=== PATIENT | female | born 1950 | race Caucasian/White ===

== ENCOUNTER → 2017-10-05 | Outpatient (CLI) | payer MEDICARE, OTHER, SELFPAY | PROVIDERS: Visit Provider Nurse Practitioner Family | DX: N39.0 Urinary tract infection, site not specified (principal) | CPT/HCPCS: 87086; 87088; 87186 ==

== ENCOUNTER → 2017-11-29 10:07 | Outpatient (CLI) | payer MEDICARE, OTHER, SELFPAY ==
[2017-11-29 10:13] LABS: Adenovirus F 40/41, stool Not Detected (NotDetected); Astrovirus Not Detected (NotDetected); Campylobacter Not Detected (NotDetected); Clostridium Difficile A/B, PCR Not Detected (NotDetected); Cryptosporidium Not Detected (NotDetected); Cyclospora Cayetanesis Not Detected (NotDetected); Entamoeba histolytica Not Detected (NotDetected); Enteroaggregative E coli Not Detected (NotDetected); Enteropathogenic E coli Not Detected (NotDetected); Enterotoxigenic E coli Not Detected (NotDetected); Giardia lamblia Not Detected (NotDetected); Norovirus Not Detected (NotDetected); Plesimonas Shigalloides, PCR Not Detected (NotDetected); Rotavirus A Not Detected (NotDetected); Salmonella, PCR Not Detected (NotDetected); Sapovirus Not Detected (NotDetected); Shiga-like toxin E coli Not Detected (NotDetected); Shigella Enterovasive E coli Not Detected (NotDetected); Vibrio Cholerae Not Detected (NotDetected); Vibrio, PCR Not Detected (NotDetected); Yersinia Entercolitica, PCR Not Detected (NotDetected)
== END ==
PROVIDERS: PCP Nurse Practitioner Family; Visit Provider Nurse Practitioner Family
DX: R10.9 Unspecified abdominal pain (principal)
CPT/HCPCS: 87507

== ENCOUNTER → 2018-02-22 11:02 | Outpatient (CLI) | payer MEDICARE, OTHER, SELFPAY ==
--- NOTE | 2018-02-22 11:18 | XR_ITS ---
EXAM: XR lumbar spine 2-3V HISTORY: Low back pain ITS.REASON: DISC DISPLACEMENT ORDERING PHYSICIAN: Peri Valentin PATIENT AGE: 67 years FINDINGS: Mild endplate osteophytes are present in the lower thoracic spine and in the lumbar spine. Mild degenerative disc disease is present from L3 to S1. There is 3 mm anterolisthesis of L3. Facet hypertrophic changes are present at L5-S1. There is a sclerotic focus in the right aspect of the sacrum superiorly at 11 mm and may be due to a bone island. Small rounded opacities are present in the upper abdomen anteriorly and may be due to overlying medication/pills. IMPRESSION: Mild lumbar spondylosis with small osteophytes and degenerative disc disease and facet arthritic change as described above
== END ==
PROVIDERS: PCP Nurse Practitioner Family; Visit Provider Nurse Practitioner Family
DX: M51.26 Other intervertebral disc displacement, lumbar region (principal); M51.27 Other intervertebral disc displacement, lumbosacral region
CPT/HCPCS: 72100

== ENCOUNTER → 2019-01-10 13:45 | Outpatient (CLI) | payer MEDICARE, OTHER, SELFPAY ==
--- NOTE | 2019-01-10 13:49 | US_ITS ---
US transvaginal HISTORY: Pelvic pain ITS.REASON: LOW ABD PAIN ORDERING PHYSICIAN: Peri Valentin PATIENT AGE: 68 years Comparison: None FINDINGS: The uterus is anteverted and measures 3.5 x 2 x 2.7 cm with a combined endometrial thickness of 2 mm. The left ovary measures 1.3 x 1 cm and has an unremarkable appearance. The right ovary was not able to be visualized due to overlying bowel. No free fluid evident. IMPRESSION: Nonvisualization of the right ovary otherwise negative pelvic ultrasound
== END ==
PROVIDERS: PCP Nurse Practitioner Family; Visit Provider Nurse Practitioner Family
DX: R10.30 Lower abdominal pain, unspecified (principal)
CPT/HCPCS: 76830

== ENCOUNTER → 2019-03-12 15:11 | Outpatient (CLI) | payer MEDICARE, OTHER, SELFPAY | PROVIDERS: Visit Provider Emergency Medicine Emergency Medical Services | DX: R07.9 Chest pain, unspecified (principal) | CPT/HCPCS: 71046; 80048; 84484; 85025; 87205; 93005 ==

== ENCOUNTER 2020-06-01 15:01 | Emergency (ER) | payer MEDICARE, OTHER, SELFPAY ==
[2020-06-01 15:21] VITALS: BP 186/92; PULSE 86; RESP 14; TEMP 36.9; O2SAT 97; BMI 26.1
--- NOTE | 2020-06-01 15:40 | HMH.EDUTC ---
[facility] [place] Disposition Clinical Impression: Sinusitis Qualifiers: Sinusitis location: unspecified location Chronicity: unspecified Qualified Code(s): J32.9 - Chronic sinusitis, unspecified Disposition: Home, Self-Care Condition on Discharge: Good Instructions: Sinusitis, Sinus Headache, DI for Sinusitis, Amoxicillin and Clavulanic Acid Additional Instructions: *Monitor Temp, Over the counter Motrin or Tylenol as directed/as needed Tylenol every 4 hours and Motrin every 6 hours (as long as your family doctor has told you that you can take it) for fever or pain. and straight to ER if unable to lower temp less than 101.0 after medication given *Warm salt water gargles may help to soothe the throat *Throat Lozenges *Warm fluids like tea with honey may help to soothe the throat *Sleep elevated *Humidifier/Vaporizer *Flonase 2 sprays in each nostril daily but be aware that it may take 2-3 days before you notice improvement Take antibiotics as prescribed Follow up with Family doctor if no improvement or any worsening of symptoms Follow up IMMEDIATELY for new or worsening symptoms or no Noticeable improvement over the next 48-72 hours. 911 for difficulty breathing or swallowing Prescriptions: Amoxicillin/Potassium Clav [Augmentin 875-125 Tablet] 1 tab PO Q12H 10 Days #20 tab Transmission Status: Received by [facility] Fluticasone Propionate [Flonase 50mcg nasal spray 16gm] 1 - 2 spr NS DAILY #1 bottle Transmission Status: Received by [facility] Referrals: Bronson Rizo MD [Primary Care Provider] - As needed Time of Disposition: 15:55 Medical Decision Making - Mandeep Inquiry Pt receiving controlled substance: No Mandeep was queried for this patient: No Vital Signs: 06/01/20 15:21 Temperature 98.5 F Temperature Source Oral Pulse Rate [Right Brachial] 86 Respiratory Rate 14 Blood Pressure [Right Arm] 186/92 H Blood Pressure Mean [Right Arm] 123 Blood Pressure Source [Right Arm] Automatic Cuff Blood Pressure Position [Right Arm] Sitting 02 Sat by Pulse Oximetry 97 Oxygen Delivery Method Room Air [facility] [place] HPI - General Stated complaint: Congestion, stuffy nose Time Seen by Provider: 06/01/20 15:40 Mode of Arrival: Ambulatory Source of Information: Patient Limitations: No Limitations Description of Symptoms (Recalled from Triage Doc. by RN): PATIENT C/O SINUS PROBLEMS AND STATES HER EARS FEEL FULL HEENT Symptoms (Recalled from RN notes): Yes Resp Symptoms (Recalled from RN notes): No Skin Symptoms (Recalled from RN notes): No MS Symptoms (Recalled from RN notes): No Functional Status (Recalled from RN notes): WNL - History of Present Illness Provider Complaint: Patient states that she thinks she may have a sinus infection, State that for last 3 weeks she has been having sinus pain and pressure States that she got a steriod shot about 3 weeks ago and it helped a little but now it is worse States that she is having sinus pressure and drainage along with irritation in her throat States that she feels like it is draining in her throat and causing her throat to hurt States that also she feels like her ears are full - Related Data Home Medications Medication Instructions Recorded Confirmed Levothyroxine Sodium [Synthroid 100 mcg PO DAILY 01/20/19 06/01/20 100mcg (0.1mg) tablet] Metformin HCl [Fortamet] 1,000 mg PO BID 01/20/19 06/01/20 Pravastatin Sodium [Pravachol 40mg 40 mg PO DAILY 01/20/19 06/01/20 Tablet] lisinopriL [Prinivil 5mg Tablet] 5 mg PO DAILY 01/20/19 06/01/20 raNITIdine HCl [Zantac 150mg] 150 mg PO DAILY 01/20/19 06/01/20 Previous Rx's Medication Instructions Recorded Amoxicillin/Potassium Clav 1 tab PO Q12H 10 Days #20 tab 06/01/20 [Augmentin 875-125 Tablet] Fluticasone Propionate [Flonase 1 - 2 spr NS DAILY #1 bottle 06/01/20 50mcg nasal spray 16gm] Allergies Allergy/AdvReac Type Severity Reaction Status Date / Time codeine Allergy Unknown Verified 0
[2020-06-01 15:59] VITALS: BP 186/92; PULSE 86; RESP 14; TEMP 36.9; O2SAT 97
== END 2020-06-01 16:06 | disposition home or self-care (01) ==
PROVIDERS: Emergency Provider Nurse Practitioner; PCP Internal Medicine Adolescent Medicine
DX: J01.90 Acute sinusitis, unspecified (principal); E11.9 Type 2 diabetes mellitus without complications; I10 Essential (primary) hypertension; E78.5 Hyperlipidemia, unspecified; Z79.899 Other long term (current) drug therapy; Z88.2 Allergy status to sulfonamides; Z88.5 Allergy status to narcotic agent
CPT/HCPCS: 99201

== ENCOUNTER → 2020-07-09 09:42 | Outpatient (CLI) | payer MEDICARE, OTHER, SELFPAY ==
--- NOTE | 2020-07-09 09:50 | CA_ITS ---
APPROVED REPORT EXAM: Comprehensive 2D, Doppler, and color-flow Echocardiogram Meter Maintenance Person: Tisha Kuo, RT(R) Ht: 5 ft 8 in Wt: 175lbs BSA: 1.93 BP: 186/93 mmHg Indications: murmur, HTN, hyperlipidemia, possible bicuspid AV on echo 2009, dizziness 2D Dimensions LVOT 1.95 cm (M/F) 1.5-2.5 M-Mode Dimensions RVDd 2.84 cm (0.9-2.6) LVDd 5.38 cm (3.5-5.7) LVDs 3.87 cm (3.5-5.7) IVSd 1.18 cm (0.6-1.1) PWd 1.10 cm (0.6-1.1) EF (Teich) 53.80% FS 28.10% EDV (Teich) 140.10 mL ESV (Teich) 64.70 mL LV Diastology E/A Ratio 0.65 Mitral Valve MV A Velocity 83.00 (40-130 cm/s) Left Ventricle Left atrium is mildly enlarged, left ventricle is normal size, mild concentric left ventricular hypertrophy, visually estimated ejection fraction 55% with no regional wall motion abnormality, grade 1 diastolic dysfunction seen without tissue Doppler evidence of raise left atrial pressure. Right Ventricle Right atrium and right ventricle are normal size and contractility. Aortic Valve Aortic valve is minimally thickened and fibrosed, aortic valve is trileaflet, there is no aortic stenosis or aortic insufficiency. Mitral Valve Mitral valve is grossly normal, there is mild mitral regurgitation. Tricuspid Valve Tricuspid valve grossly normal, there is mild tricuspid regurgitation, tricuspid regurgitation jet velocity is inadequate for calculation of the right ventricular systolic pressure. Pulmonic Valve Pulmonic valve is poorly visualized. Great Vessels Aortic root is normal size. Pericardium No significant pericardial effusion noted. Conclusion 1. Mildly enlarged left atrium, normal left ventricular size, mild concentric left ventricular hypertrophy, visually estimated ejection fraction 55% with no regional wall motion abnormality, grade 1 diastolic dysfunction seen without tissue Doppler evidence of raise left atrial pressure. 2. Thickened and calcified aortic valve without aortic stenosis or aortic insufficiency, aortic valve is trileaflet. 3. Mild mitral and tricuspid regurgitation. 4. No significant pericardial effusion noted. Electronically signed by : Duane Tijerina, 07/09/2020 13:57:03
--- NOTE | 2020-07-09 09:51 | CA_ITS ---
APPROVED REPORT Music Composition Teacher: ELI Laterality: Bilateral Risk Factors Hypertension: Hyperlipidemia Doppler Spectral Velocity Analysis ECA (R) 102.10/17.30 cm/s ECA (L) 125.20/21.20 cm/s dICA (R) 92.50/30.80 cm/s dICA (L) 113.70/33.70 cm/s Vinay (R) 96.30/31.80 cm/s Vinay (L) 101.00/32.90 cm/s pICA (R) 99.20/31.80 cm/s pICA (L) 83.80/26.20 cm/s dCCA (R) 70.00/18.60 cm/s dCCA (L) 71.90/23.80 cm/s pCCA (R) 90.50/19.90 cm/s pCCA (L) 80.30/19.30 cm/s Vert (R) 41.10/12.20 cm/s Vert (L) 61.60/22.20 cm/s ICA/CCA 1.42 ICA/CCA 1.58 Findings Duplex evaluation demonstrates stenosis of the right proximal internal carotid artery in the range of 20-49% with PSV <140 cm/sec, EDV <100 cm/sec, and IC/CC Ratio <4.0. Duplex evaluation demonstrates stenosis of the left proximal internal carotid artery in the range of 20-49% with PSV <140 cm/sec, EDV <100 cm/sec, and IC/CC Ratio <4.0. Conclusion Duplex evaluation demonstrates stenosis of the right proximal internal carotid artery in the range of 20-49% with PSV <140 cm/sec, EDV <100 cm/sec, and IC/CC Ratio <4.0. Duplex evaluation demonstrates stenosis of the left proximal internal carotid artery in the range of 20-49% with PSV <140 cm/sec, EDV <100 cm/sec, and IC/CC Ratio <4.0. Electronically signed by : Ramon Angel MD 07/09/2020 17:34:54
== END ==
PROVIDERS: PCP Internal Medicine Adolescent Medicine; Visit Provider Nurse Practitioner Family
DX: R42 Dizziness and giddiness (principal); R07.89 Other chest pain
CPT/HCPCS: 93225; 93226; 93306; 93880

== ENCOUNTER → 2021-03-15 09:06 | Outpatient (CLI) | payer MEDICARE, OTHER, SELFPAY ==
[2021-03-15 14:32] LABS: Basophils % 0.5 % (0.1-2.0); Eosinophils # 0.3 K/mm3 (0.0-0.4); Eosinophils % 3.3 % (0.1-12.0); Hematocrit 37.7 % (37.0-47.0); Hemoglobin 12.4 g/dL (12.2-16.2); Lymphocytes # 2.4 K/mm3 (0.7-4.5); Lymphocytes % 27.5 % (10-50); Mean Corpuscular HGB Conc 32.8 g/dL (31.8-35.4); Mean Corpuscular Hemoglobin 31.3 pg (27.0-31.2); Mean Corpuscular Volume 95.4 fl (81-99); Mean Platelet Volume 9.4 fl (7.4-10.4); Monocytes # 0.5 K/mm3 (0.1-1.0); Monocytes % 5.5 % (1.7-9.3); Neutrophils # 5.4 K/mm3 (1.8-7.8); Neutrophils % 63.2 % (37.0-80.0); Platelet Count 271 K/mm3 (142-424); Red Blood Count 3.96 M/mm3 (4.20-5.40); Red Cell Distribution Width 13.9 % (11.5-17.5); White Blood Count 8.6 K/mm3 (4.8-10.8)
[2021-03-15 14:50] LABS: Alanine Aminotransferase 13 U/L (12-78); Albumin Level 4.1 g/dl (3.5-5.0); Albumin/Globulin Ratio 1.5 (1.1-1.8); Alkaline Phosphatase 76 U/L (38-126); Anion Gap 11.1 mEq/L (5-15); Aspartate Amino Transferase 20 U/L (14-36); Bilirubin,Total 0.5 mg/dl (0.2-1.3); Blood Urea Nitrogen 29 mg/dl (7-17); Calcium 9.3 mg/dl (8.4-10.2); Carbon Dioxide 26 mmol/L (22.0-30.0); Chloride 107 mmol/L (98-107); Cholesterol 166 mg/dl (140-200); Estimated Glomerular Filt Rate 55 ml/min (>60); GFR (African American) 67 ML/MIN (>60); Globulin 2.7 g/dL (1.3-3.2); Glucose 184 mg/dl (74-100); HDL Cholesterol 33 mg/dl (40-60); Potassium 5.1 mmoL/L (3.5-5.1); Sodium 139 mmol/L (136-145); Total Protein,Serum 6.8 g/dl (6.3-8.2); Triglycerides 187 mg/dl (30-150); VLDL Cholesterol 37 mg/dL (0-40)
[2021-03-15 15:02] LABS: Direct LDL Cholesterol 88.44 mg/dL (100-129)
[2021-03-15 15:21] LABS: Thyroid Stimulating Hormone 0.94 uIU/mL (0.465-4.68)
[2021-03-15 16:35] LABS: Hemoglobin A1C 8.1 % (4.0-6.0)
[2021-03-15 16:36] LABS: Vitamin B12 246 pg/mL (239-931)
== END ==
PROVIDERS: Visit Provider Nurse Practitioner Family
DX: E03.9 Hypothyroidism, unspecified (principal); I10 Essential (primary) hypertension; E53.8 Deficiency of other specified B group vitamins; E11.69 Type 2 diabetes mellitus with other specified complication; Z79.84 Long term (current) use of oral hypoglycemic drugs
CPT/HCPCS: 36415; 80053; 80061; 82607; 83036; 84443; 85025

== ENCOUNTER → 2021-04-20 16:58 | Outpatient (CLI) | payer MEDICARE, OTHER, SELFPAY | PROVIDERS: Visit Provider Nurse Practitioner Family | DX: R30.0 Dysuria (principal) | CPT/HCPCS: 87086; 87088; 87186 ==

== ENCOUNTER 2021-06-07 13:46 | Emergency (ER) | payer MEDICARE, OTHER, SELFPAY ==
--- NOTE | 2021-06-07 15:31 | XR_ITS ---
PROCEDURE: XR KNEE RT 3V CLINICAL INDICATION: fall, knee pain COMPARISON: No exams were available for comparison FINDINGS: No fracture or dislocation. No lytic or blastic change. There is normal mineralization. There are minimal osteoarthritic changes involving all 3 compartments. Other findings:None. IMPRESSION: No acute findings. Dictated by: Ramon Angel MD 06/07/2021 16:22 Ramon Angel MD in [place] 06/07/2021 16:22
--- NOTE | 2021-06-07 15:31 | XR_ITS ---
PROCEDURE: XR HIP RT 2-3V W/PELVIS CLINICAL INDICATION: fall, hip pain COMPARISON: No exams were available for comparison FINDINGS: No fracture or dislocation is evident. No significant degenerative change. No lytic or blastic change. Unremarkable soft tissues. IMPRESSION: No acute findings. Dictated by: Ramon Angel MD 06/07/2021 16:23 Ramon Angel MD in [place] 06/07/2021 16:23
--- NOTE | 2021-06-07 15:31 | XR_ITS ---
PROCEDURE: XR HAND RT MIN 3V CLINICAL INDICATION: fall, hand pain COMPARISON: No exams were available for comparison FINDINGS: There is an oblique fracture involving the base of the proximal phalanx of the 2nd finger. This extends into the articular surface. There is 2 mm ulnar displacement of the distal fracture fragment. The joint spaces are well-preserved. No significant degenerative/arthritic changes. No erosive changes evident. Other findings:None. IMPRESSION: Minimally displaced fracture involves the proximal aspect the proximal phalanx of the 2nd digit with intra-articular involvement Dictated by: Ramon Angel MD 06/07/2021 16:20 Ramon Angel MD in [place] 06/07/2021 16:20
--- NOTE | 2021-06-07 15:31 | XR_ITS ---
PROCEDURE: XR WRIST RT MIN 3V CLINICAL INDICATION: fall, wrist pain COMPARISON: No exams were available for comparison FINDINGS: No fracture or dislocation. No lytic or blastic change. There is normal mineralization. The joint spaces are well-preserved. No significant degenerative/arthritic changes. No erosive changes evident. Other findings:None. IMPRESSION: No acute findings. Dictated by: Ramon Angel MD 06/07/2021 16:21 Ramon Angel MD in [place] 06/07/2021 16:21
[2021-06-07 15:34] VITALS: BP 214/91; PULSE 64; RESP 14; TEMP 36.7; O2SAT 97; BMI 25.8
--- NOTE | 2021-06-07 15:34 | HMH.EDUTC ---
[facility] [place] Clinical Impression: Superficial abrasion Right hand fracture Qualifiers: Encounter type: initial encounter Fracture type: closed Qualified Code(s): S62.91XA - Unspecified fracture of right wrist and hand, initial encounter for closed fracture Fall Qualifiers: Encounter type: initial encounter Qualified Code(s): W19.XXXA - Unspecified fall, initial encounter Contusion of right knee Qualifiers: Encounter type: initial encounter Qualified Code(s): S80.01XA - Contusion of right knee, initial encounter Contusion of right hip Qualifiers: Encounter type: initial encounter Qualified Code(s): S70.01XA - Contusion of right hip, initial encounter Disposition: Home, Self-Care Condition on Discharge: Good Instructions: DI for Contusion, DI for Abrasion, Hand Fracture Additional Instructions: Rest the extremity, apply ice for 15 minutes as tolerated three or four times per day, Elevate the extremity as tolerated while you are resting. Take ibuprofen for pain. I sent in a prescription to your pharmacy. Follow up with Dr. Archuleta (orthopedics). I called him and put in a referral but you need to call his office and schedule an appointment. Please call in the morning to get an appointment when they can see you next. Follow up with your regular doctor. GO TO THE ER FOR ANY WORSENING SYMPTOMS Her blood pressure was rechecked by me before discharge and it was 168/88. She is to follow up with her primary care doctor for further evaluation of this. Prescriptions: Ibuprofen [Ibuprofen 600mg Tablet] 600 mg PO Q6HP PRN #30 tab PRN Reason: Mild Pain Transmission Status: Received by [facility] Mupirocin [Bactroban 2% Ointment 22gm tube] 1 applicatio TP TID 7 Days #1 tube Transmission Status: Received by [facility] Referrals: Shayy Hagan APRN [Primary Care Provider] - Bob Archuleta MD [Staff Physician] - Forms: Work/School Release Time of Disposition: 17:22 Medical Decision Making - Medical Records Medical records reviewed: No: I reviewed the patient's medical records. - Mandeep Inquiry Pt receiving controlled substance: No Vital Signs: 06/07/21 15:34 06/07/21 17:24 Temperature 98.1 F 98.5 F Temperature Source Oral Pulse Rate 73 Pulse Rate [Left] 64 Respiratory Rate 14 18 Blood Pressure 207/92 H Blood Pressure [Right Arm] 214/91 H Blood Pressure Mean [Right Arm] 132 02 Sat by Pulse Oximetry 97 - Radiology Data #1 Image(s): Hand Image Reviewed: Yes I reviewed the patient's radiology image, Yes I have reviewed radiologist's interpretation Preliminary Findings: Abnormal PROCEDURE: XR HAND RT MIN 3V CLINICAL INDICATION: fall, hand pain COMPARISON: No exams were available for comparison FINDINGS: There is an oblique fracture involving the base of the proximal phalanx of the 2nd finger. This extends into the articular surface. There is 2 mm ulnar displacement of the distal fracture fragment. The joint spaces are well-preserved. No significant degenerative/arthritic changes. No erosive changes evident. Other findings:None. IMPRESSION: Minimally displaced fracture involves the proximal aspect the proximal phalanx of the 2nd digit with intra-articular involvement Dictated by: Ramon Angel MD 06/07/2021 16:20 Ramon Angel MD in [place] 06/07/2021 16:20 [facility] [place] - General Stated complaint: ao fall 06/06 rt hand injury Time Seen by Provider: 06/07/21 15:34 - History of Present Illness Provider Complaint: She states that she fell yesterday and came down on her right side. She denies hitting her head or any neck pain. She is having right hand and wrist pain, right hip pain, and right knee pain. She has an abrasion on her right knee. She is a diabetic. - Related Data Home Medications Medication Instructions Recorded Confirmed Levothyroxine Sodium [Synthroid 100 mcg PO DAILY 01/20/19 06/01/20 100mcg (0.1mg) tablet]
[2021-06-07 17:24] VITALS: BP 207/92; PULSE 73; RESP 18; TEMP 36.9
== END 2021-06-07 17:34 | disposition home or self-care (01) ==
PROVIDERS: Emergency Provider Nurse Practitioner Family; PCP Nurse Practitioner Family
DX: S62.610A Displaced fracture of proximal phalanx of right index finger, initial encounter for closed fracture (principal); W01.0XXA Fall on same level from slipping, tripping and stumbling without subsequent striking against object, initial encounter; S80.01XA Contusion of right knee, initial encounter; S70.01XA Contusion of right hip, initial encounter; Y92.480 Sidewalk as the place of occurrence of the external cause; E11.9 Type 2 diabetes mellitus without complications; E78.5 Hyperlipidemia, unspecified; I10 Essential (primary) hypertension; Z79.899 Other long term (current) drug therapy
CPT/HCPCS: 29125; G0463; 73110; 73130; 73502; 73562; 99203

== ENCOUNTER → 2021-06-21 10:11 | Outpatient (CLI) | payer MEDICARE, OTHER, SELFPAY ==
--- NOTE | 2021-06-21 10:18 | XR_ITS ---
PROCEDURE: XR HAND RT MIN 3V CLINICAL INDICATION: RIGHT 2ND mc FX COMPARISON: CR XR HAND RT MIN 3V from 06/07/2021 FINDINGS: Oblique fracture is present at the base and ulnar aspect of the proximal phalanx of the 2nd digit. The medial fracture fragment is displaced slightly medially by 2 mm. The fracture does extend into the articular surface at the metacarpophalangeal joint. IMPRESSION: No change minimally displaced fracture at the proximal aspect of the proximal phalanx of the 2nd finger Dictated by: Ramon Angel MD 06/21/2021 11:44 Ramon Angel MD in [place] 06/21/2021 11:44
== END ==
PROVIDERS: PCP Nurse Practitioner Family; Visit Provider Orthopaedic Surgery
DX: S62.619A Displaced fracture of proximal phalanx of unspecified finger, initial encounter for closed fracture (principal)
CPT/HCPCS: 73130

== ENCOUNTER → 2021-07-12 10:09 | Outpatient (CLI) | payer MEDICARE, OTHER, SELFPAY ==
--- NOTE | 2021-07-12 10:16 | XR_ITS ---
PROCEDURE: XR HAND RT MIN 3V CLINICAL INDICATION: RT 2nd digit fx, out of splint COMPARISON: CR XR HAND RT MIN 3V from 06/07/2021 CR XR HAND RT MIN 3V from 06/21/2021 FINDINGS: Comminuted fracture the proximal aspect of the proximal 2nd phalanx once again noted. The fracture extends into the articular surface with minimal ulnar displacement of the medial fracture fragment by approximately 2 mm. There may be some minimal callus formation medially. IMPRESSION: Overall no change in the minimally displaced intra-articular fracture of the proximal 2nd phalanx with some suspected minimal callus formation forming medially. Dictated by: Ramon Angel MD 07/12/2021 11:50 Ramon Angel MD in [place] 07/12/2021 11:50
== END ==
PROVIDERS: PCP Nurse Practitioner Family; Visit Provider Orthopaedic Surgery
DX: S62.610A Displaced fracture of proximal phalanx of right index finger, initial encounter for closed fracture (principal)
CPT/HCPCS: 73130

== ENCOUNTER → 2021-07-15 11:21 | Outpatient (CLI) | payer MEDICARE, OTHER, SELFPAY ==
[2021-07-15 13:28] LABS: Basophils # 0.1 K/mm3 (0-0.2); Basophils % 0.9 % (0.1-2.0); Eosinophils # 0.3 K/mm3 (0.0-0.4); Eosinophils % 3.3 % (0.1-12.0); Hematocrit 41.6 % (37.0-47.0); Lymphocytes # 2.1 K/mm3 (0.7-4.5); Mean Corpuscular HGB Conc 31.3 g/dL (31.8-35.4); Mean Corpuscular Hemoglobin 31.9 pg (27.0-31.2); Mean Corpuscular Volume 101.8 fl (81-99); Mean Platelet Volume 9.7 fl (7.4-10.4); Monocytes # 0.4 K/mm3 (0.1-1.0); Monocytes % 5.3 % (1.7-9.3); Neutrophils # 4.6 K/mm3 (1.8-7.8); Neutrophils % 62.5 % (37.0-80.0); Platelet Count 301 K/mm3 (142-424); Red Blood Count 4.08 M/mm3 (4.20-5.40); Red Cell Distribution Width 13.7 % (11.5-17.5); White Blood Count 7.4 K/mm3 (4.8-10.8)
[2021-07-15 14:17] LABS: Alanine Aminotransferase 13 U/L (12-78); Albumin/Globulin Ratio 1.3 (1.1-1.8); Alkaline Phosphatase 71 U/L (38-126); Aspartate Amino Transferase 21 U/L (14-36); Bilirubin,Total 0.5 mg/dl (0.2-1.3); Blood Urea Nitrogen 29 mg/dl (7-17); Calcium 9.3 mg/dl (8.4-10.2); Carbon Dioxide 26 mmol/L (22.0-30.0); Chloride 105 mmol/L (98-107); Estimated Glomerular Filt Rate 83 ml/min (>60); GFR (African American) 100 ML/MIN (>60); Glucose 306 mg/dl (74-100); Phosphorous 3.4 mg/dl (2.5-4.5); Sodium 140 mmol/L (136-145)
[2021-07-15 14:19] LABS: Hemoglobin A1C 8.6 % (4.0-6.0)
[2021-07-15 14:33] LABS: 25-OH Vitamin D, Total 30.5 ng/mL (30-100)
[2021-07-15 14:35] LABS: Magnesium 0.9 mg/dl (1.6-2.3)
[2021-07-15 14:46] LABS: Thyroid Stimulating Hormone 1.06 uIU/mL (0.465-4.68)
[2021-07-15 15:04] LABS: Vitamin B12 492 pg/mL (239-931)
== END ==
PROVIDERS: Visit Provider Nurse Practitioner Family
DX: R00.2 Palpitations (principal); E03.9 Hypothyroidism, unspecified; E11.69 Type 2 diabetes mellitus with other specified complication; R53.83 Other fatigue; Z79.84 Long term (current) use of oral hypoglycemic drugs
CPT/HCPCS: 36415; 80053; 82306; 82607; 83036; 83735; 84100; 84443; 85025

== ENCOUNTER → 2021-07-22 18:12 | Outpatient (CLI) | payer MEDICARE, OTHER, SELFPAY ==
[2021-07-22 19:17] LABS: Blood Urea Nitrogen 23 mg/dl (7-17); Calcium 9.5 mg/dl (8.4-10.2); Carbon Dioxide 30 mmol/L (22.0-30.0); Chloride 104 mmol/L (98-107); Estimated Glomerular Filt Rate 71 ml/min (>60); GFR (African American) 86 ML/MIN (>60); Glucose 182 mg/dl (74-100); Magnesium 1.1 mg/dl (1.6-2.3); Sodium 139 mmol/L (136-145)
== END ==
PROVIDERS: Visit Provider Nurse Practitioner Family
DX: E83.42 Hypomagnesemia (principal)
CPT/HCPCS: 80048; 83735

== ENCOUNTER 2021-08-02 10:00 | Outpatient (RCR) | payer MEDICARE, OTHER, SELFPAY ==
--- NOTE | 2021-07-05 11:18 | HMH.OTOPEV ---
OT Inpatient Evaluation Rehab OT Outpatient Eval Start: 07/05/21 10:57 Freq: Status: Active Protocol: Document 07/05/21 10:57 MONSTER (Rec: 07/05/21 11:18 MONSTER [id number]) Electronically Signed By Gissel Nick OT 07/05/21 10:57 Outpatient Therapy Subjective History Subjective History 71 year old female referred to skilled OP OT services for displaced fracture at the proximal aspect of the proximal phalanx of the 2nd finger of the right hand. Patient injured right hand after fall in the streets in [place] on 06/06/2021 when attempting to complete errands for work. 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 1+ pitty edema noted to the R UE hand index digit. Chief Complaint Pain,Decreased Production Maintenance Mechanic Strength Symptom Type Ache,Dull Symptoms Relieved By Rest/Positioning,Ice Symptoms Aggravated By Physical Activity Prior Functional Limitations None Current Functional Limitations Reaching,Lifting Symptom Description Constant and Continuous Level of pain today (0-10) 2 Pain scale - at its best (0-10) 2 Pain scale - at its worst (0-10) 3 Wrist/Hand Eval Wrist Range of Motion Right Wrist Extension Active Range of Motion ( 60 degrees) Wrist Flexion Active Range of Motion ( 80 degrees) Wrist Radial Deviation Active Range of 20 Motion (degrees) Wrist Ulnar Deviation Active Range of 30 Motion (degrees) Forearm Supination Active Range of 90 Motion (degrees) Forearm Pronation Active Range of Motion 90 (degrees) Finger Range of Motion Right Index Finger Finger Metacarpophalangeal Flexion 70 Active Range of Motion (degrees) Finger Proximal Interphalangeal Flexion 90 Active Range (degrees) Finger Distal Interphalangeal Flexion 60 Active Range of Motion (degrees) Production Maintenance Mechanic/Pinch Strength Right Production Maintenance Mechanic Strength Measurement (lbs) 20 Left Production Maintenance Mechanic Strength Measurement (lbs) 60 OT Outpatient Assessment Impairments Problems/Impairments Impaired Range of Motion, Impaired Strength,Subjective C /O Pain Prognosis Rehab Potential Good Clinical Impression Consistent with Diagnosis Yes Short Term Goals Number of Weeks 2 Increase Range of Motion
== END 2021-08-16 09:35 | disposition home or self-care (01) ==
LOC: OT 10:00
PROVIDERS: PCP Nurse Practitioner Family; Visit Provider Orthopaedic Surgery
DX: S62.610A Displaced fracture of proximal phalanx of right index finger, initial encounter for closed fracture (principal); W19.XXXA Unspecified fall, initial encounter
CPT/HCPCS: 97014; 97018; 97035; 97110; 97140; 97165; 97530; G0283

== ENCOUNTER → 2021-08-05 17:47 | Outpatient (CLI) | payer MEDICARE, OTHER, SELFPAY ==
[2021-08-05 18:43] LABS: Chloride 103 mmol/L (98-107); Sodium 138 mmol/L (136-145)
[2021-08-05 18:44] LABS: Potassium 5.6 mmoL/L (3.5-5.1)
[2021-08-05 18:47] LABS: Anion Gap 13.6 mEq/L (5-15); Blood Urea Nitrogen 25 mg/dl (7-17); Calcium 9.5 mg/dl (8.4-10.2); Carbon Dioxide 27 mmol/L (22.0-30.0); Estimated Glomerular Filt Rate 71 ml/min (>60); GFR (African American) 86 ML/MIN (>60); Glucose 302 mg/dl (74-100); Magnesium 1.1 mg/dl (1.6-2.3)
== END ==
PROVIDERS: Visit Provider Nurse Practitioner Family
DX: E83.42 Hypomagnesemia (principal)
CPT/HCPCS: 80048; 83735

== ENCOUNTER → 2021-08-12 11:39 | Outpatient (CLI) | payer MEDICARE, OTHER, SELFPAY ==
[2021-08-12 12:38] LABS: Chloride 101 mmol/L (98-107); Potassium 5.4 mmoL/L (3.5-5.1); Sodium 139 mmol/L (136-145)
[2021-08-12 12:41] LABS: Anion Gap 14.4 mEq/L (5-15); Blood Urea Nitrogen 25 mg/dl (7-17); Calcium 9.6 mg/dl (8.4-10.2); Carbon Dioxide 29 mmol/L (22.0-30.0); Estimated Glomerular Filt Rate 83 ml/min (>60); GFR (African American) 100 ML/MIN (>60); Glucose 237 mg/dl (74-100)
== END ==
PROVIDERS: Visit Provider Internal Medicine Adolescent Medicine
DX: E87.5 Hyperkalemia (principal)
CPT/HCPCS: 36415; 80048

== ENCOUNTER → 2021-08-26 18:28 | Outpatient (CLI) | payer MEDICARE, OTHER, SELFPAY ==
[2021-08-26 20:07] LABS: Blood Urea Nitrogen 22 mg/dl (7-17); Calcium 9.2 mg/dl (8.4-10.2); Carbon Dioxide 29 mmol/L (22.0-30.0); Chloride 106 mmol/L (98-107); Estimated Glomerular Filt Rate 83 ml/min (>60); GFR (African American) 100 ML/MIN (>60); Glucose 183 mg/dl (74-100); Magnesium 1.3 mg/dl (1.6-2.3); Sodium 140 mmol/L (136-145)
== END ==
PROVIDERS: Visit Provider Nurse Practitioner Family
DX: I10 Essential (primary) hypertension (principal); E83.42 Hypomagnesemia
CPT/HCPCS: 80048; 83735

== ENCOUNTER → 2021-09-30 09:39 | Outpatient (CLI) | payer MEDICARE, OTHER, SELFPAY ==
[2021-09-30 15:27] LABS: Anion Gap 12.1 mEq/L (5-15); Blood Urea Nitrogen 29 mg/dl (7-17); Carbon Dioxide 30 mmol/L (22.0-30.0); Chloride 100 mmol/L (98-107); Estimated Glomerular Filt Rate 62 ml/min (>60); GFR (African American) 75 ML/MIN (>60); Glucose 217 mg/dl (74-100); Magnesium 1.3 mg/dl (1.6-2.3); Potassium 5.1 mmoL/L (3.5-5.1); Sodium 137 mmol/L (136-145)
== END ==
PROVIDERS: Visit Provider Nurse Practitioner Family
DX: E83.42 Hypomagnesemia (principal)
CPT/HCPCS: 36415; 80048; 83735

== ENCOUNTER 2021-12-09 10:39 | Outpatient (CLI) | payer MEDICARE, SELFPAY ==
[2021-12-09 11:30] VITALS: BMI 26.9
[2021-12-09 11:38] LABS: Microscopic, Urine URINE MICROSCOPIC (MICROSCOPIC)
[2021-12-09 11:40] LABS: Appearance,Urine CLEAR (Clear); Bilirubin,Urine Negative (Negative); Blood, Urine Negative (Negative); Color,Urine YELLOW (Yellow); Glucose,Urine (UA) TRACE (Negative); Ketones,Urine Negative (Negative); Leukocyte Esterase,Urine Negative (Negative); Nitrate,Urine Negative (Negative); Protein,Urine Negative (Negative); Specific Gravity, Urine 1.025 (1.005-1.030); Urobilinogen,Urine 0.2 EU/dl (0.2)
[2021-12-09 11:52] LABS: Squamous Epithelial Cell,Urine Occasional #/hpf (0-5)
== END 2021-12-09 11:35 | disposition home or self-care (01) ==
LOC: INF 10:41
PROVIDERS: PCP Nurse Practitioner Family; Visit Provider Nurse Practitioner Family
DX: R33.9 Retention of urine, unspecified (principal)
CPT/HCPCS: 81001; 87086; G0463

== ENCOUNTER → 2022-04-19 17:56 | Outpatient (CLI) | payer MEDICARE, SELFPAY ==
[2022-04-19 18:29] LABS: Basophils # 0.1 K/mm3 (0-0.2); Basophils % 0.6 % (0.1-2.0); Eosinophils # 0.4 K/mm3 (0.0-0.4); Eosinophils % 3.8 % (0.1-12.0); Hematocrit 37.7 % (37.0-47.0); Hemoglobin 12.6 g/dL (12.2-16.2); Lymphocytes # 3.4 K/mm3 (0.7-4.5); Lymphocytes % 35.3 % (10-50); Mean Corpuscular HGB Conc 33.5 g/dL (31.8-35.4); Mean Corpuscular Volume 92.7 fl (81-99); Mean Platelet Volume 8.2 fl (7.4-10.4); Monocytes # 0.6 K/mm3 (0.1-1.0); Monocytes % 6.1 % (1.7-9.3); Neutrophils # 5.2 K/mm3 (1.8-7.8); Neutrophils % 54.1 % (37.0-80.0); Platelet Count 258 K/mm3 (142-424); Red Blood Count 4.06 M/mm3 (4.20-5.40); Red Cell Distribution Width 13.5 % (11.5-17.5); White Blood Count 9.7 K/mm3 (4.8-10.8)
[2022-04-19 18:30] LABS: Alanine Aminotransferase 16 U/L (12-78); Albumin Level 4.3 g/dl (3.5-5.0); Albumin/Globulin Ratio 1.5 (1.1-1.8); Alkaline Phosphatase 77 U/L (38-126); Anion Gap 14.9 mEq/L (5-15); Aspartate Amino Transferase 24 U/L (14-36); Blood Urea Nitrogen 42 mg/dl (7-17); Calcium 9.9 mg/dl (8.4-10.2); Carbon Dioxide 25 mmol/L (22.0-30.0); Chloride 108 mmol/L (98-107); Estimated Glomerular Filt Rate 34 ml/min (>60); GFR (African American) 41 ML/MIN (>60); Globulin 2.8 g/dL (1.3-3.2); Glucose 111 mg/dl (74-100); Potassium 4.9 mmoL/L (3.5-5.1); Sodium 143 mmol/L (136-145); Total Protein,Serum 7.1 g/dl (6.3-8.2)
[2022-04-19 18:38] LABS: Bilirubin,Total < 0.1 mg/dl (0.2-1.3)
[2022-04-19 18:46] LABS: Troponin I < 0.01 ng/ml (0.00-0.034)
[2022-04-19 19:01] LABS: Thyroid Stimulating Hormone 0.47 uIU/mL (0.465-4.68)
[2022-04-19 19:37] LABS: Hemoglobin A1C 7.6 % (4.0-6.0)
== END ==
LOC: LAB 17:58 → LAB.DROPOF 04-26 03:20
PROVIDERS: PCP Family Medicine; Visit Provider Family Medicine
DX: I10 Essential (primary) hypertension (principal); E11.9 Type 2 diabetes mellitus without complications; R55 Syncope and collapse; R53.83 Other fatigue; Z79.84 Long term (current) use of oral hypoglycemic drugs
CPT/HCPCS: 80053; 83036; 84443; 84484; 85025

== ENCOUNTER → 2022-04-20 08:34 | Outpatient (CLI) | payer MEDICARE, SELFPAY | PROVIDERS: PCP Family Medicine; Visit Provider Family Medicine | DX: I10 Essential (primary) hypertension (principal) ==

== ENCOUNTER → 2022-06-09 13:08 | Outpatient (POV) | payer MEDICARE, SELFPAY | PROVIDERS: Visit Provider Internal Medicine Nephrology | DX: Z00.00 Encounter for general adult medical examination without abnormal findings (principal) ==

== ENCOUNTER → 2022-08-03 08:35 | Outpatient (CLI) | payer MEDICARE, SELFPAY ==
--- NOTE | 2022-08-03 08:51 | CA_ITS ---
FINAL REPORT TECHNIQUE: Grayscale, color Doppler and duplex Doppler ultrasound of the kidneys, aorta and renal arteries was performed. Multiple velocities were measured. CLINICAL HISTORY: HTN,ELEVATED KIDNEY FUNCTION LABSM DM FINDINGS: Aorta velocity: 93.5 cm/sec Right kidney: 11.1 cm. No evidence of hydronephrosis or mass. Right intrarenal RI: 0.72 Right renal artery velocity: 250 cm/sec. Right RAR (Renal artery-Aortic Ratio): 2.7 Left Kidney: 10.4 cm. No evidence of hydronephrosis or mass. Left intrarenal RI: 0.73 Left renal artery velocity: 168 cm/sec. Left RAR (Renal Artery-Aortic Ratio): 1.8 IMPRESSION: No evidence of significant left renal artery stenosis. Less than 60% right renal artery stenosis. Could be further evaluated with CTA or catheter angiogram. Reviewed, Interpreted and Dictated by Shahab Greer III, MD Transcribed by Ely Monteiro Authenticated and [facility]
[2022-08-03 09:41] LABS: Microscopic, Urine URINE MICROSCOPIC (MICROSCOPIC)
--- NOTE | 2022-08-03 09:58 | US_ITS ---
FINAL REPORT TECHNIQUE: Ultrasound images of the kidneys were obtained. CLINICAL HISTORY: HTN FINDINGS: US RETROPERITONEAL The right kidney measures 10.4 cm in length. It is normal in echogenicity. There is no hydronephrosis. The left kidney measures 9.7 cm in length. It is normal in echogenicity. There is no hydronephrosis. The spleen is unremarkable. IMPRESSION: Unremarkable exam. Reviewed, Interpreted and Dictated by Shahab Greer III, MD Transcribed by Ely Monteiro Authenticated and [facility]
[2022-08-03 10:05] LABS: Hematocrit 41.9 % (37.0-47.0); Hemoglobin 13.2 g/dL (12.2-16.2); Mean Corpuscular HGB Conc 31.5 g/dL (31.8-35.4); Mean Corpuscular Hemoglobin 30.8 pg (27.0-31.2); Mean Corpuscular Volume 97.7 fl (81-99); Platelet Count 299 K/mm3 (142-424); Red Blood Count 4.29 M/mm3 (4.20-5.40); White Blood Count 7.5 K/mm3 (4.8-10.8)
[2022-08-03 10:28] LABS: Appearance,Urine CLEAR (Clear); Bilirubin,Urine Negative (Negative); Blood, Urine Negative (Negative); Color,Urine YELLOW (Yellow); Glucose,Urine (UA) 3+ (Negative); Ketones,Urine Negative (Negative); Leukocyte Esterase,Urine Negative (Negative); Nitrate,Urine Negative (Negative); Protein,Urine Negative (Negative); Specific Gravity, Urine 1.025 (1.005-1.030); Urobilinogen,Urine 0.2 EU/dl (0.2)
[2022-08-03 10:44] LABS: Chloride 101 mmol/L (98-107); Potassium 4.7 mmoL/L (3.5-5.1); Sodium 142 mmol/L (136-145)
[2022-08-03 10:58] LABS: Intact Parathyroid Hormone 37.1 pg/mL (7.5-53.5)
[2022-08-03 11:00] LABS: Bacteria,Urine Trace /lpf; Squamous Epithelial Cell,Urine Occasional #/hpf (0-5); WBC,Urine Occasional #/hpf (0-3)
[2022-08-03 11:16] LABS: Thyroid Stimulating Hormone 0.51 uIU/mL (0.465-4.68)
[2022-08-03 11:19] LABS: Creatinine,Urine Random 70 mg/dL (Not Estab.)
[2022-08-03 11:21] LABS: 25-OH Vitamin D, Total 19.9 ng/mL (30-100)
[2022-08-03 13:49] LABS: Hemoglobin A1C 8.4 % (4.0-6.0)
[2022-08-03 15:59] LABS: Alanine Aminotransferase 16 U/L (12-78); Albumin Level 4.3 g/dl (3.5-5.0); Albumin/Globulin Ratio 1.5 (1.1-1.8); Alkaline Phosphatase 113 U/L (38-126); Anion Gap 16.7 mEq/L (5-15); Aspartate Amino Transferase 20 U/L (14-36); Bilirubin,Total 0.2 mg/dl (0.2-1.3); Blood Urea Nitrogen 31 mg/dl (7-17); Calcium 9.9 mg/dl (8.4-10.2); Carbon Dioxide 29 mmol/L (22.0-30.0); Estimated Glomerular Filt Rate 62 ml/min (>60); GFR (African American) 75 ML/MIN (>60); Globulin 2.9 g/dL (1.3-3.2); Glucose 259 mg/dl (74-100); Total Protein,Serum 7.2 g/dl (6.3-8.2)
[2022-08-03 16:44] LABS: Uric Acid 4.3 mg/dl (2.5-6.2)
== END ==
PROVIDERS: PCP Family Medicine; Visit Provider Internal Medicine Nephrology
DX: E11.9 Type 2 diabetes mellitus without complications (principal); I10 Essential (primary) hypertension; N18.30 Chronic kidney disease, stage 3 unspecified; E78.5 Hyperlipidemia, unspecified; I48.91 Unspecified atrial fibrillation; E55.9 Vitamin D deficiency, unspecified
CPT/HCPCS: 36415; 76770; 80053; 81001; 82306; 82570; 83036; 83970; 84155; 84443; 84550; 85014; 85018; 85048; 85049; 93976

== ENCOUNTER → 2022-08-11 15:36 | Outpatient (POV) | payer MEDICARE, SELFPAY | PROVIDERS: Visit Provider Internal Medicine Nephrology | DX: Z00.00 Encounter for general adult medical examination without abnormal findings (principal) ==

== ENCOUNTER → 2022-12-20 18:52 | Outpatient (CLI) | payer MEDICARE, SELFPAY ==
[2022-12-20 17:09] LABS: Basophils # 0.1 K/mm3 (0-0.2); Basophils % 0.8 % (0.1-2.0); Eosinophils # 0.4 K/mm3 (0.0-0.4); Eosinophils % 3.9 % (0.1-12.0); Hematocrit 40.5 % (37.0-47.0); Hemoglobin 13.1 g/dL (12.2-16.2); Lymphocytes # 2.2 K/mm3 (0.7-4.5); Lymphocytes % 23.7 % (10-50); Mean Corpuscular HGB Conc 32.4 g/dL (31.8-35.4); Mean Corpuscular Hemoglobin 30.3 pg (27.0-31.2); Mean Corpuscular Volume 93.4 fl (81-99); Mean Platelet Volume 9.3 fl (7.4-10.4); Monocytes # 0.5 K/mm3 (0.1-1.0); Monocytes % 5.5 % (1.7-9.3); Neutrophils # 6.1 K/mm3 (1.8-7.8); Neutrophils % 66.1 % (37.0-80.0); Platelet Count 303 K/mm3 (142-424); Red Blood Count 4.34 M/mm3 (4.20-5.40); Red Cell Distribution Width 13.4 % (11.5-17.5); White Blood Count 9.2 K/mm3 (4.8-10.8)
[2022-12-20 17:37] LABS: Alanine Aminotransferase 16 U/L (12-78); Albumin Level 4.2 g/dl (3.5-5.0); Albumin/Globulin Ratio 1.4 (1.1-1.8); Alkaline Phosphatase 113 U/L (38-126); Aspartate Amino Transferase 25 U/L (14-36); Bilirubin,Total 0.6 mg/dl (0.2-1.3); Blood Urea Nitrogen 32 mg/dl (7-17); Calcium 9.1 mg/dl (8.4-10.2); Carbon Dioxide 29 mmol/L (22.0-30.0); Chloride 105 mmol/L (98-107); Chol/HDL Ratio 4.9 (1-3.5); Cholesterol 143 mg/dl (140-200); Estimated Glomerular Filt Rate 55 ml/min (>60); GFR (African American) 66 ML/MIN (>60); Glucose 154 mg/dl (74-100); HDL Cholesterol 29 mg/dl (40-60); Sodium 140 mmol/L (136-145); Total Protein,Serum 7.2 g/dl (6.3-8.2); Triglycerides 128 mg/dl (30-150); VLDL Cholesterol 26 mg/dL (0-40)
[2022-12-20 17:38] LABS: Anion Gap 10.5 mEq/L (5-15); Potassium 4.5 mmoL/L (3.5-5.1)
[2022-12-20 17:51] LABS: Direct LDL Cholesterol 76.71 mg/dL (100-129)
[2022-12-20 17:52] LABS: Hemoglobin A1C 8.5 % (4.0-6.0)
[2022-12-20 17:56] LABS: 25-OH Vitamin D, Total 31.4 ng/mL (30-100)
[2022-12-20 18:09] LABS: Thyroid Stimulating Hormone 0.83 uIU/mL (0.465-4.68)
[2022-12-20 18:59] LABS: Microalbumin/Creatinine Ratio 23.1
[2022-12-20 19:10] LABS: Creatinine,Urine Random 177 mg/dL (Not Estab.)
== END ==
PROVIDERS: PCP Family Medicine; Visit Provider Family Medicine
DX: R30.0 Dysuria (principal); I10 Essential (primary) hypertension; R53.83 Other fatigue; Z79.84 Long term (current) use of oral hypoglycemic drugs; Z00.00 Encounter for general adult medical examination without abnormal findings; E11.9 Type 2 diabetes mellitus without complications; E55.9 Vitamin D deficiency, unspecified
CPT/HCPCS: 36415; 80053; 80061; 82043; 82306; 82570; 83036; 83735; 84443; 85025; 87086; 87088; 87186

== ENCOUNTER 2023-02-23 16:01 | Emergency (ER) | payer MEDICARE, SELFPAY ==
[2023-02-23 16:20] VITALS: BP 182/67; PULSE 64; RESP 22; TEMP 36.8; O2SAT 98; BMI 27.4
[2023-02-23 16:32] LABS: Apearance,Urine Cloudy (Clear); Bilirubin,Urine Negative (Negative); Blood, Urine Negative (Negative); Color,Urine Dark Yellow (Yellow); Glucose,Urine (UA) Negative (Negative); Ketones,Urine Negative (Negative); PH,Urine 5.5 (5.0-8.5); Protein,Urine Negative (Negative); UTC Leukocyte Esterase,Urine 1+ (Negative); UTC Nitrate,Urine Positive (Negative); Urobilinogen,Urine 0.2 EU/dl (0.2)
[2023-02-23 16:35] VITALS: BP 182/67; PULSE 64; RESP 22; TEMP 36.8; O2SAT 98
--- NOTE | 2023-02-23 16:36 | EXP.UTC ---
Discharge Plan Disposition Patient Disposition: Home, Self-Care Condition: Good Prescriptions Prescriptions: New nitrofurantoin monohyd/m-cryst [Macrobid] 100 mg Capsule 100 mg PO BID Qty: 10 0RF Rx Instructions: must administer with a meal/food phenazopyridine [Pyridium] 200 mg tablet 200 mg PO Q8H 2 Days Qty: 6 0RF No Action aspirin [Adult Aspirin Regimen] 81 mg tablet,delayed release (DR/EC) 81 mg PO DAILY pravastatin 80 mg tablet 80 mg PO DAILY (DME) lancets [Accu-Chek Softclix Lancets] Misc See Rx Instructions .ROUTE .MEDSUPPLY Qty: 100 Rx Instructions: As directed (DME) blood-glucose meter [Accu-Chek Guide Me Glucose Mtr] Misc See Rx Instructions .ROUTE .MEDSUPPLY Qty: 1 Rx Instructions: As directed ergocalciferol (vitamin D2) 1,250 mcg (50,000 unit) capsule 50,000 unit PO QMONTH (DME) Accu-Chek Guide test strips Strip See Rx Instructions .Route Qty: 100 2RF Rx Instructions: Pt is to check BS BID prn carvedilol 6.25 mg tablet 6.25 mg PO BID glipizide 5 mg tablet 5 mg PO BID Tradjenta 5 mg tablet See Rx Instructions .ROUTE .COMPLEX Rx Instructions: TAKE 1 TABLET BY MOUTH ONCE DAILY FOR DIABETES Referrals Follow up/Referrals: John Rodrigues MD [Primary Care Provider] - See instructions Activity Restrictions/Add. Instructions Additional Instructions/Restrictions: Drink plenty of fluids. Take tylenol or ibuprofen for pain or fever. Take the medications as directed. Follow up with your regular doctor. GO TO THE ER FOR ANY WORSENING SYMPTOMS The pyridium will make your urine turn orange, this is an expected side effect. It will stain your clothes if it comes into contact with them. We will culture the urine. That will tell what bacteria is causing your infection and which antibiotics will treat it best. Sometimes the first antibiotic we prescribe turns out to not work against different bacteria. So, make sure you follow up within 3 days if you are not getting better. Clinical Impressions Clinical Impression: UTI (urinary tract infection) Instructions Patient Instructions: Urinary Tract Infection, Urine Culture, DI for Urinary Tract Infection (UTI), Phenazopyridine Discharge ED Provider: [facility] [place] HPI General Stated complaint: Possible UTI Mode of Arrival: Ambulatory Source of Information: Patient Limitations: No Limitations Time Seen by Provider: 02/23/23 16:29 Description of Symptoms (Recalled from Triage Doc. by RN): PATIENT C/O LOWER BACK PAIN, PELVIC PAIN, AND BURNING WITH URINATION X 2-3 DAYS HEENT Symptoms (Recalled from RN notes): No Resp Symptoms (Recalled from RN notes): No Skin Symptoms (Recalled from RN notes): No MS Symptoms (Recalled from RN notes): No Functional Status (Recalled from RN notes): WNL History of Present Illness Provider Complaint: She states that for the past 2 days she has had low back pain, burning with urination, and urinary frequency. Related Data Home Medications Medication Instructions Recorded Confirmed aspirin 81 mg tablet,delayed 81 mg PO DAILY . 04/19/22 02/23/23 release (Adult Aspirin Regimen) blood-glucose meter (Accu-Chek #1 ea 04/19/22 01/31/23 Guide Me Glucose Meter) lancets (Accu-Chek Softclix #100 ea 04/19/22 01/31/23 Lancets) pravastatin 80 mg tablet 80 mg PO DAILY Cholesterol 04/19/22 02/23/23 ergocalciferol (vitamin D2) 1,250 50,000 unit PO QMONTH Supplement 08/24/22 02/23/23 mcg (50,000 unit) capsule carvedilol 6.25 mg tablet 6.25 mg PO BID Hypertension 02/23/23 02/23/23 glipizide 5 mg tablet 5 mg PO BID Diabetes 02/23/23 02/23/23 linagliptin 5 mg tablet (Tradjenta) See Rx Instructions .Route 02/23/23 02/23/23 .COMPLEX . Previous Rx's Medication Instructions Recorded blood sugar diagnostic (Accu-Chek #100 ea 07/31/22 Guide test strips) nitrofurantoin 100 mg PO BID #10 caps 02/23/23
== END 2023-02-23 16:45 | disposition home or self-care (01) ==
PROVIDERS: Emergency Provider Nurse Practitioner Family; PCP Family Medicine
DX: N39.0 Urinary tract infection, site not specified (principal); M54.59 Other low back pain; E11.9 Type 2 diabetes mellitus without complications; K21.9 Gastro-esophageal reflux disease without esophagitis; I10 Essential (primary) hypertension; E03.9 Hypothyroidism, unspecified; Z79.84 Long term (current) use of oral hypoglycemic drugs
CPT/HCPCS: 81003; 87086; 87186; 99212; 99214; G0463

== ENCOUNTER → 2023-02-28 10:56 | Outpatient (CLI) | payer MEDICARE, SELFPAY ==
[2023-02-28 12:55] LABS: 25-OH Vitamin D, Total 27.1 ng/mL (30-100)
[2023-02-28 22:00] LABS: Creatinine,Urine Random 217 mg/dL (Not Estab.)
[2023-03-02 12:44] LABS: Total Protein,Urine Random < 5.0 mg/dL (0.0-12.0)
== END ==
PROVIDERS: PCP Family Medicine; Visit Provider Internal Medicine Nephrology
DX: N18.30 Chronic kidney disease, stage 3 unspecified (principal); E03.9 Hypothyroidism, unspecified; I10 Essential (primary) hypertension; I48.91 Unspecified atrial fibrillation; E78.5 Hyperlipidemia, unspecified; E11.9 Type 2 diabetes mellitus without complications; Z79.84 Long term (current) use of oral hypoglycemic drugs
CPT/HCPCS: 82043; 82306; 82570; 83970; 84155

== ENCOUNTER → 2023-03-05 11:15 | Outpatient (CLI) | payer MEDICARE, SELFPAY ==
[2023-03-05 12:06] LABS: Alanine Aminotransferase 20 U/L (12-78); Albumin/Globulin Ratio 1.4 (1.1-1.8); Alkaline Phosphatase 100 U/L (38-126); Aspartate Amino Transferase 26 U/L (14-36); Bilirubin,Total 0.3 mg/dl (0.2-1.3); Blood Urea Nitrogen 30 mg/dl (7-17); Calcium 9.1 mg/dl (8.4-10.2); Carbon Dioxide 28 mmol/L (22.0-30.0); Chloride 105 mmol/L (98-107); Estimated Glomerular Filt Rate 55 ml/min (>60); GFR (African American) 66 ML/MIN (>60); Globulin 2.8 g/dL (1.3-3.2); Glucose 229 mg/dl (74-100); Sodium 142 mmol/L (136-145); Total Protein,Serum 6.8 g/dl (6.3-8.2)
== END ==
PROVIDERS: PCP Family Medicine; Visit Provider Internal Medicine Nephrology
DX: I10 Essential (primary) hypertension (principal); E03.9 Hypothyroidism, unspecified; E87.5 Hyperkalemia; I48.91 Unspecified atrial fibrillation; N18.30 Chronic kidney disease, stage 3 unspecified; E11.9 Type 2 diabetes mellitus without complications; Z79.84 Long term (current) use of oral hypoglycemic drugs
CPT/HCPCS: 36415; 80053

== ENCOUNTER → 2023-03-26 23:56 | Outpatient (CLI) | payer MEDICARE, SELFPAY | PROVIDERS: PCP Family Medicine; Visit Provider Family Medicine | DX: M54.50 Low back pain, unspecified (principal); R10.32 Left lower quadrant pain; B96.1 Klebsiella pneumoniae [K. pneumoniae] as the cause of diseases classified elsewhere | CPT/HCPCS: 87086; 87186 ==

== ENCOUNTER → 2023-05-01 11:00 | Outpatient (CLI) | payer MEDICARE, SELFPAY ==
[2023-05-01 16:46] LABS: Basophils # 0.1 K/mm3 (0-0.2); Basophils % 0.7 % (0.1-2.0); Eosinophils # 0.3 K/mm3 (0.0-0.4); Eosinophils % 3.6 % (0.1-12.0); Hematocrit 41.2 % (37.0-47.0); Lymphocytes # 2.5 K/mm3 (0.7-4.5); Mean Corpuscular HGB Conc 31.4 g/dL (31.8-35.4); Mean Corpuscular Hemoglobin 29.7 pg (27.0-31.2); Mean Corpuscular Volume 94.6 fl (81-99); Monocytes # 0.5 K/mm3 (0.1-1.0); Monocytes % 5.7 % (1.7-9.3); Neutrophils # 5.3 K/mm3 (1.8-7.8); Platelet Count 233 K/mm3 (142-424); Red Blood Count 4.36 M/mm3 (4.20-5.40); Red Cell Distribution Width 13.5 % (11.5-17.5); White Blood Count 8.7 K/mm3 (4.8-10.8)
[2023-05-01 16:50] LABS: Alanine Aminotransferase 17 U/L (12-78); Albumin Level 4.7 g/dl (3.5-5.0); Albumin/Globulin Ratio 1.4 (1.1-1.8); Alkaline Phosphatase 109 U/L (38-126); Anion Gap 12.2 mEq/L (5-15); Aspartate Amino Transferase 25 U/L (14-36); Bilirubin,Total 0.4 mg/dl (0.2-1.3); Blood Urea Nitrogen 30 mg/dl (7-17); Calcium 10.2 mg/dl (8.4-10.2); Carbon Dioxide 31 mmol/L (22.0-30.0); Chloride 103 mmol/L (98-107); Estimated Glomerular Filt Rate 62 ml/min (>60); GFR (African American) 74 ML/MIN (>60); Globulin 3.4 g/dL (1.3-3.2); Glucose 186 mg/dl (74-100); Potassium 5.2 mmoL/L (3.5-5.1); Sodium 141 mmol/L (136-145); Total Protein,Serum 8.1 g/dl (6.3-8.2)
[2023-05-01 17:13] LABS: Hemoglobin A1C 8.6 % (4.0-6.0)
[2023-05-01 17:22] LABS: Thyroid Stimulating Hormone 0.28 uIU/mL (0.465-4.68)
[2023-05-01 20:14] LABS: Microalbumin/Creatinine Ratio 57.3
[2023-05-01 20:15] LABS: Creatinine,Urine Random 69 mg/dL (Not Estab.)
== END ==
PROVIDERS: PCP Family Medicine; Visit Provider Family Medicine
DX: E11.9 Type 2 diabetes mellitus without complications; I10 Essential (primary) hypertension; E03.9 Hypothyroidism, unspecified; Z79.84 Long term (current) use of oral hypoglycemic drugs
CPT/HCPCS: 80053; 82043; 82570; 83036; 84443; 85025

== ENCOUNTER → 2023-06-22 23:57 | Outpatient (CLI) | payer MEDICARE, SELFPAY | PROVIDERS: PCP Nurse Practitioner Family; Visit Provider Nurse Practitioner Family | DX: R30.0 Dysuria (principal); B96.29 Other Escherichia coli [E. coli] as the cause of diseases classified elsewhere | CPT/HCPCS: 87086; 87088; 87186 ==

== ENCOUNTER 2023-12-03 15:49 | Outpatient (CLI) | payer MEDICARE, SELFPAY ==
[2023-12-03 15:56] LABS: Microscopic, Urine URINE MICROSCOPIC (MICROSCOPIC)
[2023-12-03 16:31] LABS: Hematocrit 39.9 % (37.0-47.0); Hemoglobin 13.4 g/dL (12.2-16.2); Mean Corpuscular HGB Conc 33.7 g/dL (31.8-35.4); Mean Corpuscular Hemoglobin 31.6 pg (27.0-31.2); Mean Corpuscular Volume 93.8 fl (81-99); Platelet Count 199 K/mm3 (142-424); Red Blood Count 4.26 M/mm3 (4.20-5.40); Red Cell Distribution Width 13.4 % (11.5-17.5); White Blood Count 9.4 K/mm3 (4.8-10.8)
[2023-12-03 16:50] LABS: Appearance,Urine CLEAR (Clear); Bilirubin,Urine Negative (Negative); Blood, Urine Negative (Negative); Color,Urine YELLOW (Yellow); Glucose,Urine (UA) 3+ (Negative); Ketones,Urine Negative (Negative); Leukocyte Esterase,Urine Negative (Negative); Nitrate,Urine Negative (Negative); Protein,Urine Negative (Negative); Specific Gravity, Urine 1.025 (1.005-1.030); Urobilinogen,Urine 0.2 EU/dl (0.2)
[2023-12-03 16:54] LABS: Alanine Aminotransferase 17 U/L (12-78); Albumin Level 4.2 g/dl (3.5-5.0); Albumin/Globulin Ratio 1.4 (1.1-1.8); Alkaline Phosphatase 77 U/L (38-126); Anion Gap 10.4 mEq/L (5-15); Aspartate Amino Transferase 21 U/L (14-36); Bilirubin,Total 0.4 mg/dl (0.2-1.3); Blood Urea Nitrogen 29 mg/dl (7-17); Calcium 10.2 mg/dl (8.4-10.2); Carbon Dioxide 33 mmol/L (22.0-30.0); Chloride 104 mmol/L (98-107); Estimated Glomerular Filt Rate 55 ml/min (>60); GFR (African American) 66 ML/MIN (>60); Globulin 2.9 g/dL (1.3-3.2); Glucose 209 mg/dl (74-100); Potassium 4.4 mmoL/L (3.5-5.1); Sodium 143 mmol/L (136-145); Total Protein,Serum 7.1 g/dl (6.3-8.2)
[2023-12-03 17:05] LABS: Intact Parathyroid Hormone 45.3 pg/mL (7.5-53.5)
[2023-12-03 17:09] LABS: 25-OH Vitamin D, Total 85.9 ng/mL (30-100)
[2023-12-03 17:42] LABS: Creatinine,Urine Random 127 mg/dL (Not Estab.)
[2023-12-03 18:22] LABS: Hemoglobin A1C 8.8 % (4.0-6.0)
== END 2023-12-03 23:59 ==
LOC: LAB 15:50
PROVIDERS: PCP Family Medicine; Visit Provider Internal Medicine Nephrology
DX: I10 Essential (primary) hypertension (principal); E11.9 Type 2 diabetes mellitus without complications; E03.8 Other specified hypothyroidism; I48.91 Unspecified atrial fibrillation; E87.5 Hyperkalemia; N18.30 Chronic kidney disease, stage 3 unspecified; Z79.84 Long term (current) use of oral hypoglycemic drugs; Z79.899 Other long term (current) drug therapy
CPT/HCPCS: 36415; 80053; 81001; 82306; 82570; 83036; 83970; 84155; 84550; 85014; 85018; 85048; 85049

== ENCOUNTER 2024-01-02 16:42 | Outpatient (CLI) | payer MEDICARE, SELFPAY | END 2024-01-02 23:59 | LOC: LAB.DROPOF 16:43 | PROVIDERS: PCP Family Medicine; Visit Provider Family Medicine | DX: R30.0 Dysuria (principal); B96.29 Other Escherichia coli [E. coli] as the cause of diseases classified elsewhere; B95.2 Enterococcus as the cause of diseases classified elsewhere | CPT/HCPCS: 87086 ==

== ENCOUNTER 2024-02-25 10:06 | Outpatient (CLI) | payer MEDICARE, SELFPAY | END 2024-02-25 23:59 | disposition home or self-care (01) | LOC: LAB.DROPOF 02-26 10:07 | PROVIDERS: PCP Family Medicine; Visit Provider Family Medicine | DX: R30.0 Dysuria (principal); B96.29 Other Escherichia coli [E. coli] as the cause of diseases classified elsewhere; B96.89 Other specified bacterial agents as the cause of diseases classified elsewhere | CPT/HCPCS: 87077; 87086; 87088 ==

== ENCOUNTER 2024-03-11 14:51 | Emergency (ER) | payer MEDICARE, SELFPAY ==
[2024-03-11 15:30] VITALS: BP 143/75; PULSE 54; RESP 18; TEMP 37.1; O2SAT 97; BMI 24.3
--- NOTE | 2024-03-11 15:43 | EXP.UTC ---
Discharge Plan Disposition Patient Disposition: Home, Self-Care Condition: Good Prescriptions Prescriptions: No Action aspirin [Adult Aspirin Regimen] 81 mg tablet,delayed release (DR/EC) 81 mg PO DAILY (DME) lancets [Accu-Chek Softclix Lancets] [facility] [place] See Rx Instructions .ROUTE .MEDSUPPLY Qty: 100 Rx Instructions: As directed (DME) blood-glucose meter [Accu-Chek Guide Me Glucose Mtr] [facility] [place] See Rx Instructions .ROUTE .MEDSUPPLY Qty: 1 Rx Instructions: As directed omeprazole magnesium [Prilosec OTC] 20 mg tablet,delayed release (DR/EC) 20 mg PO BID Qty: 60 2RF oxybutynin chloride 5 mg tablet extended release 24hr 5 mg PO DAILY Qty: 90 2RF pravastatin 80 mg tablet 80 mg PO DAILY Qty: 90 3RF nitrofurantoin monohyd/m-cryst [Macrobid] 100 mg capsule 100 mg PO Q12H Qty: 20 0RF Rx Instructions: must administer with a meal/food (DME) Accu-Chek Guide test strips Strip See Rx Instructions .ROUTE .COMPLEX Qty: 100 5RF Dose Instruction: USE 1 STRIP TO CHECK GLUCOSE TWICE DAILY NEEDED FOR DIABETES Rx Instructions: USE 1 STRIP TO CHECK GLUCOSE TWICE DAILY NEEDED FOR DIABETES cholecalciferol (vitamin D3) 1,250 mcg (50,000 unit) capsule 50,000 unit PO WEEKLY Qty: 20 2RF Patient Comments: TAKE 1 CAPSULE BY MOUTH ONCE A WEEK levothyroxine 100 mcg tablet 100 mcg PO .6 days a week 90 Days Qty: 90 0RF glipizide 10 mg tablet extended release 24hr See Rx Instructions .ROUTE .COMPLEX Qty: 180 0RF Dose Instruction: Take 1 tablet by mouth twice daily Rx Instructions: Take 1 tablet by mouth twice daily carvedilol 6.25 mg tablet See Rx Instructions .ROUTE .COMPLEX Qty: 180 0RF Dose Instruction: Take 1 tablet by mouth twice daily Rx Instructions: Take 1 tablet by mouth twice daily Referrals Follow up/Referrals: John Rodrigues MD [Primary Care Provider] - See instructions Activity Restrictions/Add. Instructions Additional Instructions/Restrictions: Drink plenty of fluids. Take tylenol for pain or fever. Take the medications as directed. Follow up with your regular doctor, please call them in the morning to get a follow up appointment there withing the next 48 hours. GO TO THE ER FOR ANY WORSENING SYMPTOMS Clinical Impressions Clinical Impression: Fatigue, Weakness Instructions Patient Instructions: DI for Fatigue, DI for Muscle Weakness Discharge ED Provider: Bronson Rose [facility] [place] HPI General Stated complaint: light headed, weakness Time Seen by Provider: 03/11/24 15:43 History of Present Illness Provider Complaint: She states that for the past 3 weeks she has had felt weak, fatigued, and light headed at times. She denies any chest pain and shortness of breath. Related Data Home Medications Medication Instructions Recorded Confirmed aspirin 81 mg tablet,delayed 81 mg PO DAILY . 04/19/22 02/25/24 release (Adult Aspirin Regimen) blood-glucose meter (Accu-Chek #1 ea 04/19/22 02/25/24 Guide Me Glucose Meter) lancets (Accu-Chek Softclix #100 ea 04/19/22 02/25/24 Lancets) Previous Rx's Medication Instructions Recorded omeprazole magnesium 20 mg 20 mg PO BID #60 tabs 03/26/23 tablet,delayed release (Prilosec OTC) blood sugar diagnostic (Accu-Chek #100 ea 04/30/23 Guide test strips) pravastatin 80 mg tablet 80 mg PO DAILY Cholesterol #90 tabs 05/22/23 oxybutynin chloride 5 mg 5 mg PO DAILY #90 tabs 06/22/23 tablet,extended release 24 hr cholecalciferol (vitamin D3) 1,250 50,000 unit PO WEEKLY #20 caps 09/03/23 mcg (50,000 unit) capsule levothyroxine 100 mcg tablet 100 mcg PO .6 days a week 12/07/23 hypothyroid 90 days #90 tabs nitrofurantoin 100 mg PO Q12H #20 caps 02/25/24 monohydrate/macrocrystals 100 mg capsule (Macrobid) carvedilol 6.25 mg tablet See Rx Instructions .Route 03/03/24 .COMPLEX #180 tabs glipizide 10 mg tablet, extended See Rx Instructions .Route 03/03/24 release 24 hr .COMPLEX #180 tabs Allergies Allergy/AdvReac Type Severity Reaction Status Date / Time codeine Allergy Unknown Vomiting Verified 03/11/24 16:00 guaifenesin Allergy Unknown Hives Verified 03/11/24 16:00 Sulfa (Sulfonamide Allergy Unknown Hives Verified 03/11/24 16:00 Antibiotics) Tetracyclines Allergy Verified 03/11/24 16:00 PFSH [facility] Disclaimer: The information contained in this section may have been updated after the patient was seen, as this information can be updated by other users. Medical History Fatty tumor Cystitis Shoulder pain Incurvated nail Renal failure Diabetes type 2, controlled Urine incontinence GERD (gastroesophageal reflux disease) Hypothyroid Hypertension Atrial fibrillation Contusion of right hip Superficial abrasion Contusion of right knee Fall Sinusitis URI (upper respiratory infection) Atypical chest pain Diverticulitis Surgical History History of dental surgery Breast mass, right H/O tubal ligation History of cholecystectomy H/O sinus surgery Family History Grandmother Cancer Grandfather Cancer Brother Cancer Social History Smoking Status: Never smoker alcohol intake: never substance use type: denies use current occupational status: retired Travel in the last 8 weeks: None household members: family housing: house caffeine: Yes ROS Obtained: Yes All systems reviewed & no additional complaints except as documented Constitutional Constitutional: Denies chills, Denies fever(s) and Denies headache(s) Eyes Eyes: Denies eye discharge ENT Ears, Nose, Mouth, and Throat: Denies dizziness, Denies otalgia, Denies headache(s) and Denies sore throat Cardiovascular Cardiovascular: Denies chest pain Respiratory Respiratory: Denies shortness of breath, Denies chest congestion, Denies cough, Denies stridor and Denies wheezing Gastrointestinal Gastrointestingal: Denies abdominal pain, cramping, diarrhea, nausea or vomiting Musculoskeletal Musculoskeletal: Reports system reviewed and no additional complaints, except as documented, Denies abnormal gait and Denies arthralgias Integumentary/Breasts Skin/Breast: Denies rash Neurologic Neurologic: Denies abnormal gait, Denies dizziness, Denies headache(s), Denies memory loss and Denies paresthesias Allergic/Immunologic Allergic/Immunologic: Denies wheezing Physical Exam General General appearance: alert and in no apparent distress Head Head exam: atraumatic, normocephalic and normal inspection Eye Eye exam: Present normal appearance, PERRL and EOMI ENT ENT exam: Present normal exam, normal oropharynx, mucous membranes moist, TM's normal bilaterally and normal external ear exam Neck Neck exam: Present normal inspection, full ROM and trachea midline; Absent meningismus or lymphadenopathy Chest Chest inspection: Present normal inspection and symmetric chest wall rise; Absent tenderness Respiratory Respiratory exam: Present normal lung sounds bilaterally; Absent respiratory distress Cardiovascular Cardiovascular exam: Present regular rate and normal rhythm; Absent JVD Abdominal Exam Abdominal exam: Present soft and normal bowel sounds; Absent distention, tenderness or guarding Extremities Exam Extremities exam: Present normal inspection, full ROM and normal capillary refill; Absent calf tenderness Back Exam Back exam: Present normal inspection; Absent tenderness Neurological Exam Neurological exam: Present alert and oriented X3 Psychiatric Psychiatric exam: Present normal affect and normal mood Skin Skin exam: Present warm, dry, intact and normal color Lymphatic Lymphatic Findings: no adenopathy Medical Decision Making Medical Records Medical records reviewed: No I reviewed the patient's medical records. Mandeep Inquiry Pt receiving controlled substance: No Lab Data Lab results reviewed: Yes I reviewed the patient's lab results. 03/11/24 16:50 03/11/24 16:50
--- NOTE | 2024-03-11 16:08 | XR_ITS ---
FINAL REPORT TECHNIQUE: Chest PA & Lateral CLINICAL HISTORY: Acute cough, fatigue. COMPARISON: None. FINDINGS: 2 views of the chest were performed. The heart size is normal. The mediastinum is within normal limits. There is mild scar or atelectasis in the left lung base. There are no pleural effusions. There is no pneumothorax. The bony thorax appears intact. IMPRESSION: Mild scar or atelectasis in the left lung base. Reviewed, Interpreted and Dictated by Delmar Pedraza MD Transcribed by Afua Sanchez PA-C Authenticated and . [facility]
--- NOTE | 2024-03-11 16:52 | ECG_ITS ---
APPROVED REPORT Exam: Resting ECG HR:49 bpm ECG Measurements Heart Rate 49 AXES DE 120 P -71 QRSd 96 QRS -41 QT 436 T 79 QTc 405 Conclusion Junctional bradycardia Left axis deviation Electronically signed by : TERRI GOLDMAN, 03/11/2024 20:44:25
--- NOTE | 2024-03-11 16:52 | PC.NURSE ---
Sent blood to lab at 16:52
[2024-03-11 17:16] LABS: Basophils # 0.1 K/mm3 (0-0.2); Basophils % 1.3 % (0.1-2.0); Eosinophils # 0.4 K/mm3 (0.0-0.4); Eosinophils % 4.3 % (0.1-12.0); Hematocrit 43.1 % (37.0-47.0); Lymphocytes # 3.2 K/mm3 (0.7-4.5); Lymphocytes % 38.2 % (10-50); Mean Corpuscular HGB Conc 32.5 g/dL (31.8-35.4); Mean Corpuscular Hemoglobin 31.5 pg (27.0-31.2); Mean Corpuscular Volume 97.1 fl (81-99); Mean Platelet Volume 8.5 fl (7.4-10.4); Monocytes # 0.5 K/mm3 (0.1-1.0); Monocytes % 5.5 % (1.7-9.3); Neutrophils # 4.2 K/mm3 (1.8-7.8); Neutrophils % 50.7 % (37.0-80.0); Platelet Count 238 K/mm3 (142-424); Red Blood Count 4.44 M/mm3 (4.20-5.40); Red Cell Distribution Width 13.7 % (11.5-17.5); White Blood Count 8.2 K/mm3 (4.8-10.8)
[2024-03-11 17:22] LABS: Apearance,Urine Clear (Clear); Bilirubin,Urine Negative (Negative); Blood, Urine Negative (Negative); Color,Urine Yellow (Yellow); Glucose,Urine (UA) Negative (Negative); Ketones,Urine Negative (Negative); PH,Urine 5.5 (5.0-8.5); Protein,Urine Negative (Negative); Specific Gravity, Urine 1.015 (1.005-1.030); UTC Leukocyte Esterase,Urine Negative (Negative); UTC Nitrate,Urine Negative (Negative); Urobilinogen,Urine 0.2 EU/dl (0.2)
[2024-03-11 17:27] LABS: Chloride 105 mmol/L (98-107); Potassium 4.9 mmoL/L (3.5-5.1); Sodium 142 mmol/L (136-145)
[2024-03-11 17:30] LABS: Anion Gap 11.9 mEq/L (5-15); Blood Urea Nitrogen 25 mg/dl (7-17); Calcium 10.6 mg/dl (8.4-10.2); Carbon Dioxide 30 mmol/L (22.0-30.0); Creatinine Clearance Estimated 58 mL/min (50-200); Estimated Glomerular Filt Rate 55 ml/min (>60); GFR (African American) 66 ML/MIN (>60); Glucose 134 mg/dl (74-100)
[2024-03-11 17:42] VITALS: BP 143/75; PULSE 54; RESP 18; TEMP 37.1; O2SAT 97
== END 2024-03-11 17:42 | disposition home or self-care (01) ==
PROVIDERS: Emergency Provider Nurse Practitioner Family; PCP Family Medicine
DX: R00.1 Bradycardia, unspecified (principal); R42 Dizziness and giddiness; R53.83 Other fatigue; R53.1 Weakness; E11.9 Type 2 diabetes mellitus without complications; K21.9 Gastro-esophageal reflux disease without esophagitis; E03.9 Hypothyroidism, unspecified; I10 Essential (primary) hypertension; Z79.84 Long term (current) use of oral hypoglycemic drugs
CPT/HCPCS: 71046; 80048; 81003; 85025; 93005; 99212; 99214; G0463

== ENCOUNTER 2024-05-27 10:45 | Outpatient (CLI) | payer MEDICARE, SELFPAY ==
[2024-05-27 16:18] LABS: Basophils # 0.1 K/mm3 (0-0.2); Eosinophils # 0.3 K/mm3 (0.0-0.4); Eosinophils % 3.7 % (0.1-12.0); Hematocrit 41.2 % (37.0-47.0); Lymphocytes # 2.8 K/mm3 (0.7-4.5); Lymphocytes % 32.5 % (10-50); Mean Corpuscular HGB Conc 31.6 g/dL (31.8-35.4); Mean Corpuscular Hemoglobin 30.9 pg (27.0-31.2); Mean Corpuscular Volume 97.7 fl (81-99); Mean Platelet Volume 10.1 fl (7.4-10.4); Monocytes # 0.6 K/mm3 (0.1-1.0); Monocytes % 6.9 % (1.7-9.3); Neutrophils # 4.8 K/mm3 (1.8-7.8); Neutrophils % 55.9 % (37.0-80.0); Platelet Count 230 K/mm3 (142-424); Red Blood Count 4.22 M/mm3 (4.20-5.40); Red Cell Distribution Width 13.6 % (11.5-17.5); White Blood Count 8.6 K/mm3 (4.8-10.8)
[2024-05-27 16:32] LABS: Creatinine,Urine Random 53 mg/dL (Not Estab.)
[2024-05-27 16:33] LABS: Microalbumin/Creatinine Ratio 57.1
[2024-05-27 16:35] LABS: Hemoglobin A1C 10.1 % (4.0-6.0)
[2024-05-27 16:43] LABS: Alanine Aminotransferase 15 U/L (12-78); Albumin Level 4.1 g/dl (3.5-5.0); Albumin/Globulin Ratio 1.2 (1.1-1.8); Alkaline Phosphatase 80 U/L (38-126); Anion Gap 12.8 mEq/L (5-15); Aspartate Amino Transferase 28 U/L (14-36); Bilirubin,Total 0.6 mg/dl (0.2-1.3); Blood Urea Nitrogen 29 mg/dl (7-17); Calcium 9.6 mg/dl (8.4-10.2); Carbon Dioxide 27 mmol/L (22.0-30.0); Chloride 106 mmol/L (98-107); Chol/HDL Ratio 4.3 (1-3.5); Cholesterol 164 mg/dl (140-200); Estimated Glomerular Filt Rate 54 ml/min (>60); GFR (African American) 66 ML/MIN (>60); Globulin 3.3 g/dL (1.3-3.2); Glucose 160 mg/dl (74-100); HDL Cholesterol 38 mg/dl (40-60); Magnesium 1.6 mg/dl (1.6-2.3); Potassium 5.8 mmoL/L (3.5-5.1); Sodium 140 mmol/L (136-145); Total Protein,Serum 7.4 g/dl (6.3-8.2); Triglycerides 146 mg/dl (30-150); VLDL Cholesterol 29 mg/dL (0-40)
[2024-05-27 16:54] LABS: Direct LDL Cholesterol 79.96 mg/dL (100-129)
[2024-05-27 16:59] LABS: 25-OH Vitamin D, Total 45.5 ng/mL (30-100)
== END 2024-05-27 23:59 | disposition home or self-care (01) ==
LOC: LAB.DROPOF 05-28 12:24
PROVIDERS: PCP Family Medicine; Visit Provider Family Medicine
DX: I10 Essential (primary) hypertension (principal); E55.9 Vitamin D deficiency, unspecified; E11.9 Type 2 diabetes mellitus without complications; E03.9 Hypothyroidism, unspecified; Z79.84 Long term (current) use of oral hypoglycemic drugs
CPT/HCPCS: 80050; 80053; 80061; 82043; 82306; 82570; 83036; 83735; 84443; 85025

== ENCOUNTER 2024-06-06 15:09 | Emergency (ER) | payer MEDICARE, SELFPAY ==
--- NOTE | 2024-06-06 16:24 | EXP.UTC ---
Discharge Plan Disposition Patient Disposition: Home, Self-Care Condition: Good Prescriptions Prescriptions: New acyclovir 800 mg tablet 800 mg PO Q8H 7 Days Qty: 21 0RF prednisone 10 mg tablet 10 mg PO DIRECTED 9 Days Qty: 21 0RF Rx Instructions: Take 4 tablets daily for 3 days, then take 2 tablets daily for 3 days, then take 1 tablet daily for 3 days, then stop. No Action aspirin [Adult Aspirin Regimen] 81 mg tablet,delayed release (DR/EC) 81 mg PO DAILY (DME) lancets [Accu-Chek Softclix Lancets] Misc See Rx Instructions .ROUTE .MEDSUPPLY Qty: 100 Rx Instructions: As directed (DME) blood-glucose meter [Accu-Chek Guide Me Glucose Mtr] Misc See Rx Instructions .ROUTE .MEDSUPPLY Qty: 1 Rx Instructions: As directed omeprazole magnesium [Prilosec OTC] 20 mg tablet,delayed release (DR/EC) 20 mg PO BID Qty: 60 2RF oxybutynin chloride 5 mg tablet extended release 24hr 5 mg PO DAILY Qty: 90 2RF cephalexin 500 mg capsule 500 mg PO BID 10 Days Qty: 20 0RF pravastatin 80 mg tablet 80 mg PO DAILY Qty: 90 3RF trazodone 150 mg tablet 50 - 150 mg PO HS Qty: 30 1RF cholecalciferol (vitamin D3) 1,250 mcg (50,000 unit) capsule 50,000 unit PO WEEKLY Qty: 20 2RF Patient Comments: TAKE 1 CAPSULE BY MOUTH ONCE A WEEK levothyroxine 100 mcg tablet 100 mcg PO .6 days a week 90 Days Qty: 90 0RF (DME) Accu-Chek Guide test strips Strip See Rx Instructions .ROUTE .COMPLEX Qty: 100 5RF Dose Instruction: USE 1 STRIP TO CHECK GLUCOSE TWICE DAILY NEEDED FOR DIABETES Rx Instructions: USE 1 STRIP TO CHECK GLUCOSE TWICE DAILY NEEDED FOR DIABETES pioglitazone 15 mg tablet 15 mg PO DAILY Qty: 30 2RF pseudoephedrine HCl 120 mg tablet extended release 120 mg PO Q12H Qty: 20 1RF carvedilol 6.25 mg tablet See Rx Instructions .ROUTE .COMPLEX Qty: 180 0RF Dose Instruction: Take 1 tablet by mouth twice daily Rx Instructions: Take 1 tablet by mouth twice daily glipizide 10 mg tablet extended release 24hr See Rx Instructions .ROUTE .COMPLEX Qty: 180 0RF Dose Instruction: Take 1 tablet by mouth twice daily Rx Instructions: Take 1 tablet by mouth twice daily Referrals Follow up/Referrals: John Rodrigues MD [Primary Care Provider] - See instructions Activity Restrictions/Add. Instructions Additional Instructions/Restrictions: Drink plenty of fluids. Take tylenol or for pain or fever. Take the medications as directed. Continue the antibiotics that you are already on. Follow up with your regular doctor. GO TO THE ER FOR ANY WORSENING SYMPTOMS Clinical Impressions Clinical Impression: Shingles Instructions Patient Instructions: Shingles, DI for Shingles, Prednisone, Acyclovir Print Language Print Language: Kyrgyz Discharge ED Provider: Bronson Rose [facility] General Stated complaint: pain over R eye possible shingles Time Seen by Provider: 06/06/24 16:24 History of Present Illness Provider Complaint: She states that for the past 2 days she has had a painful rash on her right forehead. She denies any eye pain or irritation. Related Data Home Medications ?Medication ?Instructions ?Recorded ?Confirmed aspirin 81 mg tablet,delayed 81 mg PO DAILY . 04/19/22 06/02/24 release (Adult Aspirin Regimen) blood-glucose meter (Accu-Chek #1 ea 04/19/22 06/02/24 Guide Wi Glucose Meter) lancets (Accu-Chek Softclix #100 ea 04/19/22 06/02/24 Lancets) Previous Rx's ?Medication ?Instructions ?Recorded omeprazole magnesium 20 mg 20 mg PO BID #60 tabs 03/26/23 tablet,delayed release (Prilosec OTC) pravastatin 80 mg tablet 80 mg PO DAILY Cholesterol #90 tabs 05/22/23 oxybutynin chloride 5 mg 5 mg PO DAILY #90 tabs 06/22/23 tablet,extended release 24 hr cholecalciferol (vitamin D3) 1,250 50,000 unit PO WEEKLY #20 caps 09/03/23 mcg (50,000 unit) caps
[2024-06-06 16:48] VITALS: BP 152/65; PULSE 66; RESP 16; TEMP 37.3; O2SAT 97; BMI 25.0
[2024-06-06 17:00] VITALS: BP 152/65; PULSE 66; RESP 20; TEMP 37.3; O2SAT 97
== END 2024-06-06 17:01 | disposition home or self-care (01) ==
PROVIDERS: Emergency Provider Nurse Practitioner Family; PCP Family Medicine
DX: B02.9 Zoster without complications (principal)
CPT/HCPCS: 96374; 99212; 99214; G0463; J1100

== ENCOUNTER 2024-08-29 10:54 | Outpatient (CLI) | payer MEDICARE, SELFPAY | END 2024-08-29 23:59 | disposition home or self-care (01) | LOC: LAB.DROPOF 09-01 10:28 | PROVIDERS: PCP Family Medicine; Visit Provider Family Medicine | DX: N39.0 Urinary tract infection, site not specified (principal) | CPT/HCPCS: 87086; 87088; 87186 ==

== ENCOUNTER 2024-11-21 15:31 | Outpatient (CLI) | payer MEDICARE, SELFPAY ==
--- NOTE | 2024-11-21 15:36 | XR_ITS ---
FINAL REPORT CLINICAL HISTORY: fell on knee FINDINGS: There is no acute fracture or dislocation. There are moderate degenerative changes, greatest in the medial compartment. 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 There is a moderate joint effusion. IMPRESSION: Moderate changes without acute fracture. Moderate joint effusion. Given the history of trauma, MRI follow-up may be considered. Reviewed, Interpreted and Dictated by Donis Munson MD Transcribed by Lisa Alcocer Authenticated and [facility]
== END 2024-11-21 23:59 | disposition home or self-care (01) ==
LOC: RAD 15:32
PROVIDERS: PCP Family Medicine; Visit Provider Family Medicine
DX: M25.562 Pain in left knee (principal)
CPT/HCPCS: 73562

== ENCOUNTER 2024-12-04 08:45 | Outpatient (CLI) | payer MEDICARE, SELFPAY | END 2024-12-04 23:59 | disposition home or self-care (01) | LOC: LAB.DROPOF 12-05 10:53 | PROVIDERS: PCP Family Medicine; Visit Provider Family Medicine | DX: N39.0 Urinary tract infection, site not specified (principal); B96.1 Klebsiella pneumoniae [K. pneumoniae] as the cause of diseases classified elsewhere | CPT/HCPCS: 87086; 87088; 87186 ==

== ENCOUNTER 2024-12-16 14:49 | Outpatient (CLI) | payer MEDICARE, SELFPAY | END 2024-12-16 23:59 | disposition home or self-care (01) | LOC: RT 14:51 | PROVIDERS: PCP Family Medicine; Visit Provider Physician Assistant | DX: I48.0 Paroxysmal atrial fibrillation (principal); R00.2 Palpitations | CPT/HCPCS: 93225; 93227 ==

== ENCOUNTER 2024-12-18 15:10 | Outpatient (CLI) | payer MEDICARE, SELFPAY | END 2024-12-18 23:59 | disposition home or self-care (01) | LOC: RT 15:11 | PROVIDERS: PCP Family Medicine; Visit Provider Physician Assistant | DX: I48.0 Paroxysmal atrial fibrillation (principal); R07.89 Other chest pain; R40.0 Somnolence; G47.33 Obstructive sleep apnea (adult) (pediatric); R53.83 Other fatigue | CPT/HCPCS: 93270 ==

== ENCOUNTER 2025-01-07 07:23 | Outpatient (CLI) | payer MEDICARE, SELFPAY ==
--- NOTE | 2025-01-07 | CA_ITS ---
APPROVED REPORT Exam: Pharmacologic Technologist: Domenica Mario Ht: 5 ft 8 in Wt: 175 lbs BSA: 1.93 m2 Stress Test Details Test: Lexiscan HR Resting HR: 51 bpm Max Heart Rate (APMHR): 147.716449 bpm Max HR Achieved: 76 bpm Target HR (85% APMHR): 124.088390 bpm % of APMHR: 51.70 Recovery HR: 61 bpm BP Resting BP: 179.0/74.0 mmHg Max BP: 186.0/74.0 mmHg Recovery BP: 170.0/71.0 mmHg ECG Resting ECG: Sinus bradycardia Stress ECG Conclusion Symptoms: none Arrhythmias/Ectopy: none ST-T Changes: < 1.[address] segment changes Conclusion: Non-diagnostic Lexiscan stress test. Electronically signed by : Devika Reynoso MD 01/08/2025 12:06:40
--- NOTE | 2025-01-07 07:28 | NM_ITS ---
APPROVED REPORT Exam: Nuclear Stress Test Indication: htn, diabetes, hyperlipidemia, sob, a-fib Patient Location: Outpatient Stress Tech: Domenica Mario [place] Tech:Norma Alberto RACIELChely RT (R)(N)(M) Ht: 5 ft 8 in Wt: 170 lbs Bra Size: 36b HR: 51 bpm BP: 179/74 mmHg BSA: 1.91 m2 TID: 1.13 BMI: 25.8 History: htn, diabetes, hyperlipidemia, sob, a-fib Procedure: Patient received 0.4 mg of intravenous Lexiscan, resting heart rate 51 bpm, resting blood pressure 179/74 mmHg, with Lexiscan maximum heart rate achieved was 75 bpm which is % of the maximum predicted heart rate and blood pressure was 155/75 mmHg. With Lexiscan, patient denied any complaint of chest pain. Cardiac Stress and Resting SPECT Images: Cardiac Stress and Resting SPECT images were obtained using technetium 99m Myoview 31.2 mCi stress and 10.58 mCi at rest. Resting and stress imaging in supine positions demonstrate no evidence of fixed or reversible perfusion defects. Gated imaging demonstrates normal global LV systolic function. LVEF is calculated at 52%. Conclusion: No evidence of fixed or reversible perfusion defects. Gated imaging demonstrates normal global LV systolic function. LVEF is calculated at 52%. Electronically signed by : Devika Reynoso MD 01/08/2025 12:22:00
[2025-01-07] MEDS: SODIUM CHLORIDE 0.9% 10ML SYR (RAD ONLY) 10 ML IV ×2 (07:45→09:30)
--- NOTE | 2025-01-07 08:31 | CA_ITS ---
APPROVED REPORT EXAM: Comprehensive 2D, Doppler, and color-flow Echocardiogram Horse Stud Worker: Katia Garcia RVT Ht: 5 ft 8 in Wt: 175lbs BSA: 1.93 BP: 116/52 mmHg Indications: A-FIB,FATIGUE,SOA,ISABELA 2D Dimensions Left Atrium 4.84 cm F: 2.7 - 3.8 LA Volume 52.40 mL RVID Base (AP4) 2.73 cm (M/F) 2.5-4.1 LA Volume Index 27.15 mL/m2 (M/F) 16-34 LVOT 2.12 cm (M/F) 1.5-2.5 EF AP4 50.30 % GL Strain -13.0 % M-Mode Dimensions RVDd 3.39 cm (0.9-2.6) LVDd 5.98 cm (3.5-5.7) Ao Diam 2.91 cm (2.0-3.7) LVDs 2.99 cm (3.5-5.7) IVSd 1.07 cm (0.6-1.1) PWd 0.85 cm (0.6-1.1) EF (Teich) 80.60% FS 50.00% EDV (Teich) 178.60 mL TAPSE 2.21 (<1.7) ESV (Teich) 34.70 mL LV Diastology E Decel Time 225 (160-240 msec) E/A Ratio 0.9 MED E' 3.9 (>= 7 cm/sec) E'/MED E' Ratio 17.49 (<= 14) LAT E' 4.3 (>= 10 cm/sec) E/LAT E' Ratio 15.86 (<= 14) Aortic Valve LVOT Max 118.0 (70-110 cm/s) FATOUMATA Index 1.81 cm2/m2 LVOT VTI 29.78 cm AoV Peak Jean. 127.0 (50-130 cm/s) AO Peak GR. 6.50 mmHg AO Mean GR. 3.30 (<5 mmHg) AO VTI 30.1 (18-25 cm) FATOUMATA (VTI) 3.49 (2.5-4.5 cm2) Mitral Valve MV E Max Jean. 68.0 (40-130 cm/s) MV A Velocity 79.0 (40-130 cm/s) E/A Ratio 0.86 MV Decel. Time 225 (160-240 ms) Tricuspid Valve TR P. Velocity 244.00 cm/s RAP Estimate 10.00 mmHg RVSP 33.80 mmHg Left Ventricle The left ventricle is normal size. The left ventricular systolic function is low normal. There is increased overall thickness. There is normal LV segmental wall motion. The left ventricular diastolic function is normal. LVEF is 50%. Right Ventricle Right ventricle is mildly dilated. The right ventricular systolic function is normal. Atria Left atrium is mildly dilated. Right atrium is mildly dilated. There is no Doppler evidence of interatrial shunt. Aortic Valve The aortic valve is mildly thickened. Trace aortic regurgitation. There is no aortic valvular stenosis. Mitral Valve The mitral valve is normal in structure. Trace mitral regurgitation. No evidence of mitral valve stenosis. Tricuspid Valve Tricuspid valve is grossly normal in structure and function. Mild tricuspid regurgitation. RVSP is 20-25 mmHg. Pulmonic Valve The pulmonary valve is normal in structure. Trace pulmonic regurgitation. Great Vessels The aortic root is normal in size. IVC is normal in size and collapses >50% with inspiration. Pericardium There is no pericardial effusion. Other Information Study Quality: Fair Conclusion Low-normal LV systolic function (LVEF 50%). Mild RV dilation with normal RV function. Biatrial dilation. Mild TR. Electronically signed by : Devika Reynoso MD 01/13/2025 14:38:37
[2025-01-07] MEDS: REGADENOSON 0.4MG/5ML SYRINGE 0.4 MG IV (09:30)
[2025-01-07] MEDS: ISOTOPE MYOVIEW (PER STUDY) 1 DOSE IV (10:05)
== END 2025-01-07 23:59 | disposition home or self-care (01) ==
LOC: RAD 07:24
PROVIDERS: PCP Family Medicine; Visit Provider Physician Assistant
DX: R06.09 Other forms of dyspnea (principal); R40.0 Somnolence; G47.33 Obstructive sleep apnea (adult) (pediatric); R53.83 Other fatigue; R07.89 Other chest pain; I48.0 Paroxysmal atrial fibrillation
CPT/HCPCS: 78452; 93017; 93018; 93306; A9502; J2785

== ENCOUNTER 2025-01-12 16:45 | Outpatient (CLI) | payer MEDICARE, SELFPAY ==
[2025-01-12 18:11] LABS: Creatinine,Urine Random 43 mg/dL (Not Estab.)
== END 2025-01-12 23:59 | disposition home or self-care (01) ==
LOC: LAB 16:46
PROVIDERS: PCP Family Medicine; Visit Provider Family Medicine
DX: E11.8 Type 2 diabetes mellitus with unspecified complications (principal); N39.41 Urge incontinence
CPT/HCPCS: 82043; 82570; 87086; 87088; 87186

== ENCOUNTER 2025-04-06 10:37 | Outpatient (CLI) | payer MEDICARE, SELFPAY ==
--- OUTSIDE RECORDS SUMMARY | 2025-01-17 17:30 | XMS_ITS ---
Author Organization [facility] D [facility] Address [address] [facility] [address] [facility] [address] [place] [address] Care Team Providers Care Sampler Pickup Name Role Phone Srini Cooley Primary Care Provider Srini Cooley Unavailable Unavailable Migration, Provider Unavailable Unavailable Allergies Allergen (clinical drug ingredient) Drug/Non Drug Allergy documented on EMR Reaction Allergy Type Onset Date Status SULFA (uncoded) Unknown Allergy Acti ve codeine Codeine Unknown Drug Allergy Active tetracycline Tetracycline Unknown Drug Allergy A ctive REASON FOR VISIT [facility] To [facility] Conversion Encounter Medications Medication SIG (Take, Route, [...] review and pick correct strength-formulati on from [facility] options. If intended option is not shown, [...] review and pick correct strength-formulati on from [employer] options. If intended option is not shown, discontinue and re-order from Quick Search* 03/07/2013 Active Encounters Encounter Location Date Provider Diagnosis [facility] PED HOW[facility] [address] [place], [place] [address] 01/17/2025 Provider Migration Diverticulitis K57.92 Assessments Encounter [...] 90 Progress Notes * NIKHILJohanna NDOB:1950 ([age] yo F)Acc No.[id number]:01/17/2025 Patient: Johanna GLASGOW Provider: Jesse Whitman :1950 A ge:74 Y S ex:Female Date:01/17/2025 Address:[address] [place] [address], [facility] [id number] Pcp:Srini Cooley Subjective: * Chief Complaints: * [facility] . [facility] * Medical History: * Medications: T aking Magnesium Oxide 400 MG Tablet 1 tab(s) orally three times a day , Taking TrueTrack Test DIRECTED TEST BID , Notes to Pharmacist: *Please review and pick correct strength-formulation from [facility] options. If intended option is [...] Electronic signature of Vanessa arellano Migration on 04/08/2025 at 10:59 AM EDT Sign off status: Pending * Provider: Jesse gaxiola Migration Date: 0 01/17/2025 Generated for Hua gomez/Magdi/Nelidaitting on: 0 04/08/2025 10:59 AM EDT
[2025-04-06 16:57] LABS: Human Rhinovirus Not Detected (NotDetected); Influenza A, PCR Not Detected (NotDetected); Influenza B, PCR Not Detected (NotDetected); Respiratory Syncytial Virus Not Detected (NotDetected)
[2025-04-07 18:40] LABS: Coronavirus 19, PCR Detected (NotDetected)
--- OUTSIDE RECORDS SUMMARY | 2025-04-08 10:59 | XMS_ITS | Encounter Summary ---
Author Organization [employer] [facility] Address [address] [place] [address] Care Team Providers Care Licensed Surveyor Name Role Phone Unavailable Primary Care Provider Unavailabl e Encounter Details Date Type Department Care Team (Late st Contact Info) Description 06/28/2023 Outside Orders [facility] Central Scheduling [address] [place] [address] John Rodrigues MD [address] [facility] [address] [place] [address] Visit for screening mammogram (Primary Dx) Social History Tobacco Use Types Packs/Day Years Used Date Smoking Tobacco: Never Assessed Comments Unknown Sex and Gender Information Value Date Recorded Sex Assigned at Female 2022 12:55 PM CDT Legal Sex Female 12:55 PM CDT Gender Identity Female 2022 12:55 PM CDT Sexual Orientation Not on file documented as of this encounter Plan of Treatment Upcoming Encounters Date Type Department Care Team (Latest Contact Info) Description 05/19/2025 7:30 AM EDT Hospital Encounter [facility] Surgery Department [address] [place] [address] Rosa M Rangel MD [address] [facility] [address] [place] [address] 05/19/2025 7:30 AM EDT - 05/19/2025 11:24 AM EDT Surgery [facility] Surgery Department [address] [place] [address] Rosa M Rangel MD [address] [facility] [address] [place] [address] LAPAROSCOPY WITH ROBOTIC ASSISTNAE SUPRACERVICAL HYSTERECTOMY, SACRCOLPOPEXY, PARA VAGINAL DEFECT REPAIR 10/05/2025 11:00 AM EST Appointment [facility] Breast Imaging [address] [facility] [address] [place] [address] John Rodrigues MD [address] [place], [place] [address] Scheduled Procedures Name Priority Associated Diagnoses Date/Ti me ROBOTIC LAPAROSCOPY,SUPRACERVICAL HYSTERECTOMY Cystocele, lateral Uterovaginal prolapse, incomplete Urge incontinence Hypermobility of urethra 05/19/2025 7:30 AM EDT ROBOTIC LAPAROSCOPY,SACROCOLPOPEXY Cystocele, lateral Uterovaginal prolapse, incomplete Urge incontinence Hypermobility of urethra 05/19/2025 7:30 AM EDT documented as of this encounter Visit Diagnoses Diagnosis Visit for screening mammogram- Primary Cystocele, lateral Uterovaginal prolapse, incomplete Urge incontinence Hypermobility of urethra documented in this encounter
--- OUTSIDE RECORDS SUMMARY | 2025-04-08 10:59 | XMS_ITS | Encounter Summary ---
Author Organization [facility] [facility] Address [address] [place] [address] Care Team Providers Care Circus Roustabout Name Role Phone Unavailable Primary Care Provider Unavailabl e Encounter Details Date Type Department Care Team (Late st Contact Info) Description 03/02/2023 Outside Orders [facility] Central Scheduling [address] [place] [address] Prabhakar Van MD [address] [facility] [address] [place], [place] [id number] Essential hypertension (Primary Dx) Social History Tobacco Use Types [...] Description 05/19/2025 7:30 AM EDT Hospital Encounter [facility] Surgery Department [address] [place] [address] Rosa M Rangel MD [address] [facility] [address] [place] [address] 05/19/2025 7:30 AM EDT - 05/19/2025 11:24 AM EDT Surgery [facility] Surgery Department [address] [place] [address] Rosa M Rangel MD [address] [facility] [address] [place] [address] LAPAROSCOPY WITH ROBOTIC ASSISTNAE SUPRACERVICAL HYSTERECTOMY, SACRCOLPOPEXY, PARA VAGINAL DEFECT REPAIR 10/05/2025 11:00 AM EST Appointment [facility] Breast Imaging [address] [facility] [address] [place] [address] John Rodriuges MD [address] [place] [address] Scheduled Procedures Name Priority Associated Diagnoses Date/Ti me ROBOTIC LAPAROSCOPY,SUPRACERVICAL HYSTERECTOMY Cystocele, lateral Uterovaginal prolapse, incomplete Urge incontinence Hypermobility of urethra 05/19/2025 7:30 AM EDT ROBOTIC LAPAROSCOPY,SACROCOLPOPEXY Cystocele, lateral Uterovaginal prolapse, incomplete Urge incontinence Hypermobility of urethra 05/19/2025 7:30 AM EDT documented as of this encounter Visit Diagnoses Diagnosis Essential hypertension- Primary Unspecified essential hypertension Cystocele, lateral Uterovaginal prolapse, incomplete Urge incontinence Hypermobility of urethra documented in this encounter
--- OUTSIDE RECORDS SUMMARY | 2025-04-08 10:59 | XMS_ITS | Clinical Summary ---
Author Organization [employer] Address [address] [place] [address] Care Team Providers Care Motor And Generator Brush Cutter Name Role Phone Unavailable Primary Care Provider Unavailabl e Social History Tobacco Use Types Packs/Day Years Used Date Smoking Tobacco: Never Assessed Interpersonal Safety Answer Date Record ed Family or friends hurt you Not on file 01/30 Family or friends insult you Not on file Family or friends threaten you Not on file 0 01/31/2024 Family or friends scream or curse at you Not on file 01/31/2024 Food Insecurity Answer Date Recorded Food run out past 12 months Not on file 01/13 Food did not last past 12 months Not on file 01/31/2024 Employment Answer Date Recorded Help finding and keeping a job Not on file 0 01/31/2024 Family and Community Support Answer Hernán e Recorded Help with Day to Day Activities Not on file 01/31/2024 Feeling Lonely or Isolated Not on file 01/30 Educational Attainment Answer Date Lizandro rded Speak language other than Nauruan at home Not on file 01/31/2024 Want help with school or training Not on file 01/31/2024 Depression Answer Date Recorded PHQ-2 Risk Not on file 01/31/2024 Disabilities Answer Date Recorded Difficulty concentrating Not on file 024 Difficulty doing errands alone Not on file 0 01/31/2024 Substance Use Answer Date Recorded Used prescription meds for non-medical reasons N ot on file 01/31/2024 Used illegal drugs past 12 months Not on file 01/31/2024 Comments Unknown Sex and Gender Information Value Date Recorded Sex Assigned at Female 2022 12:55 PM CDT Legal Sex Female 12:55 PM CDT Gender Identity Female 2022 12:55 PM CDT Sexual Orientation Not on file Plan of Treatment Upcoming Encounters Date Type Department Care Team (Latest Contact Info) Description 05/19/2025 7:30 AM EDT Hospital Encounter [facility] Surgery Department [address] [place] [address] Rosa M Rangel MD [address] [facility] [address] [place], [place] [id number] 05/19/2025 7:30 AM EDT - 05/19/2025 11:24 AM EDT Surgery [facility] Surgery Department [address] [place] [address] Rosa M Rangel MD [address] [facility] [address] [place], [place] [id number] LAPAROSCOPY WITH ROBOTIC ASSISTNAE SUPRACERVICAL HYSTERECTOMY, SACRCOLPOPEXY, PARA VAGINAL DEFECT REPAIR 10/05/2025 11:00 AM EST Appointment [facility] Breast Imaging [address] [place] [address] [address] [place] [address] John Rodrigues MD [address] [place], [place] [id number] Scheduled Procedures Name Priority Associated Diagnoses Date/Ti me ROBOTIC LAPAROSCOPY,SUPRACERVICAL HYSTERECTOMY Cystocele, lateral Uterovaginal prolapse, incomplete Urge incontinence Hypermobility of urethra 05/19/2025 7:30 AM EDT ROBOTIC LAPAROSCOPY,SACROCOLPOPEXY Cystocele, lateral Uterovaginal prolapse, incomplete Urge incontinence Hypermobility of urethra 05/19/2025 7:30 AM EDT Health Maintenance Due Date Last Done Comments CT Colonography 1950 Colonoscopy 1950 Colorectal Cancer Screening 1950 DXA SCAN 1950 FOBT/FIT 1951 Fit-DNA (Cologuard) 1950 Sigmoidoscopy 1950 Depression Screening (12+) 1963 Tobacco Cessation Counseling and Screening (12+) 1963 Hepatitis C Screening 1969 DTAP/TDAP/TD VACCINES (1 - Tdap) 1970 Shingles Vaccine (Zoster) (1 of 2) 2001 Pneumococcal 50+ years (2 of 2 - PPSV23) 05/21/2018 05/21/2017 COVID-19 VACCINE (3 - 2023-2 5 season) 2024 02/03/2021, 01/06/2021 Falls Risk Screening 10/15/2024 Medicare Initial AWV G0438 10/16/2024 Influenza Vaccine (Season Ended) 2025 08/05/2021, 07/02/2020, 08/12/2019 Respiratory Syncytial Virus (RSV) Adult or (1 - 1-dose 75+ series) 2026 Breast Cancer Screening 09/29/2026 09/29/20 24, 05/09/2022, 05/03/2021, Additional history exists Procedures Procedure Name Priority Date/Time Associated Diagnosis Comments MM DIGITAL MAMMO SCREEN WITH RAMONA BILATERAL Routine 09/29/2024 12:03 PM EST Visit for screening mammogram from Last 3 Months or Most Recently Relevant to Health Maintenance Results * MM digital mammo screen with ramona bilateral (09/29/2024 12:03 PM EST) Anatomical Region Laterality Modality Breast Bilateral Mammography 10/01/2024 6:25 PM EST Impressions 10/01/2024 6:26 PM EST No mammographic evidence of malignancy. BI-RADS CATEGORY: 2 , BENIGN FINDING(S). RECOMMENDED FOLLOW-UP: Routine annual screening mammography. A letter including results and recommendations was sent to the patient. Density notification was provided as well. Patient information entered into a reminder system with a target due date for the next mammogram. At our facility, a [place]ong[place] marker is positioned over a visible skin lesion and a linear marker is used to indicate a scar. A triangular marker is placed on a self reported palpable finding. Mammography does not detect approximately 10-15% of breast cancers. An annual clinical breast exam by the patient's breast care physician and regular monthly self breast exams by the patient are integral parts of breast cancer screening. A normal mammogram does not completely exclude the presence of breast cancer, especially if there is an abnormal finding on physical exam. When clinically indicated, a biopsy should not be deferred because of a normal mammogram report. : 1950 Images reviewed, interpreted, and dictated by Trisha Peng MD Narrative 10/01/2024 6:26 PM EST BILATERAL SCREENING DIGITAL MAMMOGRAPHY CLINICAL INDICATION: Routine screening TECHNIQUE: Bilateral CC and MLO views were obtained with 2-D and 3D digital acquisitions. The study was read with the assistance of CAD. COMPARISON: Previous studies back to September 02, 2019. FINDINGS: No suspicious mass, calcifications or architectural distortion is seen. There are scattered areas of fibroglandular density bilaterally. No change identified. us John Rodrigues MD IMG MAMMOGRAPHY ORDERABLES Final Result from Last 3 Months or Most Recently Relevant to Health Maintenance Insurance [facility] [employer] HMO MAP HUMANA MEDICARE HMO
--- OUTSIDE RECORDS SUMMARY | 2025-04-08 10:59 | XMS_ITS | Encounter Summary ---
Author Organization [employer] Address [address] [place] [address] Care Team Providers Care Software Systems Architect Name Role Phone Unavailable Primary Care Provider Unavailabl e Encounter Details Date Type Department Care Team (Late st Contact Info) Description 08/21/2022 Outside Orders [facility] Central Scheduling [address] [place] [address] Prabhakar Van MD [address] [facility] [address] [place] [address] Social History Tobacco Use Types Packs/Day Years [...] Description 05/19/2025 7:30 AM EDT Hospital Encounter [facility] Surgery Department [address] [place] [address] Rosa M Rangel MD [address] [facility] [address] [place] [address] 05/19/2025 7:30 AM EDT - 05/19/2025 11:24 AM EDT Surgery [facility] Surgery Department [address] [place] [address] Rosa M Rangel MD [address] [facility] [address] [place] [address] LAPAROSCOPY WITH ROBOTIC ASSISTNAE SUPRACERVICAL HYSTERECTOMY, SACRCOLPOPEXY, PARA VAGINAL DEFECT REPAIR 10/05/2025 11:00 AM EST Appointment [facility] Breast Imaging [address] [facility] [address] [place] [address] John Rodrigues MD [address] [place] [address] Scheduled Procedures Name Priority Associated Diagnoses Date/Ti me ROBOTIC LAPAROSCOPY,SUPRACERVICAL HYSTERECTOMY Cystocele, lateral Uterovaginal prolapse, incomplete Urge incontinence Hypermobility of urethra 05/19/2025 7:30 AM EDT ROBOTIC LAPAROSCOPY,SACROCOLPOPEXY Cystocele, lateral Uterovaginal prolapse, incomplete Urge incontinence Hypermobility of urethra 05/19/2025 7:30 AM EDT documented as of this encounter Visit Diagnoses Not on filedocumented in this encounter
--- OUTSIDE RECORDS SUMMARY | 2025-04-08 11:00 | XMS_ITS | Referral Summary ---
Author Organization [employer] Address [address] [place] [address] Care Team Providers Care Story Reader Name Role Phone Unavailable Primary Care Provider [...] Date Lizandro rded Speak language other than Nicaraguan at home Not on file 01/31/2024 Want [...] Description 05/19/2025 7:30 AM EDT Hospital Encounter [facility] Surgery Department [address] [place] [address] Rosa M Rangel MD [address] [facility] [address] [place] [address] 05/19/2025 7:30 AM EDT - 05/19/2025 11:24 AM EDT Surgery [facility] Surgery Department [address] [place] [address] Rosa M Rangel MD [address] [facility] [address] [place], [place] [id number] LAPAROSCOPY WITH ROBOTIC ASSISTNAE SUPRACERVICAL HYSTERECTOMY, SACRCOLPOPEXY, PARA VAGINAL DEFECT REPAIR 10/05/2025 11:00 AM EST Appointment [facility] Breast Imaging [address] [place] [address] [address] [place] [address] John Rodrigues MD [address] [place], [place] [id number] Scheduled Procedures Name Priority Associated Diagnoses Date/Ti me ROBOTIC LAPAROSCOPY,SUPRACERVICAL HYSTERECTOMY Cystocele, lateral Uterovaginal prolapse, incomplete Urge incontinence Hypermobility of urethra 05/19/2025 7:30 AM EDT ROBOTIC LAPAROSCOPY,SACROCOLPOPEXY Cystocele, lateral Uterovaginal prolapse, incomplete Urge incontinence Hypermobility of urethra 05/19/2025 7:30 AM EDT Procedures Procedure Name Priority Date/Time Associated Diagnosis [...] the next mammogram. At our facility, a mcgrath marker is positioned over a visible skin [...] of fibroglandular density bilaterally. No change identified. John Rodrigues MD IM MAMMOGRAPHY ORDERABLES Final Result from Last 3 Months or Most Recently Relevant to Health Maintenance Insurance [facility] [employer] MAP HUMANA MEDICARE HMO
--- OUTSIDE RECORDS SUMMARY | 2025-04-08 11:00 | XMS_ITS | Encounter Summary ---
Author Organization [employer] Address [address] [place] [address] Care Team Providers Care Database Management Specialist Name Role Phone Unavailable Primary Care Provider Unavailabl e Reason for Referral * Mammography (Routine) - Authorized Specialty Diagnoses / Procedures Referred By Contac t Referred To Contact Diagnoses Visit for screening mammogram Procedures MM digital mammo screen with shakir bilateral John Rodrigues MD [address] [address] [address] [place] [address] Phone: tel: fax: Referral ID Status Reason Start Date Expiration Date V isits Requested Visits Authorized [id number] Authorized 10/05/2025 10/05/2026 1 1 Encounter Details Date Type Department Care Team (Late st Contact Info) Description 09/29/[address] [facility] Central Scheduling [address] [place] [address] John Rodrigues MD [address] [facility] [address] [place] [address] Visit for screening mammogram (Primary Dx) Social [...] Date Lizandro rded Speak language other than Algerian at home Not on file 01/31/2024 Want [...] Description 05/19/2025 7:30 AM EDT Hospital Encounter [facility] Surgery Department [address] [place] [address] Rosa M Rangel MD [address] [facility] [address] [place] [address] 05/19/2025 7:30 AM EDT - 05/19/2025 11:24 AM EDT Surgery [facility] Surgery Department [address] [place] [address] Rosa M Rangel MD [address] [facility] [address] [place] [address] LAPAROSCOPY WITH ROBOTIC ASSISTNAE SUPRACERVICAL HYSTERECTOMY, SACRCOLPOPEXY, PARA VAGINAL DEFECT REPAIR 10/05/2025 11:[address] [facility] Breast Imaging [address] [facility] [address] [place] [address] John Rodrigues MD [address] [place] [address] Scheduled Orders Name Type Priority Associated Diagnoses Orde r Schedule MM digital mammo screen with shakir bilateral Imaging Routine Visit for screening mammogram Expected: 10/05/2025, Expires: 03/30/2026 Scheduled Procedures Name Priority Associated Diagnoses Date/Ti mo ROBOTIC LAPAROSCOPY,SUPRACERVICAL HYSTERECTOMY Cystocele, lateral Uterovaginal prolapse, [...]
--- OUTSIDE RECORDS SUMMARY | 2025-04-08 11:00 | XMS_ITS | Encounter Summary ---
Author Organization [employer] Address [address] [place] [address] Care Team Providers Care Disc Sander Name Role Phone Unavailable Primary Care Provider Unavailabl e Reason for Referral * Mammography (Routine) - Closed Specialty Diagnoses / Procedures Referred By Contac t Referred To Contact Diagnoses Visit for screening mammogram Procedures MM digital mammo screen with shakir bilateral John Rodrigues MD [address] [facility] [address] [place] [address] Phone: tel: fax: Referral ID Status Reason Start Date Expiration Date Visits Re quested Visits Authorized [id number] Closed 06/30/2024 06/30/2025 1 1 Encounter Details Date Type Department Care Team (Late st Contact Info) Description 06/30/2024 Outside Orders [facility] Central Scheduling [address] [place] [address] John Rodrigues MD [address] [facility] [address] [place] [address] Visit for screening mammogram (Primary Dx) Social [...] Date Lizandro rded Speak language other than Czech at home Not on file 01/31/2024 Want [...] Description 05/19/2025 7:30 AM EDT Hospital Encounter [facility] Surgery Department [address] [place] [address] Rosa M Rangel MD [address] [facility] [address] [place] [address] 05/19/2025 7:30 AM EDT - 05/19/2025 11:24 AM EDT Surgery [facility] Surgery Department [address] [place] [address] Rosa M Rangel MD [address] [facility] [address] [place] [address] LAPAROSCOPY WITH ROBOTIC ASSISTNAE SUPRACERVICAL HYSTERECTOMY, SACRCOLPOPEXY, PARA VAGINAL DEFECT REPAIR 10/05/2025 11:00 AM EST Appointment [facility] Breast Imaging [address] [facility] [address] [place] [address] John Rodrigues MD [address] [place] [address] Scheduled Procedures Name Priority Associated Diagnoses Date/Ti vt ROBOTIC LAPAROSCOPY,SUPRACERVICAL HYSTERECTOMY Cystocele, lateral Uterovaginal prolapse, incomplete Urge incontinence Hypermobility of urethra 05/19/2025 7:30 AM EDT ROBOTIC LAPAROSCOPY,SACROCOLPOPEXY Cystocele, lateral Uterovaginal prolapse, incomplete Urge incontinence Hypermobility of urethra 05/19/2025 7:30 AM EDT documented as of this encounter Results * MM digital mammo screen with shakir bilateral (09/29/2024 12:03 PM EST) Anatomical Region [...] the next mammogram. At our facility, a levelock marker is positioned over a visible skin [...] Rodrigues MD IMG MAMMOGRAPHY ORDERABLES Final Result documented in this encounter Visit Diagnoses Diagnosis Visit for screening mammogram- Primary Visit for screening mammogram Cystocele, lateral Uterovaginal prolapse, incomplete Urge incontinence Hypermobility of urethra documented in this encounter
--- OUTSIDE RECORDS SUMMARY | 2025-04-08 11:00 | XMS_ITS | Patient Health Record ---
Author Organization [facility] Address [address] [facility] [address] [facility] [address] [place] [address] Care Team Providers Care Compressor Operator Adjuster Name Role Phone Srini Cooley Primary Care Provider [phone] Srini Cooley Unavailable Unavailable Migration, Provider Unavailable Unavailable Allergies Allergen (clinical drug ingredient) Drug/Non Drug Allergy documented on EMR Reaction Allergy Type Onset Date Status SULFA (uncoded) Unknown Allergy Acti ve codeine Codeine Unknown Drug Allergy Active tetracycline Tetracycline Unknown Drug Allergy A ctive Medications Medication SIG (Take, Route, Frequency, Duration) Notes Start Date End Date Status Ciprofloxacin HCl 500 MG 1 tab(s) orally every 12 hours; Duration: 10 day(s) 09/16/2021 Active Lisinopril 20 MG 1 tab(s) orally twice a day; Duration: 90 days Active TEST STRIPS AND LANCETS NA FOR BID FSBS TESTING NA DX: E11.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; Duration: 30 DAYS *Please review for potential replacement for e-prescription and drug interaction check* 01/30/2020 Active GLUCOMETER NA USE FOR BID FSBS TESTING NA DX: E11.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; Duration: 30 DAYS *Please review for potential replacement for e-prescription and drug interaction check* 01/30/2020 Active Proctosol HC 2.5 % 1 fransisco applied topically 3 times a day; Duration: 14 day(s) 10/20/2021 Active metFORMIN HCl 1000 MG 1 tabs orally 2 times a day; Duration: 90 days Active Coreg 6.25 MG 1 tab(s) orally 2 times a day; Duration: 90 Active Tradjenta 5 MG 1 tab po daily; Duration: 30 days 12/12/2021 Active Meclizine HCl 25 MG 1 tab(s) orally 3 times a day prn vertigo; Duration: 7 day(s) 10/03/2019 Active Magnesium Oxide 400 MG 1 tab(s) orally three times a day Active oxyBUTYnin Chloride ER 5 MG 1 tab(s) orally once a day; Duration: 90 days 12/02/2021 Active TrueTrack Test DIRECTED TEST BID *Please review and pick correct strength-formulati on from [employer] options. If intended option is not shown, discontinue and re-order from Quick Search* 03/07/2013 Active metroNIDAZOLE 500 MG 1 tab(s) orally 3 times a day; Duration: 10 day(s) 09/16/2021 Active Pravastatin Sodium 80 MG 1 tab(s) orally once a day; Duration: 90 days Active Fluticasone Propionate 50 MCG/ACT as directed intranasally once a day; Duration: 30 day(s) 09/22/2019 Active Prevacid 24HR 15 MG 1 cap(s) orally once a day; Duration: 30 day(s) Active Aspirin 81 MG 1 tab(s) orally once a day; Duration: 30 day(s) 07/27/2020 Active Euthyrox 100 MCG (0.1 MG) TAKE 1 TABLET BY MOUTH ONCE DAILY; Duration: 90 *Please review and pick correct strength-formulati on from [employer] options. If intended option is not shown, discontinue and re-order from Quick Search* Active Cetirizine HCl 10 MG 1 tab(s) orally once a day; Duration: 30 day(s) 10/22/2020 Active Immunizations Vaccine Route Administration Date Status Comme nts ZZ Unknown 01/01/2007 Administered Tetanus Toxoid Unknown 10/19/2010 Administered Fluzone High Dose IM Intramuscular 07/02/2020 Administered Fluzone High Dose IM Intramuscular 08/05/2021 Administered Covid Moderna IM Intramuscular 01/06/2021 Administered Covid Moderna IM Intramuscular 02/03/2021 Administered Social History Tobacco Use: Social History Observation Description Date Details (start date - stop date) Former Smoker NA - NA Smoking: Question Answer Notes Are you a: former smoker Section Notes: Lives with spouse. Lives with spouse. Lives with spouse. Lives with spouse. Lives with spouse. Lives with spouse. Lives with spouse. Lives with spouse. Lives with spouse. Lives with spouse. Lives with spouse. Lives with spouse. Lives with spouse. Lives with spouse. Lives with spouse. Lives with spouse. Lives with spouse. Lives with spouse. Lives with spouse. Lives with spouse. Lives with spouse. Lives with spouse. Lives with spouse. Lives with spouse. Lives with spouse. Problems Problem Type SNOMED Code ICD Code Onset Dates Problem Status W/U Status Risk Notes Problem Type 2 diabetes mellitus with other specified complication (E11.69) Active confirmed Problem Hyperlipidemia (00982983) Hyperlipidemia, unspecified (E78.5) Active confirmed Problem Hypomagnesemia (481909195) Hypomagnesemia (E83.42) Active confirmed Problem Chronic pain (95874674) Other chronic pain (G89.29) Active confirmed Problem Essential hypertension (88856405) Essential (primary) hypertension (I10) Active confirmed Problem Paroxysmal atrial fibrillation (460744243) Paroxysmal atrial fibrillation (I48.0) Active confirmed Problem Irritable bowel syndrome with diarrhea (443849454) Irritable bowel syndrome with diarrhea (K58.0) Active confirmed Problem Mixed incontinence (055032443) Mixed incontinence (N39.46) Active confirmed Problem Diabetes mellitus (07124865) Diabetes mellitus (E11.9) Active confirmed Problem Vitamin B12 deficiency (non anemic) (82046808) Vitamin B 12 deficiency (E53.8) Active confirmed Problem Gastroesophageal reflux disease (656908271) GERD without esophagitis (K21.9) Active confirmed Problem Seasonal allergy (086859997) Seasonal allergies (J30.2) Active confirmed Problem Diverticulitis (11147961) Diverticulitis (K57.92) Active confirmed Problem 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, 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) Active confirmed Problem Acquired hypothyroidism (908201142) Acquired hypothyroidism (E03.9) Active confirmed Problem Sacroiliitis (34103152) Sacroiliitis (M46.1) Active confirmed Problem Overactive urinary bladder (disorder) (084987348) OAB (overactive bladder) (N32.81) Active confirmed Problem Chronic maxillary sinusitis (90639640) Chronic sinusitis of both maxillary sinuses (J32.0) Active confirmed Problem Acute depression (326321259) Acute depression (F32.9) Active confirmed Problem History of diverticulitis (651473129634216) History of diverticulitis (Z87.19) Active confirmed Problem Arthritis of both knees (9120403234435450) Arthritis of both knees (M17.0) Active confirmed Encounters Encounter Location Date Provider Diagnosis [facility] HOWIE [address] [place] [address] [facility] [address] [place] [address] 01/17/2025 Provider Migration Diverticulitis K57.92 Assessments Encounter Date Diagnosis (ICD Code) Assessment Notes Treatment Notes Treatment Clinical Notes Section Notes 01/17/2025 Diverticulitis (ICD-10 - K57.92) Plan Of Treatment Pending Test Test Name Order Date N-CBC 07/01/2010 N-Sed Rate 07/01/2010 N-Potassium 06/17/2009 N-Urine Culture and Sensitivity 06/14/20 11 Urinalysis 06/26/2016 Urinalysis 03/20/2016 X ray : Spines, Cervical 11/26/2007 X ray : Elbow, Right 11/26/2007 X ray : Shoulder, Right 11/26/2007 N-Vitamin B 12 level 03/31/2011 N-TSH (Thyroid Stimulating Hormone) 06/15 Microalbumin (In-House) 03/20/2016 Microalbumin (In-House) 06/26/2016 N-CMP 07/01/2010 N-Lipid Panel 07/01/2010 N-HbA1C 12/07/2011 N-stool for giardia, crypto antigens, en teric pathogens 11/18/2009 EKG : In House 11/04/2008 EKG : In House 03/01/2012 Scoliosis Screening 02/11/2008 Echocardiogram 02/21/2012 Physical Therapy 12/21/2010 Cardiolite GXT 04/24/2012 Mammogram : Bilateral 07/02/2020 C-CMP 11/26/2020 C-LIPID PANEL 11/26/2020 C-URIC ACID 05/10/2011 C-TSH 11/26/2020 C-URINE CULTURE 12/15/2014 C-MISC CULTURE 05/10/2011 C-HGBA1C 11/26/2020 Urine Culture, Routine 06/14/2011 spirometry 03/01/2012 spirometry 10/16/2011 VENIPUNCT, ROUTINE* 06/26/2016 M-Complete Blood Count Auto Diff 021 M-Comprehensive Metabolic Panel 03/04/20 21 M-Hemoglobin A1C 03/04/2021 M-Lipid Panel 03/04/2021 M-Thyroid Stimulating Hormone 03/04/2021 M-Diarrhea Panel, PCR 03/12/2020 M-Vitamin B12 03/04/2021 M-Vitamin B12 07/15/2021 M-Vitamin D 25 Hydroxy 07/15/2021 M-C. Diff Toxin Assay 02/17/2022 Future Test Test Name Order Date M-Magnesium 11/03/2021 Insurance Providers Payer Name Payer Address Payer Phone Subscriber Number Group Number Insured Name Patient Relationship to Insured Coverage Start Date Coverage End Date [employer] [address] [address] [place] [address] [phone] [id number] Johanna Spivey Self - patient is the insured [employer] [address] [place] [id number] Johanna Spivey Self - patient is the insured Medications Administered Medication Instructions Date of Administration Dosage Notes Bicillin CR 02/19/2013 Cyanocobalamin/B-12 Pt's Own Medication 02/19/2013 Cyanocobalamin/B-12 Pt's Own Medication 10/12/2014 Cyanocobalamin/B-12 Pt's Own Medication 12/31/2019 1 mL Cyanocobalamin/B-12 Pt's Own Medication 01/07/2020 1 mL Cyanocobalamin/B-12 Pt's Own Medication 01/14/2020 1 mL Cyanocobalamin/B-12 Pt's Own Medication 01/21/2020 1 mL Cyanocobalamin/B-12 Pt's Own Medication 01/30/2020 1 mL Cyanocobalamin/B-12 Pt's Own Medication 02/11/2020 1 mL Cyanocobalamin/B-12 Pt's Own Medication 03/03/2020 1 mL Cyanocobalamin/B-12 Pt's Own Medication 03/12/2020 1 mL Cyanocobalamin/B-12 Pt's Own Medication 03/24/2020 1 mL Cyanocobalamin/B-12 Pt's Own Medication 05/07/2020 1 mL Cyanocobalamin/B-12 Pt's Own Medication 03/22/2021 1 mL Cyanocobalamin/B-12 Pt's Own Medication 04/22/2021 1 mL Cyanocobalamin/B-12 Pt's Own Medication 05/02/2021 1 mL Cyanocobalamin/B-12 Pt's Own Medication 05/16/2021 1 mL Cyanocobalamin/B-12 Pt's Own Medication 05/30/2021 1 mL Cyanocobalamin/B-12 Pt's Own Medication 06/06/2021 1 mL Cyanocobalamin/B-12 Pt's Own Medication 06/13/2021 1 mL Cyanocobalamin/B-12 Pt's Own Medication 06/22/2021 1 mL Dexamethasone 4mg Injection 09/30/2021 4 mg Triamcinolone Acetonide 40mg Injection 10/03/2019 1 mL Triamcinolone Acetonide 40mg Injection 03/12/2020 1 mL Triamcinolone Acetonide 40mg Injection 05/07/2020 1 mL Triamcinolone Acetonide 40mg Injection 06/11/2020 1 mL Triamcinolone Acetonide 40mg Injection 09/24/2020 1 mL Triamcinolone Acetonide 40mg Injection 10/22/2020 1 mL Kenalog 12/21/2014 1 Kenalog 05/08/2016 1 mL Kenalog 06/26/2016 1 mL Medical (General) History Medical History History ICD Code GERD IBS HYPERTENSION DIVERTICULOSIS NIDDM CARDIAC MURMUR HYPOTHYROIDISM HYPERLIPIDEMIA DEPRESSION OSTEOPOROSIS ANXIETY CIPRO, MAKES HER NAUSEATED, CAN TAKE LEV AQUIN VITAMIN B 12 DEFICIENCY Colonoscopy 2018- repeat in 5 years Normal mammogram 04/2021 Surgical History Surgery Date(Month/Year) surgery on sinus cavities 05/21 cholecystectomy fatty tumor removed lumpectomy-left breast tubal ligation NML Colonoscopy with hemorrhoid banding 2014 Hospitalization History Reason Date(Month/Year) dehydration above
--- OUTSIDE RECORDS SUMMARY | 2025-04-08 11:00 | XMS_ITS | Clinical Summary ---
Author Organization Healthcare Address [address] [place] [address] Care Team Providers Care Rn Heart Name Role Phone Shirin Jasso PROFESSOR OF ENVIRONMENTAL ENGINEERING Primary Care Provider [phone] Family History Medical History Relation Name Comments Pancreatic cancer Brother Leukemia Father Leukemia Maternal Grandmother Hypertension Mother Thyroid disease Mother Arthritis Paternal Grandmother Relation Name Status Comments Brother Father Maternal Grandmother Mother Paternal Grandmother Social History Tobacco Use Types Packs/Day Years Used Date Smoking Tobacco: Former Comments:Former light tobacc o smoker Alcohol Use Standard Drinks/Week Comments No 0 (1 standard drink = 0.6 oz pur e alcohol) Comments Unknown Sex and Gender Information Value Date Recorded Sex Assigned at Not on file Legal Sex Female 6:55 PM EDT Gender Identity Not on file Sexual Orientation Not on file Last Filed Vital Signs Vital Sign Reading Time Taken Comments Blood Pressure 185/91 08/12/2019 9:31 AM EDT Pulse 82 08/12/2019 9:31 AM EDT Temperature 36.6 C (97.9 F) 08/12/2019 9:31 AM EDT Respiratory Rate - - Oxygen Saturation - - Inhaled Oxygen Concentration - - Weight 79.8 kg (175 lb 14.8 oz) 08/12/2019 9:31 AM EDT Height 172.7 cm (5' 8 ) 08/12/2019 9:31 AM EDT Body Mass Index 26.75 08/12/2019 9:31 AM EDT Plan of Treatment Not on file Care Teams Rn Heart Relationship Specialty Start Date End Date Shirin Jasso, ERIKA [address] [place], [place] [id number] PCP - General 02/25/21
== END 2025-04-06 23:59 | disposition home or self-care (01) ==
LOC: LAB.DROPOF 04-08 10:38
PROVIDERS: PCP Nurse Practitioner Family; Visit Provider Nurse Practitioner Family
DX: R50.9 Fever, unspecified (principal)
CPT/HCPCS: 87631

== ENCOUNTER 2025-04-21 15:53 | Outpatient (CLI) | payer MEDICARE, SELFPAY ==
--- OUTSIDE RECORDS SUMMARY | 2025-01-17 17:30 | XMS_ITS ---
Author Organization [facility] D [facility] Address [address] [facility] [address] [facility] [address] [place] [address] Care Team Providers Care Machinist Wood Name Role Phone Srini Cooley Primary Care Provider Srini Cooley Unavailable Unavailable Migration, Provider Unavailable Unavailable Allergies Allergen (clinical drug ingredient) Drug/Non Drug Allergy documented on EMR Reaction Allergy Type Onset Date Status SULFA (uncoded) Unknown Allergy Acti ve codeine Codeine Unknown Drug Allergy Active tetracycline Tetracycline Unknown Drug Allergy A ctive REASON FOR VISIT [facility] To [facility] Conversion Encounter Medications Medication SIG (Take, [...] review and pick correct strength-formulati on from [facility] options. If intended option is not [...] review and pick correct strength-formulati on from [employer] options. If intended option is not shown, discontinue and re-order from Quick Search* 03/07/2013 Active Encounters Encounter Location Date Provider Diagnosis [facility] PED HOWIE [address] [place], [place] [address] 01/17/2025 Provider Migration Diverticulitis K57.92 Assessments Encounter [...] * NIKHILJohanna NDOB:1950 ([age] yo F)Acc No.[id number]:01/17/2025 Patient: Johanna GLASGOW Provider: Jesse Whitman :1950 A ge:74 Y S ex:Female Date:01/17/2025 Address:[address] [place] [address], [facility] [id number] Pcp:Srini Cooley Subjective: * Chief Complaints: * [facility] . [facility]. * Medical History: * Medications: T aking Magnesium Oxide 400 MG Tablet 1 tab(s) orally three times a day , Taking TrueTrack Test DIRECTED TEST BID , Notes to Pharmacist: *Please review and pick correct strength-formulation from [facility] options. If intended option is not shown, [...] Electronic signature of Vanessa arellano Migration on 04/22/2025 at 10:01 AM EDT Sign off status: Pending * Provider: Jesse gaxiola Migration Date: 0 01/17/2025 Generated for Hua gomez/Magdi/Nelidaitting on: 04/22/2025 10:01 AM EDT
--- OUTSIDE RECORDS SUMMARY | 2025-04-22 10:02 | XMS_ITS | Encounter Summary ---
Author Organization [employer] ([place], [place], [place], [place]) Address [address] [place] [address] Care Team Providers Care Restaurant General Manager Name Role Phone Unavailable Primary Care Provider Unavailabl e Encounter Details Date Type Department Care Team (Late st Contact Info) Description 06/28/2023 Outside Orders [facility] Central Scheduling [address] [place] [address] John Rodrigues MD [address] [facility] [address] [place] [address] Visit for screening mammogram (Primary Dx) Social History Tobacco Use Types Packs/Day Years Used Date Smoking Tobacco: Never Assessed Food Insecurity Answer Date Recorded Food run [...] Date Lizandro rded Speak language other than Guamanian at home Not on file 01/31/2024 Want help with school or training Not on file 01/31/2024 Substance Use Answer Date Recorded Used [...] AM EDT Hospital Encounter [facility] Surgery Department [address] [place] [phone] Rosa M Rangel MD [address] [facility] [address] [place] [address] 05/19/2025 7:30 AM EDT - 05/19/2025 11:24 AM EDT Surgery [facility] Surgery Department [address] [place] [phone] Rosa M Rangel MD [address] [facility] [address] [place] [address] LAPAROSCOPY WITH ROBOTIC ASSISTNAE SUPRACERVICAL HYSTERECTOMY, SACRCOLPOPEXY, PARA VAGINAL DEFECT REPAIR 10/05/2025 11:00 AM EST Appointment [facility] Breast Imaging [address] [place] [address] [address] [place] [address] John Rodrigues MD [address] [place] [address] Scheduled Procedures Name Priority Associated Diagnoses Date/Ti ok ROBOTIC LAPAROSCOPY,SUPRACERVICAL HYSTERECTOMY Cystocele, lateral Uterovaginal prolapse, [...]
--- OUTSIDE RECORDS SUMMARY | 2025-04-22 10:02 | XMS_ITS ---
Author Organization Unknown Plan of Treatment Description Planned Activity Planned Timing - Telephone encounter - Patient Care team information Name Category Status Period Participants - - Proposed period not known -
--- OUTSIDE RECORDS SUMMARY | 2025-04-22 10:02 | XMS_ITS | Clinical Summary ---
Author Organization Healthcare Address [address] [place] [address] Care Team Providers Care Strategic Analyst Name Role Phone Shirin Jasso VP OF CUSTOMER EXPERIENCE STRATEGY Primary Care Provider [phone] Family History Medical History Relation Name Comments [...] of Treatment Not on file Care Teams Strategic Analyst Relationship Specialty Start Date End Date Shirin Jasso, ERIKA [address] [place], [place] [phone] PCP - General 02/25/21
--- OUTSIDE RECORDS SUMMARY | 2025-04-22 10:02 | XMS_ITS | Referral Summary ---
Author Organization [employer] ([place], [place], [place], [place]) Address [address] [place] [address] Care Team Providers Care Dinkey Operator Slag Name Role Phone Unavailable Primary Care Provider [...] Date Lizandro rded Speak language other than Jordanian at home Not on file 01/31/2024 Want [...] Description 05/19/2025 7:30 AM EDT Hospital Encounter [facility] Surgery Department [address] [place] [address] Rosa M Rangel MD [address] [place] [address] 05/19/2025 7:30 AM EDT - 05/19/2025 11:24 AM EDT Surgery [facility] Surgery Department [address] [place] [phone] Rosa M Rangel MD [address] [facility] [address] [place], [place] [phone] LAPAROSCOPY WITH ROBOTIC ASSISTNAE SUPRACERVICAL HYSTERECTOMY, SACRCOLPOPEXY, PARA VAGINAL DEFECT REPAIR 10/05/2025 11:00 AM EST Appointment [facility] Breast Imaging [address] [place] [address] [address] [place] [address] John Rodrigues MD [address] [place] [address] Scheduled Procedures Name Priority Associated Diagnoses Date/Ti [...] the next mammogram. At our facility, a [place] marker is positioned over a visible skin [...] bilaterally. No change identified. John Rodrigues MD IMG MAMMOGRAPHY ORDERABLES Final Result from Last 3 Months or Most Recently Relevant to Health Maintenance [email or web address] [employer] MEDICARE HMO
--- OUTSIDE RECORDS SUMMARY | 2025-04-22 10:02 | XMS_ITS | Encounter Summary ---
Author Organization [employer] ([place], [place], [place], [place]) Address [address] [place] [address] Care Team Providers Care Manager Of Pharmacy Name Role Phone Unavailable Primary Care Provider Unavailabl e Encounter Details Date Type Department Care Team (Late st Contact Info) Description 08/21/2022 Outside Orders [facility] Central Scheduling [address] [place] [address] Prabhakar Van MD [address] [facility] [address] [place], [place] [id number] Social History Tobacco Use Types Packs/Day Years [...] Description 05/19/2025 7:30 AM EDT Hospital Encounter [facility] Surgery Department [address] [place] [address] Rosa M Rangel MD [address] [facility] [address] [place] [address] 05/19/2025 7:30 AM EDT - 05/19/2025 11:24 AM EDT Surgery [facility] Surgery Department [address] [place] [address] Rosa M Rangel MD [address] [facility] [address] [place] [address] LAPAROSCOPY WITH ROBOTIC ASSISTNAE SUPRACERVICAL HYSTERECTOMY, SACRCOLPOPEXY, PARA VAGINAL DEFECT REPAIR 10/05/2025 11:00 AM EST Appointment [facility] Breast Imaging [address] [facility] [address] [place] [address] John Rodrigues MD [address] [place] [address] Scheduled Procedures Name Priority Associated Diagnoses Date/Ti me ROBOTIC LAPAROSCOPY,SUPRACERVICAL HYSTERECTOMY Cystocele, lateral Uterovaginal prolapse, incomplete Urge incontinence Hypermobility of urethra 05/19/2025 7:30 AM EDT ROBOTIC LAPAROSCOPY,SACROCOLPOPEXY Cystocele, lateral Uterovaginal prolapse, incomplete Urge incontinence Hypermobility of urethra 05/19/2025 7:30 AM EDT documented as of this encounter Visit Diagnoses Not on filedocumented in this encounter
--- OUTSIDE RECORDS SUMMARY | 2025-04-22 10:02 | XMS_ITS | Encounter Summary ---
Author Organization [employer] ([place], [place], [place], [place]) Address [address] [place] [address] Care Team Providers Care Neck Cutter Name Role Phone Unavailable Primary Care Provider Unavailabl e Reason for Referral * Mammography (Routine) - Closed Specialty Diagnoses / Procedures Referred By Contsharlene t Referred To Contact Diagnoses Visit for screening mammogram Procedures MM digital mammo screen with shakir bilateral John Rodrigues MD [address] [facility] [address] [place] [address] Phone: tel: fax: Referral ID Status Reason Start Date Expiration Date Visits Re quested Visits Authorized [id number] Closed 06/30/2024 06/30/2025 1 1 Encounter Details Date Type Department Care Team (Late st Contact Info) Description 06/30/2024 Outside Orders [facility] Central Scheduling [address] [place] [address] John Rodrigues MD [address] [facility] [address] [place] [address] Visit for screening mammogram (Primary Dx) Social [...] Date Lizandro rded Speak language other than Swiss at home Not on file 01/31/2024 Want [...] Description 05/19/2025 7:30 AM EDT Hospital Encounter [facility] Surgery Department [address] [place] [phone] Rosa M Rangel MD [address] [facility] [address] [place] [address] 05/19/2025 7:30 AM EDT - 05/19/2025 11:24 AM EDT Surgery [facility] Surgery Department [address] [place] [phone] Rosa M Rangel MD [address] [facility] [address] [place] [address] LAPAROSCOPY WITH ROBOTIC ASSISTNAE SUPRACERVICAL HYSTERECTOMY, SACRCOLPOPEXY, PARA VAGINAL DEFECT REPAIR 10/05/2025 11:00 AM EST Appointment [facility] Breast Imaging [address] [place] [address] [address] [place] [phone] John Rodrigues MD [address] [place] [address] Scheduled Procedures Name Priority Associated Diagnoses Date/Ti ne ROBOTIC LAPAROSCOPY,SUPRACERVICAL HYSTERECTOMY Cystocele, lateral Uterovaginal prolapse, [...] the next mammogram. At our facility, a [place] marker is positioned over a visible skin [...]
--- OUTSIDE RECORDS SUMMARY | 2025-04-22 10:02 | XMS_ITS | Clinical Summary ---
Author Organization [employer] ([place], [place], [place], [place]) Address [address] [place] [address] Care Team Providers Care Home Health Care Respiratory Therapist Name Role Phone Unavailable Primary Care Provider [...] Date Lizandro rded Speak language other than Nigerian at home Not on file 01/31/2024 Want [...] Description 05/19/2025 7:30 AM EDT Hospital Encounter [facility] Surgery Department [address] [place] [address] Rosa M Rangel MD [address] [place] [address] 05/19/2025 7:30 AM EDT - 05/19/2025 11:24 AM EDT Surgery [facility] Surgery Department [address] [place] [address] Rosa M Rangel MD [address] [facility] [address] [place], [place] [phone] LAPAROSCOPY WITH ROBOTIC ASSISTNAE SUPRACERVICAL HYSTERECTOMY, SACRCOLPOPEXY, PARA VAGINAL DEFECT REPAIR 10/05/2025 11:00 AM EST Appointment [facility] Breast Imaging [address] [place] [address] [address] [place] [address] John Rodrigues MD [address] [place] [facility] [address] [place] [address] Scheduled Procedures Name Priority Associated Diagnoses Date/Ti [...] Medicare Initial AWV [id number] 10/16/2024 Influenza Vaccine (#1) 2025 , 07/02/2020, 08/12/2019 Respiratory Syncytial Virus (RSV) Adult [...] the next mammogram. At our facility, a [place] marker is positioned over a visible skin [...] Most Recently Relevant to Health Maintenance [facility] [employer] MEDICARE HMO
--- OUTSIDE RECORDS SUMMARY | 2025-04-22 10:02 | XMS_ITS | Patient Health Record ---
Author Organization [facility] PE D [facility] Address [address] [facility] [address] [facility] [address] [place] [address] Care Team Providers Care Principal Security Architect Name Role Phone Srini Cooley Primary Care [...] review and pick correct strength-formulati on from [employer] options. If intended option is not shown, [...] review and pick correct strength-formulati on from [employer] options. If intended option is not shown, [...] specified complication (E11.69) Active confirmed Problem Hyperlipidemia (82414019) Hyperlipidemia, unspecified (E78.5) Active confirmed Problem Hypomagnesemia (740367519) Hypomagnesemia (E83.42) Active confirmed Problem Chronic pain (55935879) Other chronic pain (G89.29) Active confirmed Problem Essential hypertension (06412864) Essential (primary) hypertension (I10) Active confirmed Problem Paroxysmal atrial fibrillation (422444223) Paroxysmal atrial fibrillation (I48.0) Active confirmed Problem Irritable bowel syndrome with diarrhea (335779776) Irritable bowel syndrome with diarrhea (K58.0) Active confirmed Problem Mixed incontinence (715770757) Mixed incontinence (N39.46) Active confirmed Problem Diabetes mellitus (98432285) Diabetes mellitus (E11.9) Active confirmed Problem Vitamin B12 deficiency (non anemic) (11055498) Vitamin B 12 deficiency (E53.8) Active confirmed Problem Gastroesophageal reflux disease (105336746) GERD without esophagitis (K21.9) Active confirmed Problem Seasonal allergy (914498011) Seasonal allergies (J30.2) Active confirmed Problem Diverticulitis (25605698) Diverticulitis (K57.92) Active confirmed Problem 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, 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) Active confirmed Problem Acquired hypothyroidism (443154306) Acquired hypothyroidism (E03.9) Active confirmed Problem Sacroiliitis (31399514) Sacroiliitis (M46.1) Active confirmed Problem Overactive urinary bladder (disorder) (192378143) OAB (overactive bladder) (N32.81) Active confirmed Problem Chronic maxillary sinusitis (15371169) Chronic sinusitis of both maxillary sinuses (J32.0) Active confirmed Problem Acute depression (444509175) Acute depression (F32.9) Active confirmed Problem History of diverticulitis (394346321797547) History of diverticulitis (Z87.19) Active confirmed Problem Arthritis of both knees (9243667196307658) Arthritis of both knees (M17.0) Active confirmed Encounters Encounter Location Date Provider Diagnosis [facility] HOWIE [address] [facility] [address] [place] [address] 01/17/2025 Provider Migration Diverticulitis K57.92 Assessments Encounter [...] N-TSH (Thyroid Stimulating Hormone) 06/15 Microalbumin (In-House) 06/26/2016 Microalbumin (In-House) 03/20/2016 N-CMP 07/01/2010 N-Lipid Panel 07/01/2010 N-HbA1C 12/07/2011 [...] C-HGBA1C 11/26/2020 Urine Culture, Routine 06/14/2011 spirometry 10/16/2011 spirometry 03/01/2012 VENIPUNCT, ROUTINE* 06/26/2016 M-Complete Blood Count Auto [...] End Date [employer] [address] [address] [place] [address] [id number] Johanna Spivey Self - patient is the insured [employer] [address] [place] [address] [phone] [id number] Johanna Spivey Self - patient is the [...]
--- OUTSIDE RECORDS SUMMARY | 2025-04-22 10:02 | XMS_ITS | Encounter Summary ---
Author Organization [employer] ([place], [place], [place], [place]) Address [address] [place] [address] Care Team Providers Care Button Grader Name Role Phone Unavailable Primary Care Provider Unavailabl e Encounter Details Date Type Department Care Team (Late st Contact Info) Description 03/02/2023 Outside Orders [facility] Central Scheduling [address] [place] [address] Prabhakar Van MD [address] [facility] [address] [place], [place] [id number] Essential hypertension (Primary Dx) Social History Tobacco [...] Description 05/19/2025 7:30 AM EDT Hospital Encounter [facility] Surgery Department [address] [place] [address] Rosa M Rangel MD [address] [facility] [address] [place] [address] 05/19/2025 7:30 AM EDT - 05/19/2025 11:24 AM EDT Surgery [facility] Surgery Department [address] [place] [address] Rosa M Rangel MD [address] [facility] [address] [place], [place] [address] LAPAROSCOPY WITH ROBOTIC ASSISTNAE SUPRACERVICAL HYSTERECTOMY, SACRCOLPOPEXY, PARA VAGINAL DEFECT REPAIR 10/05/2025 11:00 AM EST Appointment [facility] Breast Imaging [address] [facility] [address] [place] [address] John Rodrigues MD [address] [place], [place] [id number] Scheduled Procedures Name Priority Associated Diagnoses Date/Ti [...]
--- OUTSIDE RECORDS SUMMARY | 2025-04-22 10:02 | XMS_ITS | Encounter Summary ---
Author Organization [employer] ([place], [place], [place], [place]) Address [address] [place] [address] Care Team Providers Care Issuing Operator Name Role Phone Unavailable Primary Care Provider Unavailabl e Reason for Referral * Mammography (Routine) - Authorized Specialty Diagnoses / Procedures Referred By Contac t Referred To Contact Diagnoses Visit for screening mammogram Procedures MM digital mammo screen with shakir bilateral John Rodrigues MD [address] [place] [address] [address] [place] [address] Phone: tel: fax: Referral ID Status Reason Start Date Expiration Date V isits Requested Visits Authorized [id number] Authorized 10/05/2025 10/05/2026 1 1 Encounter Details Date Type Department Care Team (Late st Contact Info) Description 09/29/2024 Outside Orders [facility] Central Scheduling [address] [place] [address] John Rodrigues MD [address] [facility] [address] [place] [address] Visit for screening mammogram (Primary Dx) Social [...] Date Lizandro rded Speak language other than Kittitian at home Not on file 01/31/2024 Want [...] Description 05/19/2025 7:30 AM EDT Hospital Encounter [facility] Surgery Department [address] [place] [phone] Rosa M Rangel MD [address] [facility] [address] [place] [address] 05/19/2025 7:30 AM EDT - 05/19/2025 11:24 AM EDT Surgery [facility] Surgery Department [address] [place] [address] Rosa M Rangel MD [address] [facility] [address] [place] [address] LAPAROSCOPY WITH ROBOTIC ASSISTNAE SUPRACERVICAL HYSTERECTOMY, SACRCOLPOPEXY, PARA VAGINAL DEFECT REPAIR 10/05/2025 11:00 AM EST Appointment [facility] Breast Imaging [address] [facility] [address] [place] [address] John Rodrigues MD [address] [place] [address] Scheduled Orders Name Type Priority Associated Diagnoses Orde r Schedule MM digital mammo screen with shakir bilateral Imaging Routine Visit for screening mammogram Expected: 10/05/2025, Expires: 03/30/2026 Scheduled Procedures Name Priority Associated Diagnoses Date/Ti ms ROBOTIC LAPAROSCOPY,SUPRACERVICAL HYSTERECTOMY Cystocele, lateral Uterovaginal prolapse, [...]
== END 2025-04-21 23:59 | disposition home or self-care (01) ==
LOC: LAB.DROPOF 04-22 09:51
PROVIDERS: PCP Family Medicine; Visit Provider Family Medicine
DX: R39.9 Unspecified symptoms and signs involving the genitourinary system (principal)
CPT/HCPCS: 87086; 87088; 87186

== ENCOUNTER 2025-05-14 11:45 | Outpatient (CLI) | payer MEDICARE, SELFPAY ==
--- OUTSIDE RECORDS SUMMARY | 2025-01-17 17:30 | XMS_ITS ---
Author Organization [facility] D [facility] Address [address] [facility] [address] [facility] [address] [place] [address] Care Team Providers Care Selling Underwriter Name Role Phone Srini Cooley Primary Care Provider [phone] Srini Cooley Unavailable Unavailable Migration, Provider Unavailable Unavailable Allergies Allergen (clinical drug ingredient) Drug/Non Drug Allergy documented on EMR Reaction Allergy Type Onset Date Status SULFA (uncoded) Unknown Allergy Acti ve codeine Codeine Unknown Drug Allergy Active tetracycline Tetracycline Unknown Drug Allergy A ctive REASON FOR VISIT [facility] To [facility] Conversion Encounter Medications Medication SIG [...] review and pick correct strength-formulati on from [facility] options. If intended option is [...] review and pick correct strength-formulati on from [employer] options. If intended option is not shown, discontinue and re-order from Quick Search* 03/07/2013 Active Encounters Encounter Location Date Provider Diagnosis [facility] PED HOWIE [address] [place], [place] [address] 01/17/2025 Provider Migration Diverticulitis K57.92 Assessments Encounter [...] * NIKHILJohanna NDOB:1950 ([age] yo F)Acc No.[id number]:01/17/2025 Patient: Johanna GLASGOW Provider: Jesse Whitman :1950 A ge:74 Y S ex:Female Date:01/17/2025 Address:[address] [place] [address], [facility] [id number] Pcp:Srini Cooley Subjective: * Chief Complaints: * [facility] . [facility]. * Medical History: * Medications: T aking Magnesium Oxide 400 MG Tablet 1 tab(s) orally three times a day , Taking TrueTrack Test DIRECTED TEST BID , Notes to Pharmacist: *Please review and pick correct strength-formulation [facility] options. If intended option is not [...] Electronic signature of Vanessa arellano Migration on 05/15/2025 at 10:32 AM EDT Sign off status: Pending * Provider: Jesse gaxiola Migration Date: 0 01/17/2025 Generated for Hua gomez/Magdi/Nelidaitting on: 05/15/2025 10:32 AM EDT
--- OUTSIDE RECORDS SUMMARY | 2025-05-08 10:37 | XMS_ITS | Encounter Summary ---
Author Organization [employer] ([place], [place], [place], [place]) Address [address] [place] [address] Care Team Providers Care Manager Transfer Name Role Phone Unavailable Primary Care Provider Unavailabl e Encounter Details Date Type Department Care Team (Latest Contact Info) Description 05/08/2025 10:37 AM EDT - 05/08/2025 11:59 PM EDT Hospital Encounter [facility] Preadmission Testing [address] [facility] [address] [place] [address] Preop examination (Primary Dx); PAF (paroxysmal atrial fibrillation) (HCC); ISABELA (obstructive sleep apnea); Pre-op testing Discharge Disposition: Home or Self Care Social History Tobacco Use Types Packs/Day Years Used Date Smoking Tobacco: Former Cigarettes Smokeless Tobacco: Never Tobacco Cessation:Counseling Given: Not Answered Alcohol Use Standard Drinks/Week Comments Never 0 (1 standard drink = 0.6 oz pur e alcohol) Family and Community Support Answer Hernán e Recorded Help with Day to Day Activities Not on file 01/31/2024 Feeling Lonely or Isolated Not on file 01/30 Educational Attainment Answer Date Lizandro rded Speak language other than Lithuanian at home Not on file 01/31/2024 Want [...] on file documented as of this encounter Last Filed Vital Signs Vital Sign Reading Time Taken Comments Blood Pressure 180/80 05/08/2025 12:11 PM EDT Pulse 51 05/08/2025 12:02 PM EDT Temperature 36.7 C (98.1 F) 05/08/2025 12:02 PM EDT Respiratory Rate 18 05/08/2025 12:02 PM EDT Oxygen Saturation 94% 05/08/2025 12:02 PM EDT Inhaled Oxygen Concentration - - Weight 77.1 kg (170 lb) 05/08/2025 12:02 PM EDT Height 172.7 cm (5' 8 ) 05/08/2025 12:02 PM EDT Body Mass Index 25.85 05/08/2025 12:02 PM EDT documented in this encounter Medications at Time of Discharge cholecalciferol (VITAMIN D3) 1,250 mcg (50,000 unit) capsule Take 1 capsule (1,250 mcg total) by mouth once a week. 04/23/2025 glipiZIDE (GLUCOTROL XL) 10 MG 24 hr tablet Take 1 tablet (10 mg total) by mouth 2 (two) times daily. 03/04/2025 aspirin 81 MG EC tablet Take 1 tablet (81 mg total) by mouth daily. Coreg 6.25 mg tablet Take 1 tablet (6.25 mg total) by mouth 2 (two) times daily with breakfast and dinner. levothyroxine (SYNTHROID) 100 MCG tablet Take 1 tablet (100 mcg total) by mouth Daily (0600). magnesium oxide (MAG-OX) 400 mg tablet Take 1 tablet (400 mg total) by mouth daily. pravastatin (PRAVACHOL) 80 MG tablet Take 1 tablet (80 mg total) by mouth daily. documented as of this encounter Progress Notes * Mendy Nicholson, RN - 05/08/2025 11:00 AM EDTSumnati: Nursing note Pt. BP readings elevated during appoint. PA made aware of BP readings. Pt. Stated that she felt fine. Pt. Stated that she has history of elevated BP readings when she goes to a doctors appointment. PA recommended to monitor BP and to go to the emergency room if it becomes worse or she becomes symptomatic. documented in this encounter Procedure Notes * Mendy Nicholson RN - 05/08/2025 11:00 AM EDTSummary: medication instructions Medication List ASK your doctor about these medications aspirin 81 MG EC tablet Medication Adjustments for Surgery: Other (Comment) Notes to patient: Pending holding instructions cholecalciferol 1,250 mcg (50,000 unit) capsule Commonly known as: VITAMIN D3 Medication Adjustments for Surgery: Continue until night before surgery Coreg 6.25 mg tablet Generic drug: carvediloL Medication Adjustments for Surgery: Take morning of surgery with sip of water, no other fluids glipiZIDE 10 MG 24 hr tablet Commonly known as: GLUCOTROL XL Medication Adjustments for Surgery: Continue until night before surgery levothyroxine 100 MCG tablet Commonly known as: SYNTHROID Medication Adjustments for Surgery: Take morning of surgery with sip of water, no other fluids magnesium oxide 400 mg tablet Commonly known as: MAG-OX Medication Adjustments for Surgery: Continue until night before surgery pravastatin 80 MG tablet Commonly known as: PRAVACHOL Medication Adjustments for Surgery: Continue until night before surgery Please stop the following over the counter medication 10 days prior to surgery. Nonsteroidal Anti-Inflammatory Drugs (NSAIDs) Examples: Motrin, Advil, Ibuprofen, Naproxen, Aleve All non-essential vitamins and supplements especially garlic, vitamin E, multivitamin, fish oil If you have questions about specific medication not mentioned please ask or call your surgeon. You may take Tylenol for pain unless allergic or contraindicated by your surgeon. PRE-OPERATIVE BATHING INSTRUCTIONS Put clean sheets on your bed the night before surgery. Wear clean pajamas the night before surgery. Take a shower with plain soap the night before AND morning of surgery. documented in this encounter Plan of Treatment Upcoming Encounters Date Type Department Care Team (Latest Contact Info) Description 05/19/2025 7:30 AM EDT Hospital Encounter [facility] Surgery Department [address] [place] [address] Rosa M Rangel MD [address] [facility] [address] [place] [address] 05/19/2025 7:30 AM EDT - 05/19/2025 11:24 AM EDT Surgery [facility] Surgery Department [address] [place] [phone] Rosa M Rangel MD [address] [facility] [address] [place], [place] [phone] LAPAROSCOPY WITH ROBOTIC ASSISTNAE SUPRACERVICAL HYSTERECTOMY, SACRCOLPOPEXY, PARA VAGINAL DEFECT REPAIR 10/05/2025 11:00 AM EST Appointment [facility] Breast Imaging [address] [facility] [address] [place] [address] John Rodrigues MD [address] [place] [address] [place] [address] Scheduled Procedures Name Priority Associated Diagnoses Date/Ti me ROBOTIC LAPAROSCOPY,SUPRACERVICAL HYSTERECTOMY Cystocele, lateral Uterovaginal prolapse, incomplete Urge incontinence Hypermobility of urethra 05/19/2025 7:30 AM EDT ROBOTIC LAPAROSCOPY,SACROCOLPOPEXY Cystocele, lateral Uterovaginal prolapse, incomplete Urge incontinence Hypermobility of urethra 05/19/2025 7:30 AM EDT documented as of this encounter Procedures Procedure Name Priority Date/Time Associated Diagnosis Comments CBC W/ AUTO DIFF Routine 05/08/2025 2:14 PM EDT Pre-op testing PT/INR, PTT Routine 05/08/2025 2:14 PM EDT Pre-op testing HEMOGLOBIN A1C Routine 05/08/2025 2:14 PM EDT Pre-op testing BASIC METABOLIC PANEL Routine 05/08/2025 2:14 PM EDT Pre-op testing [id number] 12-LEAD Routine 05/08/2025 11:02 AM EDT Pre-op testing documented in this encounter Results * PT/INR, PTT (05/08/2025 2:14 PM EDT) aPTT 23.9 22.0 - 32.0 seconds 05/08/2025 2:34 PM EDT [facility] Protime 10.3 9.0 - 12.0 seconds 05/08/2025 2:34 PM EDT [facility] INR 0.94 0.80 - 1.10 05/08/2025 2:34 PM EDT [facility] Blood Venipuncture / Unknown 05/08/2025 2:14 PM EDT 05/08/2025 2:14 PM EDT Dk Anaya MD LAB BLOOD ORDERABLES Prema l Result Performing Organization Address [facility]/ZIP Co de Phone Number [facility] [address] [phone] * (ABNORMAL) Hemoglobin A1c (05/08/2025 2:14 PM EDT) Hemoglobin A1C 7.0(H) 4.2 - 6.3 % 05/08/2025 2:42 PM EDT [facility] Comment: Hemoglobin A1C levels are related to mean glucose during the preceding 2-3 months. Less than 7% demonstrates glycemic control in diabetic patients. Hemoglobin AlC % Suggested Diagnosis > or = 6.5 Diabetic 5.7 - 6.4 Prediabetic <5.7 Non-diabetic eAVG Glucose 154.2 mg/dL 05/08/2025 2:42 PM EDT [facility] Blood Venipuncture / Unknown 05/08/2025 2:14 PM EDT 05/08/2025 2:14 PM EDT Dk Anaya MD LAB BLOOD ORDERABLES Prema l Result [facility] [address] [phone] * (ABNORMAL) Basic Metabolic Panel (05/08/2025 2:14 PM EDT) Sodium 141 136 - 146 meq/L 05/08/2025 2:34 PM EDT [facility] Potassium 4.6 3.5 - 5.1 meq/L 05/08/2025 2:34 PM EDT [facility] Chloride 106 102 - 112 meq/L 05/08/2025 2:34 PM EDT [facility] CO2 30 21 - 32 meq/L 05/08/2025 2:34 PM EDT [facility] Anion Gap 10 9 - 20 05/08/2025 2:34 PM EDT [facility] BUN 32(H) 7 - 22 mg/dL 05/08/2025 2:34 PM EDT [facility] Creatinine 1.02 0.55 - 1.02 mg/dL 05/08/2025 2:34 PM EDT [facility] BUN/Creatinine 31(H) 8 - 20 05/08/2025 2:34 PM EDT [facility] Glucose 168(H) 74 - 100 mg/dL 05/08/2025 2:34 PM EDT [facility] Calcium 9.5 8.5 - 10.1 mg/dL 05/08/2025 2:34 PM EDT [facility] Osmolality Calc 292.0 mOsm/kg 2:34 PM EDT [facility] eGFR (mL/min/1.73m2) 58(L) >=60 mL/min/1.7 3m2 05/08/2025 2:34 PM EDT [facility] Comment:eGFR of <60 suggests chronic kidney disease if found over a 3 month period of time. eGFR <15 indicates renal failure. Blood Venipuncture / Unknown 05/08/2025 2:14 PM EDT 05/08/2025 2:14 PM EDT us Dk Anaya MD LAB BLOOD ORDERABLES Prema l Result [facility] [address] [employer] [address] [employer] [phone] * (ABNORMAL) CBC with automated diff (05/08/2025 2:14 PM EDT) WBC 8.8 3.9 - 10.0 K/ L 05/08/2025 2:18 PM EDT [facility] RBC 3.98 3.93 - 6.08 M/ L 05/08/2025 2:18 PM EDT [facility] Hemoglobin 12.4 11.2 - 15.7 GM/DL 05/08/2025 2:18 PM EDT [facility] Hematocrit 38.7 34.1 - 44.9 % 05/08/2025 2:18 PM EDT [facility] MCV 97(H) 79 - 95 fL 05/08/2025 2:18 PM EDT [facility] MCH 31.2 25.6 - 32.2 pg 05/08/2025 2:18 PM EDT [facility] MCHC 32.0(L) 32.2 - 36.5 GM/DL 05/08/2025 2:18 PM EDT [facility] RDW 14.4 11.6 - 14.4 % 05/08/2025 2:18 PM EDT [facility] Platelets 195 163 - 369 K/CU MM 05/08/2025 2:18 PM EDT [facility] MPV 10.3 9.4 - 12.4 fL 05/08/2025 2:18 PM EDT [facility] % Neutros 56 34 - 71 % 05/08/2025 2:18 PM EDT [facility] % Lymphs 31 19 - 53 % 05/08/2025 2:18 PM EDT [facility] % Monos 8 4 - 13 % 05/08/2025 2:18 PM EDT [facility] % Eos 4 1 - 7 % 05/08/2025 2:18 PM EDT [facility] % Baso 1 0 - 1 % 05/08/2025 2:18 PM EDT [facility] # Neutros 4.97 1.56 - 6.13 K/ L 05/08/2025 2:18 PM EDT [facility] # Lymphs 2.71 1.18 - 3.74 K/ L 05/08/2025 2:18 PM EDT [facility] # Monos 0.74 0.24 - 0.82 K/ L 05/08/2025 2:18 PM EDT [facility] # Eos 0.32 0.04 - 0.54 K/ L 05/08/2025 2:18 PM EDT [facility] # Baso 0.06 0.01 - 0.08 K/ L 05/08/2025 2:18 PM EDT [facility] Immature Granulocytes-Re lative 0.30 0.00 - 0.60 % 05/08/2025 2:18 PM EDT [facility] # IG 0.03 0.00 - 0.05 K/uL 05/08/2025 2:18 PM EDT [facility] Blood Venipuncture / Unknown 05/08/2025 2:14 PM EDT 05/08/2025 2:14 PM EDT Narrative [facility] - 05/08/2025 2:18 PM EDT When CBC w/ Auto Diff is ordered the lab will add a Manual Differential as a quality check at no additional charge if: Lymphocytes greater than seventy five percent with normal or increased WBC Monocytes greater than Fifteen percent Basophil greater than four percent Bands >10% or several immature myeloids are seen on scan Blast? Flag noted Atypical Lymph flag noted us Dk Anaya MD LAB BLOOD ORDERABLES Prema pham Result [facility] [address] [phone] * ECG 12 lead (05/08/2025 11:02 AM EDT) VENTRICULAR RATE EKG/MIN 51 BPM GE MUSE ATRIAL RATE (MCT) 51 BPM GE MUSE DC Interval 146 ms GE MUSE QRS-INTERVAL (MSEC) 86 ms GE MUSE QT Interval 452 ms GE MUSE QTC Interval 416 ms GE MUSE P [place] 64 degrees GE MUSE R AXIS (MCT) -17 degrees GE MUSE T Wave [place] 100 degrees GE MUSE [place] Diagnosis Sinus bradycardia ST & T wave abnormality, consider lateral ischemia Abnormal ECG Confirmed by Zheng ENRIQUEZ SUZANNE ([id number]) on 05/11/2025 12:29:50 PM GE MUSE 05/08/2025 11:0 2 AM EDT 05/11/2025 12:29 PM EDT Dk Anaya MD ECG ORDERABLES Final Res ult GE MUSE documented in this encounter Visit Diagnoses Diagnosis Preop examination- Primary Unspecified pre-operative examination Preop examination Unspecified pre-operative examination PAF (paroxysmal atrial fibrillation) (HCC) Atrial fibrillation ISABELA (obstructive sleep apnea) Obstructive sleep apnea (adult) (pediatric) Pre-op testing Unspecified pre-operative examination PAF (paroxysmal atrial fibrillation) (HCC) Atrial fibrillation Urinary incontinence Unspecified urinary incontinence DM (diabetes mellitus) ([facility]) Type II or unspecified type diabetes mellitus without mention of complication, not stated as uncontrolled ISABELA (obstructive sleep apnea) Obstructive sleep apnea (adult) (pediatric) Hypothyroid Unspecified hypothyroidism Hyperlipidemia Other and unspecified hyperlipidemia Cystocele, lateral Uterovaginal prolapse, incomplete Urge incontinence Hypermobility of urethra documented in this encounter
[2025-05-14 17:30] LABS: Hematocrit 38.5 % (37.0-47.0); Hemoglobin 12.3 g/dL (12.2-16.2); Immature Granulocytes % 0.4 %; Mean Corpuscular HGB Conc 31.9 g/dL (31.8-35.4); Mean Corpuscular Hemoglobin 31.4 pg (27.0-31.2); Mean Corpuscular Volume 98.2 fl (81-99); Nucleated Red Blood Cells % 0 %; Platelet Count 212 K/mm3 (142-424); Red Blood Count 3.92 M/mm3 (4.20-5.40); Red Cell Distribution Width-SD 52.4 fL; White Blood Count 8.2 K/mm3 (4.8-10.8)
[2025-05-14 19:10] LABS: Alanine Aminotransferase 14 U/L (12-78); Albumin Level 4.5 g/dl (3.5-5.0); Albumin/Globulin Ratio 1.7 (1.1-1.8); Alkaline Phosphatase 95 U/L (38-126); Anion Gap 14.4 mEq/L (5-15); Aspartate Amino Transferase 26 U/L (14-36); Bilirubin,Total 0.6 mg/dl (0.2-1.3); Blood Urea Nitrogen 30 mg/dl (7-17); Calcium 9.9 mg/dl (8.4-10.2); Carbon Dioxide 25 mmol/L (22.0-30.0); Chloride 106 mmol/L (98-107); Cholesterol 164 mg/dl (140-200); Creatinine,Serum 1.20 mg/dl (0.52-1.04); Estimated Glomerular Filt Rate 44 ml/min (>60); GFR (African American) 53 ML/MIN (>60); Globulin 2.6 g/dL (1.3-3.2); Glucose 284 mg/dl (74-100); HDL Cholesterol 38 mg/dl (40-60); Potassium 4.4 mmoL/L (3.5-5.1); Sodium 141 mmol/L (136-145); Total Protein,Serum 7.1 g/dl (6.3-8.2); Triglycerides 157 mg/dl (30-150)
[2025-05-14 19:24] LABS: Hemoglobin A1C 7.2 % (4.0-6.0)
[2025-05-14 19:39] LABS: Thyroid Stimulating Hormone 0.48 uIU/mL (0.465-4.68)
[2025-05-14 20:05] LABS: Hepatitis C Ab Qual. W/ RFX NEGATIVE (Negative)
--- OUTSIDE RECORDS SUMMARY | 2025-05-15 10:32 | XMS_ITS | Encounter Summary ---
Author Organization [employer] ([place], [place], [place], [place]) Address [address] [place] [address] Care Team Providers Care Conductor/Engineer Name Role Phone Unavailable Primary Care Provider Unavailabl e Encounter Details Date Type Department Care Team (Latest Contact Info) Description 05/08/2025 Travel Social History Tobacco Use Types Packs/Day Years Used Date Smoking Tobacco: Former Cigarettes Smokeless Tobacco: Never Alcohol Use Standard Drinks/Week Comments Never 0 (1 standard drink = 0.6 oz pur e alcohol) Family and Community Support Answer Hernán e Recorded Help with Day to Day Activities Not on file 01/31/2024 Feeling Lonely or Isolated Not on file 01/30 Educational Attainment Answer Date Lizandro rded Speak language other than Grenadian at home Not on file 01/31/2024 Want [...] [facility] [address] [place] [address] Rosa M Rangel MD [address] [facility] [address] [place] [address] 05/19/2025 7:30 AM EDT - 05/19/2025 11:24 AM EDT Surgery [facility] [address] [place] [address] Rosa M Rangel MD [address] [facility] [address] [place], [place] [id number] LAPAROSCOPY WITH ROBOTIC ASSISTNAE SUPRACERVICAL HYSTERECTOMY, SACRCOLPOPEXY, PARA VAGINAL DEFECT REPAIR 10/05/2025 11:00 AM EST Appointment [facility] Breast Imaging [address] [facility] [address] [place] [address] John Rodrigues MD [address] [place] [address] [place] [address] Scheduled Procedures Name Priority Associated Diagnoses Date/Ti me ROBOTIC LAPAROSCOPY,SUPRACERVICAL HYSTERECTOMY Cystocele, lateral Uterovaginal prolapse, incomplete Urge incontinence Hypermobility of urethra 05/19/2025 7:30 AM EDT ROBOTIC LAPAROSCOPY,SACROCOLPOPEXY Cystocele, lateral Uterovaginal prolapse, incomplete Urge incontinence Hypermobility of urethra 05/19/2025 7:30 AM EDT documented as of this encounter Visit Diagnoses Not on filedocumented in this encounter
--- OUTSIDE RECORDS SUMMARY | 2025-05-15 10:33 | XMS_ITS | Encounter Summary ---
Author Organization [employer] ([place], [place], [place], [place]) Address [address] [place] [address] Care Team Providers Care Termite Technician Name Role Phone Unavailable Primary Care Provider Unavailabl e Encounter Details Date Type Department Care Team (Late st Contact Info) Description 08/21/2022 Outside Orders [facility] Scheduling [address] [place] [address] Prabhakar Van MD [address] [facility] [address] [place] [address] Social History Tobacco Use Types Packs/Day Years [...] Description 05/19/2025 7:30 AM EDT Hospital Encounter [facility] Surgery Department [address] [place] [address] Rosa M Rangel MD [address] [facility] [address] [place], [place] [id number] 05/19/2025 7:30 AM EDT - 05/19/2025 11:24 AM EDT Surgery [facility] Surgery Department [address] [place] [address] Rosa M Rangel MD [address] [employer] [address] [place] [address] LAPAROSCOPY WITH ROBOTIC ASSISTNAE SUPRACERVICAL HYSTERECTOMY, SACRCOLPOPEXY, PARA VAGINAL DEFECT REPAIR 10/05/2025 11:00 AM EST Appointment [facility] Breast Imaging [address] [facility] [address] [place] [address] John Rodrigues MD [address] [place] [address] Scheduled Procedures Name Priority Associated Diagnoses Date/Ti sc ROBOTIC LAPAROSCOPY,SUPRACERVICAL HYSTERECTOMY Cystocele, lateral Uterovaginal prolapse, incomplete Urge incontinence Hypermobility of urethra 05/19/2025 7:30 AM EDT ROBOTIC LAPAROSCOPY,SACROCOLPOPEXY Cystocele, lateral Uterovaginal prolapse, incomplete Urge incontinence Hypermobility of urethra 05/19/2025 7:30 AM EDT documented as of this encounter Visit Diagnoses Not on filedocumented in this encounter
--- OUTSIDE RECORDS SUMMARY | 2025-05-15 10:33 | XMS_ITS | Referral Summary ---
Author Organization [employer] ([place], [place], [place], [place]) Address [address] [place] [address] Care Team Providers Care Lead Instructor/Flight Attendant Name Role Phone Unavailable Primary Care Provider Unavailabl e Encounters Date Type Department Care Team Description 05/08/2025 Travel 05/08/2025 10:37 AM EDT - 05/08/2025 11:59 PM EDT Hospital Encounter [facility] Preadmission Testing [address] [facility] [address] [place] [address] Preop examination (Primary Dx); PAF (paroxysmal atrial fibrillation) (HCC); ISABELA (obstructive sleep apnea); Pre-op testing Discharge Disposition: Home or Self Care from Last 3 Months Allergies Active Allergy Reactions Criticality Noted Date Comments Sulfa (Sulfonamide Antibiotics) Hives High 12/14 Medications aspirin 81 MG EC tablet Take 1 tablet (81 mg total) by mouth daily. Active glipiZIDE (GLUCOTROL XL) 10 MG 24 hr tablet Take 1 tablet (10 mg total) by mouth 2 (two) times daily. 5 Active Coreg 6.25 mg tablet Take 1 tablet (6.25 mg total) by mouth 2 (two) times daily with breakfast and dinner. Active cholecalciferol (VITAMIN D3) 1,250 mcg (50,000 unit) capsule Take 1 capsule (1,250 mcg total) by mouth once a week. 5 Active pravastatin (PRAVACHOL) 80 MG tablet Take 1 tablet (80 mg total) by mouth daily. Active levothyroxine (SYNTHROID) 100 MCG tablet Take 1 tablet (100 mcg total) by mouth Daily (0600). Active magnesium oxide (MAG-OX) 400 mg tablet Take 1 tablet (400 mg total) by mouth daily. Active Active Problems Problem Noted Date Diagnosed Date Preop examination 05/08/2025 PAF (paroxysmal atrial fibrillation) 05/08/2025 Urinary incontinence 05/08/2025 DM (diabetes mellitus) 05/08/2025 ISABELA (obstructive sleep apnea) 05/08/2025 Hypothyroid 05/08/2025 Hyperlipidemia 05/08/2025 Social History Tobacco Use Types Packs/Day Years [...] Date Lizandro rded Speak language other than Khmer at home Not on file 01/31/2024 Want [...] PM CDT Sexual Orientation Not on file Last Filed [...] Mass Index 25.85 05/08/2025 12:02 PM EDT Plan of Treatment Upcoming Encounters Date Type Department Care Team (Latest Contact Info) Description 05/19/2025 7:30 AM EDT Hospital Encounter [facility] Surgery Department [address] [place] [address] Rosa M Rangel MD [address] [facility] [address] [place] [address] 05/19/2025 7:30 AM EDT - 05/19/2025 11:24 AM EDT Surgery [facility] Surgery Department [address] [place] [address] Rosa M Rangel MD [address] [facility] [address] [place], [place] [id number] LAPAROSCOPY WITH ROBOTIC ASSISTNAE SUPRACERVICAL HYSTERECTOMY, SACRCOLPOPEXY, PARA VAGINAL DEFECT REPAIR 10/05/2025 11:[address] [facility] Breast Imaging [address] [place] [address] [address] [place] [address] John Rodrigues MD [address] [place] [address] Scheduled Procedures Name Priority Associated Diagnoses Date/Ti me ROBOTIC LAPAROSCOPY,SUPRACERVICAL HYSTERECTOMY Cystocele, lateral Uterovaginal prolapse, incomplete Urge incontinence Hypermobility of urethra 05/19/2025 7:30 AM EDT ROBOTIC LAPAROSCOPY,SACROCOLPOPEXY Cystocele, lateral Uterovaginal prolapse, incomplete Urge incontinence Hypermobility of urethra 05/19/2025 7:30 AM EDT Procedures Procedure Name Priority Date/Time Associated Diagnosis Comments PT/INR, PTT Routine 05/08/2025 2:14 PM EDT Pre-op testing HEMOGLOBIN A1C Routine 05/08/2025 2:14 PM EDT Pre-op testing BASIC METABOLIC PANEL Routine 05/08/2025 2:14 PM EDT Pre-op testing CBC W/ AUTO DIFF Routine 05/08/2025 2:14 PM EDT Pre-op testing [id number] 12-LEAD Routine 05/08/2025 11:02 AM EDT Pre-op testing MM DIGITAL MAMMO SCREEN WITH RAMONA BILATERAL Routine 09/29/2024 12:03 PM EST Visit for screening mammogram from Last 3 Months or Most Recently Relevant to Health Maintenance Results * (ABNORMAL) CBC with automated diff (05/08/2025 2:14 PM EDT) WBC 8.8 3.9 - 10.0 K/ L 05/08/2025 2:18 PM EDT [facility] RBC 3.98 3.93 - 6.08 M/ L 05/08/2025 2:18 PM EDT [facility] Hemoglobin 12.4 11.2 - 15.7 GM/DL 05/08/2025 2:18 PM EDT [facility] Hematocrit 38.7 34.1 - 44.9 % 05/08/2025 2:18 PM EDT [facility] MCV 97(H) 79 - 95 fL 05/08/2025 2:18 PM EDT [facility] MCH 31.2 25.6 - 32.2 pg 05/08/2025 2:18 PM EDT [facility] MCHC 32.0(L) 32.2 - 36.5 GM/DL 05/08/2025 2:18 PM EDT [facility] RDW 14.4 11.6 - 14.4 % 05/08/2025 2:18 PM EDT [facility] Platelets 195 163 - 369 K/CU MM 05/08/2025 2:18 PM EDT [facility] MPV 10.3 9.4 - 12.4 fL 05/08/2025 2:18 PM EDT [facility] % Neutros 56 34 - 71 % 05/08/2025 2:18 PM EDT [facility] % Lymphs 31 19 - 53 % 05/08/2025 2:18 PM EDT [facility] % Monos 8 4 - 13 % 05/08/2025 2:18 PM EDT [facility] % Eos 4 1 - 7 % 05/08/2025 2:18 PM EDT [facility] % Baso 1 0 - 1 % 05/08/2025 2:18 PM EDT [facility] # Neutros 4.97 1.56 - 6.13 K/ L 05/08/2025 2:18 PM EDT [facility] # Lymphs 2.71 1.18 - 3.74 K/ L 05/08/2025 2:18 PM EDT [facility] # Monos 0.74 0.24 - 0.82 K/ L 05/08/2025 2:18 PM EDT [facility] # Eos 0.32 0.04 - 0.54 K/ L 05/08/2025 2:18 PM EDT [facility] # Baso 0.06 0.01 - 0.08 K/ L 05/08/2025 2:18 PM EDT [facility] Immature Granulocytes-Re lative 0.30 0.00 - 0.60 % 05/08/2025 2:18 PM EDT [facility] # IG 0.03 0.00 - 0.05 K/uL 05/08/2025 2:18 PM EDT [facility] Blood Venipuncture / Unknown 05/08/2025 2:14 PM EDT 05/08/2025 2:14 PM EDT Narrative [facility] - 05/08/2025 2:18 PM EDT [...] MD LAB BLOOD ORDERABLES Prema pham Result [facility] [address] [employer] [address] [phone] * PT/INR, PTT (05/08/2025 2:14 PM EDT) aPTT 23.9 22.0 - 32.0 seconds 05/08/2025 2:34 PM EDT [facility] Protime 10.3 9.0 - 12.0 seconds 05/08/2025 2:34 PM EDT [facility] INR 0.94 0.80 - 1.10 05/08/2025 2:34 PM EDT [facility] Blood Venipuncture / Unknown 05/08/2025 2:14 PM EDT 05/08/2025 2:14 PM EDT Dk Anaya MD LAB BLOOD ORDERABLES Prema l Result Performing Organization Address [facility]/ZIP Co de Phone Number [facility] [address] [phone] * (ABNORMAL) Hemoglobin A1c (05/08/2025 2:14 PM EDT) Hemoglobin A1C 7.0(H) 4.2 - 6.3 % 05/08/2025 2:42 PM EDT [facility] Comment: Hemoglobin A1C levels are related to mean glucose during the preceding 2-3 months. Less than 7% demonstrates glycemic control in diabetic patients. Hemoglobin AlC % Suggested Diagnosis > or = 6.5 Diabetic 5.7 - 6.4 Prediabetic <5.7 Non-diabetic eAVG Glucose 154.2 mg/dL 05/08/2025 2:42 PM EDT [facility] Blood Venipuncture / Unknown 05/08/2025 2:14 PM EDT 05/08/2025 2:14 PM EDT Dk Anaya MD LAB BLOOD ORDERABLES Prema l Result Performing Organization Address City/[facility]/ZIP Co de Phone Number [facility] [address] [phone] * (ABNORMAL) Basic Metabolic Panel (05/08/2025 2:14 PM EDT) Sodium 141 136 - 146 meq/L 05/08/2025 2:34 PM EDT [facility] Potassium 4.6 3.5 - 5.1 meq/L 05/08/2025 2:34 PM EDT [facility] Chloride 106 102 - 112 meq/L 05/08/2025 2:34 PM EDT [facility] CO2 30 21 - 32 meq/L 05/08/2025 2:34 PM EDT [facility] Anion Gap 10 9 - 20 05/08/2025 2:34 PM EDT [facility] BUN 32(H) 7 - 22 mg/dL 05/08/2025 2:34 PM EDT [facility] Creatinine 1.02 0.55 - 1.02 mg/dL 05/08/2025 2:34 PM EDT [facility] BUN/Creatinine 31(H) 8 - 20 05/08/2025 2:34 PM EDT [facility] Glucose 168(H) 74 - 100 mg/dL 05/08/2025 2:34 PM EDT [facility] Calcium 9.5 8.5 - 10.1 mg/dL 05/08/2025 2:34 PM EDT [facility] Osmolality Calc 292.0 mOsm/kg 2:34 PM EDT [facility] eGFR (mL/min/1.73m2) 58(L) >=60 mL/min/1.7 3m2 05/08/2025 2:34 PM EDT [facility] Comment:eGFR of <60 suggests chronic kidney disease if found over a 3 month period of time. eGFR <15 indicates renal failure. Blood Venipuncture / Unknown 05/08/2025 2:14 PM EDT 05/08/2025 2:14 PM EDT us Dk Anaya MD LAB BLOOD ORDERABLES Pream l Result [facility] [address] [employer] [address] [phone] * ECG 12 lead (05/08/2025 11:02 AM EDT) VENTRICULAR RATE EKG/MIN 51 BPM GE MUSE ATRIAL RATE (MCT) 51 BPM GE MUSE UT Interval 146 ms GE MUSE QRS-INTERVAL (MSEC) 86 ms GE MUSE QT Interval 452 ms GE MUSE QTC Interval 416 ms GE MUSE P [place] 64 degrees GE MUSE R AXIS (MCT) -17 degrees GE MUSE T Wave [place] 100 degrees GE MUSE [place] Diagnosis Sinus bradycardia ST & T wave abnormality, consider lateral ischemia Abnormal ECG Confirmed by Zheng ENRIQUEZ SUZANNE ([id number]) on 05/11/2025 12:29:50 PM GE MUSE 05/08/2025 11:0 2 AM EDT 05/11/2025 12:29 PM EDT us Dk Anaya MD ECG ORDERABLES Final Res ult GE MUSE * MM digital mammo screen with ramona [...] the next mammogram. At our facility, a [place] marker is positioned over a visible skin [...] Most Recently Relevant to Health Maintenance Insurance [employer] MEDICARE PPO
--- OUTSIDE RECORDS SUMMARY | 2025-05-15 10:33 | XMS_ITS | Encounter Summary ---
Author Organization [employer] ([place], [place], [place], [place]) Address [address] [place] [address] Care Team Providers Care Sisal Picker Name Role Phone Unavailable Primary Care Provider Unavailabl e Reason for Referral * Mammography (Routine) - Closed Specialty Diagnoses / Procedures Referred By Casandra t Referred To Contact Diagnoses Visit for screening mammogram Procedures MM digital mammo [place] [address] [place] [address] [address] Phone: tel: fax: Referral ID Status Reason Start Date Expiration Date Visits Re quested Visits Authorized [id number] Closed 06/30/2024 06/30/2025 1 1 Encounter Details Date Type Department Care Team (Late st Contact Info) Description 06/30/2024 Outside Orders [facility] Central Scheduling [address] [place] [address] John Rodrigues MD [facility] [address] [address] Visit for screening mammogram (Primary Dx) Social History Tobacco Use Types Packs/Day Years Used Date Smoking Tobacco: Never Assessed Family and Community Support Answer Hernán e Recorded Help with Day to Day Activities Not on file 01/31/2024 Feeling Lonely or Isolated Not on file 01/30 Educational Attainment Answer Date Lizandro rded Speak language other than [place] at home Not on file 01/31/2024 Want [...] 05/19/2025 7:30 AM EDT Hospital Encounter [facility] Surgery Department [address] [place] [address] Rosa M Rangel MD [address] [facility] [address] [place] [address] 05/19/2025 7:30 AM EDT - 05/19/2025 11:24 AM EDT Surgery [facility] Surgery Department [address] [place] [address] Rosa M Rangel MD [address] [facility] [address] [place] [address] LAPAROSCOPY WITH ROBOTIC ASSISTNAE SUPRACERVICAL HYSTERECTOMY, SACRCOLPOPEXY, PARA VAGINAL DEFECT REPAIR 10/05/2025 11:00 AM EST Appointment [facility] Breast Imaging [address] [facility] [address] [place] [address] John Rodrigues MD [address] [place], [place] [address] Scheduled Procedures Name Priority Associated Diagnoses Date/Ti ky ROBOTIC LAPAROSCOPY,SUPRACERVICAL HYSTERECTOMY Cystocele, lateral Uterovaginal prolapse, [...] the next mammogram. At our facility, a lum[place] marker is positioned over a visible skin [...]
--- OUTSIDE RECORDS SUMMARY | 2025-05-15 10:33 | XMS_ITS | Encounter Summary ---
Author Organization [employer] ([place], [place], [place], [place]) Address [address] [place] [address] Care Team Providers Care Internet Security Specialist Name Role Phone Unavailable Primary Care Provider Unavailabl e Reason for Referral * Mammography (Routine) - Pending Review Specialty Diagnoses / Procedures Referred By Casandra t Referred To Contact Diagnoses Visit for screening mammogram Procedures MM digital mammo screen with shakir bilateral John Rodrigues MD [address] [facility] [address] [place] [address] Phone: tel: fax: Referral ID Status Reason Start Date Expiration Date V isits Requested Visits Authorized [id number] Pending Review 10/05/2025 10/05/2026 1 1 Encounter Details Date Type Department Care Team (Late st Contact Info) Description 09/29/2024 Outside Orders [facility] Central Scheduling [address] [place] [address] John Rodrigues MD [address] [facility] [address] [place] [address] Visit for screening mammogram (Primary Dx) Social History Tobacco Use Types Packs/Day Years Used Date Smoking Tobacco: Never Assessed Family and Community Support Answer Hernán e Recorded Help with Day to Day Activities Not on file 01/31/2024 Feeling Lonely or Isolated Not on file 01/30 Educational Attainment Answer Date Lizandro rded Speak language other than Sudanese at home Not on file 01/31/2024 Want [...] Description 05/19/2025 7:30 AM EDT Hospital Encounter [facility] Surgery Department [address] [place] [address] Rosa M Rangel MD [address] [facility] [address] [place] [address] 05/19/2025 7:30 AM EDT - 05/19/2025 11:24 AM EDT Surgery [facility] Surgery Department [address] [place] [address] Rosa M Rangel MD [address] [facility] [address] [place] [address] LAPAROSCOPY WITH ROBOTIC ASSISTNAE SUPRACERVICAL HYSTERECTOMY, SACRCOLPOPEXY, PARA VAGINAL DEFECT REPAIR 10/05/2025 11:00 AM EST Appointment [facility] Breast Imaging [address] [place] [address] [address] [place] [address] John Rodrigues MD [address] [place], [place] [address] Scheduled Orders Name Type Priority Associated Diagnoses Orde r Schedule MM digital mammo screen with shakir bilateral Imaging Routine Visit for screening mammogram Expected: 10/05/2025, Expires: 03/30/2026 Scheduled Procedures Name Priority Associated Diagnoses Date/Ti ia ROBOTIC LAPAROSCOPY,SUPRACERVICAL HYSTERECTOMY Cystocele, lateral Uterovaginal prolapse, [...]
--- OUTSIDE RECORDS SUMMARY | 2025-05-15 10:33 | XMS_ITS | Patient Health Record ---
Author Organization [facility] Address [address] [facility] [address] [facility] [address] [place] [address] Care Team Providers Care Woods Warden Name Role Phone Srini Cooley Primary Care Provider [phone] Srini Cooley Unavailable Unavailable Migration, Provider Unavailable [...] review and pick correct strength-formulati on from [employer] options. If intended option is not shown, [...] review and pick correct strength-formulati on from [employer] options. If intended option is not shown, [...] specified complication (E11.69) Active confirmed Problem Hyperlipidemia (39551877) Hyperlipidemia, unspecified (E78.5) Active confirmed Problem Hypomagnesemia (653417502) Hypomagnesemia (E83.42) Active confirmed Problem Chronic pain (28309236) Other chronic pain (G89.29) Active confirmed Problem Essential hypertension (69922239) Essential (primary) hypertension (I10) Active confirmed Problem Paroxysmal atrial fibrillation (363265447) Paroxysmal atrial fibrillation (I48.0) Active confirmed Problem Irritable bowel syndrome with diarrhea (494877562) Irritable bowel syndrome with diarrhea (K58.0) Active confirmed Problem Mixed incontinence (145056411) Mixed incontinence (N39.46) Active confirmed Problem Diabetes mellitus (76510857) Diabetes mellitus (E11.9) Active confirmed Problem Vitamin B12 deficiency (non anemic) (89384052) Vitamin B 12 deficiency (E53.8) Active confirmed Problem Gastroesophageal reflux disease (776991048) GERD without esophagitis (K21.9) Active confirmed Problem Seasonal allergy (504937328) Seasonal allergies (J30.2) Active confirmed Problem Diverticulitis (36845300) Diverticulitis (K57.92) Active confirmed Problem 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) Arthritis, 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) Active confirmed Problem Acquired hypothyroidism (337932853) Acquired hypothyroidism (E03.9) Active confirmed Problem Sacroiliitis (04738869) Sacroiliitis (M46.1) Active confirmed Problem Overactive urinary bladder (disorder) (264679928) OAB (overactive bladder) (N32.81) Active confirmed Problem Chronic maxillary sinusitis (67235125) Chronic sinusitis of both maxillary sinuses (J32.0) Active confirmed Problem Acute depression (153684280) Acute depression (F32.9) Active confirmed Problem History of diverticulitis (466167037092568) History of diverticulitis (Z87.19) Active confirmed Problem Arthritis of both knees (3436440055218661) Arthritis of both knees (M17.0) Active confirmed Encounters Encounter Location Date Provider Diagnosis [facility] [place] [address] [facility] [address] [place] [address] 01/17/2025 Provider Migration Diverticulitis K57.92 Assessments Encounter Date Diagnosis (ICD Code) Assessment Notes Treatment Notes Treatment Clinical Notes Section Notes 01/17/2025 Diverticulitis (ICD-10 - K57.92) Plan Of Treatment Pending Test Test Name Order Date N-CBC 07/01/2010 N-Sed Rate 07/01/2010 N-Potassium 06/17/2009 N-Urine Culture and Sensitivity 06/14/20 11 Urinalysis 03/20/2016 Urinalysis 06/26/2016 X ray : Spines, Cervical 11/26/2007 X [...] End Date [employer] [address] [address] [place] [address] [id number] Johanna Spivey Self - patient is the insured [employer] [address] [place] [address] [phone] [id number] Johanna Spivey Self - patient is the [...]
--- OUTSIDE RECORDS SUMMARY | 2025-05-15 10:33 | XMS_ITS | Clinical Summary ---
Author Organization [facility] Address [address] [place] [id number] Care Team Providers Care Carrier Loader Name Role Phone Shayy Hagan APRN Primary Care Provider [phone] Allergies Active Allergy Reactions Criticality Noted Date Comments Codeine Nausea Only 01/03/2017 Sulfa Antibiotics Hives 01/03/2017 Acetaminophen Nausea And Vomiting 04/04/2019 TYLENOL #3 Medications cetirizine (zyrTEC) 10 MG tablet Take 10 mg by mouth Daily. Active metFORMIN (GLUCOPHAGE) 1000 MG tablet Take 1,000 mg by mouth 2 (Two) Times a Day With Meals. Active levothyroxine (SYNTHROID, LEVOTHROID) 100 MCG tablet Take 100 mcg by mouth Daily. Active lisinopril (PRINIVIL,ZESTRI L) 20 MG tablet Take 20 mg by mouth Daily. Active lansoprazole (PREVACID) 15 MG capsule Take 15 mg by mouth Daily As Needed. Active pravastatin (PRAVACHOL) 80 MG tablet Take 80 mg by mouth Daily. Active montelukast (SINGULAIR) 10 MG tablet Take 10 mg by mouth Every Night. Active carvedilol (COREG) 6.25 MG tablet Take 6.25 mg by mouth 2 (Two) Times a Day With Meals. Active aspirin 81 MG EC tablet Take 81 mg by mouth Daily. Active Active Problems Problem Noted Date Diagnosed Date Precordial chest pain 01/03/2017 Dyspnea on exertion 01/03/2017 Essential hypertension 01/03/2017 Family History Medical History Relation Name Comments Cancer Brother 1 Heart attack Father Leukemia Father Relation Name Status Comments Brother 1 Brother 2 Father Mother Alive Social History Tobacco Use Types Packs/Day Years Used Date Smoking Tobacco: Former Comments:Quit 38 years ago Alcohol Use Standard Drinks/Week Comments No 0 (1 standard drink = 0.6 oz pur e alcohol) Abuse Screen Answer Date Recorded Unsafe at Home or Work/School Not on file Feels Threatened by Someone? Not on file 06/2023 Does Anyone Keep You from Co ntacting Others or Doint Things Outside the Home? Not on file 07/23/2023 Physical Sign of Abuse Present Not on file 1 Housing Stability Answer Date Recorded Current Living Arrangements Not on file 06/2023 Potentially Unsafe Housing Conditions Not on tony e 07/23/2023 Family and Community Support Answer Hernán e Recorded Help with Day-to-Day Activities Not on file 07/23/2023 Lonely or Isolated Not on file 07/23/2023 Employment Answer Date Recorded Do you want help finding or keeping work or a collette b? Not on file 07/23/2023 Disabilities Answer Date Recorded Concentrating, Remembering, or Making Decisions Difficulty Not on file 07/23/2023 Doing Errands Independently Difficulty Not on fi le 07/23/2023 Education Answer Date Recorded Help with school or training? Not on file Preferred Language Not on file 07/23/2023 Comments Unknown Sex and Gender Information Value Date Recorded Sex Assigned at Not on file Legal Sex Female 12:02 PM EDT Gender Identity Not on file Sexual Orientation Not on file Last Filed Vital Signs Vital Sign Reading Time Taken Comments Blood Pressure 138/80 01/20/2021 1:10 PM EDT Pulse 71 01/20/2021 1:10 PM EDT Temperature - - Respiratory Rate - - Oxygen Saturation 95% 01/20/2021 1:10 PM EDT Inhaled Oxygen Concentration - - Weight 80.3 kg (177 lb) 01/20/2021 1:10 PM EDT Height 172.7 cm (5' 8 ) 01/20/2021 1:10 PM EDT Body Mass Index 26.91 01/20/2021 1:10 PM EDT Plan of Treatment Health Maintenance Due Date Last Done Comments DXA SCAN 1951 TDAP/TD VACCINES (1 - Tdap) 1970 COLOGUARD 1996 COLON CANCER SCREENING 5 YEA R SIGMOIDOSCOPY [address] COLONOGRAPHY 1996 FIT Testing (1 year) 1996 ZOSTER VACCINE (1 of 2) 2001 ANNUAL PHYSICAL 03/05/2017 HEPATITIS C SCREENING 03/05/2017 Pneumococcal Vaccine 50+ (2 of 2 - PPSV23) 05/21/2018 05/21/2017 FECAL OCCULT BLOOD TEST 04/29/2020 04/29/2019 MAMMOGRAM 05/03/2023 05/03/2021, 08/15, 02/06/2018, Additional history exists COVID-19 Vaccine (2 - 2023-2 5 season) 2024 01/06/2021 INFLUENZA VACCINE 07/15/2025 08/05/2021, , 07/02/2020, Additional history exists COLONOSCOPY 01/24/2029 01/24/2019 COLORECTAL CANCER SCREENING 01/24/2029 HEMOGLOBIN A1C Discontinued 07/15/2021, 06/0 10/2020, 11/29/2020, Additional history exists Insurance [employer] MEDICARE A & B Care Teams Carrier Loader Relationship Specialty Start Date End Date Shayy Hagan APRN [facility] [place] [address] PCP - General Nurse Practitioner 01/20/21
--- OUTSIDE RECORDS SUMMARY | 2025-05-15 10:33 | XMS_ITS | Encounter Summary ---
Author Organization [employer] ([place], [place], [place], [place]) Address [address] [place] [address] Care Team Providers Care Consulting Services Associate Name Role Phone Unavailable Primary Care Provider Unavailabl e Encounter Details Date Type Department Care Team (Late st Contact Info) Description 03/02/[address] [facility] Central Scheduling [address] [place] [address] Prabhakar Van MD [address] [facility] [address] [place] [address] Essential hypertension (Primary Dx) Social History Tobacco [...] [facility] Surgery Department [address] [place] [address] Rosa M Rangel MD [address] [facility] [address] [place] [address] 05/19/2025 7:30 AM EDT - 05/19/2025 11:24 AM EDT Surgery [facility] Surgery Department [address] [place] [address] Rosa M Rangel MD [address] [place], [place] [id number] LAPAROSCOPY WITH ROBOTIC ASSISTNAE SUPRACERVICAL HYSTERECTOMY, SACRCOLPOPEXY, PARA VAGINAL DEFECT REPAIR 10/05/2025 11:[address] [facility] Breast Imaging [address] [facility] [address] [place] [address] John Rodrigues MD [address] [place] [address] Scheduled Procedures Name Priority Associated Diagnoses Date/Ti [...]
--- OUTSIDE RECORDS SUMMARY | 2025-05-15 10:33 | XMS_ITS | Encounter Summary ---
Author Organization [employer] ([place], [place], [place], [place]) Address [address] [place] [address] Care Team Providers Care Virologist Name Role Phone Unavailable Primary Care Provider Unavailabl e Encounter Details Date Type Department Care Team (Late st Contact Info) Description 06/28/2023 Outside Orders [facility] Central Scheduling [address] [place] [address] John Rodrigues MD [address] [facility] [address] [place] [address] Visit for screening mammogram (Primary Dx) Social History Tobacco Use Types Packs/Day Years Used Date Smoking Tobacco: Never Assessed Family and Community Support Answer Hernán e Recorded Help with Day to Day Activities Not on file 01/31/2024 Feeling Lonely or Isolated Not on file 01/30 Educational Attainment Answer Date Lizandro rded Speak language other than Maltese at home Not on file 01/31/2024 Want [...] Description 05/19/2025 7:30 AM EDT Hospital [facility] [address] [place] [id number] Rosa M Rangel MD [address] [facility] [address] [place] [address] 05/19/2025 7:30 AM EDT - 05/19/2025 11:24 AM EDT [facility] Surgery Department [address] [place] [id number] Rosa M Rangel MD [address] [facility] [address] [place] [address] LAPAROSCOPY WITH ROBOTIC ASSISTNAE SUPRACERVICAL HYSTERECTOMY, SACRCOLPOPEXY, PARA VAGINAL DEFECT REPAIR 10/05/2025 11:00 AM EST Appointment [facility] Breast Imaging [address] [place] [address] [address] [place] [address] John Rodrigues MD [address] [facility] [address] [place] [address] Scheduled Procedures Name Priority Associated Diagnoses Date/Ti mt ROBOTIC LAPAROSCOPY,SUPRACERVICAL HYSTERECTOMY Cystocele, lateral Uterovaginal prolapse, [...]
--- OUTSIDE RECORDS SUMMARY | 2025-05-15 10:33 | XMS_ITS | Clinical Summary ---
Author Organization Healthcare Address [address] [place] [address] Care Team Providers Care Senior Structural Engineer Name Role Phone Shirin Jasso APRN Primary Care Provider [phone] Family History Medical History Relation Name Comments [...] of Treatment Not on file Care Teams Senior Structural Engineer Relationship Specialty Start Date End Date Shirin Jasso APRN [address] [place], [place] [id number] PCP - General 02/25/21
--- OUTSIDE RECORDS SUMMARY | 2025-05-15 10:33 | XMS_ITS | Clinical Summary ---
Author Organization [employer] ([place], [place], [place], [place]) Address [address] [place] [address] Care Team Providers Care Pilot Teacher Name Role Phone Unavailable Primary Care Provider Unavailabl e Allergies Active Allergy Reactions Criticality Noted Date Comments Sulfa (Sulfonamide Antibiotics) Hives High 12/14 Medications aspirin 81 MG EC tablet Take 1 tablet (81 mg total) by mouth daily. Active glipiZIDE (GLUCOTROL XL) 10 MG 24 hr tablet Take 1 tablet (10 mg total) by mouth 2 (two) times daily. Active Coreg 6.25 mg tablet Take 1 tablet (6.25 mg total) by mouth 2 (two) times daily with breakfast and dinner. Active cholecalciferol (VITAMIN D3) 1,250 mcg (50,000 unit) capsule Take 1 capsule (1,250 mcg total) by mouth once a week. Active pravastatin (PRAVACHOL) 80 MG tablet Take [...] sleep apnea) 05/08/2025 Hypothyroid 05/08/2025 Hyperlipidemia 05/08/2025 Encounters Date Type Department Care Team Description 05/08/2025 10:37 AM EDT - 05/08/2025 11:59 PM EDT Hospital Encounter [facility] [address] [facility] [address] [place] [phone] Preop examination (Primary Dx); PAF (paroxysmal atrial fibrillation) (HCC); ISABELA (obstructive sleep apnea); Pre-op testing Discharge Disposition: Home or Self Care 05/08/2025 Travel from Last 3 Months Social History Tobacco Use Types Packs/Day Years [...] Date Lizandro rded Speak language other than Serbian at home Not on file 01/31/2024 Want [...] Description 05/19/2025 7:30 AM EDT Hospital Encounter [facility] Surgery Department [address] [place] [address] Rosa M Rangel MD [address] [facility] [address] [place] [address] 05/19/2025 7:30 AM EDT - 05/19/2025 11:24 AM EDT Surgery [facility] Surgery Department [address] [place] [address] Rosa M Rangel MD [address] [facility] [address] [place], [place] [id number] LAPAROSCOPY WITH ROBOTIC ASSISTNAE SUPRACERVICAL HYSTERECTOMY, SACRCOLPOPEXY, PARA VAGINAL DEFECT REPAIR 10/05/2025 11:00 AM EST Appointment [facility] Breast Imaging [address] [place] [address] [address] [place] [address] John Rodrigues MD [address] [place] [address] [place] [address] Scheduled Procedures Name Priority Associated Diagnoses Date/Ti me ROBOTIC LAPAROSCOPY,SUPRACERVICAL HYSTERECTOMY Cystocele, lateral Uterovaginal prolapse, incomplete Urge incontinence Hypermobility of urethra 05/19/2025 7:30 AM EDT ROBOTIC LAPAROSCOPY,SACROCOLPOPEXY Cystocele, lateral Uterovaginal prolapse, incomplete Urge incontinence Hypermobility of urethra 05/19/2025 7:30 AM EDT Health Maintenance Due Date Last Done Comments CT Colonography 1951 Colonoscopy 1951 Colorectal Cancer Screening 1950 DXA SCAN 1951 Diabetic Kidney Health Evalu ation (KED) 1951 FOBT/FIT 1951 Fit-DNA (Cologuard) 1951 Sigmoidoscopy 1951 Diabetic Eye Exam 1961 Depression Screening (12+) 1963 Hepatitis C Screening 1969 DTAP/TDAP/TD VACCINES (1 - Tdap) 1970 Shingles Vaccine (Zoster) (1 of 2) 2001 Respiratory Syncytial Virus (RSV) Adult or (1 - Risk 60-74 years 1-dose series) 2011 Pneumococcal 50+ years (2 of 2 - PPSV23) 07/16/2017 05/21/2017 COVID-19 VACCINE (3 - 2023-2 5 season) 2024 02/03/2021, 01/06/2021 Falls Risk Screening 10/15/2024 Medicare Initial AWV G0438 11/15/2024 Influenza Vaccine (#1) 2025 , 07/02/2020, 08/12/2019 Hemoglobin A1C 11/08/2025 05/08/2025 Tobacco Cessation Counseling and Screening (12+) 05/08/2026 05/08/2025 Breast Cancer Screening 09/29/2026 09/29/20 24, 05/09/2022, [...] 10.0 K/ L 05/08/2025 2:18 PM EDT [facility] RBC 3.98 3.93 - 6.08 M/ L 05/08/2025 2:18 PM EDT [facility] Hemoglobin 12.4 11.2 - 15.7 GM/DL 05/08/2025 2:18 PM EDT [facility] Hematocrit 38.7 34.1 - 44.9 % 05/08/2025 2:18 PM EDT [facility] MCV 97(H) 79 - 95 fL 05/08/2025 2:18 PM EDT [facility] MCH 31.2 25.6 - 32.2 pg 05/08/2025 2:18 PM EDT [facility] MCHC 32.0(L) 32.2 - 36.5 GM/DL 05/08/2025 2:18 PM EDT [facility] RDW 14.4 11.6 - 14.4 % 05/08/2025 2:18 PM EDT [facility] Platelets 195 163 - 369 K/CU MM 05/08/2025 2:18 PM EDT [facility] MPV 10.3 9.4 - 12.4 fL 05/08/2025 2:18 PM EDT [facility] % Neutros 56 34 - 71 % 05/08/2025 2:18 PM EDT [facility] % Lymphs 31 19 - 53 % 05/08/2025 2:18 PM EDT [facility] % Monos 8 4 - 13 % 05/08/2025 2:18 PM EDT [facility] % Eos 4 1 - 7 % 05/08/2025 2:18 PM EDT [facility] % Baso 1 0 - 1 % 05/08/2025 2:18 PM EDT [facility] # Neutros 4.97 1.56 - 6.13 K/ L 05/08/2025 2:18 PM EDT [facility] # Lymphs 2.71 1.18 - 3.74 K/ L 05/08/2025 2:18 PM EDT [facility] # Monos 0.74 0.24 - 0.82 K/ L 05/08/2025 2:18 PM EDT [facility] # Eos 0.32 0.04 - 0.54 K/ L 05/08/2025 2:18 PM EDT [facility] # Baso 0.06 0.01 - 0.08 K/ L 05/08/2025 2:18 PM EDT [facility] Immature Granulocytes-Re lative 0.30 0.00 - 0.60 % 05/08/2025 2:18 PM EDT [facility] # IG 0.03 0.00 - 0.05 K/uL 05/08/2025 2:18 PM EDT [facility] Blood Venipuncture / Unknown 05/08/2025 2:14 PM EDT 05/08/2025 2:14 PM EDT Narrative [facility] - 05/08/2025 2:18 PM EDT [...] MD LAB BLOOD ORDERABLES Prema pham Result [facility] [address] [phone] * PT/INR, PTT (05/08/2025 2:14 PM EDT) aPTT 23.9 22.0 - 32.0 seconds 05/08/2025 2:34 PM EDT [facility] Protime 10.3 9.0 - 12.0 seconds 05/08/2025 2:34 PM EDT [facility] INR 0.94 0.80 - 1.10 05/08/2025 2:34 PM EDT [facility] Blood Venipuncture / Unknown 05/08/2025 2:14 PM EDT 05/08/2025 2:14 PM EDT Dk Anaya MD LAB BLOOD ORDERABLES Prema l Result Performing Organization Address [facility] Co de Phone Number [facility] [address] [phone] * (ABNORMAL) Hemoglobin A1c (05/08/2025 2:14 PM EDT) Hemoglobin A1C 7.0(H) 4.2 - 6.3 % 05/08/2025 2:42 PM EDT [facility] Comment: Hemoglobin A1C levels are related to mean glucose during the preceding 2-3 months. Less than 7% demonstrates glycemic control in diabetic patients. Hemoglobin AlC % Suggested Diagnosis > or = 6.5 Diabetic 5.7 - 6.4 Prediabetic <5.7 Non-diabetic eAVG Glucose 154.2 mg/dL 05/08/2025 2:42 PM EDT [facility] Blood Venipuncture / Unknown 05/08/2025 2:14 PM EDT 05/08/2025 2:14 PM EDT Dk Anaya MD LAB BLOOD ORDERABLES Prema l Result Performing Organization Address [facility] de Phone Number [facility] [address] [phone] * (ABNORMAL) Basic Metabolic Panel (05/08/2025 2:14 PM EDT) Sodium 141 136 - 146 meq/L 05/08/2025 2:34 PM EDT [facility] Potassium 4.6 3.5 - 5.1 meq/L 05/08/2025 2:34 PM EDT [facility] Chloride 106 102 - 112 meq/L 05/08/2025 2:34 PM EDT [facility] CO2 30 21 - 32 meq/L 05/08/2025 2:34 PM EDT [facility] Anion Gap 10 9 - 20 05/08/2025 2:34 PM EDT [facility] BUN 32(H) 7 - 22 mg/dL 05/08/2025 2:34 PM EDT [facility] Creatinine 1.02 0.55 - 1.02 mg/dL 05/08/2025 2:34 PM EDT [facility] BUN/Creatinine 31(H) 8 - 20 05/08/2025 2:34 PM EDT [facility] Glucose 168(H) 74 - 100 mg/dL 05/08/2025 2:34 PM EDT [facility] Calcium 9.5 8.5 - 10.1 mg/dL 05/08/2025 2:34 PM EDT [facility] Osmolality Calc 292.0 mOsm/kg 2:34 PM EDT [facility] eGFR (mL/min/1.73m2) 58(L) >=60 mL/min/1.7 3m2 05/08/2025 2:34 PM EDT [facility] Comment:eGFR of <60 suggests chronic kidney disease if found over a 3 month period of time. eGFR <15 indicates renal failure. Blood Venipuncture / Unknown 05/08/2025 2:14 PM EDT 05/08/2025 2:14 PM EDT Dk Anaya MD LAB BLOOD ORDERABLES Prema l Result Performing Organization Address City/State/[facility] Co de Phone Number [facility] [address] [phone] * ECG 12 lead (05/08/2025 11:02 AM EDT) VENTRICULAR RATE EKG/MIN 51 BPM GE MUSE ATRIAL RATE (MCT) 51 BPM GE MUSE NM Interval 146 ms GE MUSE QRS-INTERVAL (MSEC) 86 ms GE MUSE QT Interval 452 ms GE MUSE QTC Interval 416 ms GE MUSE P Maud 64 degrees GE MUSE R AXIS (MCT) -17 degrees GE MUSE T Wave [place]aud 100 degrees GE MUSE [place] Diagnosis Sinus bradycardia ST & T wave [...] the next mammogram. At our facility, a tanana marker is positioned over a visible skin [...]
[2025-05-16 08:32] LABS: Hepatitis B Surface Antigen Negative (Negative)
== END 2025-05-14 23:59 | disposition home or self-care (01) ==
LOC: LAB.DROPOF 05-15 10:30
PROVIDERS: PCP Family Medicine; Visit Provider Family Medicine
DX: E03.9 Hypothyroidism, unspecified (principal); I10 Essential (primary) hypertension; E11.8 Type 2 diabetes mellitus with unspecified complications; Z11.4 Encounter for screening for human immunodeficiency virus [HIV]; N81.4 Uterovaginal prolapse, unspecified; Z11.59 Encounter for screening for other viral diseases
CPT/HCPCS: 80053; 80061; 83036; 84443; 85025; 86803; 87086; 87088; 87186; 87340; 87389

== ENCOUNTER 2025-06-04 10:26 | Outpatient (CLI) | payer MEDICARE, SELFPAY ==
--- OUTSIDE RECORDS SUMMARY | 2025-01-17 17:30 | XMS_ITS ---
Author Organization [facility] D [facility] Address [address] [facility] [address] [place] [address] Care Team Providers Care Instrument Shop Supervisor Name Role Phone Srini Cooley Primary Care Provider [phone] Srini Cooley Unavailable Unavailable Migration, Provider Unavailable Unavailable Allergies Allergen (clinical drug ingredient) Drug/Non Drug Allergy documented on EMR Reaction Allergy Type Onset Date Status SULFA (uncoded) Unknown Allergy Acti ve codeine Codeine Unknown Drug Allergy Active tetracycline Tetracycline Unknown Drug Allergy A ctive REASON FOR VISIT [facility] To [facility] Conversion Encounter Medications Medication SIG (Take, [...] pick correct strength-formulati on from [facility] options. If intended option is not [...] review and pick correct strength-formulati on from [employer] options. If intended option is not shown, discontinue and re-order from Quick Search* 03/07/2013 Active Encounters Encounter Location Date Provider Diagnosis [facility] PED HOWIE [address] [place], [place] [address] 01/17/2025 Provider Migration Diverticulitis K57.92 Assessments Encounter [...] * NIKHILJohanna NDOB:1950 ([age] yo F)Acc No.[id number]:01/17/2025 Patient: Johanna GLASGOW Provider: Jesse Whimtan :1950 A ge:74 Y S ex:Female Date:01/17/2025 Address:[address] [place] [address], [facility] [id number] Pcp:Srini Cooley Subjective: * Chief Complaints: * [facility] . [facility]. * Medical History: * Medications: T aking Magnesium Oxide 400 MG Tablet 1 tab(s) orally three times a day , Taking TrueTrack Test DIRECTED TEST BID , Notes to Pharmacist: *Please review and pick correct strength-formulation from [facility]. If intended option is not shown, [...] Electronic signature of Vanessa arellano Migration on 06/08/2025 at 11:07 AM EDT Sign off status: Pending * Provider: Jesse gaxiola Migration Date: 0 01/17/2025 Generated for Hua gomez/Magdi/Nelidaitting on: 06/08/2025 11:07 AM EDT
--- OUTSIDE RECORDS SUMMARY | 2025-05-08 10:37 | XMS_ITS | Encounter Summary ---
Author Organization [facility] ([place], [place], [place], [place]) Address [address] [place] [address] Care Team Providers Care Pie Topper Name Role Phone Unavailable Primary Care Provider Unavailabl e Encounter Details Date Type Department Care Team (Latest Contact Info) Description 05/08/2025 10:37 AM EDT - 05/08/2025 11:59 PM EDT Hospital Encounter [facility] Preadmission Testing [address] [place] [id number] Preop examination (Primary Dx); PAF (paroxysmal [...] Date Lizandro rded Speak language other than Somali at home Not on file 01/31/2024 Want [...] this encounter Medications at Time of Discharge aspirin 81 MG EC tablet Take 1 tablet (81 mg total) by mouth daily. cholecalciferol (VITAMIN D3) 1,250 mcg (50,000 unit) capsule Take 1 capsule (1,250 mcg total) by mouth once a week. 04/23/2025 Coreg 6.25 mg tablet Take 1 tablet (6.25 mg total) by mouth 2 (two) times daily with breakfast and dinner. glipiZIDE (GLUCOTROL XL) 10 MG 24 hr tablet Take 1 tablet (10 mg total) by mouth 2 (two) times daily. 03/04/2025 levothyroxine (SYNTHROID) 100 MCG tablet Take 1 tablet (100 mcg total) by mouth Daily (0600). magnesium oxide (MAG-OX) 400 mg tablet Take 1 tablet (400 mg total) by mouth daily. pravastatin (PRAVACHOL) 80 MG tablet Take 1 tablet (80 mg total) by mouth daily. oxyCODONE-acetam inophen (PERCOCET) 5-325 mg per tablet Take 1 tablet by mouth every 4 (four) hours as needed for up to 3 days . Max Daily Amount: 6 tablets 18 tablet 05/19/2025 documented as of this encounter Progress Notes * Mendy Nicholson RN - 05/08/2025 11:00 AM EDTSummary: Nursing note Pt. BP readings elevated during appoint. PA made aware of BP readings. Pt. Stated that she felt fine. Pt. Stated that she has history of elevated BP readings when she goes to a doctors appointment. PA recommended to monitor BP and to go to the emergency room if it becomes worse or she becomes symptomatic. documented in this encounter H&P Notes * vIonne Her PA-C - 05/08/2025 11:00 AM EDT History & Physical Name: Johanna Spivey : 1950 Age: 75 y.o. SUBJECTIVE: Chief Complaint / Reason for Visit: preop exam HPI: Johanna Spivey is a 75 y.o. female who presents prior to Procedure Laterality Anesthesia LAPAROSCOPY WITH ROBOTIC ASSISTNAE SUPRACERVICAL HYSTERECTOMY, SACRCOLPOPEXY, PARA VAGINAL DEFECT REPAIR N/A General ROBOTIC LAPAROSCOPY,SACROCOLPOPEXY N/A Due to Diagnosis Cystocele, lateral Uterovaginal prolapse, incomplete Urge incontinence Hypermobility of urethra Per surgeon ROS: +pelvic prolapse +urinary incontinence HISTORY: Patient Active Problem List Diagnosis Date Noted Preop examination 05/08/2025 PAF (paroxysmal atrial fibrillation) ([facility]) 05/08/2025 Urinary incontinence 05/08/2025 DM (diabetes mellitus) ([facility]) 05/08/2025 ISABELA (obstructive sleep apnea) 05/08/2025 Hypothyroid 05/08/2025 Hyperlipidemia 05/08/2025 Past Surgical History: Procedure Laterality Date BREAST BIOPSY Left 1999 excisional biopsy - benign CHOLECYSTECTOMY TUBAL LIGATION ALLERGIES: Sulfa (Sulfonamide Antibiotics) Social History Tobacco Use Smoking status: Former Types: Cigarettes Smokeless tobacco: Never Substance Use Topics Alcohol use: Never FH Mom alive 92 Father unknown OBJECTIVE: Blood pressure (!) 180/80, pulse 51, temperature 98.1 ??F (36.7 ??C), temperature source Tympanic, resp. rate 18, height 1.727 m (5' 8 ), weight 77.1 kg (170 lb), SpO2 94%. Physical Exam Vitals and nursing note reviewed. Constitutional: Appearance: Normal appearance. HENT: Head: Normocephalic. Nose: Nose normal. Mouth/Throat: Mouth: Mucous membranes are moist. Eyes: Conjunctiva/sclera: Conjunctivae normal. Cardiovascular: Rate and Rhythm: Normal rate and regular rhythm. Heart sounds: No murmur heard. Pulmonary: Effort: Pulmonary effort is normal. Breath sounds: Normal breath sounds. Musculoskeletal: General: Normal range of motion. Neurological: General: No focal deficit present. Mental Status: She is alert and oriented to person, place, and time. Psychiatric: Mood and Affect: Mood normal. Behavior: Behavior normal. LABORATORY Results for orders placed or performed during the hospital encounter of 05/08/25 CBC with automated diff Result Value Ref Range WBC 8.8 3.9 - 10.0 K/??L RBC 3.98 3.93 - 6.08 M/??L Hemoglobin 12.4 11.2 - 15.7 GM/DL Hematocrit 38.7 34.1 - 44.9 % MCV 97 (H) 79 - 95 fL MCH 31.2 25.6 - 32.2 pg MCHC 32.0 (L) 32.2 - 36.5 GM/DL RDW 14.4 11.6 - 14.4 % Platelets 195 163 - 369 K/CU MM MPV 10.3 9.4 - 12.4 fL % Neutros 56 34 - 71 % % Lymphs 31 19 - 53 % % Monos 8 4 - 13 % % Eos 4 1 - 7 % % Baso 1 0 - 1 % # Neutros 4.97 1.56 - 6.13 K/??L # Lymphs 2.71 1.18 - 3.74 K/??L # Monos 0.74 0.24 - 0.82 K/??L # Eos 0.32 0.04 - 0.54 K/??L # Baso 0.06 0.01 - 0.08 K/??L Immature Granulocytes-Relative 0.30 0.00 - 0.60 % # IG 0.03 0.00 - 0.05 K/uL Basic Metabolic Panel Result Value Ref Range Sodium 141 136 - 146 meq/L Potassium 4.6 3.5 - 5.1 meq/L Chloride 106 102 - 112 meq/L CO2 30 21 - 32 meq/L Anion Gap 10 9 - 20 BUN 32 (H) 7 - 22 mg/dL Creatinine 1.02 0.55 - 1.02 mg/dL BUN/Creatinine 31 (H) 8 - 20 Glucose 168 (H) 74 - 100 mg/dL Calcium 9.5 8.5 - 10.1 mg/dL Osmolality Calc 292.0 mOsm/kg eGFR (mL/min/1.73m2) 58 (L) >=60 mL/min/1.73m2 Hemoglobin A1c Result Value Ref Range Hemoglobin A1C 7.0 (H) 4.2 - 6.3 % eAVG Glucose 154.2 mg/dL PT/INR, PTT Result Value Ref Range aPTT 23.9 22.0 - 32.0 seconds Protime 10.3 9.0 - 12.0 seconds INR 0.94 0.80 - 1.10 ECG 12 lead Result Value Ref Range VENTRICULAR RATE EKG/MIN 51 BPM ATRIAL RATE (MCT) 51 BPM UT Interval 146 ms QRS-INTERVAL (MSEC) 86 ms QT Interval 452 ms QTC Interval 416 ms P [place] 64 degrees R AXIS (MCT) -17 degrees T Wave [place] 100 degrees [place] Diagnosis Sinus bradycardia ST & T wave abnormality, consider lateral ischemia Abnormal ECG ASSESSMENT & PLAN: Active Problems: Preop examination PAF (paroxysmal atrial fibrillation) (HCC) Urinary incontinence DM (diabetes mellitus) (HCC) ISABELA (obstructive sleep apnea) Hypothyroid Hyperlipidemia Preop exam Urinary incontinence PAF -cardiac clearance; ok to proceed, moderate operative and non modifiable risk, Jose Elias Morales -asa holding : 7 days per above practitioner and resume when deemed safe by surgical team. Sharon RN, informed patient -requested echo: 12/18/24: Normal LV systolic function, EF 50%, mild RV dilation with normal RV function, biatrial dilation, mild TR. Stacy Myoview same date EF 52% with no ischemia or fixed defects. -continue bb Hypothyroid -continue synthroid HLP -continue statin ? Faint murmur -echo requested DM -check A1c -hold glipizide day of procedure HTN Elevated bp read, states white coat htn. Denies sx. Encouraged to monitor and fu with PCP or go to ER if sx develop -continue coreg ISABELA, intolerant to CPAP. Increases risk Rcri 1 EKG: With artifact, sinus bradycardia, 51. On Coreg. I do not appreciate this T abnormality, suspect from artifact Proceed Intermediate risk Electronically signed by: Ivonne Her PA-C, 05/11/2025 at 11:20 AM Cosigned by Chuckie Keita MD at 05/15/2025 4:59 PM EDT documented in this encounter Procedure Notes * [...] Upcoming Encounters Date Type Department Care Team (Late st Contact Info) Description 10/05/2025 11:00 AM EST Appointment [facility] Breast Imaging [address] [facility] [facility] [address] [place] [address] John Rodrigues MD [address] [facility] [address] [place] [address] documented as of this encounter Procedures Procedure [...] - 32.0 seconds 05/08/2025 2:34 PM EDT [facility] Protime 10.3 9.0 - 12.0 seconds 05/08/2025 2:34 PM EDT [facility] INR 0.94 0.80 - 1.10 05/08/2025 2:34 PM EDT [facility] Blood Venipuncture / Unknown 05/08/2025 2:14 PM EDT 05/08/2025 2:14 PM EDT Dk Anaya MD LAB BLOOD ORDERABLES Prema l Result Performing Organization Address [facility] de Phone Number [facility] [address] [phone] * (ABNORMAL) Hemoglobin A1c (05/08/2025 2:14 PM EDT) Hemoglobin A1C 7.0(H) 4.2 - 6.3 % 05/08/2025 2:42 PM EDT [facility] Comment: Hemoglobin A1C levels are related to mean glucose during the preceding 2-3 months. Less than 7% demonstrates glycemic control in diabetic patients. Hemoglobin AlC % Suggested Diagnosis > or = 6.5 Diabetic 5.7 - 6.4 Prediabetic <5.7 Non-diabetic eAVG Glucose 154.2 mg/dL 05/08/2025 2:42 PM EDT [facility] Blood Venipuncture / Unknown 05/08/2025 2:14 PM EDT 05/08/2025 2:14 PM EDT Dk Anaya MD LAB BLOOD ORDERABLES Prema l Result Performing Organization Address [facility] Co de Phone Number [facility] [address] [phone] * (ABNORMAL) Basic Metabolic Panel (05/08/2025 2:14 PM EDT) Sodium 141 136 - 146 meq/L 05/08/2025 2:34 PM EDT [facility] Potassium 4.6 3.5 - 5.1 meq/L 05/08/2025 2:34 PM EDT [facility] Chloride 106 102 - 112 meq/L 05/08/2025 2:34 PM EDT [facility] CO2 30 21 - 32 meq/L 05/08/2025 2:34 PM EDT [facility] Anion Gap 10 9 - 20 05/08/2025 2:34 PM EDT [facility] BUN 32(H) 7 - 22 mg/dL 05/08/2025 2:34 PM EDT [facility] Creatinine 1.02 0.55 - 1.02 mg/dL 05/08/2025 2:34 PM EDT [facility] BUN/Creatinine 31(H) 8 - 20 05/08/2025 2:34 PM EDT [facility] Glucose 168(H) 74 - 100 mg/dL 05/08/2025 2:34 PM EDT [facility] Calcium 9.5 8.5 - 10.1 mg/dL 05/08/2025 2:34 PM EDT [facility] Osmolality Calc 292.0 mOsm/kg 2:34 PM EDT [facility] eGFR (mL/min/1.73m2) 58(L) >=60 mL/min/1.7 3m2 05/08/2025 2:34 PM EDT [facility] Comment:eGFR of <60 suggests chronic kidney disease if found over a 3 month period of time. eGFR <15 indicates renal failure. Blood Venipuncture / Unknown 05/08/2025 2:14 PM EDT 05/08/2025 2:14 PM EDT Dk Anaya MD LAB BLOOD ORDERABLES Prema l Result [facility] [address] [place] [address], [facility] [phone] * (ABNORMAL) CBC with automated diff (05/08/2025 2:14 PM EDT) WBC 8.8 3.9 - 10.0 K/ L 05/08/2025 2:18 PM EDT [facility] RBC 3.98 3.93 - 6.08 M/ L 05/08/2025 2:18 PM EDT [facility] Hemoglobin 12.4 11.2 - 15.7 GM/DL 05/08/2025 2:18 PM EDT [facility] Hematocrit 38.7 34.1 - 44.9 % 05/08/2025 2:18 PM EDT [facility] MCV 97(H) 79 - 95 fL 05/08/2025 2:18 PM EDT [facility] MCH 31.2 25.6 - 32.2 pg 05/08/2025 2:18 PM EDT [facility] MCHC 32.0(L) 32.2 - 36.5 GM/DL 05/08/2025 2:18 PM EDT [facility] RDW 14.4 11.6 - 14.4 % 05/08/2025 2:18 PM EDT [facility] Platelets 195 163 - 369 K/CU MM 05/08/2025 2:18 PM EDT [facility] MPV 10.3 9.4 - 12.4 fL 05/08/2025 2:18 PM EDT [facility] % Neutros 56 34 - 71 % 05/08/2025 2:18 PM EDT [facility] % Lymphs 31 19 - 53 % 05/08/2025 2:18 PM EDT [facility] % Monos 8 4 - 13 % 05/08/2025 2:18 PM EDT [facility] % Eos 4 1 - 7 % 05/08/2025 2:18 PM EDT [facility] % Baso 1 0 - 1 % 05/08/2025 2:18 PM EDT [facility] # Neutros 4.97 1.56 - 6.13 K/ L 05/08/2025 2:18 PM EDT [facility] # Lymphs 2.71 1.18 - 3.74 K/ L 05/08/2025 2:18 PM EDT [facility] # Monos 0.74 0.24 - 0.82 K/ L 05/08/2025 2:18 PM EDT [facility] # Eos 0.32 0.04 - 0.54 K/ L 05/08/2025 2:18 PM EDT [facility] # Baso 0.06 0.01 - 0.08 K/ L 05/08/2025 2:18 PM EDT [facility] Immature Granulocytes-Re lative 0.30 0.00 - 0.60 % 05/08/2025 2:18 PM EDT [facility] # IG 0.03 0.00 - 0.05 K/uL 05/08/2025 2:18 PM EDT [facility] Blood Venipuncture / Unknown 05/08/2025 2:14 PM EDT 05/08/2025 2:14 PM EDT Narrative [facility] - 05/08/2025 2:18 PM EDT When [...] Blast? Flag noted Atypical Lymph flag noted Dk Anaya MD LAB BLOOD ORDERABLES Prema l Result Performing Organization Address City/State/[facility] Co de Phone Number [facility] [address] [phone] * ECG 12 lead (05/08/2025 11:02 AM EDT) VENTRICULAR RATE EKG/MIN 51 BPM GE MUSE ATRIAL RATE (MCT) 51 BPM GE MUSE UT Interval 146 ms GE MUSE QRS-INTERVAL (MSEC) 86 ms GE MUSE QT Interval 452 ms GE MUSE QTC Interval 416 ms GE MUSE P [place] 64 degrees GE MUSE R AXIS (MCT) -17 degrees GE MUSE T Wave [place] 100 degrees GE MUSE [place] Diagnosis Sinus bradycardia ST & T wave [...] incontinence Unspecified urinary incontinence DM (diabetes mellitus) ([facility]) Type II or unspecified type diabetes mellitus without mention of complication, not stated as uncontrolled ISABELA (obstructive sleep apnea) Obstructive sleep apnea (adult) (pediatric) Hypothyroid Unspecified hypothyroidism Hyperlipidemia Other and unspecified hyperlipidemia documented in this encounter
--- OUTSIDE RECORDS SUMMARY | 2025-05-19 05:09 | XMS_ITS | Encounter Summary ---
Author Organization [employer] ([place], [place], [place], [place]) Address [address] [place] [address] Care Team Providers Care Director Of Annual Giving Name Role Phone John Rodrigues MD Primary Care Provider [phone] Reason for Referral * Hospital - Inpatient (Routine) - New Request Specialty Diagnoses / Procedures Referred By Casandra hayes Referred To Contact Procedures Remove dressing after (specify) Rosa M Rangel MD [address] [place] [address] Phone: tel: fax: Referral ID Status Reason Start Date Expiration Date V isits Requested Visits Authorized [id number] New Request 05/19/2025 05/19/2026 1 1 Reason for Visit * Auth/Cert (Routine) Specialty Diagnoses / Procedures Referred By Casandra hayes Referred To Contact Diagnoses Cystocele, lateral Uterovaginal prolapse, incomplete Urge incontinence 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 N81.2 N39.41 N36.41 Procedures AZ LAPAROSCOPY COLPOPEXY SUSPENSION VAGINAL APEX AZ LAPS SUPRACRV HYSTERECT 250 GM/< RMVL TUBE/OVAR AZ PARAVAGINAL DEFECT REPAIR LAPAROSCOPIC APPROACH ROBOTIC LAPAROSCOPY,SUPRACERVICAL HYSTERECTOMY ROBOTIC LAPAROSCOPY,SACROCOLPOPEXY Rosa M Rangel MD [address] [place] [address] Phone: tel: fax: Referral ID Status Reason Start Date Expiration Date Visits Re quested Visits Authorized [id number] 04/03/2025 1 1 Encounter Details Date Type Department Care Team (Latest Contact Info) Description 05/19/2025 5:09 AM EDT - 05/19/2025 3:23 PM EDT Hospital Encounter [facility] Surgery Department [address] [place] [address] Rosa M Rangel MD [address] [facility] [address] [place] [address] Cystocele, lateral; Uterovaginal prolapse, incomplete; Urge incontinence; Hypermobility of urethra Discharge Disposition: Home or Self Care Social [...] Date Lizandro rded Speak language other than Kyrgyz at home Not on file 01/31/2024 Want help with school or training Not on file 01/31/2024 Substance Use Answer Date Recorded Used prescription meds for non-medical reasons N ot on file 01/31/2024 Used illegal drugs past 12 months Not on file 01/31/2024 Comments No Sex and Gender Information Value Date Recorded Sex Assigned at Female 2022 12:55 PM CDT Legal Sex Female 12:55 PM CDT Gender Identity Female 2022 12:55 PM CDT Sexual Orientation Not on file documented as of this encounter Last Filed Vital Signs Vital Sign Reading Time Taken Comments Blood Pressure 154/79 05/19/2025 2:00 PM EDT Pulse 49 05/19/2025 2:00 PM EDT Temperature 36.4 C (97.6 F) 05/19/2025 1:45 PM EDT Respiratory Rate 16 05/19/2025 2:00 PM EDT Oxygen Saturation 95% 05/19/2025 2:00 PM EDT Inhaled Oxygen Concentration - - Weight 82.1 kg (181 lb) 05/19/2025 6:00 AM EDT Height 172.7 cm (5' 8 ) 05/19/2025 6:00 AM EDT Body Mass Index 27.52 05/19/2025 6:00 AM EDT documented in this encounter Discharge Instructions * Discharge Instr - Other Orders* Lizzette Downs RN - 05/19/2025 11:38 AM EDT You have a scopolamine patch behind your ear that was placed 05/19 @ 649 AM. Remove it in 72 hours orearlier. Wash hands well after removal to avoid pupil dilation. You had Tylenol 1,000mg at 1240 PM, wait 6-8 hours before taking additional Tylenol. You had an IV NSAID called Toradol at 1:10 PM. Wait at least 6-8 hours before taking a dose of OTC ibuprofen. Remove dressing from all incisions including sterile strip on 3rd day PostOp Clean off any blood with H2O2 May apply topical antibiotic ointment incisions Patient to remove vaginal packing and rogers catheter tomorrow morning. * Attachments The following attachments cannot be sent through Care Everywhere. * Indwelling Urinary Catheter Removal at Home Female (Kyrgyz) * General Anesthesia Adult Care After (Kyrgyz) * Supracervical Hysterectomy Care After (Kyrgyz) documented in this encounter Medications at Time [...] tablet 05/19/2025 documented as of this encounter H&P Notes * Rosa M Rangel MD - 05/19/2025 7:17 AM EDT H&P reviewed. The patient was examined and there are no changes to the H&P. Source Note - Ivonne Her PA-C - 05/08/2025 11:00 AM EDT History & Physical Name: Jhoanna Spivey : 1950 Age: 75 y.o. SUBJECTIVE: [...] Preop examination 05/08/2025 PAF (paroxysmal atrial fibrillation) (HCC) 05/08/2025 Urinary incontinence 05/08/2025 DM (diabetes mellitus) (HCC) 05/08/2025 ISABELA (obstructive sleep apnea) 05/08/2025 Hypothyroid [...] 51 BPM ATRIAL RATE (MCT) 51 BPM AZ Interval 146 ms QRS-INTERVAL (MSEC) 86 ms QT Interval 452 ms QTC Interval 416 ms P [place] 64 degrees R AXIS (MCT) -17 degrees T Wave [place] 100 degrees [place] Diagnosis Sinus bradycardia ST & T wave [...] when deemed safe by surgical team. Sharon ROCA, informed patient -requested echo: 12/18/24: Normal LV [...] 4:59 PM EDT documented in this encounter OR Notes * Op Note - Rosa M Rangel MD - 05/19/2025 1:03 PM EDT DATE OF PROCEDURE: 05/19/2025 PREOPERATIVE DIAGNOSES: Complete uterovaginal prolapse, lateral cystocele, urethral hypermobility, pelvic pressure. POSTOPERATIVE DIAGNOSES: Complete uterovaginal prolapse, lateral cystocele, urethral hypermobility, pelvic pressure. PROCEDURES PERFORMED: 1. Supracervical hysterectomy and bilateral salpingo-oophorectomy. 2. Sacrocolpopexy. 3. Paravaginal defect repair. ESTIMATED BLOOD LOSS: 20 mL. FINDINGS: The patient had small postmenopausal uterus. Ovaries were also postmenopausal without any pathology. There were adhesions over the left tube and ovary. Colon had extensive diverticula without any diverticulitis or areas threatening to rupture. DESCRIPTION OF PROCEDURE: Under general anesthesia, the patient was placed in dorsal lithotomy position. The perineum was prepped and draped in sterile manner and so was the abdomen. Rogers was placed. Speculum was placed. Cervix was grasped with tenaculum and then slightly dilated. Uterine manipulator was introduced, and then attention was turned towards the abdomen. Midline incision was made inside the umbilicus through which Veress needle was inserted and the abdomen was insufflated with CO2. Veress needle was removed and trocars introduced. Next, 10 cm from the umbilicus to the left and the right, size 8 trocars were placed and a size 12 in right lower lateral area and size 8 placed in the left lower lateral area. These were all done under direct visualization, and prior to making skin incision, local Marcaine with epinephrine was infiltrated. The patient also had a TAP block placed by Anesthesia preoperatively. Next, the robot was docked and the rest of procedure was done through the console. First, the left side was addressed. The colon adhesions were taken down and then the infundibulopelvic ligament was isolated, coagulated with bipolar cautery, and then the tube and ovary taken along the mesosalpinx toward the uterus. It was left attached to the uterus. A same procedure was performed on the right side. Pedicles on each side of the uterus were then taken with bipolar cautery down to the uterine vessels. Uterine vessels were carefully coagulated and then peritoneum was dissected off the lower uterine segment anteriorly and posteriorly. The cervix was then from the uterus leaving 2 cm of cervix in place. Uterus with tubes and ovaries attached was placed in the endobag to be removed at the end of the procedure. Next, the anterior prominence of the sacrum was identified. The peritoneum was dissected down to the anterior ligament. Peritoneum was then carried down towards the cervix to create a new closure for the sacrocolpopexy. Cadaveric atqasuk tissue patch was used with bio-tissue allograft attached at each end to be placed against the cervix and then Gilbert-Crow sutures interrupted were placed to secure the patch to the cervix. The round ligaments were attached to the cervix on each side to provide lateral support. Pressure was applied from below, and top of the patch was attached to the anterior ligament of sacral prominence with 3 interrupted Gilbert-Crow sutures. Peritoneum was then closed with a quilted Monocryl suture such that now the entire sacrocolpopexy was in retroperitoneal space. Next, the peritoneum was opened just above the symphysis pubis and dissection was carried out through the space of Retzius on each side. The Sal's ligaments were identified on each side and then dissection was carried out on each side to identify the paravaginal defect. The torn fascia was identified and Gilbert-Crow suture was used to lift the torn fascia up to the arcus tendineus. Into this, we incorporated a piece of cadaveric patch with the tissue allograft to bridge the gap and lessen the tension on the sutures. This was done on both sides. One more suture was placed in the midline. Interrupted Gilbert-Crow sutures were placed on each side to further elevate the fascia. Area was irrigated. There was good hemostasis. Exam was performed from below, and the lateral cystocele was reduced so was the urethral hypermobility. The peritoneum was closed with a quilted Monocryl suture. Pelvis was irrigated. All instruments were removed. The umbilical incision was extended up and down to accommodate removal of the uterus which was easily removed. The incisions were then closed with 4-0 Monocryl subcuticular suture, and the fascia was enforced with a 0 Vicryl. Vaginal packing was placed, Nu Gauze Iodoform. Sponge and instrument count were correct. The patient tolerated the procedure well and was taken to recovery in good condition. /[id number] MD TRACY Cheng/DEB / TRACY / JAZZMINE /[id number] documented in this encounter Plan of Treatment Upcoming Encounters Date Type Department Care Team (Late st Contact Info) Description 10/05/2025 11:00 AM EST Appointment [facility] [address] [place] [id number] John Rodrigues MD [address] [place] [address] documented as of this encounter Procedures Procedure Name Priority Date/Time Associated Diagnosis Comments NOVA GLUCOSE POC Routine 05/19/2025 11:4 2 AM EDT TISSUE EXAM (PEEWEE ACEVEDO) AP Routine 05/19/2025 1 1:11 AM EDT Cystocele, lateral Uterovaginal prolapse, incomplete Urge incontinence Hypermobility of urethra ROBOTIC LAPAROSCOPY,SALPINGEC BETTYE/OOPHORECTOMY 05/19/2025 7:29 AM EDT Cystocele, lateral Uterovaginal prolapse, incomplete Urge incontinence Hypermobility of urethra AZ LAPAROSCOPY COLPOPEXY SUSPENSION VAGINAL APEX 05/19/2025 7:29 AM EDT Cystocele, lateral Uterovaginal prolapse, incomplete Urge incontinence Hypermobility of urethra ROBOTIC LAPAROSCOPY,SUPRACERV ICAL HYSTERECTOMY 05/19/2025 7:29 AM EDT Cystocele, lateral Uterovaginal prolapse, incomplete Urge incontinence Hypermobility of urethra HEMOGLOBIN A1C STAT 05/19/2025 7:06 AM EDT LIPID PANEL STAT 05/19/2025 7:06 AM EDT COMPREHENSIVE METABOLIC PANEL Routine 05/19/2025 7:06 AM EDT NOVA GLUCOSE POC Routine 05/19/2025 5:33 AM EDT documented in this encounter Results * (ABNORMAL) Glucose, Nova Meter (05/19/2025 11:42 AM EDT) POC-GLUCOSE 242(H) 70 - 110 mg/dL 05/19/2025 11:44 AM EDT [facility] Comment: In the event of poor peripheral blood flow, venous or arterial blood should be used due to the potential of erroneous results. Notified Nurse [facility] Operating Room Nurse [phone] 05/19/2025 11:44 AM EDT [facility] Blood WHOLE BLOOD / Unknown 05/19/2025 11:42 AM EDT 05/19/2025 11:44 AM EDT Narrative [facility] - 05/19/2025 11:44 AM EDT Operating Room Nurse ID is - [id number] Rosa M Rangel MD POINT OF CARE TEST ORDERABLES Final Result [facility] [address] [place] [address], [facility] [phone] * Tissue Exam (05/19/2025 11:11 AM EDT) AP RESULT See Note: [facility] Comment: PATHOLOGY REPORT DIAGNOSIS: A. UTERUS ; WITH BILATERAL FALLOPIAN TUBES AND OVARES RESECTION, NON-NEOPLASTIC: Atrophy, lower uterine segment and endometrium No pathologic abnormalities, myometrium Atrophy, endosalpingiosus, bilateral ovaries Atrophy, intact lumina identified, bilateral fallopian tubes Final Reviewed, Diagnosed and Electronically Signed By: LAURA JAMA MD CLINICAL HISTORY: Cystocele, lateral MICROSCOPIC DESCRIPTION: Tissue blocks are prepared and slides examined microscopically on all specimens. See diagnosis for details. GROSS DESCRIPTION: A. Specimen received in formalin labeled uterus w/bilateral fallopia and consists of a supracervical uterus with attached bilateral adnexal tissue. No cervix is received. The uterus weighs 12 g and measures 3.6 cm from superior to inferior, 2.0 cm from cornu to cornu, 1.8 cm from anterior to posterior. The serosal surface is pink borja smooth and glistening. The endometrial cavity measures 2.8 x 1.6 cm. The endometrium measures 0.1 cm in thickness and is devoid of polyps. The myometrium averages 0.8 cm in thickness. No masses or nodules are grossly identified. The right ovary weighs 1 g and measures 1.6 x 0.8 x 0.6 cm. Sectioning reveals a grossly unremarkable ovarian parenchyma. No papillary excrescences are grossly identified. The right fallopian tube measures 5 cm in length with an average diameter of 0.4 cm and has a grossly unremarkable lumen. The left ovary weighs 1 g and measures 1.5 x 1.0 x 0.8 cm. Sectioning reveals a grossly unremarkable ovarian parenchyma. No papillary excrescences or other discrete mass lesions are grossly identified. The left fallopian tube measures 3.2 cm in length with an average diameter of 0.4 cm and has a grossly unremarkable lumen. Weight And Balance Control Agent sections are submitted in 6 cassettes as follows: A1-anterior and posterior lower uterine segment [id number] sections of anterior and posterior endomyometrium A3-right ovary A4-right fallopian tube A5-left ovary A6-left fallopian tube. JTM/RLL Tissue UTERUS, FALLOPIAN TUBES AND OVARIES, CS / Unknown 05/19/2025 11:11 AM EDT Rosa M Rangel MD PATHOLOGY/CYTOLOGY ORDERABLES Final Result [facility] [address] [place] [address], [facility] * (ABNORMAL) Hemoglobin A1c (05/19/2025 7:06 AM EDT) Hemoglobin A1C 7.2(H) 4.2 - 6.3 % 05/19/2025 7:34 AM EDT [facility] Comment: Hemoglobin A1C levels are related to mean glucose during the preceding 2-3 months. Less than 7% demonstrates glycemic control in diabetic patients. Hemoglobin AlC % Suggested Diagnosis > or = 6.5 Diabetic 5.7 - 6.4 Prediabetic <5.7 Non-diabetic eAVG Glucose 159.94 mg/dL 05/19/2025 7:34 AM EDT [facility] Blood Venipuncture / Unknown 05/19/2025 7:06 AM EDT 05/19/2025 7:12 AM EDT us Rosa M Rangel MD LAB BLOOD ORDERABLES Final Re sult [facility] [address] [place] [address] [phone] * (ABNORMAL) Lipid panel (05/19/2025 7:06 AM EDT) Triglycerides 113 0 - 249 mg/dL 05/19/2025 7:34 AM EDT [facility] Cholesterol 134 0 - 199 mg/dL 05/19/2025 7:34 AM EDT [facility] Comment: 200 to 239 mg/dL = Moderate (borderline) >239 mg/dL = High HDL Cholesterol 40 >=40 mg/dL 05/19/2025 7:34 AM EDT [facility] Comment: >=60 mg/dL = Desirable <40 mg/dL = Increased Risk All other components are listed individually or are calculations VLDL Cholesterol 22.6 5 - 40 mg/dL 05/19/2025 7:34 AM EDT [facility] Cholesterol/HDL ratio 3.4(H) 0.0 - 3.2 mg/dL 05/19/2025 7:34 AM EDT [facility] LDl/HDL Ratio 2 0 - 4 05/19/2025 7:34 AM EDT [facility] LDL Cholesterol, Calculated 71 0 - 99 mg/dL 05/19/2025 7:34 AM EDT [facility] Blood Venipuncture / Unknown 05/19/2025 7:06 AM EDT 05/19/2025 7:12 AM EDT us Rosa M Rangel MD LAB BLOOD ORDERABLES Final Re sult [facility] [address] [phone] * (ABNORMAL) Comprehensive metabolic panel (05/19/2025 7:06 AM EDT) Sodium 139 136 - 146 meq/L 05/19/2025 7:34 AM EDT [facility] Potassium 4.1 3.5 - 5.1 meq/L 05/19/2025 7:34 AM EDT [facility] Chloride 110 102 - 112 meq/L 05/19/2025 7:34 AM EDT [facility] CO2 27 21 - 32 meq/L 05/19/2025 7:34 AM EDT [facility] Calcium 9.2 8.5 - 10.1 mg/dL 05/19/2025 7:34 AM EDT [facility] Glucose 145(H) 74 - 100 mg/dL 05/19/2025 7:34 AM EDT [facility] BUN 26(H) 7 - 22 mg/dL 05/19/2025 7:34 AM T [facility] Creatinine 1.24(H) 0.55 - 1.02 mg/dL 05/19/2025 7:34 AM T [facility] BUN/Creatinine 21(H) 8 - 20 05/19/2025 7:34 AM T [facility] Albumin 3.5 3.4 - 5.0 g/dL 05/19/2025 7:34 AM EDT [facility] Alkaline Phosphatase 75 27 - 136 U/L 05/19/2025 7:34 AM EDT [facility] ALT 20 12 - 78 U/L 05/19/2025 7:34 AM EDT [facility] AST 19 5 - 37 U/L 05/19/2025 7:34 AM EDT [facility] Total Bilirubin 0.6 0.2 - 1.3 mg/dL 05/19/2025 7:34 AM EDT [facility] Protein, Total 6.9 6.4 - 8.2 gm/dL 05/19/2025 7:34 AM EDT [facility] Anion Gap 6(L) 9 - 20 05/19/2025 7:34 AM EDT [facility] A/G Ratio 1.0(L) 1.1 - 2.5 05/19/2025 7:34 AM EDT [facility] Globulin 3.4 1.5 - 4.5 g/dL 05/19/2025 7:34 AM EDT [facility] Osmolality Calc 284.9 mOsm/kg 7:34 AM EDT [facility] eGFR (mL/min/1.73m2) 46(L) >=60 mL/min/1.7 3m2 05/19/2025 7:34 AM EDT [facility] Comment:ESTIMATED GFR IS NOT ACCURATE CREATININE CLEARANCE IN PREDICTING GLOMERULAR FILTRATION RATE. ESTIMATED GFR IS NOT APPLICABLE FOR DIALYSIS PATIENTS. Blood Venipuncture / Unknown 05/19/2025 7:06 AM EDT 05/19/2025 7:12 AM EDT Rosa M Rangel MD LAB BLOOD ORDERABLES Final Re sult [facility] [address] [phone] * (ABNORMAL) Glucose, Nova Meter (05/19/2025 5:33 AM EDT) [facility] Signature POC-GLUCOSE 138(H) 70 - 110 mg/dL 05/19/2025 5:35 AM EDT [facility] Comment: In the event of poor peripheral blood flow, venous or arterial blood should be used due to the potential of erroneous results. No lab per MD Operating Room Nurse [phone] 05/19/2025 5:35 AM EDT [facility] Blood WHOLE BLOOD / Unknown 05/19/2025 5:33 AM EDT 05/19/2025 5:35 AM EDT Narrative [facility] - 05/19/2025 5:35 AM EDT Operating Room Nurse ID is - [id number] Rosa M Rangel MD POINT OF CARE TEST ORDERABLES Final Result [facility] [address] [phone] documented in this encounter Visit Diagnoses Diagnosis Cystocele, lateral Uterovaginal prolapse, incomplete Urge incontinence Hypermobility of urethra Hypertension Unspecified essential hypertension documented in this encounter Administered Medications Inactive Administered Medications - up to 3 most recent administrations Medication Order MAR Action Action Date Dose Rate Site acetaminophen (TYLENOL) tablet 1,000 mg 1,000 mg Every 6 hours PRN, oral, mild pain (1-3), Starting on Sun05/19/25 at 1154, Recommended maximum dose of acetaminophen is 4000 mg from all sources in 24 hours, Phase II/On Unit Given 05/19/2025 12:37 PM EDT 1,000 mg electrolyte-R (NORMOSOL-R) infusion at 100 mL/hr, intravenous, Continuous, Starting on Sun05/19/25 at 0630, Pre-op New Bag 05/19/2025 11:23 AM EDT 100 mL/hr 100 mL/hr Continued by Anesthesia 05/19/2025 7:29 AM EDT 100 mL/hr 100 mL/hr New Bag 05/19/2025 7:05 AM EDT 100 mL/hr 100 mL/hr famotidine (PEPCID) tablet 20 mg 20 mg Once, oral, On Sun05/19/25 at 0630, For 1 dose, Pharmacist to renally dose if CrCl is less than 50 mL/min or on CRRT., Pre-op Given 05/19/2025 6:50 AM EDT 20 mg fentaNYL PF (SUBLIMAZE) injection 25 mcg 25 mcg Every 5 min PRN, intravenous, moderate pain (4-6), Starting on Sun05/19/25 at 1125, For 4 doses, Maximum cumulative dose 100 mcg, PACU HYDROmorphone (DILAUDID) injection 0.5 mg 0.5 mg Every 10 min PRN, intravenous, severe pain (7-10), 2nd Line agent after max dose Fentanyl given if ordered., Starting on Sun05/19/25 at 1125, For 4 doses, Maximum cumulative dose 2 mg, PACU insulin regular (HUMULIN R,NOVOLIN R) injection 6 Units Once, intravenous, On Sun05/19/25 at 1230, For 1 dose, If blood sugar is less than 180 between 5422-1167, DO NOT give corrective insulin unless otherwise ordered. Given 05/19/2025 12:13 PM EDT 6 Units Port ipratropium-albuteroL (DUO-NEB) 0.5 mg-3 mg(2.5 mg base)/3 mL nebulizer solution 3 mL 3 mL Once, nebulization, On Sun05/19/25 at 1200, For 1 dose, RESPIRATORY THERAPY TREATMENT Protect from Light, PACU, What is the respiratory therapy Modality? Small volume Nebulization Given 05/19/2025 12:12 PM EDT 3 mLs ketorolac (TORADOL) injection 15 mg 15 mg Once, intravenous, On Sun05/19/25 at 1330, For 1 dose Given 05/19/2025 1:11 PM EDT 15 mg ondansetron (ZOFRAN) injection 4 mg 4 mg Once as needed, intravenous, nausea, Starting on Sun05/19/25 at 1125, For 1 dose, 1st line for nausea For IV push, give over 2 - 5 minutes., PACU Given 05/19/2025 12:43 PM EDT 4 mg ondansetron (ZOFRAN) injection 4 mg 4 mg Every 8 hours PRN, intravenous, nausea, vomiting, Starting on Sun05/19/25 at 1154, Give IV if patient is unable to take orally. 1st line If inadequate response within 60 minutes, proceed to next-line agent for same PRN reason or contact provider if no further options ordered. For IV push, give over 2 - 5 minutes. ondansetron (ZOFRAN-ODT) disintegrating tablet 4 mg 4 mg Every 8 hours PRN, oral, nausea, vomiting, Starting on Sun05/19/25 at 1154, 1st line if taking PO. If inadequate response within 60 minutes, proceed to next-line agent for same PRN reason or contact provider if no further options ordered. oxyCODONE (ROXICODONE) immediate release tablet 5 mg 5 mg Once as needed, oral, moderate pain (4-6), Starting on Sun05/19/25 at 1125, For 1 dose, Look-alike/Sound-alike medication, PACU oxyCODONE (ROXICODONE) immediate release tablet 5 mg 5 mg Every 4 hours PRN, oral, moderate pain (4-6), Starting on Sun05/19/25 at 1154, 2nd line analgesic. Give only if inadequate response (less than 50% reduction in pain score) 60 minutes after administration of 1st line analgesics + adjuvants (if ordered). Look-alike/Sound-alike medication, Phase II/On Unit scopolamine (TRANSDERM-SCOP) patch 1 mg/72 hr 1.5 mg Once (1 patch), transdermal (scopolamine), Administer over 72 Hours, On Sun05/19/25 at 0630, For 1 dose Patch Applied 05/19/2025 6:49 AM EDT 1.5 mg Behind Left Ear sodium chloride flush 10 mL 10 mL As needed, intravenous, line care, Starting on Sun05/19/25 at 0609, Every 8 hours and PRN to flush, Pre-op documented in this encounter Active and Recently Administered Medications Times are shown in EDT. Scheduled Medication Order 05/17/2025 05/18/2025 05/19/2025 cefOXitin (MEFOXIN) IVPB 2 g in dextrose 5 % 50 mL (premix) (COMPLETED) 2 g Once, intravenous, at 100 mL/hr, On Sun05/19/25 at 0630, For 1 dose, Please choose an indication: Surgical Prophylaxis 0704 (Handoff - Prov ider: Jd Reaves RN)0740 (Given - Provider: Nayana Baker CRNA)0744 (Canceled Entry - Provider: Nayana Baker CRNA)1006 (Given - Provider: Nayana Baker CRNA) cefOXitin (MEFOXIN) IVPB 2 g in dextrose 5 % 50 mL (premix) 2 g Once, intravenous, at 100 mL/hr, On Sun05/19/25 at 1000, For 1 dose, Intra-op, Please choose an indication: Surgical Prophylaxis 1000 (Due) famotidine (PEPCID) tablet 20 mg (COMPLETED) 20 mg Once, oral, On Sun05/19/25 at 0630, For 1 dose, Pharmacist to renally dose if CrCl is less than 50 mL/min or on CRRT., Pre-op 0650 (Given - Provid er: Jd Reaves RN) insulin regular (HUMULIN R,NOVOLIN R) injection (COMPLETED) 6 Units Once, intravenous, On Sun05/19/25 at 1230, For 1 dose, If blood sugar is less than 180 between 6471-4830, DO NOT give corrective insulin unless otherwise ordered. 1213 (Given - Provid er: Lizzette Downs RN) ipratropium-albuteroL (DUO-NEB) 0.5 mg-3 mg(2.5 mg base)/3 mL nebulizer solution 3 mL (COMPLETED) 3 mL Once, nebulization, On Sun05/19/25 at 1200, For 1 dose, RESPIRATORY THERAPY TREATMENT Protect from Light, PACU, What is the respiratory therapy Modality? Small volume Nebulization 1212 (Given - Provid er: Lizzette Downs RN) ketorolac (TORADOL) injection 15 mg (COMPLETED) 15 mg Once, intravenous, On Sun05/19/25 at 1330, For 1 dose 1311 (Given - Provid er: Lizzette Downs RN) lactated ringers (LR) bolus 1,000 mL 1,000 mL Once, intravenous, Administer over 1 Hours, On Sun05/19/25 at 0630, For 1 dose, Pre-op 0630 (Due) scopolamine (TRANSDERM-SCOP) patch 1 mg/72 hr 1.5 mg Once (1 patch), transdermal (scopolamine), Administer over 72 Hours, On Sun05/19/25 at 0630, For 1 dose 0649 (Patch Applied - Provider: Jd Reaves RN)1523 (Due: Patch Removed - Provider: Automatic Discharge Provider - Comment: Time automatically adjusted from order being discontinued) Continuous Medication Order 05/17/2025 05/18/2025 05/19/2025 electrolyte-R (NORMOSOL-R) infusion at 100 mL/hr, intravenous, Continuous, Starting on Sun05/19/25 at 0630, Pre-op 0705 (New Bag - Prov ider: Jd Reaves RN)0729 (Continued by Anesthesia - Provider: Nayana Baker CRNA)1123 (New Bag - Provider: Nayana Baker CRNA)1146 (Anesthesia Volume Adjustment - Provider: Nayana Baker CRNA) PRN Medication Order 05/17/2025 05/18/2025 05/19/2025 acetaminophen (TYLENOL) tablet 1,000 mg 1,000 mg Every 6 hours PRN, oral, mild pain (1-3), Starting on Sun05/19/25 at 1154, Recommended maximum dose of acetaminophen is 4000 mg from all sources in 24 hours, Phase II/On Unit 1237 (Given - Provid er: Lizzette Downs RN) bupivacaine-EPINEPHrine (PF) (MARCAINE w/EPI) 0.5%-1:200,000 injection (CANCELED) As needed, Starting on Sun05/19/25 at 0810, Intra-op 0810 (Given - Provid er: Rosa M Rangel MD - Comment: given to sterile field.) fentaNYL PF (SUBLIMAZE) injection 25 mcg 25 mcg Every 5 min PRN, intravenous, moderate pain (4-6), Starting on Sun05/19/25 at 1125, For 4 doses, Maximum cumulative dose 100 mcg, PACU HYDROmorphone (DILAUDID) injection 0.5 mg 0.5 mg Every 10 min PRN, intravenous, severe pain (7-10), 2nd Line agent after max dose Fentanyl given if ordered., Starting on Sun05/19/25 at 1125, For 4 doses, Maximum cumulative dose 2 mg, PACU lidocaine (XYLOCAINE) jelly 2% (CANCELED) As needed, Starting on Sun05/19/25 at 0810, Intra-op 0810 (Given - Provid er: Rosa M Rangel MD - Comment: given to sterile field.) methylene blue 1 % (10 mg/mL) injection (CANCELED) As needed, Starting on Sun05/19/25 at 0834, Intra-op 0834 (Given - Provid er: Rosa M Rangel MD) ondansetron (ZOFRAN) injection 4 mg (COMPLETED) 4 mg Once as needed, intravenous, nausea, Starting on Sun05/19/25 at 1125, For 1 dose, 1st line for nausea For IV push, give over 2 - 5 minutes., PACU 1243 (Given - Provid er: Lizzette Downs RN) ondansetron (ZOFRAN) injection 4 mg(Linked Group 1) 4 mg Every 8 hours PRN, intravenous, nausea, vomiting, Starting on Sun05/19/25 at 1154, Give IV if patient is unable to take orally. 1st line If inadequate response within 60 minutes, proceed to next-line agent for same PRN reason or contact provider if no further options ordered. For IV push, give over 2 - 5 minutes. ondansetron (ZOFRAN-ODT) disintegrating tablet 4 mg(Linked Group 1) 4 mg Every 8 hours PRN, oral, nausea, vomiting, Starting on Sun05/19/25 at 1154, 1st line if taking PO. If inadequate response within 60 minutes, proceed to next-line agent for same PRN reason or contact provider if no further options ordered. oxyCODONE (ROXICODONE) immediate release tablet 5 mg 5 mg Once as needed, oral, moderate pain (4-6), Starting on Sun05/19/25 at 1125, For 1 dose, Look-alike/Sound-alike medication, PACU oxyCODONE (ROXICODONE) immediate release tablet 5 mg 5 mg Every 4 hours PRN, oral, moderate pain (4-6), Starting on Sun05/19/25 at 1154, 2nd line analgesic. Give only if inadequate response (less than 50% reduction in pain score) 60 minutes after administration of 1st line analgesics + adjuvants (if ordered). Look-alike/Sound-alike medication, Phase II/On Unit sodium chloride flush 10 mL(Linked Group 2) 10 mL As needed, intravenous, line care, Starting on Sun05/19/25 at 0609, Every 8 hours and PRN to flush, Pre-op Linked Groups Order Group 1: ondansetron (ZOFRAN-ODT) disintegrating tablet 4 mgJump to med 4 mg Every 8 hours PRN, oral, nausea, vomiting, Starting on Sun05/19/25 at 1154, 1st line if taking PO. If inadequate response within 60 minutes, proceed to next- line agent for same PRN reason or contact provider if no further options ordered. Or ondansetron (ZOFRAN) injection 4 mgJump to med 4 mg Every 8 hours PRN, intravenous, nausea, vomiting, Starting on Sun05/19/25 at 1154, Give IV if patient is unable to take orally. 1st line If inadequate response within 60 minutes, proceed to next-line agent for same PRN reason or contact provider if no further options ordered. For IV push, give over 2 - 5 minutes. Group 2: Insert Peripheral IV (CANCELED) STAT, Once, On Sun05/19/25 at 0610, For 1 occurrence, Pre-op And Saline Lock IV (CANCELED) Routine, Once, On Sun05/19/25 at 0610, For 1 occurrence, Pre-op And sodium chloride flush 10 mLJump to med 10 mL As needed, intravenous, line care, Starting on Sun05/19/25 at 0609, Every 8 hours and PRN to flush, Pre-op documented in this encounter Care Teams Director Of Annual Giving Relationship Specialty Start Date End Date John Rodrigues MD [address] [place] [address] [place] [address] PCP - General Family Medicine 05/19/25 documented as of this encounter
--- OUTSIDE RECORDS SUMMARY | 2025-05-19 07:29 | XMS_ITS | Encounter Summary ---
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.2 N39.41 N36.41 Procedures IN LAPAROSCOPY COLPOPEXY SUSPENSION VAGINAL APEX IN LAPS SUPRACRV HYSTERECT 250 GM/< RMVL TUBE/OVAR IN PARAVAGINAL DEFECT REPAIR LAPAROSCOPIC APPROACH ROBOTIC LAPAROSCOPY,SUPRACERVICAL HYSTERECTOMY ROBOTIC LAPAROSCOPY,SACROCOLPOPEXY Rosa M Rangel MD [address] [facility] [address] [place] [address] Phone: tel: fax: Referral ID Status Reason Start Date Expiration Date Visits Re quested Visits Authorized [id number] 04/03/2025 1 1 Encounter Details Date Type Department Care Team (Late st Contact Info) Description 05/19/2025 7:29 AM EDT Anesthesia Event [facility] Surgery Department [address] [place] [address] Nayana Baker CRNA [address] [place] [address] Han Culp MD [address] [id number] Anesthesia Record Procedure Summary Procedure Name Responsible Anesthesiologist Anesthesia Start Time Anesthesia Stop Time LAPAROSCOPY WITH ROBOTIC ASSISTNAE SUPRACERVICAL HYSTERECTOMY, SACRCOLPOPEXY, PARA VAGINAL DEFECT REPAIR (Abdomen) Nayana Baker, MARICHUY 05/19/25 0729 05/19/25 1149 Events Date Time Event Comment 05/19/2025 0705 0729 An Start Patient identif ied and chart reviewed. 0732 An Start Data Anesthesia mac ronny and monitors checked. 0732 Pre-Induction Eval FDA anest hesia machine pre-use checkout completed. Patient status reassessed prior to start of anesthesia care. 0736 An Induction 0737 An Intubation 0742 Anesthesia Ready 0759 an roro now Incision time 1135 An Extubation 1139 an stop data 1147 Handoff to Receiving I compl eted my handoff to the receiving clinician during which we: 1. Identified the patient. 2. Identified the responsible provider. 3. Reviewed the pertinent medical history. 4. Discussed the surgical course. 5. Reviewed intra-op anesthesia management and issues during anesthesia. 6. Set expectations for post-procedure period. 7. Allowed opportunity for questions and acknowledgement of understanding. 1149 An Stop Meds Name Total dexamethasone (DECADRON) injection 4 mg/ mL 4 mg fentaNYL (SUBLIMAZE) injection 125 mcg lidocaine (XYLOCAINE) injection 2% 100 m g propofol (DIPRIVAN) injection 10 mg/mL b olus 150 mg rocuronium (ZEMURON) 100 mg/10 mL inject ion 90 mg electrolyte-R (NORMOSOL-R) infusion 433. 33 mL cefOXitin (MEFOXIN) IVPB 2 g in dextrose 5 % 50 mL (premix) 4 g ondansetron (ZOFRAN) injection vial 4 mg neostigmine (PROSTIGMINE) (PF) 5mg/5 mL injection syringe 3 mg glycopyrrolate (ROBINUL) injection 0.6 m g ropivacaine (NAROPIN) (PF) injection 5 m g/mL (0.5%) 30 mL * Agents Name O2 N2O Air SEVOFLURANE * Blood No blood administrations on file. Lines, Drains, and Airways Type Details Placement Removal Wound 05/19/25; 07; Inci kristan; Abdomen; Not applicable; incisions closed with mastisol, coviderm and steri strips 4x sites 05/19/25 0710 by Daniella Ramos RN Wound 05/19/25; 1114; Inci kristan; Perineum; Not applicable; peripad, mesh brief 05/19/25 1114 by Belia Ahmadi Wound 05/19/25; 1125; Inci kristan; Vagina; Not applicable 05/19/25 1125 by Belia Ahmadi Peripheral IV Placement Date: 03/08; Placement Time: 0659; Size: 22 G; Orientation: Left, Posterior; Location: Hand; Site Prep: Chlorhexidine ; Insertion attempts: 1; Removal Date: 05/19/25; Removal Time: 1514; Removal Reason: Therapy Completed 05/19/25 0659 by Jd Reaves RN 05/19/25 151 by Aranza Caceres RN ETT Placement Date 05/19; Placement Time 0737; ETT Type Oral; Airway Size 7; Airway Cuffed Yes; Insertion Attemps 1; Blade Type MAC; Blade Size 3; Grade View 1; Insertion Technique DL, Teeth Protected; Placement Verified; Auscultation, ETCO2; Removal Date 05/19/25; Removal Time 0800 (removed via procedure documentation) 05/19/25 0737 by Nayana Baker CRNA 05/19/25 0800 by Nayana Baker CRNA ETT Placement Date 05/19; Placement Time 0737 (created via procedure documentation); Airway Size 7; Airway Cuffed Yes; Removal Date 05/19/25; Removal Time 1135 05/19/25 0737 by Carmen Osman 05/19/25 1135 by Nayana Baker CRNA Urethral Catheter Placement Date: 03/08; Placement Time: 0801; Inserted by: JARRET Hensley; Type: Straight-tip; Size: 15 Fr.; Balloon Size: 10 mL; Urine Returned: Yes; Removal Date: 05/23/25; Removal Time: 1632 05/19/25 0801 by Daniella Ramos RN 05/23/25 1632 by Automatic Discharge Provider documented in this encounter Social History Tobacco Use Types Packs/Day Years [...] Date Lizandro rded Speak language other than Central African at home Not on file 01/31/2024 Want [...] on file documented as of this encounter OR Notes * Anesthesia Postprocedure Evaluation - Nayana Baker CRNA - 05/19/2025 11:47 AM EDT Patient: Johanna Spivey Procedure Summary Date: 05/19/25 Room / Location: [facility] Anesthesia Start: 728 Anesthesia Stop: Procedures: LAPAROSCOPY WITH ROBOTIC ASSISTNAE SUPRACERVICAL HYSTERECTOMY, SACRCOLPOPEXY, PARA VAGINAL DEFECT REPAIR (Abdomen) ROBOTIC LAPAROSCOPY,SACROCOLPOPEXY (Pelvis) ROBOTIC LAPAROSCOPY,SALPINGO-OOPHORECTOMY (Bilateral) Diagnosis: Cystocele, lateral Uterovaginal prolapse, incomplete Urge incontinence Hypermobility of urethra (N81.12 N81.2 N39.41 N36.41) Surgeons: Rosa M Rangel MD Responsible Provider: Nayana Baker CRNA Anesthesia Type: general, regional ASA Status: 2 Anesthesia Type: general, regional Vitals Value Taken Time BP 146/70 05/19/25 1147 Temp 98.0 05/19/25 1147 Pulse 46 05/19/25 1147 Resp 12 05/19/25 1147 SpO2 97 % 05/19/25 1147 Vitals shown include unfiled device data. Ht 1.727 m (5' 8 ) Wt 82.1 kg (181 lb) BMI 27.52 kg/m?? Anesthesia Post Evaluation Patient location during evaluation: PACU Patient participation: complete - patient participated Level of consciousness: sleepy but conscious Pain score: 2 Pain management: adequate Multimodal analgesia pain management approach Airway patency: patent Two or more strategies used to mitigate risk of obstructive sleep apnea Cardiovascular status: stable Respiratory status: face mask Hydration status: stable Color: [place] Activity: Moves 4 extremities Inotropes/Vasopressors: N/A No notable events documented. Nayana Baker CRNA 05/19/2025 11:47 AM EDT * Anesthesia Procedure Notes - Nayana Baker CRNA - 05/19/2025 8:12 AM EDT Associated Order(s): Peripheral Nerve Block Peripheral Nerve Block Authorized by: Nayana Baker CRNA Performed by: Nayana Baker CRNA Patient location during procedure: OR Start time: 05/19/2025 7:35 AM End time: 05/19/2025 7:45 AM Reason for block: at surgeon's request and post-op pain management Preanesthetic Checklist Completed: patient identified, IV checked, site marked, risks and benefits discussed, surgical consent, monitors and equipment checked, pre-op evaluation and timeout performed Peripheral Block Patient position: supine Prep: ChloraPrep Patient monitoring: heart rate, threat monitoring analyst and continuous pulse ox Block type: TAP Laterality: bilateral Injection technique: single-shot Guidance: ultrasound guided Needle Needle type: short-bevel Needle gauge: 20 G Needle length: 10 cm Needle localization: ultrasound guidance Needle insertion depth: 7 cm Test dose: negative Assessment Injection assessment: negative aspiration for heme, no paresthesia on injection, incremental injection and local visualized surrounding nerve on ultrasound Paresthesia pain: none Heart rate change: no Slow fractionated injection: yes Additional Notes 15cc .5% ropi with 15cc NS administered bilaterally * Anesthesia Procedure Notes - Nayana Baker CRNA - 05/19/2025 7:55 AM EDT Associated Order(s): Intubation Intubation Authorized by: Nayana Baker CRNA Performed by: Carmen Osman Date/Time: 05/19/2025 7:37 AM Urgency: elective Indications and Patient Condition Indications for airway management: anesthesia and airway protection Spontaneous Ventilation: absent Sedation level: general anesthesia Preoxygenated: yes Patient position: sniffing Mask difficulty assessment: 1 - vent by mask no Final Airway Details Final airway type: endotracheal airway Endotracheal tube type: ETT Cuffed: yes Successful intubation technique: direct laryngoscopy Facilitating devices/methods: intubating stylet Endotracheal tube insertion site: oral Blade: [place] Blade size: #3 ETT size (mm): 7.0 Cormack-Lehane Classification: grade I - full view of glottis Placement verified by: chest auscultation and capnometry Cuff volume (mL): 8 Measured from: lips ETT to lips (cm): 21 Number of attempts at approach: 1 Additional Comments Intubated by KATELYN Jaime 1 attempt, atraumatic easy intubation * Anesthesia Preprocedure Evaluation - Ar Rose MD - 05/19/2025 6:58 AM EDT Anesthesia Pre Evaluation Ms. Johanna Spivey is a 75 y.o. female being evaluated for the following: Date/Time: 05/19/25 0730 Procedures: LAPAROSCOPY WITH ROBOTIC ASSISTNAE SUPRACERVICAL HYSTERECTOMY, SACRCOLPOPEXY, PARA VAGINAL DEFECT REPAIR ROBOTIC LAPAROSCOPY,SACROCOLPOPEXY Location: [facility] Surgeons: Rosa M Rangel MD Relevant Problems ANESTHESIA (+) ISABELA (obstructive sleep apnea) CARDIOVASCULAR (+) Hypertension (+) PAF (paroxysmal atrial fibrillation) (HCC) ENDOCRINE (+) DM (diabetes mellitus) (HCC) (+) Hypothyroid Other (+) Hyperlipidemia Allergies Allergen Reactions Sulfa (Sulfonamide Antibiotics) Hives Clinical information reviewed: Latest Reference Range & Units 05/08/25 14:14 WBC 3.9 - 10.0 K/??L 8.8 RBC 3.93 - 6.08 M/??L 3.98 Hemoglobin 11.2 - 15.7 GM/DL 12.4 Hematocrit 34.1 - 44.9 % 38.7 MCV 79 - 95 fL 97 (H) MCH 25.6 - 32.2 pg 31.2 MCHC 32.2 - 36.5 GM/DL 32.0 (L) RDW 11.6 - 14.4 % 14.4 Platelets 163 - 369 K/CU MM 195 (H): Data is abnormally high (L): Data is abnormally low Latest Reference Range & Units 05/08/25 14:14 Sodium 136 - 146 meq/L 141 Potassium 3.5 - 5.1 meq/L 4.6 Chloride 102 - 112 meq/L 106 CO2 21 - 32 meq/L 30 Anion Gap 9 - 20 10 BUN 7 - 22 mg/dL 32 (H) Creatinine 0.55 - 1.02 mg/dL 1.02 EGFR >=60 mL/min/1.73m2 58 (L) Glucose 74 - 100 mg/dL 168 (H) Calcium 8.5 - 10.1 mg/dL 9.5 (H): Data is abnormally high (L): Data is abnormally low Latest Reference Range & Units 05/19/25 05:33 Glucose 70 - 110 mg/dL 138 (H) (H): Data is abnormally high EKG- sinus sebastian, rate 51 echo: 12/18/24: Normal LV systolic function, EF 50%, mild RV dilation with normal RV function, biatrial dilation, mild TR. Stacy Myoview same date EF 52% with no ischemia or fixed defects. NPO Status Date of last liquid: 05/18/25 Time of last liquid: 2100 Date of last solid: 05/18/25 Time of last solid: 2100 Physical Exam Airway Mallampati: II Cardiovascular - normal exam Dental (+) upper dentures Pulmonary - normal exam Abdominal - normal exam Anesthesia Plan ASA 2 Planned anesthetic: general and regional Induction: intravenous Postoperative Plan- Postoperative administration of opioids is intended. Trial extubation is planned. Informed Consent- Anesthetic plan and risks discussed with patient. Plan discussed with HVAC RESIDENTIAL SERVICE TECHNICIAN. documented in this encounter Plan of Treatment Upcoming Encounters Date Type Department Care Team (Late st Contact Info) Description 10/05/2025 11:00 AM EST Appointment [facility] [address] [place] [address] [address] [place] [address] John Rodrigues MD [address] [place] [address] [place] [id number] documented as of this encounter Procedures Procedure Name Priority Date/Time Associated Diagnosis Comments ANESTHESIA INTUBATION Routine 05/19/2025 7:37 AM EDT HC TAP BLOCK BILATERAL (BLK RM) Routine 05/19/2025 7:35 AM EDT documented in this encounter Results * AN SINGLE LUMEN INTUBATION (05/19/2025 7:37 AM EDT) Nayana German CRNA - 05/19/2025 7:37 AM EDT Nayana Baker CRNA 05/19/2025 8:00 AM Intubation Authorized by: Nayana Baker CRNA Performed by: Carmen Osman Date/Time: 05/19/2025 7:37 AM Urgency: elective Indications and Patient Condition Indications for airway management: anesthesia and airway protection Spontaneous Ventilation: absent Sedation level: general anesthesia Preoxygenated: yes Patient position: sniffing Mask difficulty assessment: 1 - vent by mask no Final Airway Details Final airway type: endotracheal airway Endotracheal tube type: ETT Cuffed: yes Successful intubation technique: direct laryngoscopy Facilitating devices/methods: intubating stylet Endotracheal tube insertion site: oral Blade: [place] Blade size: #3 ETT size (mm): 7.0 Cormack-Lehane Classification: grade I - full view of glottis Placement verified by: chest auscultation and capnometry Cuff volume (mL): 8 Measured from: lips ETT to lips (cm): 21 Number of attempts at approach: 1 Additional Comments Intubated by KATELYN Jaime 1 attempt, atraumatic easy intubation us Nayana Baker CRNA ANESTHESIA ORDERABLES Fin al Result * HC TAP BLOCK BILATERAL (BLK RM) (05/19/2025 7:35 AM EDT) Nayana German CRNA - 05/19/2025 7:35 AM EDT Nayana Baker CRNA 05/19/2025 10:43 AM Peripheral Nerve Block Authorized by: Nayana Baker CRNA Performed by: Nayana Baker CRNA Patient location during procedure: OR Start time: 05/19/2025 7:35 AM End time: 05/19/2025 7:45 AM Reason for block: at surgeon's request and post-op pain management Preanesthetic Checklist Completed: patient identified, IV checked, site marked, risks and benefits discussed, surgical consent, monitors and equipment checked, pre-op evaluation and timeout performed Peripheral Block Patient position: supine Prep: ChloraPrep Patient monitoring: heart rate, threat monitoring analyst and continuous pulse ox Block type: TAP Laterality: bilateral Injection technique: single-shot Guidance: ultrasound guided Needle Needle type: short-bevel Needle gauge: 20 G Needle length: 10 cm Needle localization: ultrasound guidance Needle insertion depth: 7 cm Test dose: negative Assessment Injection assessment: negative aspiration for heme, no paresthesia on injection, incremental injection and local visualized surrounding nerve on ultrasound Paresthesia pain: none Heart rate change: no Slow fractionated injection: yes Additional Notes 15cc .5% ropi with 15cc NS administered bilaterally Nayana Baker CRNA ANESTHESIA ORDERABLES João yahir Result - Final documented in this encounter Visit Diagnoses Not on filedocumented in this encounter Administered Medications Inactive Administered Medications - up to 3 most recent administrations Medication Order MAR Action Action Date Dose Rate Site cefOXitin (MEFOXIN) IVPB 2 g in dextrose 5 % 50 mL (premix) 2 g Once, intravenous, at 100 mL/hr, On Sun05/19/25 at 0630, For 1 dose, Please choose an indication: Surgical Prophylaxis Given 05/19/2025 10:06 AM EDT 2 g Given 05/19/2025 7:40 AM EDT 2 g dexAMETHasone (DECADRON) injection As needed, intravenous, Starting on Sun05/19/25 at 0736, Anesthesia Intra-op Given 05/19/2025 7:36 AM EDT 4 mg electrolyte-R (NORMOSOL-R) infusion at 100 mL/hr, intravenous, Continuous, Starting on Sun05/19/25 at 0630, Pre-op New Bag 05/19/2025 11:23 AM EDT 100 mL/hr 100 mL/ hr Continued by Anesthesia 05/19/2025 7:29 AM EDT 100 mL/hr 100 mL/hr New Bag 05/19/2025 7:05 AM EDT 100 mL/hr 100 mL/hr fentaNYL PF (SUBLIMAZE) injection As needed, intravenous, Starting on Sun05/19/25 at 0736, Anesthesia Intra-op Given 05/19/2025 11:21 AM EDT 25 mcg Given 05/19/2025 8:20 AM EDT 50 mcg Given 05/19/2025 7:36 AM EDT 50 mcg glycopyrrolate (ROBINUL) injection As needed, intravenous, Starting on Sun05/19/25 at 1116, Anesthesia Intra-op Given 05/19/2025 11:16 AM EDT 0.6 mg lidocaine (XYLOCAINE) injection 2% As needed, intravenous, Starting on Sun05/19/25 at 0736, Anesthesia Intra-op Given 05/19/2025 7:36 AM EDT 100 mg neostigmine (PROSTIGMINE) (PF) injection As needed, intravenous, Starting on Sun05/19/25 at 1116, Anesthesia Intra-op Given 05/19/2025 11:16 AM EDT 3 mg ondansetron (ZOFRAN) injection As needed, intravenous, Starting on Sun05/19/25 at 1112, Anesthesia Intra-op Given 05/19/2025 11:12 AM EDT 4 mg propofol (DIPRIVAN) injection 10 mg/mL bolus As needed, intravenous, Starting on Sun05/19/25 at 0736, Anesthesia Intra-op Given 05/19/2025 7:36 AM EDT 150 mg rocuronium (ZEMURON) injection As needed, intravenous, Starting on Sun05/19/25 at 0736, Anesthesia Intra-op Given 05/19/2025 10:17 AM EDT 20 mg Given 05/19/2025 9:20 AM EDT 20 mg Given 05/19/2025 7:36 AM EDT 50 mg ropivacaine PF (NAROPIN) 0.5 % (5 mg/mL) injection As needed, perineural, Starting on Sun05/19/25 at 0740, Anesthesia Intra-op Given 05/19/2025 7:40 AM EDT 30 mLs documented in this encounter Care Teams Load Dropper Relationship Specialty Start Date End Date John Rodrigues MD [address] [place] [address] [place] [address] PCP - General Family Medicine 05/19/25 documented as of this encounter
--- OUTSIDE RECORDS SUMMARY | 2025-05-19 07:30 | XMS_ITS | Encounter Summary ---
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 N81.2 N39.41 N36.41 Procedures [place] LAPAROSCOPY COLPOPEXY SUSPENSION VAGINAL APEX MS LAPS SUPRACRV HYSTERECT 250 GM/< RMVL TUBE/OVAR MS PARAVAGINAL DEFECT REPAIR LAPAROSCOPIC APPROACH ROBOTIC LAPAROSCOPY,SUPRACERVICAL HYSTERECTOMY ROBOTIC LAPAROSCOPY,SACROCOLPOPEXY Rosa M Rangel MD [address] [place] [address] Phone: tel: fax: Referral ID Status Reason Start Date Expiration Date Visits Re quested Visits Authorized [id number] 04/03/2025 1 1 Encounter Details Date Type Department Care Team (Late st Contact Info) Description 05/19/2025 7:30 AM EDT - 05/19/2025 11:24 AM EDT Surgery [facility] Surgery Department [address] [place] [id number] Rosa M Rangel MD [address] [place] [address] LAPAROSCOPY WITH ROBOTIC ASSISTNAE SUPRACERVICAL HYSTERECTOMY, SACRCOLPOPEXY, [...] Preop examination 05/08/2025 PAF (paroxysmal atrial fibrillation) ([facility]) 05/08/2025 Urinary incontinence 05/08/2025 DM (diabetes mellitus) ([facility]) 05/08/2025 ISABELA (obstructive sleep apnea) [...] 51 BPM ATRIAL RATE (MCT) 51 BPM [place] Interval 146 ms QRS-INTERVAL (MSEC) 86 ms QT Interval 452 ms QTC Interval 416 ms P [place] 64 degrees R AXIS (MCT) -17 degrees T Wave [place] 100 degrees [place] Diagnosis Sinus bradycardia ST & T wave abnormality, consider lateral ischemia Abnormal ECG ASSESSMENT & PLAN: Active Problems: Preop examination PAF (paroxysmal atrial fibrillation) (HCC) Urinary incontinence DM (diabetes mellitus) (HCC) ISABELA (obstructive sleep apnea) Hypothyroid Hyperlipidemia Preop exam Urinary incontinence PAF -cardiac clearance; ok to proceed, moderate operative and non modifiable risk, [facility] -asa holding : 7 days per [...] a new closure for the sacrocolpopexy. Cadaveric [place] tissue patch was used with bio-tissue allograft attached at each end to be placed against the cervix and then [place]-Crow sutures interrupted were placed to secure the patch to the cervix. The round ligaments were attached to the cervix on each side to provide lateral support. Pressure was applied from below, and top of the patch was attached to the anterior ligament of sacral prominence with 3 interrupted [place] sutures. Peritoneum was then closed with a [...] defect. The torn fascia was identified and [place] suture was used to lift the torn fascia up to the arcus tendineus. Into this, we incorporated a piece of cadaveric patch with the tissue allograft to bridge the gap and lessen the tension on the sutures. This was done on both sides. One more suture was placed in the midline. Interrupted [place] sutures were placed on each side to [...] was taken to recovery in good condition. /[id number] MD TRACY Cheng/AQ / TRACY / DEBS /[id number] documented in this encounter Plan of Treatment Upcoming Encounters Date Type Department Care Team (Late st Contact Info) Description 10/05/2025 11:00 AM EST Appointment [facility] Breast Imaging [address] [facility] [address] [place] [address] John Rodrigues MD [address] [place] [address] [place] [address] documented as of this encounter Procedures Procedure Name Priority Date/Time Associated Diagnosis Comments NOVA GLUCOSE POC Routine 05/19/2025 11:4 2 AM EDT TISSUE EXAM ([place]) AP Routine 05/19/2025 1 1:11 AM EDT Cystocele, lateral Uterovaginal prolapse, incomplete Urge incontinence Hypermobility of urethra ROBOTIC LAPAROSCOPY,SALPINGEC BETTYE/OOPHORECTOMY 05/19/2025 7:29 AM EDT Cystocele, lateral Uterovaginal prolapse, incomplete Urge incontinence Hypermobility of urethra [place] LAPAROSCOPY COLPOPEXY SUSPENSION VAGINAL APEX 05/19/2025 7:29 [...] Glucose, Nova Meter (05/19/2025 11:42 AM EDT) [facility] POC-GLUCOSE 242(H) 70 - 110 mg/dL 05/19/2025 11:44 AM EDT [facility] Comment: In the event of poor peripheral blood flow, venous or arterial blood should be used due to the potential of erroneous results. Notified Nurse RBV Spinner Concrete Pipe [id number] 05/19/2025 11:44 AM EDT [facility] Blood WHOLE BLOOD / Unknown 05/19/2025 11:42 AM EDT 05/19/2025 11:44 AM EDT Narrative [facility] - 05/19/2025 11:44 AM EDT Spinner Concrete Pipe ID is - [id number] Rosa M Rangel MD POINT OF CARE TEST ORDERABLES Final Result [facility] [address] [id number] [phone] * Tissue Exam (05/19/2025 11:11 AM EDT) [...] cm and has a grossly unremarkable lumen. Stunner Animal sections are submitted in 6 cassettes as follows: A1-anterior and posterior lower uterine segment P0-tuga-pluoxjvpy sections of anterior and posterior endomyometrium A3-right ovary A4-right fallopian tube A5-left ovary A6-left fallopian tube. JTM/RLL Tissue UTERUS, FALLOPIAN TUBES AND OVARIES, CS / Unknown 05/19/2025 11:11 AM EDT Rosa M Rangel MD PATHOLOGY/CYTOLOGY ORDERABLES Final Result Performing Organization Address [facility] Co de Phone Number [facility] [address] [place] [address] * (ABNORMAL) Hemoglobin A1c (05/19/2025 7:06 AM EDT) Hemoglobin A1C 7.2(H) 4.2 - 6.3 % 05/19/2025 7:34 AM EDT [facility] Comment: Hemoglobin A1C levels are related to mean glucose during the preceding 2-3 months. Less than 7% demonstrates glycemic control in diabetic patients. Hemoglobin AlC % Suggested Diagnosis > or = 6.5 Diabetic 5.7 - 6.4 Prediabetic <5.7 Non-diabetic eAVG Glucose 159.94 mg/dL 05/19/2025 7:34 AM EDT [facility] Blood Venipuncture / Unknown 05/19/2025 7:06 AM EDT 05/19/2025 7:12 AM EDT Rosa M Rangel MD LAB BLOOD ORDERABLES Final Re sult [facility] [address] [phone] * (ABNORMAL) Lipid panel (05/19/2025 7:06 AM EDT) Triglycerides 113 0 - 249 mg/dL 05/19/2025 7:34 AM EDT [facility] Cholesterol 134 0 - 199 mg/dL 05/19/2025 7:34 AM EDT [facility] Comment: 200 to 239 mg/dL = Moderate (borderline) >239 mg/dL = High HDL Cholesterol 40 >=40 mg/dL 05/19/2025 7:34 AM EDT [facility] Comment: >=60 mg/dL = Desirable <40 mg/dL = Increased Risk All other components are listed individually or are calculations VLDL Cholesterol 22.6 5 - 40 mg/dL 05/19/2025 7:34 AM EDT [facility] Cholesterol/HDL ratio 3.4(H) 0.0 - 3.2 mg/dL 05/19/2025 7:34 AM EDT [facility] LDl/HDL Ratio 2 0 - 4 05/19/2025 7:34 AM EDT [facility] LDL Cholesterol, Calculated 71 0 - 99 mg/dL 05/19/2025 7:34 AM EDT [facility] Blood Venipuncture / Unknown 05/19/2025 7:06 AM EDT 05/19/2025 7:12 AM EDT us Rosa M Rangel MD LAB BLOOD ORDERABLES Final Re sult [facility] [address] [phone] * (ABNORMAL) Comprehensive metabolic panel (05/19/2025 7:06 AM EDT) Pathologist [facility] Sodium 139 136 - 146 meq/L 05/19/2025 7:34 AM EDT [facility] Potassium 4.1 3.5 - 5.1 meq/L 05/19/2025 7:34 AM EDT [facility] Chloride 110 102 - 112 [...] >=60 mL/min/1.7 3m2 05/19/2025 7:34 AM EDT [facility] Comment:ESTIMATED GFR IS NOT ACCURATE CREATININE CLEARANCE IN PREDICTING GLOMERULAR FILTRATION RATE. ESTIMATED GFR IS NOT APPLICABLE FOR DIALYSIS PATIENTS. Blood Venipuncture / Unknown 05/19/2025 7:06 AM EDT 05/19/2025 7:12 AM EDT Rosa M Rangel MD LAB BLOOD ORDERABLES Final Re sult Performing Organization Address City/[facility] Co de Phone Number [facility] [address] [place] [address], [facility] [phone] * (ABNORMAL) Glucose, Nova Meter (05/19/2025 5:33 AM EDT) [facility] POC-GLUCOSE 138(H) 70 - 110 mg/dL 05/19/2025 5:35 AM EDT [facility] Comment: In the event of poor peripheral blood flow, venous or arterial blood should be used due to the potential of erroneous results. No lab per MD Spinner [employer] Pipe [id number] 05/19/2025 5:35 AM EDT [facility] Blood WHOLE BLOOD / Unknown 05/19/2025 5:33 AM EDT 05/19/2025 5:35 AM EDT Narrative [facility] - 05/19/2025 5:35 AM EDT Spinner [employer] Pipe ID is - [id number] Rosa M Rangel MD POINT OF CARE TEST ORDERABLES Final Result Performing Organization Address [facility] Co de Phone Number [facility] [address] [place] [address], [facility] [phone] documented in this encounter Visit Diagnoses Diagnosis [...] blood sugar is less than 180 between 2305-1702, DO NOT give corrective insulin unless otherwise [...] blood sugar is less than 180 between 8015-2257, DO NOT give corrective insulin unless otherwise [...] Pre-op documented in this encounter Care Teams Bleacher Lard Relationship Specialty Start Date End Date John Rodrigues MD [address] [place] [address] PCP - General Family Medicine 05/19/25 documented as of this encounter
--- OUTSIDE RECORDS SUMMARY | 2025-06-08 11:07 | XMS_ITS | Clinical Summary ---
Author Organization Healthcare Address [address] [place] [address] Care Team Providers Care Patient Account Representative Name Role Phone Shirin Jasso FURNIT[employer] MOVER DRIVER Primary Care Provider [phone] Family History Medical History Relation Name Comments [...] of Treatment Not on file Care Teams Patient Account Representative Relationship Specialty Start Date End Date Shirin Jasso, ERIKA [address] [place], [place] [id number] PCP - General 02/25/21
--- OUTSIDE RECORDS SUMMARY | 2025-06-08 11:07 | XMS_ITS | Encounter Summary ---
Author Organization [employer] ([place], [place], [place], [place]) Address [address] [place] [address] Care Team Providers Care Airplane Pilot Name Role Phone John Rodrigues MD Primary Care Provider [phone] Encounter Details Date Type Department Care Team (Late st Contact Info) Description 03/02/2023 Outside Orders [facility] Central Scheduling 1 [place] [address] Prabhakar Van MD [address] [facility] [address] [place] [address] Essential hypertension (Primary Dx) Social [...] Info) Description 10/05/2025 11:00 AM EST Appointment [facility] Breast Imaging [address] [facility] [address] [place] [address] John Rodrigues MD [address] [place] [address] documented as of this encounter Visit Diagnoses Diagnosis Essential hypertension- Primary Unspecified essential hypertension documented in this encounter Care Teams Airplane Pilot Relationship Specialty Start Date End Date John Rodrigues MD [address] [place] [address] PCP - General Family Medicine 05/19/25 documented as of this encounter
--- OUTSIDE RECORDS SUMMARY | 2025-06-08 11:07 | XMS_ITS | Encounter Summary ---
Author Organization [employer] ([place], [place], [place], [place]) Address [address] [place] [address] Care Team Providers Care Gauge Checker Name Role Phone Unavailable Primary Care Provider Unavailabl e Encounter Details Date Type Department Care Team (Late st Contact Info) Description 06/28/2023 Outside Orders [facility] Central Scheduling 1 [place] [address] John Rodrigues MD [address] [facility] [address] [place] [address] Visit for screening mammogram (Primary Dx) Social History Tobacco Use Types Packs/Day Years Used Date Smoking Tobacco: Never Assessed Family and Community Support Answer Hernán e Recorded Help with Day to Day Activities Not on file 01/31/2024 Feeling Lonely or Isolated Not on file 01/30 Educational Attainment Answer Date Lizandro rded Speak language other than Maldivian at home Not on file 01/31/2024 Want [...] Info) Description 10/05/2025 11:00 AM EST Appointment [facility] Breast Imaging [address] [facility] [address] [place] [address] John Rodrigues MD [address] [place] [address] [place] [address] documented as of this encounter Visit Diagnoses Diagnosis Visit for screening mammogram- Primary documented in this encounter
--- OUTSIDE RECORDS SUMMARY | 2025-06-08 11:07 | XMS_ITS | Encounter Summary ---
Author Organization [employer] ([place], [place], [place], [place]) Address [address] [place] [address] Care Team Providers Care Software Business Analyst Name Role Phone Unavailable Primary Care Provider [...] Date Lizandro rded Speak language other than Citizen [place] at home Not on file 01/31/2024 Want [...] Info) Description 10/05/2025 11:00 AM EST Appointment [facility] Breast Imaging [address] [place] [address] [address] [place] [address] John Rodrigues MD [address] [place] [address] documented as of this encounter Visit Diagnoses Not on filedocumented in this encounter
--- OUTSIDE RECORDS SUMMARY | 2025-06-08 11:07 | XMS_ITS | Clinical Summary ---
Author Organization [facility] Address [address] [place] [id number] Care Team Providers Care Development Vice President Name Role Phone Shayy Hagan APRN Primary Care Provider [phone] Allergies Active Allergy Reactions Criticality Noted Date [...] 06/0 10/2020, 11/29/2020, Additional history exists Insurance [employer] BLAIR MEDICARE A & B Care Teams Development Vice President Relationship Specialty Start Date End Date Shayy Hagan APRN [facility] [place] [address] PCP - General Nurse Practitioner 01/20/21
--- OUTSIDE RECORDS SUMMARY | 2025-06-08 11:07 | XMS_ITS | Clinical Summary ---
Author Organization [employer] ([place], [place], [place], [place]) Address [address] [place] [address] Care Team Providers Care Travel Assistant Name Role Phone John Rodrigues MD Primary Care Provider [phone] Allergies Active Allergy Reactions Criticality Noted Date [...] (400 mg total) by mouth daily. Active oxyCODONE-aceta minophen (PERCOCET) 5-325 mg per tablet Take 1 tablet by mouth every 4 (four) hours as needed for up to 3 days . Max Daily Amount: 6 tablets 18 tablet 0805/22/20 Active Problems Problem Noted Date Diagnosed Date Preop examination 05/08/2025 PAF (paroxysmal atrial fibrillation) 05/08/2025 Urinary incontinence 05/08/2025 DM (diabetes mellitus) 05/08/2025 ISABELA (obstructive sleep apnea) 05/08/2025 Hypothyroid 05/08/2025 Hyperlipidemia 05/08/2025 Hypertension Encounters Date Type Department Care Team Description 05/21/2025 Telephone [facility] Surgery Department [address] [place] [address] Carmen Osman 05/19/2025 7:30 AM EDT - 05/19/2025 11:24 AM EDT Surgery [facility] Surgery Department [address] [place] [address] Rosa M Rangel MD LAPAROSCOPY WITH ROBOTIC ASSISTNAE SUPRACERVICAL HYSTERECTOMY, SACRCOLPOPEXY, PARA VAGINAL DEFECT REPAIR 05/19/2025 7:29 AM EDT Anesthesia Event [facility] Surgery Department [address] [place] [address] Nayana Baker, Han Arvizu MD 05/19/2025 5:09 AM EDT - 05/19/2025 3:23 PM EDT Hospital Encounter [facility] Surgery Department [address] [place] [address] Rosa M Rangel MD Cystocele, lateral; Uterovaginal prolapse, incomplete; Urge incontinence; Hypermobility of urethra Discharge Disposition: Home or Self Care 05/19/2025 Travel 05/08/2025 10:37 AM EDT - 05/08/2025 11:59 PM EDT Hospital Encounter [facility] Preadmission Testing [address] [facility] [address] [place] [address] Preop examination (Primary Dx); PAF (paroxysmal atrial [...] Date Lizandro rded Speak language other than Armenian at home Not on file 01/31/2024 Want [...] Mass Index 27.52 05/19/2025 6:00 AM EDT Plan of Treatment Upcoming Encounters Date Type Department Care Team (Late st Contact Info) Description 10/05/2025 11:00 AM EST Appointment [facility] Breast Imaging [address] [facility] [address] [place] [address] John Rodrigues MD [address] [place] [address] Health Maintenance Due Date Last Done Comments [...] (#1) 2025 , 07/02/2020, 08/12/2019 Hemoglobin A1C 11/19/2025 05/19/2025, 05/08/2025 Tobacco Cessation Counseling and Screening (12+) 05/19/2026 05/19/2025 Breast Cancer Screening 09/29/2026 09/29/20 24, 05/09/2022, 05/03/2021, Additional history exists Medical Devices Implanted Type Area Scientific Affairs Manager Device Identifier Shelf Expiration Date Model / Serial / Lot Dermis 8x12cm [id number] - [id number] Implanted:Qty : 1 on 05/19/2025 by Rosa M Rangel MD at [facility] IMPLANTS N/A: Pelvis COLOPLAST A/S:COLOPLAST 07/14/2029 [id number] / / [id number] Cord Neox 8.0x3.0 [id number] - [id number] Implanted:Qty : 1 on 05/19/2025 by Rosa M Rangel MD at [facility] IMPLANTS N/A: Pelvis BIOTISSUE 09/26/2026 [id number] Procedure Name Priority Date/Time Associated Diagnosis Comments NOVA GLUCOSE POC Routine 05/19/2025 11:4 2 AM EDT TISSUE EXAM ([place]) AP Routine 05/19/2025 1 1:11 AM EDT Cystocele, lateral Uterovaginal prolapse, incomplete Urge incontinence Hypermobility of urethra ANESTHESIA INTUBATION Routine 05/19/2025 7:37 AM EDT HC TAP BLOCK BILATERAL (BLK RM) Routine 05/19/2025 7:35 AM EDT ROBOTIC LAPAROSCOPY,SALPINGEC BETTYE/OOPHORECTOMY 05/19/2025 7:29 AM EDT Cystocele, lateral Uterovaginal prolapse, incomplete Urge incontinence Hypermobility of urethra LA LAPAROSCOPY COLPOPEXY SUSPENSION VAGINAL APEX 05/19/2025 7:29 [...] GLUCOSE POC Routine 05/19/2025 5:33 AM EDT PT/INR, PTT Routine 05/08/2025 2:14 PM EDT [...] Relevant to Health Maintenance Results * (ABNORMAL) Glucose, Nova Meter (05/19/2025 11:42 AM EDT) Only the most recent of2 resultswithin the time period is included. [facility] POC-GLUCOSE 242(H) 70 - 110 mg/dL 05/19/2025 11:44 AM EDT [facility] Comment: In the event of poor peripheral blood flow, venous or arterial blood should be used due to the potential of erroneous results. Notified Nurse RBV [employer] [id number] 05/19/2025 11:44 AM EDT [facility] Blood WHOLE BLOOD / Unknown 05/19/2025 11:42 AM EDT 05/19/2025 11:44 AM EDT Narrative [facility] - 05/19/2025 11:44 AM EDT [employer] ID is - [id number] Rosa M Rangel MD POINT OF CARE TEST ORDERABLES Final Result [facility] [address] [phone] * Tissue Exam (05/19/2025 11:11 AM EDT) [facility] AP RESULT See Note: PATHOLOGY AND CYTOLOGY [...] cm and has a grossly unremarkable lumen. Driver Engineer sections are submitted in 6 cassettes as follows: A1-anterior and posterior lower uterine segment H8-dgfr-ohnonglik sections of anterior and posterior endomyometrium A3-right ovary A4-right fallopian tube A5-left ovary A6-left fallopian tube. JTM/RLL Tissue UTERUS, FALLOPIAN TUBES AND OVARIES, CS / Unknown 05/19/2025 11:11 AM EDT Rosa M Rangel MD PATHOLOGY/CYTOLOGY ORDERABLES Final Result [facility] [address] * AN SINGLE LUMEN INTUBATION (05/19/2025 7:37 [...] KATELYN Jaime 1 attempt, atraumatic easy intubation Nayana Baker CRNA ANESTHESIA ORDERABLES Fin al [...] supine Prep: ChloraPrep Patient monitoring: heart rate, secured entrance monitor and continuous pulse ox Block type: [...] .5% ropi with 15cc NS administered bilaterally us Nayana Baker CRNA ANESTHESIA ORDERABLES João yahir Result - Final * (ABNORMAL) Hemoglobin A1c (05/19/2025 7:06 AM EDT) Only the most recent of2 resultswithin the time period is included. Hemoglobin A1C 7.2(H) 4.2 - 6.3 % 05/19/2025 7:34 AM EDT [facility] Comment: Hemoglobin A1C levels are related to mean glucose during the preceding 2-3 months. Less than 7% demonstrates glycemic control in diabetic patients. Hemoglobin AlC % Suggested Diagnosis > or = 6.5 Diabetic 5.7 - 6.4 Prediabetic <5.7 Non-diabetic eAVG Glucose 159.94 mg/dL 05/19/2025 7:34 AM EDT [facility] Blood Venipuncture / Unknown 05/19/2025 7:06 AM EDT 05/19/2025 7:12 AM EDT us Rosa M Rangel MD LAB BLOOD ORDERABLES Final Re sult [facility] [address] [place] [address], [facility] [phone] * (ABNORMAL) Lipid panel (05/19/2025 7:06 AM EDT) Triglycerides 113 0 - 249 mg/dL 05/19/2025 7:34 AM EDT [facility] Cholesterol 134 0 - 199 mg/dL 05/19/2025 7:34 AM EDT [facility] Comment: 200 to 239 mg/dL = Moderate (borderline) >239 mg/dL = High HDL Cholesterol 40 >=40 mg/dL 05/19/2025 7:34 AM EDT [facility] Comment: >=60 mg/dL = Desirable <40 mg/dL = Increased Risk All other components are listed individually or are calculations VLDL Cholesterol 22.6 5 - 40 mg/dL 05/19/2025 7:34 AM EDT [facility] Cholesterol/HDL ratio 3.4(H) 0.0 - 3.2 mg/dL 05/19/2025 7:34 AM EDT [facility] LDl/HDL Ratio 2 0 - 4 05/19/2025 7:34 AM EDT [facility] LDL Cholesterol, Calculated 71 0 - 99 mg/dL 05/19/2025 7:34 AM EDT [facility] Blood Venipuncture / Unknown 05/19/2025 7:06 AM EDT 05/19/2025 7:12 AM EDT us Rosa M Rangel MD LAB BLOOD ORDERABLES Final Re sult [facility] [address] [facility] [address] [address] [phone] * (ABNORMAL) Comprehensive metabolic panel (05/19/2025 7:06 AM EDT) Sodium 139 136 - 146 meq/L 05/19/2025 7:34 AM EDT [facility] Potassium 4.1 3.5 - 5.1 meq/L 05/19/2025 7:34 AM EDT [facility] Chloride 110 102 - 112 meq/L 05/19/2025 7:34 AM EDT [facility] CO2 27 21 - 32 meq/L 05/19/2025 7:34 AM [facility] Calcium 9.2 8.5 - 10.1 mg/dL 05/19/2025 7:34 AM [facility] Glucose 145(H) 74 - 100 mg/dL 05/19/2025 7:34 AM [facility] BUN 26(H) 7 - 22 mg/dL 05/19/2025 7:34 AM [facility] Creatinine 1.24(H) 0.55 - 1.02 mg/dL 05/19/2025 7:34 AM [facility] BUN/Creatinine 21(H) 8 - 20 05/19/2025 7:34 AM [facility] Albumin 3.5 3.4 - 5.0 g/dL 05/19/2025 7:34 AM [facility] Alkaline Phosphatase 75 27 - 136 U/L 05/19/2025 7:34 AM [facility] ALT 20 12 - 78 U/L 05/19/2025 7:34 AM [facility] AST 19 5 - 37 U/L 05/19/2025 7:34 AM [facility] Total Bilirubin 0.6 0.2 - 1.3 mg/dL 05/19/2025 7:34 AM [facility] Protein, Total 6.9 6.4 - 8.2 gm/dL 05/19/2025 7:34 AM [facility] Anion Gap 6(L) 9 - 20 05/19/2025 7:34 AM [facility] A/G Ratio 1.0(L) 1.1 - 2.5 05/19/2025 7:34 AM [facility] Globulin 3.4 1.5 - 4.5 g/dL 05/19/2025 7:34 AM [facility] Osmolality Calc 284.9 mOsm/kg 7:34 AM [facility] eGFR (mL/min/1.73m2) 46(L) >=60 mL/min/1.7 3m2 05/19/2025 7:34 AM [facility] Comment:ESTIMATED GFR IS NOT ACCURATE CREATININE CLEARANCE IN PREDICTING GLOMERULAR FILTRATION RATE. ESTIMATED GFR IS NOT APPLICABLE FOR DIALYSIS PATIENTS. Blood Venipuncture / Unknown 05/19/2025 7:06 AM EDT 05/19/2025 7:12 AM EDT us Rosa M Rangel MD LAB BLOOD ORDERABLES Final Re sult [facility] [address] [place] [phone] * (ABNORMAL) CBC with automated diff (05/08/2025 2:14 PM EDT) WBC 8.8 3.9 - 10.0 K/ L 05/08/2025 2:18 PM EDT [facility] RBC 3.98 3.93 - 6.08 M/ L 05/08/2025 2:18 PM EDT [facility] Hemoglobin 12.4 11.2 - 15.7 GM/DL 05/08/2025 2:18 PM EDT [facility] Hematocrit 38.7 34.1 - 44.9 % 05/08/2025 2:18 PM EDT [facility] MCV 97(H) 79 - 95 fL 05/08/2025 2:18 PM EDT [facility] MCH 31.2 25.6 - 32.2 pg 05/08/2025 2:18 PM EDT [facility] MCHC 32.0(L) 32.2 - 36.5 GM/DL 05/08/2025 2:18 PM EDT [facility] RDW 14.4 11.6 - 14.4 % 05/08/2025 2:18 PM EDT [facility] Platelets 195 163 - 369 K/CU MM 05/08/2025 2:18 PM EDT [facility] MPV 10.3 9.4 - 12.4 fL 05/08/2025 2:18 PM EDT [facility] % Neutros 56 34 - 71 % 05/08/2025 2:18 PM EDT [facility] % Lymphs 31 19 - 53 % 05/08/2025 2:18 PM EDT [facility] % Monos 8 4 - 13 % 05/08/2025 2:18 PM EDT [facility] % Eos 4 1 - 7 % 05/08/2025 2:18 PM EDT [facility] % Baso 1 0 - 1 % 05/08/2025 2:18 PM EDT [facility] # Neutros 4.97 1.56 - 6.13 K/ L 05/08/2025 2:18 PM EDT [facility] # Lymphs 2.71 1.18 - 3.74 K/ L 05/08/2025 2:18 PM EDT [facility] # Monos 0.74 0.24 - 0.82 K/ L 05/08/2025 2:18 PM EDT [facility] # Eos 0.32 0.04 - 0.54 K/ L 05/08/2025 2:18 PM EDT [facility] # Baso 0.06 0.01 - 0.08 K/ L 05/08/2025 2:18 PM EDT [facility] Immature Granulocytes-Re lative 0.30 0.00 - 0.60 % 05/08/2025 2:18 PM EDT [facility] # IG 0.03 0.00 - 0.05 K/uL 05/08/2025 2:18 PM EDT [facility] Blood Venipuncture / Unknown 05/08/2025 2:14 PM EDT 05/08/2025 2:14 PM EDT Narrative [facility] - 05/08/2025 2:18 PM EDT [...] MD LAB BLOOD ORDERABLES Prema pham Result [facility] [address] [facility] [address] [phone] * PT/INR, PTT (05/08/2025 2:14 PM EDT) aPTT 23.9 22.0 - 32.0 seconds 05/08/2025 2:34 PM EDT [facility] Protime 10.3 9.0 - 12.0 seconds 05/08/2025 2:34 PM EDT [facility] INR 0.94 0.80 - 1.10 05/08/2025 2:34 PM EDT [facility] Blood Venipuncture / Unknown 05/08/2025 2:14 PM EDT 05/08/2025 2:14 PM EDT Dk Anaya MD LAB BLOOD ORDERABLES Prema pham Result [facility] [address] [facility] [address] [phone] * (ABNORMAL) Basic Metabolic Panel (05/08/2025 2:14 PM EDT) Sodium 141 136 - 146 meq/L 05/08/2025 2:34 PM EDT [facility] Potassium 4.6 3.5 - 5.1 meq/L 05/08/2025 2:34 PM EDT [facility] Chloride 106 102 - 112 meq/L 05/08/2025 2:34 PM EDT [facility] CO2 30 21 - 32 meq/L 05/08/2025 2:34 PM EDT [facility] Anion Gap 10 9 - 20 05/08/2025 2:34 PM EDT [facility] BUN 32(H) 7 - 22 mg/dL 05/08/2025 2:34 PM EDT [facility] Creatinine 1.02 0.55 - 1.02 mg/dL 05/08/2025 2:34 PM EDT [facility] BUN/Creatinine 31(H) 8 - 20 05/08/2025 2:34 PM EDT [facility] Glucose 168(H) 74 - 100 mg/dL 05/08/2025 2:34 PM EDT [facility] Calcium 9.5 8.5 - 10.1 mg/dL 05/08/2025 2:34 PM EDT [facility] Osmolality Calc 292.0 mOsm/kg 2:34 PM EDT [facility] eGFR (mL/min/1.73m2) 58(L) >=60 mL/min/1.7 3m2 05/08/2025 2:34 PM EDT [facility] Comment:eGFR of <60 suggests chronic kidney disease if found over a 3 month period of time. eGFR <15 indicates renal failure. Blood Venipuncture / Unknown 05/08/2025 2:14 PM EDT 05/08/2025 2:14 PM EDT Dk Anaya MD LAB BLOOD ORDERABLES Prema l Result Performing Organization Address [facility] [place]/ZIP Co de Phone Number [facility] [address] [phone] * ECG 12 lead (05/08/2025 11:02 AM EDT) VENTRICULAR RATE EKG/MIN 51 BPM GE MUSE ATRIAL RATE (MCT) 51 BPM GE MUSE LA Interval 146 ms GE MUSE QRS-INTERVAL (MSEC) 86 ms GE MUSE QT Interval 452 ms GE MUSE QTC Interval 416 ms GE MUSE P Struthers 64 degrees GE MUSE R AXIS (MCT) -17 degrees GE MUSE T Wave Struthers 100 degrees GE MUSE [place] Diagnosis Sinus bradycardia ST & T wave abnormality, consider lateral ischemia Abnormal ECG Confirmed by Zheng ENRIQUEZ SUZANNE ([id number]) on 05/11/2025 12:29:50 PM GE MUSE 05/08/2025 11:0 2 AM EDT 05/11/2025 12:29 PM EDT Dk Anaya MD ECG ORDERABLES Final Res ult Performing Organization Address City/[facility]/ZIP Co de Phone Number GE MUSE * MM digital mammo screen [...] the next mammogram. At our facility, a [place] marker is positioned over a visible skin [...] Images reviewed, interpreted, and dictated by Trisha Pegn MD Narrative 10/01/2024 6:26 PM EST BILATERAL [...] Most Recently Relevant to Health Maintenance Insurance [facility] MEDICARE PPO Advance Directives For more information, please contact: [phone] * Full Code (Latest Code Status on File) Date Activated Date Inactivated Comments 05/19/2025 10:55 AM 05/19/2025 5:32 PM * Full Code Date Activated Date Inactivated Comments 05/19/2025 5:09 AM 05/19/2025 10:54 AM Care Teams Travel Assistant Relationship Specialty Start Date End Date John Rodrigues MD [address] [place] [address] PCP - General Family Medicine 05/19/25
--- OUTSIDE RECORDS SUMMARY | 2025-06-08 11:07 | XMS_ITS | Encounter Summary ---
Author Organization [employer] ([place], [place], [place], [place]) Address [address] [place] [address] Care Team Providers Care Retail Account Executive Name Role Phone John Rodrigues MD Primary Care Provider [phone]- [phone] Encounter Details Date Type Department Care Team (Late st Contact Info) Description 08/21/2022 Outside Orders [facility] Central Scheduling [address] [place] [address] Prabhakar Van MD [address] [facility] [address] [place] [address] Social History Tobacco Use Types Packs/Day Years [...] Info) Description 10/05/2025 11:00 AM EST Appointment [facility] Breast Imaging [address] [facility] [address] [place] [address] John Rodrigues MD [address] [facility] [address] [place] [address] documented as of this encounter Visit Diagnoses Not on filedocumented in this encounter Care Teams Retail Account Executive Relationship Specialty Start Date End Date John Rodrigues MD [address] [place] [address] PCP - General Family Medicine 05/19/25 documented as of this encounter
--- OUTSIDE RECORDS SUMMARY | 2025-06-08 11:08 | XMS_ITS | Patient Health Record ---
Author Organization [facility] Address [address] [facility] [address] [facility] [address] [place] [address] Care Team Providers Care Machine Shop Supervisor Name Role Phone Srini Cooley [...] review and pick correct strength-formulati on from [employer] options. If intended option is not shown, [...] review and pick correct strength-formulati on from [employer] options. If intended option is not shown, [...] specified complication (E11.69) Active confirmed Problem Hyperlipidemia (78407829) Hyperlipidemia, unspecified (E78.5) Active confirmed Problem Hypomagnesemia (655740778) Hypomagnesemia (E83.42) Active confirmed Problem Chronic pain (53007708) Other chronic pain (G89.29) Active confirmed Problem Essential hypertension (57206633) Essential (primary) hypertension (I10) Active confirmed Problem Paroxysmal atrial fibrillation (167465305) Paroxysmal atrial fibrillation (I48.0) Active confirmed Problem Irritable bowel syndrome with diarrhea (416250457) Irritable bowel syndrome with diarrhea (K58.0) Active confirmed Problem Mixed incontinence (734904222) Mixed incontinence (N39.46) Active confirmed Problem Diabetes mellitus (91147975) Diabetes mellitus (E11.9) Active confirmed Problem Vitamin B12 deficiency (non anemic) (32530543) Vitamin B 12 deficiency (E53.8) Active confirmed Problem Gastroesophageal reflux disease (924782986) GERD without esophagitis (K21.9) Active confirmed Problem Seasonal allergy (767553045) Seasonal allergies (J30.2) Active confirmed Problem Diverticulitis (21254917) Diverticulitis (K57.92) Active confirmed Problem 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, 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) Active confirmed Problem Acquired hypothyroidism (479665957) Acquired hypothyroidism (E03.9) Active confirmed Problem Sacroiliitis (14158888) Sacroiliitis (M46.1) Active confirmed Problem Overactive urinary bladder (disorder) (867048331) OAB (overactive bladder) (N32.81) Active confirmed Problem Chronic maxillary sinusitis (13795147) Chronic sinusitis of both maxillary sinuses (J32.0) Active confirmed Problem Acute depression (617633721) Acute depression (F32.9) Active confirmed Problem History of diverticulitis (355769574884173) History of diverticulitis (Z87.19) Active confirmed Problem Arthritis of both knees (5883615447342580) Arthritis of both knees (M17.0) Active confirmed Encounters Encounter Location Date Provider Diagnosis [facility]IE [address] [facility] [address] [place] [address] 01/17/2025 Provider Migration Diverticulitis K57.92 Assessments Encounter [...] End Date [employer] [address] [address] [place] [address] [id number] Johanna Spivey Self - patient is the insured [employer] [address] [place] [address] [id number] Johanna Spivey Self - patient is the [...]
--- OUTSIDE RECORDS SUMMARY | 2025-06-08 11:08 | XMS_ITS | Encounter Summary ---
Author Organization [employer] ([place], [place], [place], [place]) Address [address] [place] [address] Care Team Providers Care Textile Machine Mechanic Name Role Phone John Rodrigues MD Primary Care Provider +1- [phone] Encounter Details Date Type Department Care Team (Latest Contact Info) Description 05/19/2025 Travel Social History Tobacco Use Types Packs/Day [...] Date Lizandro rded Speak language other than Venezuelan at home Not on file 01/31/2024 Want [...] Info) Description 10/05/2025 11:00 AM EST Appointment [facility] Breast Imaging [address] [place] [address] [address] [place] [phone] John Rodrigues MD [address] [place] [address] documented as of this encounter Visit Diagnoses Not on filedocumented in this encounter Care Teams Textile Machine Mechanic Relationship Specialty Start Date End Date John Rodrigues MD [address] [place] [address] PCP - General Family Medicine 05/19/25 documented as of this encounter
--- OUTSIDE RECORDS SUMMARY | 2025-06-08 11:08 | XMS_ITS | Encounter Summary ---
Author Organization [employer] ([place], [place], [place], [place]) Address [address] [place] [address] Care Team Providers Care Regional Engagement Consultant Name Role Phone John Rodrigues MD Primary Care Provider +1- [phone] Encounter Details Date Type Department Care Team (Late Contact Info) Description 05/21/2025 Telephone [facility] Department [address] [place] [phone] Carmen Osman Social History Tobacco Use Types Packs/Day Years [...] Date Lizandro rded Speak language other than Argentine at home Not on file 01/31/2024 Want [...] Info) Description 10/05/2025 11:[address] [facility] Breast Imaging [address] [facility] [address] [place] [address] John Rodrigues MD [address] [facility] [address] [place] [address] documented as of this encounter Visit Diagnoses Not on filedocumented in this encounter Care Teams Regional Engagement Consultant Relationship Specialty Start Date End Date John Rodrigues MD [address] [place] [address] PCP - General Family Medicine 05/19/25 documented as of this encounter
--- OUTSIDE RECORDS SUMMARY | 2025-06-08 11:08 | XMS_ITS | Encounter Summary ---
Author Organization [employer] ([place], [place], [place], [place]) Address [address] [place] [address] Care Team Providers Care Global Regulatory Lead Name Role Phone John Rodrigues MD Primary Care Provider +1- [phone] Reason for Referral * Mammography (Routine) - Closed Specialty Diagnoses / Procedures Referred By Contac t Referred To Contact Diagnoses Visit for screening mammogram Procedures MM digital mammo screen with shakir bilateral John Rodrigues MD [address] [facility] [address] [place] [address] Phone: tel: fax: Referral ID Status Reason Start Date Expiration Date Visits Re quested Visits Authorized [id number] Closed 06/30/2024 06/30/2025 1 1 Encounter Details Date Type Department Care Team (Late st Contact Info) Description 06/30/2024 Outside Orders [facility] Central Scheduling 1 [place] [address] John Rodrigues MD [address] [facility] [address] [facility] [address] Visit for screening mammogram (Primary Dx) [...] Info) Description 10/05/2025 11:00 AM EST Appointment [facility] [address] [facility] [address] [place] [address] John Rodrigues MD [address] [facility] [address] [place] [address] documented as of this encounter Results * [...] the next mammogram. At our facility, a grindstone marker is positioned over a visible skin [...] screening mammogram- Primary Visit for screening mammogram documented in this encounter Care Teams Global Regulatory Lead Relationship Specialty Start Date End Date John Rodrigues MD [address] [place] [address] [place] [address] PCP - General Family Medicine 05/19/25 documented as of this encounter
--- OUTSIDE RECORDS SUMMARY | 2025-06-08 11:08 | XMS_ITS | Encounter Summary ---
Author Organization [employer] ([place], [place], [place], [place]) Address [address] [place] [address] Care Team Providers Care Teacher Private Name Role Phone John Rodrigues MD Primary Care Provider +1- [phone] Reason for Referral * Mammography (Routine) - Pending Review Specialty Diagnoses / Procedures Referred By Contsharlene t Referred To Contact Diagnoses Visit for screening mammogram Procedures MM digital mammo screen with shakir bilateral John Rodrigues MD [address] [place] [address] Phone: tel: fax: Referral ID Status Reason Start Date Expiration Date V isits Requested Visits Authorized [id number] Pending Review 10/05/2025 10/05/2026 1 1 Encounter Details Date Type Department Care Team (Late st Contact Info) Description 09/29/2024 Outside Orders [facility] Central Scheduling 1 [place] [address] John Rodrigues MD [address] [facility] [address] [place] [address] Visit for screening mammogram (Primary Dx) [...] EST Appointment [facility] Breast Imaging [address] [place] [address] [address] [place] [phone] John Rodrigues MD [address] [place] [address] [address] [place] [address] Scheduled Orders Name Type Priority Associated Diagnoses Orde r Schedule MM digital mammo screen with shakir bilateral Imaging Routine Visit for screening mammogram Expected: 10/05/2025, Expires: 03/30/2026 documented as of this encounter Visit Diagnoses Diagnosis Visit for screening mammogram- Primary documented in this encounter Care Teams Teacher Private Relationship Specialty Start Date End Date John Rodrigues MD [address] [place] [address] PCP - General Family Medicine 05/19/25 documented as of this encounter
--- OUTSIDE RECORDS SUMMARY | 2025-06-08 11:08 | XMS_ITS | Referral Summary ---
Author Organization [facility] ([place], [place], [place], [place]) Address [address] [place] [address] Care Team Providers Care Press Machine Feeder Name Role Phone John Rodrigues MD Primary Care Provider +1- [phone] Encounters Date Type Department Care Team Description 05/21/2025 Telephone [facility] Surgery Department [address] [place] [phone] Carmen Osman 05/19/2025 Travel 05/19/2025 7:30 AM EDT - 05/19/2025 11:24 AM EDT Surgery [facility] Surgery Department [address] [place] [phone] Rosa M Rangel MD LAPAROSCOPY WITH ROBOTIC ASSISTNAE SUPRACERVICAL HYSTERECTOMY, SACRCOLPOPEXY, PARA VAGINAL DEFECT REPAIR 05/19/2025 7:29 AM EDT Anesthesia Event [facility] Surgery Department [address] [place] [phone] Nayana Baker CRNA Littles, Joel T, MD 05/19/2025 5:09 AM EDT - 05/19/2025 3:23 PM EDT Hospital Encounter [facility] Surgery Department [address] [place] [phone] Rosa M Rangel MD Cystocele, lateral; Uterovaginal prolapse, incomplete; Urge incontinence; Hypermobility of urethra Discharge Disposition: Home or Self Care 05/08/2025 Travel 05/08/2025 10:37 AM EDT - 05/08/2025 11:59 PM EDT Hospital Encounter [facility] Preadmission Testing [address] [facility] [address] [place] [phone] Preop examination (Primary Dx); PAF (paroxysmal [...] Max Daily Amount: 6 tablets 18 tablet 05/22/20 Active Problems Problem Noted Date Diagnosed Date Preop examination 05/08/2025 PAF (paroxysmal atrial fibrillation) 05/08/2025 Urinary incontinence 05/08/2025 DM (diabetes mellitus) 05/08/2025 ISABELA (obstructive sleep apnea) 05/08/2025 Hypothyroid 05/08/2025 Hyperlipidemia 05/08/2025 Hypertension Social History Tobacco Use Types Packs/Day Years [...] Date Lizandro rded Speak language other than Azeri at home Not on file 01/31/2024 Want [...] Info) Description 10/05/2025 11:00 AM EST Appointment [facility] Breast Imaging [address] [facility] [address] [place] [address] John Rodrigues MD [address] [place] [address] Medical Devices Implanted Type Area Modern And Contemporary Art Curator Device Identifier Shelf Expiration Date Model / Serial / Lot Dermis 8x12cm [id number] - [id number] Implanted:Qty : 1 on 05/19/2025 by Rosa M Rangel MD at [facility] IMPLANTS N/A: Pelvis COLOPLAST A/S:COLOPLAST 07/14/2029 [id number] / / [id number] Cord Neox 8.0x3.0 [id number] - [id number] Implanted:Qty : 1 on 05/19/2025 by Rosa M Rangel MD at [facility] IMPLANTS N/A: Pelvis BIOTISSUE 09/26/2026 [id number] / Procedures Procedure Name Priority Date/Time Associated [...] prolapse, incomplete Urge incontinence Hypermobility of urethra VA LAPAROSCOPY COLPOPEXY SUSPENSION VAGINAL APEX 05/19/2025 7:29 [...] of2 resultswithin the time period is included. POC-GLUCOSE 242(H) 70 - 110 mg/dL 05/19/2025 11:44 AM EDT [facility] Comment: In the event of poor peripheral blood flow, venous or arterial blood should be used due to the potential of erroneous results. Notified Nurse [employer] Network Announcer [id number] 05/19/2025 11:44 AM EDT [facility] Blood WHOLE BLOOD / Unknown 05/19/2025 11:42 AM EDT 05/19/2025 11:44 AM EDT Narrative [facility] - 05/19/2025 11:44 AM EDT Network Announcer ID is - [id number] Rosa M Rangel MD POINT OF CARE TEST ORDERABLES Final Result [facility] [address] [place] [address], [facility] [phone] * Tissue Exam (05/19/2025 11:11 AM EDT) [...] cm and has a grossly unremarkable lumen. College Scouting Coordinator sections are submitted in 6 cassettes as follows: A1-anterior and posterior lower uterine segment L5-zxop-lixeteean sections of anterior and posterior endomyometrium A3-right ovary A4-right fallopian tube A5-left ovary A6-left fallopian tube. JTM/RLL Tissue UTERUS, FALLOPIAN TUBES AND OVARIES, CS / Unknown 05/19/2025 11:11 AM EDT us Rosa M Rangel MD PATHOLOGY/CYTOLOGY ORDERABLES Final Result Performing Organization Address City/State/[facility] Co de Phone Number [facility]Y [facility] [address] [place] [address] * AN SINGLE LUMEN INTUBATION (05/19/2025 7:37 AM EDT) Narrative Nayana Baker CRNA - 05/19/2025 7:37 AM EDT Nayana [...] approach: 1 Additional Comments Intubated by Carmen Tresa Dawson, SRNA 1 attempt, atraumatic easy intubation Nayana Baker [...] supine Prep: ChloraPrep Patient monitoring: heart rate, site monitor and continuous pulse ox Block type: [...] [facility] [address] [employer] [address] [phone] * (ABNORMAL) Lipid panel (05/19/2025 7:06 AM [...] [facility] [address] [employer] [address] [phone] * (ABNORMAL) Comprehensive metabolic panel (05/19/2025 7:06 AM EDT) Sodium 139 136 - 146 meq/L 05/19/2025 7:34 AM [facility] Potassium 4.1 3.5 - 5.1 meq/L 05/19/2025 7:34 AM [facility] Chloride 110 102 - 112 meq/L 05/19/2025 7:34 AM [facility] CO2 27 21 - 32 meq/L 05/19/2025 7:34 AM [facility] Calcium 9.2 8.5 - 10.1 mg/dL 05/19/2025 7:34 AM [facility] Glucose 145(H) 74 - 100 mg/dL 05/19/2025 7:34 AM [facility] BUN 26(H) 7 - 22 mg/dL 05/19/2025 7:34 AM [facility] Creatinine 1.24(H) 0.55 - 1.02 mg/dL 05/19/2025 7:34 AM [facility] BUN/Creatinine 21(H) 8 - 20 05/19/2025 7:34 AM [facility] Albumin 3.5 3.4 - 5.0 g/dL 05/19/2025 7:34 AM [facility] Alkaline Phosphatase 75 27 - 136 U/L 05/19/2025 7:34 AM [facility] ALT 20 12 - 78 U/L 05/19/2025 7:34 AM [facility] AST 19 5 - 37 U/L 05/19/2025 7:34 AM [facility] Total Bilirubin 0.6 0.2 - 1.3 mg/dL 05/19/2025 7:34 AM [facility] Protein, Total 6.9 6.4 - 8.2 gm/dL 05/19/2025 7:34 AM [facility] Anion Gap 6(L) 9 - 20 05/19/2025 7:34 AM [facility] A/G Ratio [...] sult [facility] [address] [place] [address] * (ABNORMAL) CBC with automated diff (05/08/2025 2:14 PM EDT) WBC 8.8 3.9 - 10.0 K/ L 05/08/2025 2:18 PM EDT [facility] RBC 3.98 3.93 - 6.08 M/ L 05/08/2025 2:18 PM EDT [facility] Hemoglobin 12.4 11.2 - 15.7 GM/DL 05/08/2025 2:18 PM EDT [facility] Hematocrit 38.7 34.1 - 44.9 % 05/08/2025 2:18 PM EDT [facility] MCV 97(H) 79 - 95 fL 05/08/2025 2:18 PM EDT [facility] MCH 31.2 25.6 - 32.2 pg 05/08/2025 2:18 PM EDT [facility] MCHC 32.0(L) 32.2 - 36.5 GM/DL 05/08/2025 2:18 PM EDT [facility] RDW 14.4 11.6 - 14.4 % 05/08/2025 2:18 PM EDT [facility] Platelets 195 163 - 369 K/CU MM 05/08/2025 2:18 PM EDT [facility] MPV 10.3 9.4 - 12.4 fL 05/08/2025 2:18 PM EDT [facility] % Neutros 56 34 - 71 % 05/08/2025 2:18 PM EDT [facility] % Lymphs 31 19 - 53 % 05/08/2025 2:18 PM EDT [facility] % Monos 8 4 - 13 % 05/08/2025 2:18 PM EDT [facility] % Eos 4 1 - 7 % 05/08/2025 2:18 PM EDT [facility] % Baso 1 0 - 1 % 05/08/2025 2:18 PM EDT [facility] # Neutros 4.97 1.56 - 6.13 K/ L 05/08/2025 2:18 PM EDT [facility] # Lymphs 2.71 1.18 - 3.74 K/ L 05/08/2025 2:18 PM EDT [facility] # Monos 0.74 0.24 - 0.82 K/ L 05/08/2025 2:18 PM EDT [facility] # Eos 0.32 0.04 - 0.54 K/ L 05/08/2025 2:18 PM EDT [facility] # Baso 0.06 0.01 - 0.08 K/ L 05/08/2025 2:18 PM EDT [facility] Immature Granulocytes-Re lative 0.30 0.00 - 0.60 % 05/08/2025 2:18 PM EDT [facility] # IG 0.03 0.00 - 0.05 K/uL 05/08/2025 2:18 PM EDT [facility] Blood Venipuncture / Unknown 05/08/2025 2:14 PM EDT 05/08/2025 2:14 PM EDT Narrative [facility] - 05/08/2025 2:18 PM EDT [...] ORDERABLES Prema l Result Performing Organization Address [facility] Phone Number [facility] [address] [phone] * PT/INR, PTT (05/08/2025 2:14 PM EDT) [facility] aPTT 23.9 22.0 - 32.0 seconds 05/08/2025 2:34 PM EDT [facility] Protime 10.3 9.0 - 12.0 seconds 05/08/2025 2:34 PM EDT [facility] INR 0.94 0.80 - 1.10 05/08/2025 2:34 PM EDT [facility] Blood Venipuncture / Unknown 05/08/2025 2:14 PM EDT 05/08/2025 2:14 PM EDT Dk Anaya MD LAB BLOOD ORDERABLES Prema l Result Performing Organization Address [facility] Phone Number [facility] [address] [phone] * (ABNORMAL) Basic Metabolic Panel (05/08/2025 2:14 PM EDT) [facility] Sodium 141 136 - 146 meq/L 05/08/2025 2:34 PM EDT [facility] Potassium 4.6 3.5 - 5.1 meq/L 05/08/2025 2:34 PM EDT [facility] Chloride 106 102 - 112 meq/L 05/08/2025 2:34 PM EDT [facility] CO2 30 21 - 32 meq/L 05/08/2025 2:34 PM EDT [facility] Anion Gap 10 9 - 20 05/08/2025 2:34 PM EDT [facility] BUN 32(H) 7 - 22 mg/dL 05/08/2025 2:34 PM EDT [facility] Creatinine 1.02 0.55 - 1.02 mg/dL 05/08/2025 2:34 PM EDT [facility] BUN/Creatinine 31(H) 8 - 20 05/08/2025 2:34 PM EDT [facility] Glucose 168(H) 74 - 100 mg/dL 05/08/2025 2:34 PM EDT [facility] Calcium 9.5 8.5 - 10.1 mg/dL 05/08/2025 2:34 PM EDT [facility] Osmolality Calc 292.0 mOsm/kg 2:34 PM EDT [facility] eGFR (mL/min/1.73m2) 58(L) >=60 mL/min/1.7 3m2 05/08/2025 2:34 PM EDT [facility] Comment:eGFR of <60 suggests chronic kidney disease if found over a 3 month period of time. eGFR <15 indicates renal failure. Blood Venipuncture / Unknown 05/08/2025 2:14 PM EDT 05/08/2025 2:14 PM EDT us Dk Anaya MD LAB BLOOD ORDERABLES Prema l Result [facility] [address] [phone] * ECG 12 lead (05/08/2025 11:02 AM EDT) VENTRICULAR RATE EKG/MIN 51 BPM GE MUSE ATRIAL RATE (MCT) 51 BPM GE MUSE VA Interval 146 ms GE MUSE QRS-INTERVAL (MSEC) 86 ms GE MUSE QT Interval 452 ms GE MUSE QTC Interval 416 ms GE MUSE P [place] 64 degrees GE MUSE R AXIS (MCT) -17 degrees GE MUSE T Wave [place] 100 degrees GE MUSE Thompson Diagnosis Sinus bradycardia ST & T wave [...] the next mammogram. At our facility, a [place] marker is positioned over a visible skin [...] to Health Maintenance Insurance [employer] MEDICARE PPO Advance Directives For more information, please contact: [phone] * Full Code (Latest Code Status on File) Date Activated Date Inactivated Comments 05/19/2025 10:55 AM 05/19/2025 5:32 PM * Full Code Date Activated Date Inactivated Comments 05/19/2025 5:09 AM 05/19/2025 10:54 AM Care Teams Press Machine Feeder Relationship Specialty Start Date End Date John Rodrigues MD [address] [place] [address] PCP - General Family Medicine 05/19/25
== END 2025-06-04 23:59 ==
LOC: LAB.DROPOF 06-08 10:27
PROVIDERS: PCP Nurse Practitioner Family; Visit Provider Nurse Practitioner Family
DX: N39.0 Urinary tract infection, site not specified (principal)
CPT/HCPCS: 87086; 87088; 87186

== ENCOUNTER 2025-07-13 10:51 | Outpatient (CLI) | payer MEDICARE, SELFPAY ==
--- OUTSIDE RECORDS SUMMARY | 2025-01-17 17:30 | XMS_ITS ---
Author Organization [facility] D [facility] Address [address] [facility] [address] [facility] [address] [place] [address] Care Team Providers Care Delicatessen Goods Stock Clerk Name Role Phone Srini Cooley Primary Care Provider Srini Cooley Unavailable Unavailable Migration, Provider Unavailable Unavailable Allergies Allergen (clinical drug ingredient) Drug/Non Drug Allergy documented on EMR Reaction Allergy Type Onset Date Status SULFA (uncoded) Unknown Allergy Acti ve codeine Codeine Unknown Drug Allergy Active tetracycline Tetracycline Unknown Drug Allergy A ctive REASON FOR VISIT [facility] To [facility] Conversion Encounter Medications Medication SIG (Take, [...] review and pick correct strength-formulati on from [facility] options. If intended option is not [...] review and pick correct strength-formulati on from [employer] options. If intended option is not shown, discontinue and re-order from Quick Search* 03/07/2013 Active Encounters Encounter Location Date Provider Diagnosis [facility] PED HOWIE [address] [place], [place] [address] 01/17/2025 Provider Migration Diverticulitis K57.92 Assessments Encounter [...] * NIKHILJohanna NDOB:1950 ([age] yo F)Acc No.[id number]:01/17/2025 Patient: Johanna GLASGOW Provider: Jesse Whitman :1950 A ge:74 Y S ex:Female Date:01/17/2025 Address:[address] [place] [address], [facility] [id number] Pcp:Srini Cooley Subjective: * Chief Complaints: * 1 . [facility] En[facility]. * Medical History: * Medications: T aking Magnesium Oxide 400 MG Tablet 1 tab(s) orally three times a day , Taking TrueTrack Test DIRECTED TEST BID , Notes to Pharmacist: *Please review and pick correct strength-formulation from [facility] options. If intended option is not [...] Electronic signature of Vanessa arellano Migration on 07/14/2025 at 10:07 AM EDT Sign off status: Pending * Provider: Jesse gaxiola Migration Date: 0 01/17/2025 Generated for Hua gomez/Magdi/Nelidaitting on: 0 07/14/2025 10:07 AM EDT
--- OUTSIDE RECORDS SUMMARY | 2025-05-19 05:09 | XMS_ITS | Encounter Summary ---
Author Organization [employer] ([place], [place], [place], [place]) Address [address] [place] [address] Care Team Providers Care Video Game Developer Name Role Phone John Rodrigues MD Primary Care Provider [phone] Reason for Referral * Hospital - Inpatient (Routine) - New Request Specialty Diagnoses / Procedures Referred By Casandra hayes Referred To Contact Procedures Remove dressing after (specify) Rosa M Rangel MD [address] [place] [address] Phone: tel: fax: Referral ID Status Reason Start Date Expiration Date V isits Requested Visits Authorized [id number] New Request 05/19/2025 05/19/2026 1 1 Reason for Visit * Auth/Cert (Routine) Specialty Diagnoses / Procedures Referred By Casandra hayes Referred To Contact Diagnoses Cystocele, lateral Uterovaginal prolapse, incomplete Urge incontinence 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 Surgery Department [address] [place] [address] Rosa M Rangel MD [address] [facility] [address] [place] [address] Cystocele, lateral; Uterovaginal prolapse, incomplete; Urge incontinence; [...] Date Lizandro rded Speak language other than Malawian at home Not on file 01/31/2024 Want [...] Indwelling Urinary Catheter Removal at Home Female (Malawian) * General Anesthesia Adult Care After (Malawian) * Supracervical Hysterectomy Care After (Malawian) documented in this encounter Medications at Time [...] 51 BPM ATRIAL RATE (MCT) 51 BPM VT Interval 146 ms QRS-INTERVAL (MSEC) 86 ms QT Interval 452 ms QTC Interval 416 ms P Ida 64 degrees R AXIS (MCT) -17 degrees T Wave Ida 100 degrees [facility] Diagnosis Sinus bradycardia ST & T wave [...] a new closure for the sacrocolpopexy. Cadaveric ekwok tissue patch was used with bio-tissue allograft attached at each end to be placed against the cervix and then Hastings-Crow sutures interrupted were placed to secure the patch to the cervix. The round ligaments were attached to the cervix on each side to provide lateral support. Pressure was applied from below, and top of the patch was attached to the anterior ligament of sacral prominence with 3 interrupted Hastings-Crow sutures. Peritoneum was then closed with a [...] defect. The torn fascia was identified and Hastings-Crow suture was used to lift the torn fascia up to the arcus tendineus. Into this, we incorporated a piece of cadaveric patch with the tissue allograft to bridge the gap and lessen the tension on the sutures. This was done on both sides. One more suture was placed in the midline. Interrupted Hastings-Crow sutures were placed on each side to [...] was taken to recovery in good condition. /[id number] MD TRACY Cheng/DEB / TRACY / JAZZMINE /[id number] documented in this encounter Plan of Treatment Upcoming Encounters Date Type Department Care Team (Late st Contact Info) Description 10/05/2025 11:00 AM EST Appointment [facility] Breast Imaging [address] [facility] [address] [place] [id number] John Rodrigues MD [address] [place] [id number] documented as of this encounter Procedures Procedure Name Priority Date/Time Associated Diagnosis Comments NOVA GLUCOSE POC Routine 05/19/2025 11:4 2 AM EDT TISSUE EXAM ([place] ACEVEDO) AP Routine 05/19/2025 1 1:11 AM EDT Cystocele, lateral Uterovaginal prolapse, incomplete Urge incontinence Hypermobility of urethra ROBOTIC LAPAROSCOPY,SALPINGEC BETTYE/OOPHORECTOMY 05/19/2025 7:29 AM EDT Cystocele, lateral Uterovaginal prolapse, incomplete Urge incontinence Hypermobility of urethra VT LAPAROSCOPY COLPOPEXY SUSPENSION VAGINAL APEX 05/19/2025 7:29 [...] - 110 mg/dL 05/19/2025 11:44 AM EDT [facility] Comment: In the event of poor peripheral blood flow, venous or arterial blood should be used due to the potential of erroneous results. Notified Nurse RBV Director Of Perioperative Services [phone] 05/19/2025 11:44 AM EDT [facility] Blood WHOLE BLOOD / Unknown 05/19/2025 11:42 AM EDT 05/19/2025 11:44 AM EDT Narrative [facility] - 05/19/2025 11:44 AM EDT Director Of Perioperative Services ID is - [id number] Rosa M Rangel MD POINT OF CARE TEST ORDERABLES Final Result [facility] [address] [place] [address], [facility] [phone] * Tissue Exam (05/19/2025 11:11 AM EDT) [...] cm and has a grossly unremarkable lumen. [employer] sections are submitted in 6 cassettes as follows: A1-anterior and posterior lower uterine segment D6-woda-ntpgeypwo sections of anterior and posterior endomyometrium A3-right ovary A4-right fallopian tube A5-left ovary A6-left fallopian tube. JTM/RLL Tissue UTERUS, FALLOPIAN TUBES AND OVARIES, CS / Unknown 05/19/2025 11:11 AM EDT Rosa M Rangel MD PATHOLOGY/CYTOLOGY ORDERABLES Final Result [facility] [address] [place] [address], [facility] * (ABNORMAL) Hemoglobin A1c (05/19/2025 7:06 AM EDT) Hemoglobin A1C 7.2(H) 4.2 - 6.3 % 05/19/2025 7:34 AM EDT [facility] Comment: Hemoglobin A1C levels are related to mean glucose during the preceding 2-3 months. Less than 7% demonstrates glycemic control in diabetic patients. Hemoglobin AlC % Suggested Diagnosis > or = 6.5 Diabetic 5.7 - 6.4 Prediabetic <5.7 Non-diabetic eAVG Glucose 159.94 mg/dL 05/19/2025 7:34 AM EDT [facility] Blood Venipuncture / Unknown 05/19/2025 7:06 AM EDT 05/19/2025 7:12 AM EDT us Rosa M Rangel MD LAB BLOOD ORDERABLES Final Re sult [facility] [address] [phone] * (ABNORMAL) Lipid panel (05/19/2025 7:06 AM EDT) Triglycerides 113 0 - 249 mg/dL 05/19/2025 7:34 AM EDT [facility] Cholesterol 134 0 - 199 mg/dL 05/19/2025 7:34 AM EDT [facility] Comment: 200 to 239 mg/dL = Moderate (borderline) >239 mg/dL = High HDL Cholesterol 40 >=40 mg/dL 05/19/2025 7:34 AM EDT [facility] Comment: >=60 mg/dL = Desirable <40 mg/dL = Increased Risk All other components are listed individually or are calculations VLDL Cholesterol 22.6 5 - 40 mg/dL 05/19/2025 7:34 AM EDT [facility] Cholesterol/HDL ratio 3.4(H) 0.0 - 3.2 mg/dL 05/19/2025 7:34 AM EDT [facility] LDl/HDL Ratio 2 0 - 4 05/19/2025 7:34 AM EDT [facility] LDL Cholesterol, Calculated 71 0 - 99 mg/dL 05/19/2025 7:34 AM EDT [facility] Blood Venipuncture / Unknown 05/19/2025 7:06 AM EDT 05/19/2025 7:12 AM EDT us Rosa M Rangel MD LAB BLOOD ORDERABLES Final Re sult [facility] [address] [phone] * (ABNORMAL) Comprehensive metabolic panel (05/19/2025 7:06 AM EDT) Sodium 139 136 - 146 meq/L 05/19/2025 7:34 AM EDT [facility] Potassium 4.1 3.5 - 5.1 meq/L 05/19/2025 7:34 AM EDT [facility] Chloride 110 102 - 112 meq/L 05/19/2025 7:34 AM EDT [facility] CO2 27 21 - 32 meq/L 05/19/2025 7:34 AM EDT [facility] Calcium 9.2 8.5 - 10.1 mg/dL 05/19/2025 7:34 AM EDT [facility] Glucose 145(H) 74 - 100 mg/dL 05/19/2025 7:34 AM EDT [facility] BUN 26(H) 7 - 22 mg/dL 05/19/2025 7:34 AM T [facility] Creatinine 1.24(H) 0.55 - 1.02 mg/dL 05/19/2025 7:34 AM T [facility] BUN/Creatinine 21(H) 8 - 20 05/19/2025 7:34 AM T [facility] Albumin 3.5 3.4 - 5.0 g/dL 05/19/2025 7:34 AM EDT [facility] Alkaline Phosphatase 75 27 - 136 U/L 05/19/2025 7:34 AM EDT [facility] ALT 20 12 - 78 U/L 05/19/2025 7:34 AM EDT [facility] AST 19 5 - 37 U/L 05/19/2025 7:34 AM EDT [facility] Total Bilirubin 0.6 0.2 - 1.3 mg/dL 05/19/2025 7:34 AM EDT [facility] Protein, Total 6.9 6.4 - 8.2 gm/dL 05/19/2025 7:34 AM EDT [facility] Anion Gap 6(L) 9 - 20 05/19/2025 7:34 AM EDT [facility] A/G Ratio 1.0(L) 1.1 - 2.5 05/19/2025 7:34 AM EDT [facility] Globulin 3.4 1.5 - 4.5 g/dL 05/19/2025 7:34 AM EDT [facility] Osmolality Calc 284.9 mOsm/kg 7:34 AM EDT [facility] eGFR (mL/min/1.73m2) 46(L) >=60 mL/min/1.7 3m2 05/19/2025 7:34 AM EDT [facility] Comment:ESTIMATED GFR IS NOT ACCURATE CREATININE CLEARANCE IN PREDICTING GLOMERULAR FILTRATION RATE. ESTIMATED GFR IS NOT APPLICABLE FOR DIALYSIS PATIENTS. Blood Venipuncture / Unknown 05/19/2025 7:06 AM EDT 05/19/2025 7:12 AM EDT Rosa M Rangel MD LAB BLOOD ORDERABLES Final Re sult [facility] [address] [phone] * (ABNORMAL) Glucose, Nova Meter (05/19/2025 5:33 AM EDT) [facility] Signature POC-GLUCOSE 138(H) 70 - 110 mg/dL 05/19/2025 5:35 AM EDT [facility] Comment: In the event of poor peripheral blood flow, venous or arterial blood should be used due to the potential of erroneous results. No lab per MD Director Of Perioperative Services [phone] 05/19/2025 5:35 AM EDT [facility] Blood WHOLE BLOOD / Unknown 05/19/2025 5:33 AM EDT 05/19/2025 5:35 AM EDT Narrative [facility] - 05/19/2025 5:35 AM EDT Director Of Perioperative Services ID is - [id number] Rosa M Rangel MD POINT OF CARE TEST ORDERABLES Final Result [facility] [address] [phone] documented in this encounter Visit Diagnoses Diagnosis [...] blood sugar is less than 180 between 3310-9507, DO NOT give corrective insulin unless otherwise [...] blood sugar is less than 180 between 0187-1319, DO NOT give corrective insulin unless otherwise [...] Pre-op documented in this encounter Care Teams Video Game Developer Relationship Specialty Start Date End Date John Rodrigues MD [address] [place] [address] PCP - General Family Medicine 05/19/25 documented as of this encounter
--- OUTSIDE RECORDS SUMMARY | 2025-05-19 07:29 | XMS_ITS | Encounter Summary ---
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 N81.2 N39.41 N36.41 Procedures [place] LAPAROSCOPY COLPOPEXY SUSPENSION VAGINAL APEX [place] LAPS SUPRACRV HYSTERECT 250 GM/< RMVL TUBE/OVAR [place] PARAVAGINAL DEFECT REPAIR LAPAROSCOPIC APPROACH ROBOTIC LAPAROSCOPY,SUPRACERVICAL HYSTERECTOMY ROBOTIC LAPAROSCOPY,SACROCOLPOPEXY Rosa M Rangel MD [address] [facility] [address] [place] [address] Phone: tel: fax: Referral ID Status Reason Start Date Expiration Date Visits Re quested Visits Authorized [id number] 04/03/2025 1 1 Encounter Details Date Type Department Care Team (Late st Contact Info) Description 05/19/2025 7:29 AM EDT Anesthesia Event [facility] Surgery Department [address] [place] [address] Nayana Yang CRNA [address] [place] [address] Han Culp MD [address] [place] [address] Anesthesia Record Procedure Summary Procedure Name Responsible Anesthesiologist Anesthesia Start Time Anesthesia Stop Time LAPAROSCOPY WITH ROBOTIC ASSISTNAE SUPRACERVICAL HYSTERECTOMY, SACRCOLPOPEXY, PARA VAGINAL DEFECT REPAIR (Abdomen) Nayana Love Trey, MARICHUY 05/19/25 0729 05/19/25 1149 Events Date [...] via procedure documentation) 05/19/25 0737 by Nayana Yang CRNA 05/19/25 0800 by Nayana Yang CRNA ETT Placement Date 05/19; Placement Time 0737 (created via procedure documentation); Airway Size 7; Airway Cuffed Yes; Removal Date 05/19/25; Removal Time 1135 05/19/25 0737 by Carmen Osman 05/19/25 1135 by Nayana Yang CRNA Urethral Catheter Placement Date: 03/08; Placement Time: 08; Inserted by: JARRET Hensley; Type: Straight-tip; Size: 15 Fr.; Balloon Size: 10 mL; Urine Returned: Yes; Removal Date: 05/23/25; Removal Time: 1632 05/19/25 08 by Daniella Ramos RN 05/23/25 1632 by [...] Date Lizandro rded Speak language other than Slovenian at home Not on file 01/31/2024 Want [...] Summary Date: 05/19/25 Room / Location: [facility] Anesthesia Start: 728 Anesthesia Stop: [...] status: face mask Hydration status: stable Color: [place] Activity: Moves 4 extremities Inotropes/Vasopressors: N/A No [...] supine Prep: ChloraPrep Patient monitoring: heart rate, quality assurance monitor and continuous pulse ox Block type: TAP [...] at approach: 1 Additional Comments Intubated by Carmen Osman, SRNA 1 attempt, atraumatic easy intubation * Anesthesia Preprocedure Evaluation - Ar Rose MD - 05/19/2025 6:58 AM EDT Anesthesia Pre Evaluation Ms. Johanna Spivey is a 75 y.o. female being evaluated for the following: Date/Time: 05/19/25 0730 Procedures: LAPAROSCOPY WITH ROBOTIC ASSISTNAE SUPRACERVICAL HYSTERECTOMY, SACRCOLPOPEXY, PARA VAGINAL DEFECT REPAIR ROBOTIC LAPAROSCOPY,SACROCOLPOPEXY Location: [facility] Surgeons: Rosa M Rangel [...] last solid: 05/18/25 Time of last solid: 2099 Physical Exam Airway Mallampati: II Cardiovascular - normal exam Dental (+) upper dentures Pulmonary - normal exam Abdominal - normal exam Anesthesia Plan ASA 2 Planned anesthetic: general and regional Induction: intravenous Postoperative Plan- Postoperative administration of opioids is intended. Trial extubation is planned. Informed Consent- Anesthetic plan and risks discussed with patient. Plan discussed with TREE WRAPPER. documented in this encounter Plan of Treatment Upcoming Encounters Date Type Department Care Team (Late st Contact Info) Description 10/05/2025 11:00 AM EST Appointment [facility] Breast Imaging [address] [place] [address] [address] [place] [address] John Rodrigues MD [address] [place] [address] [facility] [place] [facility] [id number] documented as of this encounter Procedures Procedure [...] 1 attempt, atraumatic easy intubation us Nayana Yang CRNA ANESTHESIA ORDERABLES Final Result * HC TAP BLOCK BILATERAL (BLK [...] supine Prep: ChloraPrep Patient monitoring: heart rate, quality assurance monitor and continuous pulse ox Block type: TAP [...] ropi with 15cc NS administered bilaterally Nayana Yang CRNA ANESTHESIA ORDERABLES Edite d Result - Final documented in this encounter [...] mLs documented in this encounter Care Teams Neighborhood Conservation Officer Relationship Specialty Start Date End Date John Rodrigues MD [address] [place] [address] [place] [address] PCP - General Family Medicine 05/19/25 documented as of this encounter
--- OUTSIDE RECORDS SUMMARY | 2025-05-19 07:30 | XMS_ITS | Encounter Summary ---
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 N39.41 N36.41 Procedures [place] LAPAROSCOPY COLPOPEXY SUSPENSION VAGINAL APEX [place] LAPS SUPRACRV HYSTERECT 250 GM/< RMVL TUBE/OVAR [place] PARAVAGINAL DEFECT REPAIR LAPAROSCOPIC APPROACH ROBOTIC LAPAROSCOPY,SUPRACERVICAL HYSTERECTOMY ROBOTIC LAPAROSCOPY,SACROCOLPOPEXY Rosa M Rangel MD [address] [place] [address] Phone: tel: fax: Referral ID Status Reason Start Date Expiration Date Visits Re quested Visits Authorized [id number] 04/03/2025 1 1 Encounter Details Date Type Department Care Team (Late st Contact Info) Description 05/19/2025 7:30 AM EDT - 05/19/2025 11:24 AM EDT Surgery [facility] Surgery Department [address] [place] [id number] Rosa M Rangel MD [address] [place] [address] LAPAROSCOPY WITH ROBOTIC ASSISTNAE SUPRACERVICAL HYSTERECTOMY, SACRCOLPOPEXY, PARA VAGINAL DEFECT REPAIR Social History Tobacco Use Types Packs/Day Years [...] Date Lizandro rded Speak language other than Northern Irish at home Not on file 01/31/2024 Want [...] Sign Reading Time Taken Comments Blood Pressure 182/98 05/19/2025 6:37 AM EDT anaesthetist is informed Pulse 53 05/19/2025 6:00 AM EDT Temperature 36.7 C (98.1 F) 05/19/2025 6:00 AM EDT Respiratory Rate 16 05/19/2025 6:00 AM EDT Oxygen Saturation 97% 05/19/2025 6:0 0 AM EDT Inhaled Oxygen Concentration - - Weight [...] 649 AM. Remove it in 72 hours roque. Wash hands well after removal to avoid [...] Indwelling Urinary Catheter Removal at Home Female (Northern Irish) * General Anesthesia Adult Care After (Northern Irish) * Supracervical Hysterectomy Care After (Northern Irish) documented in this encounter Medications at Time [...] Preop examination 05/08/2025 PAF (paroxysmal atrial fibrillation) ([facility]) 05/08/2025 Urinary incontinence 05/08/2025 DM (diabetes mellitus) ([facility]) 05/08/2025 ISABELA (obstructive sleep apnea) 05/08/2025 Hypothyroid [...] 51 BPM ATRIAL RATE (MCT) 51 BPM [place] Interval 146 ms QRS-INTERVAL (MSEC) 86 ms QT Interval 452 ms QTC Interval 416 ms P [place] 64 degrees R AXIS (MCT) -17 degrees T Wave [place] 100 degrees [place] Diagnosis Sinus bradycardia ST & T wave abnormality, consider lateral ischemia Abnormal ECG ASSESSMENT & PLAN: Active Problems: Preop examination PAF (paroxysmal atrial fibrillation) (HCC) Urinary incontinence DM (diabetes mellitus) (HCC) ISABELA (obstructive sleep apnea) Hypothyroid Hyperlipidemia Preop exam Urinary incontinence PAF -cardiac clearance; ok to proceed, moderate operative and non modifiable risk, [facility] -asa holding : 7 days per above [...] a new closure for the sacrocolpopexy. Cadaveric [place] tissue patch was used with bio-tissue allograft attached at each end to be placed against the cervix and then [place]-Crow sutures interrupted were placed to secure the patch to the cervix. The round ligaments were attached to the cervix on each side to provide lateral support. Pressure was applied from below, and top of the patch was attached to the anterior ligament of sacral prominence with 3 interrupted [place]-Crow sutures. Peritoneum was then closed with a [...] defect. The torn fascia was identified and [place]-Crow suture was used to lift the torn fascia up to the arcus tendineus. Into this, we incorporated a piece of cadaveric patch with the tissue allograft to bridge the gap and lessen the tension on the sutures. This was done on both sides. One more suture was placed in the midline. Interrupted Gallup-Crow sutures were placed on each side to [...] was taken to recovery in good condition. /[id number] MD TRACY Cheng/AQ / TRACY / DEBS /[id number] documented in this encounter Plan of Treatment Upcoming Encounters Date Type Department Care Team (Late st Contact Info) Description 10/05/2025 11:00 AM EST Appointment [facility] Breast Imaging [address] [facility] [address] [place] [address] John Rodrigues MD [address] [place] [address] [place] [address] documented as of this encounter Procedures Procedure Name Priority Date/Time Associated Diagnosis Comments NOVA GLUCOSE POC Routine 05/19/2025 11:4 2 AM EDT TISSUE EXAM ([place] AR) AP Routine 05/19/2025 1 1:11 AM EDT Cystocele, lateral Uterovaginal prolapse, incomplete Urge incontinence Hypermobility of urethra ROBOTIC LAPAROSCOPY,SALPINGEC BETTYE/OOPHORECTOMY 05/19/2025 7:29 AM EDT Cystocele, lateral Uterovaginal prolapse, incomplete Urge incontinence Hypermobility of urethra [place] LAPAROSCOPY COLPOPEXY SUSPENSION VAGINAL APEX 05/19/2025 7:29 [...] Glucose, Nova Meter (05/19/2025 11:42 AM EDT) [facility] POC-GLUCOSE 242(H) 70 - 110 mg/dL 05/19/2025 11:44 AM EDT [facility] Comment: In the event of poor peripheral blood flow, venous or arterial blood should be used due to the potential of erroneous results. Notified Nurse RBV Diploma Maker [id number] 05/19/2025 11:44 AM EDT [facility] Blood WHOLE BLOOD / Unknown 05/19/2025 11:42 AM EDT 05/19/2025 11:44 AM EDT Narrative [facility] - 05/19/2025 11:44 AM EDT Diploma Maker ID is - [id number] Rosa M Rangel MD POINT OF CARE TEST ORDERABLES Final Result [facility] [address] [id number] [phone] * Tissue Exam (05/19/2025 11:11 AM EDT) [...] cm and has a grossly unremarkable lumen. Systems Mechanic sections are submitted in 6 cassettes as follows: A1-anterior and posterior lower uterine segment R8-[id number]-[id number] sections of anterior and posterior endomyometrium A3-right ovary A4-right fallopian tube A5-left ovary A6-left fallopian tube. JTM/RLL Tissue UTERUS, FALLOPIAN TUBES AND OVARIES, CS / Unknown 05/19/2025 11:11 AM EDT Rosa M Rangel MD PATHOLOGY/CYTOLOGY ORDERABLES Final Result Performing Organization Address [facility] Co de Phone Number [facility] [address] [place] [address] * (ABNORMAL) Hemoglobin A1c (05/19/2025 7:06 AM EDT) Hemoglobin A1C 7.2(H) 4.2 - 6.3 % 05/19/2025 7:34 AM EDT [facility] Comment: Hemoglobin A1C levels are related to mean glucose during the preceding 2-3 months. Less than 7% demonstrates glycemic control in diabetic patients. Hemoglobin AlC % Suggested Diagnosis > or = 6.5 Diabetic 5.7 - 6.4 Prediabetic <5.7 Non-diabetic eAVG Glucose 159.94 mg/dL 05/19/2025 7:34 AM EDT [facility] Blood Venipuncture / Unknown 05/19/2025 7:06 AM EDT 05/19/2025 7:12 AM EDT Rosa M Rangel MD LAB BLOOD ORDERABLES Final Re sult [facility] [address] [phone] * (ABNORMAL) Lipid panel (05/19/2025 7:06 AM EDT) Triglycerides 113 0 - 249 mg/dL 05/19/2025 7:34 AM EDT [facility] Cholesterol 134 0 - 199 mg/dL 05/19/2025 7:34 AM EDT [facility] Comment: 200 to 239 mg/dL = Moderate (borderline) >239 mg/dL = High HDL Cholesterol 40 >=40 mg/dL 05/19/2025 7:34 AM EDT [facility] Comment: >=60 mg/dL = Desirable <40 mg/dL = Increased Risk All other components are listed individually or are calculations VLDL Cholesterol 22.6 5 - 40 mg/dL 05/19/2025 7:34 AM EDT [facility] Cholesterol/HDL ratio 3.4(H) 0.0 - 3.2 mg/dL 05/19/2025 7:34 AM EDT [facility] LDl/HDL Ratio 2 0 - 4 05/19/2025 7:34 AM EDT [facility] LDL Cholesterol, Calculated 71 0 - 99 mg/dL 05/19/2025 7:34 AM EDT [facility] Blood Venipuncture / Unknown 05/19/2025 7:06 AM EDT 05/19/2025 7:12 AM EDT us Rosa M Rangel MD LAB BLOOD ORDERABLES Final Re sult [facility] [address] [phone] * (ABNORMAL) Comprehensive metabolic panel (05/19/2025 7:06 AM EDT) Pathologist [facility] Sodium 139 136 - 146 meq/L 05/19/2025 7:34 AM EDT [facility] Potassium 4.1 3.5 - 5.1 meq/L 05/19/2025 7:34 AM EDT [facility] Chloride 110 102 - 112 meq/L 05/19/2025 7:34 AM [facility] CO2 27 21 - 32 meq/L 05/19/2025 7:34 AM [facility] Calcium 9.2 8.5 - 10.1 mg/dL 05/19/2025 7:34 AM [facility] Glucose 145(H) 74 - 100 mg/dL 05/19/2025 7:34 AM [facility] BUN 26(H) 7 - 22 mg/dL 05/19/2025 7:34 AM [facility] Creatinine 1.24(H) 0.55 - 1.02 mg/dL 05/19/2025 7:34 AM [facility] BUN/Creatinine 21(H) 8 - 20 05/19/2025 7:34 AM [facility] Albumin 3.5 3.4 - 5.0 g/dL 05/19/2025 7:34 AM [facility] Alkaline Phosphatase 75 27 - 136 U/L 05/19/2025 7:34 AM [facility] ALT 20 12 - 78 U/L 05/19/2025 7:34 AM [facility] AST 19 5 - 37 U/L 05/19/2025 7:34 AM [facility] Total Bilirubin 0.6 0.2 - 1.3 mg/dL 05/19/2025 7:34 AM [facility] Protein, Total 6.9 6.4 - 8.2 gm/dL 05/19/2025 7:34 AM [facility] Anion Gap 6(L) 9 - 20 05/19/2025 7:34 AM [facility] A/G Ratio 1.0(L) 1.1 - 2.5 05/19/2025 7:34 AM [facility] Globulin 3.4 1.5 - 4.5 g/dL 05/19/2025 7:34 AM [facility] Osmolality Calc 284.9 mOsm/kg 7:34 AM [facility] eGFR (mL/min/1.73m2) 46(L) >=60 mL/min/1.7 3m2 05/19/2025 7:34 AM EDT [facility] Comment:ESTIMATED GFR IS NOT ACCURATE CREATININE CLEARANCE IN PREDICTING GLOMERULAR FILTRATION RATE. ESTIMATED GFR IS NOT APPLICABLE FOR DIALYSIS PATIENTS. Blood Venipuncture / Unknown 05/19/2025 7:06 AM EDT 05/19/2025 7:12 AM EDT Rosa M Rangel MD LAB BLOOD ORDERABLES Final Re sult Performing Organization Address City/[facility] Co de Phone Number [facility] [address] [place] [address], [facility] [phone] * (ABNORMAL) Glucose, Nova Meter (05/19/2025 5:33 AM EDT) [facility] POC-GLUCOSE 138(H) 70 - 110 mg/dL 05/19/2025 5:35 AM EDT [facility] Comment: In the event of poor peripheral blood flow, venous or arterial blood should be used due to the potential of erroneous results. No lab per MD Diploma Maker [id number] 05/19/2025 5:35 AM EDT [facility] Blood WHOLE BLOOD / Unknown 05/19/2025 5:33 AM EDT 05/19/2025 5:35 AM EDT Narrative [facility] - 05/19/2025 5:35 AM EDT Diploma Maker ID is - [id number] Rosa M Rangel MD POINT OF CARE TEST ORDERABLES Final Result Performing Organization Address [facility] Co de Phone Number [facility] [address] [place] [address], [facility] [phone] documented in this encounter Visit Diagnoses Diagnosis Cystocele, lateral Uterovaginal prolapse, incomplete Urge incontinence Hypermobility of urethra Hypertension Unspecified essential hypertension Cystocele, lateral Uterovaginal prolapse, incomplete Urge incontinence Hypermobility of urethra documented in this encounter Administered Medications Inactive [...] Given 05/19/2025 12:37 PM EDT 1,000 mg bupivacaine-EPINEPHrine (PF) (MARCAINE w/EPI) 0.5%-1:200,000 injection As needed, Starting on Sun05/19/25 at 0810, Intra-op Given 05/19/2025 8:10 AM EDT 30 mLs electrolyte-R (NORMOSOL-R) infusion at 100 mL/hr, intravenous, [...] blood sugar is less than 180 between 7842-7662, DO NOT give corrective insulin unless otherwise [...] Given 05/19/2025 1:11 PM EDT 15 mg lidocaine (XYLOCAINE) jelly 2% As needed, Starting on Sun05/19/25 at 0810, Intra-op Given 05/19/2025 8:10 AM EDT 1 Application methylene blue 1 % (10 mg/mL) injection As needed, Starting on Sun05/19/25 at 0834, Intra-op Given 05/19/2025 8:34 AM EDT 10 mLs ondansetron (ZOFRAN) injection 4 mg 4 mg [...] blood sugar is less than 180 between 3505-9827, DO NOT give corrective insulin unless otherwise [...] Pre-op documented in this encounter Care Teams Tab Cutting Machine Operator Relationship Specialty Start Date End Date John Rodrigues MD [address] [place] [address] [place] [address] PCP - General Family Medicine 05/19/25 documented as of this encounter
--- OUTSIDE RECORDS SUMMARY | 2025-07-14 10:07 | XMS_ITS | Encounter Summary ---
Author Organization [employer] ([place], [place], [place], [place]) Address [address] [place] [address] Care Team Providers Care Elevator Installer Apprentice Name Role Phone John Rodrigues MD Primary Care Provider +1- [phone] Reason for Referral * Mammography (Routine) - Pending Review Specialty Diagnoses / Procedures Referred By Contsharlene t Referred To Contact Diagnoses Visit for screening mammogram Procedures MM digital mammo screen with shakir bilateral John Rodrigues MD [address] [facility] [address] Phone: tel: fax: Referral ID Status Reason Start Date Expiration Date V isits Requested Visits Authorized [id number] Pending Review 10/05/2025 10/05/2026 1 1 Encounter Details Date Type Department Care Team (Late st Contact Info) Description 09/29/2024 Outside Orders [facility] Central Scheduling [address] [place] [address] John Rodrigues MD [address] [facility] [address] [facility] [address] Visit for screening mammogram (Primary Dx) Social History Tobacco Use Types Packs/Day Years Used Date Smoking Tobacco: Never Assessed Family and Community Support Answer Hernán e Recorded Help with Day to Day Activities Not on file 01/31/2024 Feeling Lonely or Isolated Not on file 01/30 Educational Attainment Answer Date Lizandro rded Speak language other than Dominican at home Not on file 01/31/2024 Want [...] [facility] [address] [place] [address] [address] [place] [phone] John Rodrigues MD [address] [place] [address] [address] [place] [address] Scheduled Orders Name Type Priority Associated Diagnoses Orde r Schedule MM digital mammo screen with shakir bilateral Imaging Routine Visit for screening mammogram Expected: 10/05/2025, Expires: 03/30/2026 documented as of this encounter Visit Diagnoses Diagnosis Visit for screening mammogram- Primary documented in this encounter Care Teams Elevator Installer Apprentice Relationship Specialty Start Date End Date John Rodrigues MD [address] [place] [address] PCP - General Family Medicine 05/19/25 documented as of this encounter
--- OUTSIDE RECORDS SUMMARY | 2025-07-14 10:07 | XMS_ITS | Clinical Summary ---
Author Organization [facility] Address [address] [place] [id number] Care Team Providers Care Senior Marketing Data Analyst Name Role Phone Shayy Hagan APRN Primary Care Provider [phone] Allergies Active Allergy Reactions Criticality Noted Date [...] 05/03/2023 05/03/2021, 08/15, 02/06/2018, Additional history exists INFLUENZA VACCINE 05/15/2025 08/05/2021, , 07/02/2020, Additional history exists COVID-19 Vaccine ( - 2024-2 6 season) 2025 01/06/2021 COLONOSCOPY 01/24/2029 01/24/2019 COLORECTAL CANCER SCREENING 01/24/2029 HEMOGLOBIN A1C Discontinued 07/15/2021, 06/0 10/2020, 11/29/2020, Additional history exists Insurance [employer] [place] MEDICARE A & B Care Teams Senior Marketing Data Analyst Relationship Specialty Start Date End Date Shayy Hagan APRN [facility] [place] [address] PCP - General Nurse Practitioner 01/20/21
--- OUTSIDE RECORDS SUMMARY | 2025-07-14 10:07 | XMS_ITS | Patient Health Record ---
Author Organization [facility] Address [address] [facility] [address] [place] [address] Care Team Providers Care Quality Assurance Supervisor Name Role Phone Srini Cooley Primary [...] review and pick correct strength-formulati on from BusyFlow options. If intended option is not shown, [...] review and pick correct strength-formulati on from BusyFlow options. If intended option is not shown, [...] specified complication (E11.69) Active confirmed Problem Hyperlipidemia (28691831) Hyperlipidemia, unspecified (E78.5) Active confirmed Problem Hypomagnesemia (283184229) Hypomagnesemia (E83.42) Active confirmed Problem Chronic pain (52505536) Other chronic pain (G89.29) Active confirmed Problem Essential hypertension (20479282) Essential (primary) hypertension (I10) Active confirmed Problem Paroxysmal atrial fibrillation (259982025) Paroxysmal atrial fibrillation (I48.0) Active confirmed Problem Irritable bowel syndrome with diarrhea (363824944) Irritable bowel syndrome with diarrhea (K58.0) Active confirmed Problem Mixed incontinence (044766936) Mixed incontinence (N39.46) Active confirmed Problem Diabetes mellitus (21774539) Diabetes mellitus (E11.9) Active confirmed Problem Vitamin B12 deficiency (non anemic) (39288288) Vitamin B 12 deficiency (E53.8) Active confirmed Problem Gastroesophageal reflux disease (706262160) GERD without esophagitis (K21.9) Active confirmed Problem Seasonal allergy (742609384) Seasonal allergies (J30.2) Active confirmed Problem Diverticulitis (92213111) Diverticulitis (K57.92) Active confirmed Problem 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, 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) Active confirmed Problem Acquired hypothyroidism (522043006) Acquired hypothyroidism (E03.9) Active confirmed Problem Sacroiliitis (38750918) Sacroiliitis (M46.1) Active confirmed Problem Overactive urinary bladder (disorder) (828132150) OAB (overactive bladder) (N32.81) Active confirmed Problem Chronic maxillary sinusitis (91901552) Chronic sinusitis of both maxillary sinuses (J32.0) Active confirmed Problem Acute depression (092086742) Acute depression (F32.9) Active confirmed Problem History of diverticulitis (303163696506515) History of diverticulitis (Z87.19) Active confirmed Problem Arthritis of both knees (9639131771028103) Arthritis of both knees (M17.0) Active confirmed Encounters Encounter Location Date Provider Diagnosis [facility] [address] [place] [address] 01/17/2025 Provider Migration Diverticulitis K57.92 Assessments Encounter [...] End Date [employer] MEDICARE [address] [address] [place] [address] [id number] Johanna Spivey Self - patient is the insured [employer] [address] [place] [id number] Johanna Spivey Self - patient is the [...]
--- OUTSIDE RECORDS SUMMARY | 2025-07-14 10:07 | XMS_ITS | Encounter Summary ---
Author Organization [employer] ([place], [place], [place], [place]) Address [address] [place] [address] Care Team Providers Care Main Line Station Engineer Name Role Phone John Rodrigues MD Primary Care Provider [phone] Reason for Referral * Mammography (Routine) - Closed Specialty Diagnoses / Procedures Referred By Contac t Referred To Contact Diagnoses Visit for screening mammogram Procedures MM digital mammo screen with shakir bilateral John Rodrigues MD [address] [facility] [address] [place] [address] Phone: tel: fax: Referral ID Status Reason Start Date Expiration Date Visits Re quested Visits Authorized [id number] Closed 06/30/2024 06/30/2025 1 1 Encounter Details Date Type Department Care Team (Late st Contact Info) Description 06/30/2024 Outside Orders [facility] [address] [place] [address] John Rodrigues MD [address] [facility] [address] [facility] [place] [address] Visit for screening mammogram (Primary Dx) Social History Tobacco Use Types Packs/Day Years Used Date Smoking Tobacco: Never Assessed Family and Community Support Answer Hernán e Recorded Help with Day to Day Activities Not on file 01/31/2024 Feeling Lonely or Isolated Not on file 01/30 Educational Attainment Answer Date Lizandro rded Speak language other than Citizen Of [place] at home Not on file 01/31/2024 Want [...] EST Appointment [facility] [address] [place] [address] John Rodrigues MD [address] [facility] [address] [place] [address] documented as of this encounter Results * [...] the next mammogram. At our facility, a kaltag marker is positioned over a visible skin [...] mammogram documented in this encounter Care Teams Main Line Station Engineer Relationship Specialty Start Date End Date John Rodrigues MD [address] [place] [address] PCP - General Family Medicine 05/19/25 documented as of this encounter
--- OUTSIDE RECORDS SUMMARY | 2025-07-14 10:07 | XMS_ITS | Referral Summary ---
Author Organization [employer] ([place], [place], [place], [place]) Address [address] [place] [address] Care Team Providers Care Optometrist Assistant Name Role Phone John Rodrigues MD Primary Care Provider [phone]- [phone] Encounters Date Type Department Care Team Description 05/21/2025 Telephone [facility] Surgery Department [address] [place] [address] Carmen Osman 05/19/2025 Travel 05/19/2025 7:30 AM EDT - 05/19/2025 11:24 AM EDT Surgery [facility] Surgery Department [address] [place] [address] Rosa M Rangel MD LAPAROSCOPY WITH ROBOTIC ASSISTNAE SUPRACERVICAL HYSTERECTOMY, SACRCOLPOPEXY, PARA VAGINAL DEFECT REPAIR 05/19/2025 7:29 AM EDT Anesthesia Event [facility] Surgery Department [address] [place] [address] Nayana Yang CRNA Littles, Joel T, MD 05/19/2025 5:09 AM EDT - 05/19/2025 3:23 PM EDT Hospital Encounter [facility] Surgery Department [address] [place] [address] Rosa M Rangel MD Cystocele, lateral; Uterovaginal prolapse, incomplete; Urge incontinence; Hypermobility of urethra Discharge Disposition: Home or Self Care 05/08/2025 Travel 05/08/2025 10:37 AM EDT - 05/08/2025 11:59 PM EDT Hospital Encounter [facility] Preadmission Testing [address] [facility] [address] [place] [address] Preop examination (Primary Dx); PAF (paroxysmal [...] Date Lizandro rded Speak language other than [place] at home Not on file 01/31/2024 Want [...] Info) Description 10/05/2025 11:00 AM EST Appointment [facility] Breast Imaging [address] [place] [address] [address] [place] [address] John Rodrigues MD [address] [place] [address] Medical Devices Implanted Type Area Optical Instrument Assembler Device Identifier Shelf Expiration Date Model / Serial / Lot Dermis 8x12cm [id number] - [id number] Implanted:Qty : 1 on 05/19/2025 by Rosa M Rangel MD at [facility] IMPLANTS N/A: Pelvis COLOPLAST A/S:COLOPLAST 07/14/2029 [id number] / / [id number] Cord Neox 8.0x3.0 [id number] - [id number] Implanted:Qty : 1 on 05/19/2025 by Rosa M Rangel MD at [facility] IMPLANTS N/A: Pelvis BIOTISSUE 09/26/2026 [id number] / [id number] / Procedures Procedure Name Priority Date/Time Associated [...] prolapse, incomplete Urge incontinence Hypermobility of urethra [place] LAPAROSCOPY COLPOPEXY SUSPENSION VAGINAL APEX 05/19/2025 7:29 [...] of2 resultswithin the time period is included. [facility] POC-GLUCOSE 242(H) 70 - 110 mg/dL 05/19/2025 11:44 AM EDT [facility] Comment: In the event of poor peripheral blood flow, venous or arterial blood should be used due to the potential of erroneous results. Notified Nurse RBV Molecular Modeler [id number] 05/19/2025 11:44 AM EDT [facility] Blood WHOLE BLOOD / Unknown 05/19/2025 11:42 AM EDT 05/19/2025 11:44 AM EDT Narrative [facility] - 05/19/2025 11:44 AM EDT Molecular Modeler ID is - [id number] us Rosa M Rangel MD POINT OF CARE TEST ORDERABLES Final Result [facility] [address] [place] [address] * Tissue Exam (05/19/2025 11:11 AM EDT) [...] cm and has a grossly unremarkable lumen. Operations Agent sections are submitted in 6 cassettes as follows: A1-anterior and posterior lower uterine segment O9-nwnx-jblyzlztx sections of anterior and posterior endomyometrium A3-right ovary A4-right fallopian tube A5-left ovary A6-left fallopian tube. JTM/RLL Tissue UTERUS, FALLOPIAN TUBES AND OVARIES, CS / Unknown 05/19/2025 11:11 AM EDT Rosa M Rangel MD PATHOLOGY/CYTOLOGY ORDERABLES Final Result [facility] [address] * AN SINGLE LUMEN INTUBATION (05/19/2025 [...] Jaime 1 attempt, atraumatic easy intubation Nayana Yang CRNA ANESTHESIA ORDERABLES Final Result [...] supine Prep: ChloraPrep Patient monitoring: heart rate, satellite project site monitor and continuous pulse ox Block [...] ANESTHESIA ORDERABLES Edite d Result - Final * (ABNORMAL) Hemoglobin A1c (05/19/2025 7:06 AM EDT) Only the most recent of2 resultswithin the time period is included. Hemoglobin A1C 7.2(H) 4.2 - 6.3 % 05/19/2025 7:34 AM EDT [facility] Comment: Hemoglobin A1C levels are related to mean glucose during the preceding 2-3 months. Less than 7% demonstrates glycemic control in diabetic patients. Hemoglobin AlC % Suggested Diagnosis > or = 6.5 Diabetic 5.7 - 6.4 Prediabetic <5.7 Non-diabetic eAVG Glucose 159.94 mg/dL 05/19/2025 7:34 AM EDT [facility] Blood Venipuncture / Unknown 05/19/2025 7:06 AM EDT 05/19/2025 7:12 AM EDT Rosa M Rangel MD LAB BLOOD ORDERABLES Final Re sult [facility] [address] [place] [address], [facility] [phone] * (ABNORMAL) Lipid panel (05/19/2025 7:06 AM EDT) Triglycerides 113 0 - 249 mg/dL 05/19/2025 7:34 AM EDT [facility] Cholesterol 134 0 - 199 mg/dL 05/19/2025 7:34 AM EDT [facility] Comment: 200 to 239 mg/dL = Moderate (borderline) >239 mg/dL = High HDL Cholesterol 40 >=40 mg/dL 05/19/2025 7:34 AM EDT [facility] Comment: >=60 mg/dL = Desirable <40 mg/dL = Increased Risk All other components are listed individually or are calculations VLDL Cholesterol 22.6 5 - 40 mg/dL 05/19/2025 7:34 AM EDT [facility] Cholesterol/HDL ratio 3.4(H) 0.0 - 3.2 mg/dL 05/19/2025 7:34 AM EDT [facility] LDl/HDL Ratio 2 0 - 4 05/19/2025 7:34 AM EDT [facility] LDL Cholesterol, Calculated 71 0 - 99 mg/dL 05/19/2025 7:34 AM EDT [facility] Blood Venipuncture / Unknown 05/19/2025 7:06 AM EDT 05/19/2025 7:12 AM EDT Rosa M Rangel MD LAB BLOOD ORDERABLES Final Re sult [facility] [address] [place] [address], [facility] [phone] * (ABNORMAL) Comprehensive metabolic panel (05/19/2025 7:06 AM EDT) Sodium 139 136 - 146 meq/L 05/19/2025 7:34 AM EDT [facility] Potassium 4.1 3.5 - 5.1 meq/L 05/19/2025 7:34 AM [facility] Chloride 110 102 - 112 meq/L 05/19/2025 7:34 AM [facility] CO2 27 21 - 32 meq/L 05/19/2025 7:34 AM [facility] Calcium 9.2 8.5 - 10.1 mg/dL 05/19/2025 7:34 AM [facility] Glucose 145(H) 74 - 100 mg/dL 05/19/2025 7:34 AM [facility] BUN 26(H) 7 - 22 mg/dL 05/19/2025 7:34 AM [facility] Creatinine 1.24(H) 0.55 - 1.02 mg/dL 05/19/2025 7:34 AM [facility] BUN/Creatinine 21(H) 8 - 20 05/19/2025 7:34 AM [facility] Albumin 3.5 3.4 - 5.0 g/dL 05/19/2025 7:34 AM [facility] Alkaline Phosphatase 75 27 - 136 U/L 05/19/2025 7:34 AM [facility] ALT 20 12 - 78 U/L 05/19/2025 7:34 AM [facility] AST 19 5 - 37 U/L 05/19/2025 7:34 AM [facility] Total Bilirubin 0.6 0.2 - 1.3 mg/dL 05/19/2025 7:34 AM [facility] Protein, Total 6.9 6.4 - 8.2 gm/dL 05/19/2025 7:34 AM [facility] Anion Gap 6(L) 9 - 20 05/19/2025 7:34 AM [facility] A/G Ratio 1.0(L) 1.1 - 2.5 05/19/2025 7:34 AM [facility] Globulin 3.4 1.5 - 4.5 g/dL 05/19/2025 7:34 AM [facility] Osmolality Calc 284.9 mOsm/kg 7:34 AM EDT [facility] eGFR (mL/min/1.73m2) 46(L) >=60 mL/min/1.7 3m2 05/19/2025 7:34 AM EDT [facility] Comment:ESTIMATED GFR IS NOT ACCURATE CREATININE CLEARANCE IN PREDICTING GLOMERULAR FILTRATION RATE. ESTIMATED GFR IS NOT APPLICABLE FOR DIALYSIS PATIENTS. Blood Venipuncture / Unknown 05/19/2025 7:06 AM EDT 05/19/2025 7:12 AM EDT us Rosa M Rangel MD LAB BLOOD ORDERABLES Final Re sult [facility] [address] [phone] * (ABNORMAL) CBC with automated diff (05/08/2025 2:14 PM EDT) WBC 8.8 3.9 - 10.0 K/ L 05/08/2025 2:18 PM EDT [facility] RBC 3.98 3.93 - 6.08 M/ L 05/08/2025 2:18 PM EDT [facility] Hemoglobin 12.4 11.2 - 15.7 GM/DL 05/08/2025 2:18 PM EDT [facility] Hematocrit 38.7 34.1 - 44.9 % 05/08/2025 2:18 PM EDT [facility] MCV 97(H) 79 - 95 fL 05/08/2025 2:18 PM EDT [facility] MCH 31.2 25.6 - 32.2 pg 05/08/2025 2:18 PM EDT [facility] MCHC 32.0(L) 32.2 - 36.5 GM/DL 05/08/2025 2:18 PM EDT [facility] RDW 14.4 11.6 - 14.4 % 05/08/2025 2:18 PM EDT [facility] Platelets 195 163 - 369 K/CU MM 05/08/2025 2:18 PM EDT [facility] MPV 10.3 9.4 - 12.4 fL 05/08/2025 2:18 PM EDT [facility] % Neutros 56 34 - 71 % 05/08/2025 2:18 PM EDT [facility] % Lymphs 31 19 - 53 % 05/08/2025 2:18 PM EDT [facility] % Monos 8 4 - 13 % 05/08/2025 2:18 PM EDT [facility] % Eos 4 1 - 7 % 05/08/2025 2:18 PM EDT [facility] % Baso 1 0 - 1 % 05/08/2025 2:18 PM EDT [facility] # Neutros 4.97 1.56 - 6.13 K/ L 05/08/2025 2:18 PM EDT [facility] # Lymphs 2.71 1.18 - 3.74 K/ L 05/08/2025 2:18 PM EDT [facility] # Monos 0.74 0.24 - 0.82 K/ L 05/08/2025 2:18 PM EDT [facility] # Eos 0.32 0.04 - 0.54 K/ L 05/08/2025 2:18 PM EDT [facility] # Baso 0.06 0.01 - 0.08 K/ L 05/08/2025 2:18 PM EDT [facility] Immature Granulocytes-Re lative 0.30 0.00 - 0.60 % 05/08/2025 2:18 PM EDT [facility] # IG 0.03 0.00 - 0.05 K/uL 05/08/2025 2:18 PM EDT [facility] Blood Venipuncture / Unknown 05/08/2025 2:14 PM EDT 05/08/2025 2:14 PM EDT Narrative [facility] - 05/08/2025 2:18 PM EDT [...] ORDERABLES Prema l Result Performing Organization Address City/[facility]/ZIP Co de Phone Number [facility] [address] [phone] * PT/INR, PTT (05/08/2025 2:14 PM EDT) aPTT 23.9 22.0 - 32.0 seconds 05/08/2025 2:34 PM EDT [facility] Protime 10.3 9.0 - 12.0 seconds 05/08/2025 2:34 PM EDT [facility] INR 0.94 0.80 - 1.10 05/08/2025 2:34 PM EDT [facility] Blood Venipuncture / Unknown 05/08/2025 2:14 PM EDT 05/08/2025 2:14 PM EDT Dk Anaya MD LAB BLOOD ORDERABLES Prema l Result Performing Organization Address [facility] Co de Phone Number [facility] [address] [phone] * (ABNORMAL) Basic Metabolic Panel (05/08/2025 2:14 PM EDT) Sodium 141 136 - 146 meq/L 05/08/2025 2:34 PM EDT [facility] Potassium 4.6 3.5 - 5.1 meq/L 05/08/2025 2:34 PM EDT [facility] Chloride 106 102 - 112 meq/L 05/08/2025 2:34 PM EDT [facility] CO2 30 21 - 32 meq/L 05/08/2025 2:34 PM EDT [facility] Anion Gap 10 9 - 20 05/08/2025 2:34 PM EDT [facility] BUN 32(H) 7 - 22 mg/dL 05/08/2025 2:34 PM EDT [facility] Creatinine 1.02 0.55 - 1.02 mg/dL 05/08/2025 2:34 PM EDT [facility] BUN/Creatinine 31(H) 8 - 20 05/08/2025 2:34 PM EDT [facility] Glucose 168(H) 74 - 100 mg/dL 05/08/2025 2:34 PM EDT [facility] Calcium 9.5 8.5 - 10.1 mg/dL 05/08/2025 2:34 PM EDT [facility] Osmolality Calc 292.0 mOsm/kg 2:34 PM EDT [facility] eGFR (mL/min/1.73m2) 58(L) >=60 mL/min/1.7 3m2 05/08/2025 2:34 PM EDT [facility] Comment:eGFR of <60 suggests chronic kidney disease if found over a 3 month period of time. eGFR <15 indicates renal failure. Blood Venipuncture / Unknown 05/08/2025 2:14 PM EDT 05/08/2025 2:14 PM EDT us Dk Anaya MD LAB BLOOD ORDERABLES Prema l Result [facility] [address] [phone] * ECG 12 lead (05/08/2025 11:02 AM EDT) VENTRICULAR RATE EKG/MIN 51 BPM GE MUSE ATRIAL RATE (MCT) 51 BPM GE MUSE [place] Interval 146 ms GE MUSE QRS-INTERVAL (MSEC) 86 ms GE MUSE QT Interval 452 ms GE MUSE QTC Interval 416 ms GE MUSE P [place] 64 degrees GE MUSE R AXIS (MCT) -17 degrees GE MUSE T Wave [place] 100 degrees GE MUSE [place] Diagnosis Sinus bradycardia ST & T wave [...] the next mammogram. At our facility, a afognak marker is positioned over a visible skin [...] Advance Directives For more information, please contact: [phone] * Full Code (Latest Code Status on File) Date Activated Date Inactivated Comments 05/19/2025 10:55 AM 05/19/2025 5:32 PM * Full Code Date Activated Date Inactivated Comments 05/19/2025 5:09 AM 05/19/2025 10:54 AM Care Teams Optometrist Assistant Relationship Specialty Start Date End Date John Rodrigues MD [address] [place] [address] PCP - General Family Medicine 05/19/25
--- OUTSIDE RECORDS SUMMARY | 2025-07-14 10:07 | XMS_ITS | Clinical Summary ---
Author Organization Healthcare Address [address] [place] [address] Care Team Providers Care Plasterer Foreman Name Role Phone Shirin Jasso HAIR COLORIST Primary Care Provider [phone] Family History Medical History Relation Name Comments [...] of Treatment Not on file Care Teams Plasterer Foreman Relationship Specialty Start Date End Date Shirin Jasso, ERIKA [address] [place], [place] [id number] PCP - General 02/25/21
--- OUTSIDE RECORDS SUMMARY | 2025-07-14 10:07 | XMS_ITS | Clinical Summary ---
Author Organization [employer] ([place], [place] Address [address] [place] [address] Care Team Providers Care Bottle Blower Name Role Phone John Rodrigues MD Primary Care Provider +1- [phone] Allergies Active Allergy Reactions Criticality Noted Date [...] Type Department Care Team Description 05/21/2025 Telephone [facility] Surgery Department [address] [place] [address] Carmen Osman 05/19/2025 7:30 AM EDT - 05/19/2025 11:24 AM EDT Surgery [facility] Surgery Department [address] [place] [address] Rosa M Rangel MD LAPAROSCOPY WITH ROBOTIC ASSISTNAE SUPRACERVICAL HYSTERECTOMY, SACRCOLPOPEXY, PARA VAGINAL DEFECT REPAIR 05/19/2025 7:29 AM EDT Anesthesia Event [facility] Surgery Department [address] [place] [address] Nayana Yang CRNA Littles, Joel T, MD 05/19/2025 5:09 AM EDT - 05/19/2025 3:23 PM EDT Hospital Encounter [facility] Surgery Department [address] [place] [address] Rosa M Rangel MD Cystocele, lateral; Uterovaginal prolapse, incomplete; Urge incontinence; Hypermobility of urethra Discharge Disposition: Home or Self Care 05/19/2025 Travel 05/08/2025 10:37 AM EDT - 05/08/2025 11:59 PM EDT Hospital Encounter [facility] Preadmission Testing [address] [facility] [address] [place] [address] Preop examination (Primary Dx); PAF (paroxysmal atrial [...] e alcohol) Family and Community Support Answer Henrán e Recorded Help with Day to Day [...] Info) Description 10/05/2025 11:00 AM EST Appointment [facility] Breast Imaging [address] [facility] [address] [place] [address] John Rodrigues MD [address] [place] [address] Health Maintenance Due Date Last Done Comments [...] Pneumococcal 50+ years (2 of 2 - PPSV23, PCV20, or PCV21) 07/16/2017 05/21/2017 Falls Risk Screening 10/15/2024 Medicare Initial AWV G0438 11/15/2024 COVID-19 VACCINE (3 - 2024-2 6 season) 2025 02/03/2021, 01/06/2021 Influenza Vaccine (#1) 2025 , 07/02/2020, 08/12/2019 Hemoglobin A1C 11/19/2025 05/19/2025, 05/08/2025 Respiratory Syncytial Virus (RSV) Adult or (1 - 1-dose 75+ series) 2026 Tobacco Cessation Counseling and Screening (12+) 05/19/2026 05/19/2025 Breast Cancer Screening 09/29/2026 09/29/20, 05/09/2022, 05/03/2021, Additional history exists Medical Devices Implanted Type Area Drawer Waxer Device Identifier Shelf Expiration Date Model / Serial / Lot Dermis 8x12cm 93-9812 - [id number] Implanted:Qty : 1 on 05/19/2025 by Rosa M Rangel MD at [facility] IMPLANTS N/A: Pelvis COLOPLAST A/S:COLOPLAST 07/14/2029 93-9812 / / [id number] Cord Neox 8.0x3.0 Nx-Ur-[id number] - [id number] Implanted:Qty : 1 on 05/19/2025 by Rosa M Rangel MD at [facility] IMPLANTS N/A: Pelvis BIOTISSUE 09/26/2026 [id number] / Procedures Procedure Name Priority Date/Time Associated [...] - 110 mg/dL 05/19/2025 11:44 AM EDT [facility] Comment: In the event of poor peripheral blood flow, venous or arterial blood should be used due to the potential of erroneous results. Notified Nurse RBV Spinning Bath Person [id number] 05/19/2025 11:44 AM EDT [facility] Blood WHOLE BLOOD / Unknown 05/19/2025 11:42 AM EDT 05/19/2025 11:44 AM EDT Narrative [facility] - 05/19/2025 11:44 AM EDT Spinning Bath Person ID is - [id number] Rosa M Rangel MD POINT OF CARE TEST ORDERABLES Final Result [facility] [address] [place] [address], [facility] [phone] * Tissue Exam (05/19/2025 11:11 AM EDT) Pathologist [facility] AP RESULT See Note: PATHOLOGY AND CYTOLOGY [...] cm and has a grossly unremarkable lumen. Fire Prevention Inspector sections are submitted in 6 cassettes as follows: A1-anterior and posterior lower uterine segment E7-ncvu-ngqcevnaw sections of anterior and posterior endomyometrium A3-right ovary A4-right fallopian tube A5-left ovary A6-left fallopian tube. JTM/RLL Tissue UTERUS, FALLOPIAN TUBES AND OVARIES, CS / Unknown 05/19/2025 11:11 AM EDT us Rosa M Rangel MD PATHOLOGY/CYTOLOGY ORDERABLES Final Result [facility] [address] [place] [address], [facility] * AN SINGLE LUMEN INTUBATION (05/19/2025 7:37 [...] supine Prep: ChloraPrep Patient monitoring: heart rate, spring encaser and continuous pulse ox Block type: TAP [...] with 15cc NS administered bilaterally Nayana Yang FOUNDRY LABORER COREROOM ANESTHESIA ORDERABLES Edite d Result - Final * (ABNORMAL) Hemoglobin A1c (05/19/2025 7:06 AM EDT) Only the most recent of2 resultswithin the time period is included. Hemoglobin A1C 7.2(H) 4.2 - 6.3 % 05/19/2025 7:34 AM EDT [facility] Comment: Hemoglobin A1C levels are related to mean glucose during the preceding 2-3 months. Less than 7% demonstrates glycemic control in diabetic patients. Hemoglobin AlC % Suggested Diagnosis > or = 6.5 Diabetic 5.7 - 6.4 Prediabetic <5.7 Non-diabetic eAVG Glucose 159.94 mg/dL 05/19/2025 7:34 AM EDT [facility] Blood Venipuncture / Unknown 05/19/2025 7:06 AM EDT 05/19/2025 7:12 AM EDT Rosa M Rangel MD LAB BLOOD ORDERABLES Final Re sult [facility] [address] [phone] * (ABNORMAL) Lipid panel (05/19/2025 7:06 AM EDT) Triglycerides 113 0 - 249 mg/dL 05/19/2025 7:34 AM EDT [facility] Cholesterol 134 0 - 199 mg/dL 05/19/2025 7:34 AM EDT [facility] Comment: 200 to 239 mg/dL = Moderate (borderline) >239 mg/dL = High HDL Cholesterol 40 >=40 mg/dL 05/19/2025 7:34 AM EDT [facility] Comment: >=60 mg/dL = Desirable <40 mg/dL = Increased Risk All other components are listed individually or are calculations VLDL Cholesterol 22.6 5 - 40 mg/dL 05/19/2025 7:34 AM EDT [facility] Cholesterol/HDL ratio 3.4(H) 0.0 - 3.2 mg/dL 05/19/2025 7:34 AM EDT [facility] LDl/HDL Ratio 2 0 - 4 05/19/2025 7:34 AM EDT [facility] LDL Cholesterol, Calculated 71 0 - 99 mg/dL 05/19/2025 7:34 AM EDT [facility] Blood Venipuncture / Unknown 05/19/2025 7:06 AM EDT 05/19/2025 7:12 AM EDT us Rosa M Rangel MD LAB BLOOD ORDERABLES Final Re sult [facility] [address] [phone] * (ABNORMAL) Comprehensive metabolic panel (05/19/2025 7:06 AM EDT) Sodium 139 136 - 146 meq/L 05/19/2025 7:34 AM EDT [facility] Potassium 4.1 3.5 - 5.1 meq/L 05/19/2025 7:34 AM EDT [facility] Chloride 110 102 - 112 meq/L 05/19/2025 7:34 AM EDT [facility] CO2 27 21 - 32 meq/L 05/19/2025 7:34 AM EDT [facility] Calcium 9.2 8.5 - 10.1 mg/dL 05/19/2025 7:34 AM EDT [facility] Glucose 145(H) 74 - 100 mg/dL 05/19/2025 7:34 AM [facility] BUN 26(H) 7 - 22 mg/dL 05/19/2025 7:34 AM [facility] Creatinine 1.24(H) 0.55 - 1.02 mg/dL 05/19/2025 7:34 AM [facility] BUN/Creatinine 21(H) 8 - 20 05/19/2025 7:34 AM [facility] Albumin 3.5 3.4 - 5.0 g/dL 05/19/2025 7:34 AM [facility] Alkaline Phosphatase 75 27 - 136 U/L 05/19/2025 7:34 AM [facility] ALT 20 12 - 78 U/L 05/19/2025 7:34 AM [facility] AST 19 5 - 37 U/L 05/19/2025 7:34 AM [facility] Total Bilirubin 0.6 0.2 - 1.3 mg/dL 05/19/2025 7:34 AM [facility] Protein, Total 6.9 6.4 - 8.2 gm/dL 05/19/2025 7:34 AM [facility] Anion Gap 6(L) 9 - 20 05/19/2025 7:34 AM [facility] A/G Ratio 1.0(L) 1.1 - 2.5 05/19/2025 7:34 AM [facility] Globulin 3.4 1.5 - 4.5 g/dL 05/19/2025 7:34 AM [facility] Osmolality Calc 284.9 mOsm/kg 7:34 AM [facility] eGFR (mL/min/1.73m2) 46(L) >=60 mL/min/1.7 3m2 05/19/2025 7:34 AM [facility] Comment:ESTIMATED GFR IS NOT ACCURATE CREATININE CLEARANCE IN PREDICTING GLOMERULAR FILTRATION RATE. ESTIMATED GFR IS NOT APPLICABLE FOR DIALYSIS PATIENTS. Blood Venipuncture / Unknown 05/19/2025 7:06 AM EDT 05/19/2025 7:12 AM EDT us Magdalene Claire MD LAB BLOOD ORDERABLES Final Re sult [facility] [address] [place] [address], [facility] [phone] * (ABNORMAL) CBC with automated diff (05/08/2025 2:14 PM EDT) WBC 8.8 3.9 - 10.0 K/ L 05/08/2025 2:18 PM EDT [facility] RBC 3.98 3.93 - 6.08 M/ L 05/08/2025 2:18 PM EDT [facility] Hemoglobin 12.4 11.2 - 15.7 GM/DL 05/08/2025 2:18 PM EDT [facility] Hematocrit 38.7 34.1 - 44.9 % 05/08/2025 2:18 PM EDT [facility] MCV 97(H) 79 - 95 fL 05/08/2025 2:18 PM EDT [facility] MCH 31.2 25.6 - 32.2 pg 05/08/2025 2:18 PM EDT [facility] MCHC 32.0(L) 32.2 - 36.5 GM/DL 05/08/2025 2:18 PM EDT [facility] RDW 14.4 11.6 - 14.4 % 05/08/2025 2:18 PM EDT [facility] Platelets 195 163 - 369 K/CU MM 05/08/2025 2:18 PM EDT [facility] MPV 10.3 9.4 - 12.4 fL 05/08/2025 2:18 PM EDT [facility] % Neutros 56 34 - 71 % 05/08/2025 2:18 PM EDT [facility] % Lymphs 31 19 - 53 % 05/08/2025 2:18 PM EDT [facility] % Monos 8 4 - 13 % 05/08/2025 2:18 PM EDT [facility] % Eos 4 1 - 7 % 05/08/2025 2:18 PM EDT [facility] % Baso 1 0 - 1 % 05/08/2025 2:18 PM EDT [facility] # Neutros 4.97 1.56 - 6.13 K/ L 05/08/2025 2:18 PM EDT [facility] # Lymphs 2.71 1.18 - 3.74 K/ L 05/08/2025 2:18 PM EDT [facility] # Monos 0.74 0.24 - 0.82 K/ L 05/08/2025 2:18 PM EDT [facility] # Eos 0.32 0.04 - 0.54 K/ L 05/08/2025 2:18 PM EDT [facility] # Baso 0.06 0.01 - 0.08 K/ L 05/08/2025 2:18 PM EDT [facility] Immature Granulocytes-Re lative 0.30 0.00 - 0.60 % 05/08/2025 2:18 PM EDT [facility] # IG 0.03 0.00 - 0.05 K/uL 05/08/2025 2:18 PM EDT [facility] Blood Venipuncture / Unknown 05/08/2025 2:14 PM EDT 05/08/2025 2:14 PM EDT Narrative [facility] - 05/08/2025 2:18 PM EDT [...] MD LAB BLOOD ORDERABLES Prema pham Result [facility] [address] [place], [place] [address] [phone] * PT/INR, PTT (05/08/2025 2:14 PM EDT) aPTT 23.9 22.0 - 32.0 seconds 05/08/2025 2:34 PM EDT [facility] Protime 10.3 9.0 - 12.0 seconds 05/08/2025 2:34 PM EDT [facility] INR 0.94 0.80 - 1.10 05/08/2025 2:34 PM EDT [facility] Blood Venipuncture / Unknown 05/08/2025 2:14 PM EDT 05/08/2025 2:14 PM EDT Dk Anaya MD LAB BLOOD ORDERABLES Prema pham Result [facility] [address] [place] [address] [phone] * (ABNORMAL) Basic Metabolic Panel (05/08/2025 2:14 PM EDT) Sodium 141 136 - 146 meq/L 05/08/2025 2:34 PM EDT [facility] Potassium 4.6 3.5 - 5.1 meq/L 05/08/2025 2:34 PM EDT [facility] Chloride 106 102 - 112 meq/L 05/08/2025 2:34 PM EDT [facility] CO2 30 21 - 32 meq/L 05/08/2025 2:34 PM EDT [facility] Anion Gap 10 9 - 20 05/08/2025 2:34 PM EDT [facility] BUN 32(H) 7 - 22 mg/dL 05/08/2025 2:34 PM EDT [facility] Creatinine 1.02 0.55 - 1.02 mg/dL 05/08/2025 2:34 PM EDT [facility] BUN/Creatinine 31(H) 8 - 20 05/08/2025 2:34 PM EDT [facility] Glucose 168(H) 74 - 100 mg/dL 05/08/2025 2:34 PM EDT [facility] Calcium 9.5 8.5 - 10.1 mg/dL 05/08/2025 2:34 PM EDT [facility] Osmolality Calc 292.0 mOsm/kg 2:34 PM EDT [facility] eGFR (mL/min/1.73m2) 58(L) >=60 mL/min/1.7 3m2 05/08/2025 2:34 PM EDT [facility] Comment:eGFR of <60 suggests chronic kidney disease if found over a 3 month period of time. eGFR <15 indicates renal failure. Blood Venipuncture / Unknown 05/08/2025 2:14 PM EDT 05/08/2025 2:14 PM EDT Dk Anaya MD LAB BLOOD ORDERABLES Prema l Result [facility] [address] [phone] * ECG 12 lead (05/08/2025 11:02 AM EDT) VENTRICULAR RATE EKG/MIN 51 BPM GE MUSE ATRIAL RATE (MCT) 51 BPM GE MUSE [place] Interval 146 ms GE MUSE QRS-INTERVAL (MSEC) 86 ms GE MUSE QT Interval 452 ms GE MUSE QTC Interval 416 ms GE MUSE P [place] 64 degrees GE MUSE R AXIS (MCT) -17 degrees GE MUSE T Wave [place] 100 degrees GE MUSE [place] Diagnosis Sinus bradycardia ST & T wave abnormality, consider lateral ischemia Abnormal ECG Confirmed by Zheng ENRIQUEZ, CONRAD ([id number]) on 05/11/2025 12:29:50 PM GE MUSE 05/08/2025 11:0 2 AM EDT 05/11/2025 12:29 PM EDT Dk Anaya MD ECG ORDERABLES Final Res ult Performing Organization Address City/[facility]/ZIP Co de Phone Number GE MUSE * [...] the next mammogram. At our facility, a standing rock marker is positioned over a visible skin [...] Advance Directives For more information, please contact: [phone] * Full Code (Latest Code Status on File) Date Activated Date Inactivated Comments 05/19/2025 10:55 AM 05/19/2025 5:32 PM * Full Code Date Activated Date Inactivated Comments 05/19/2025 5:09 AM 05/19/2025 10:54 AM Care Teams Bottle Blower Relationship Specialty Start Date End Date John Rodrigues MD [address] [place] [address] PCP - General Family Medicine 05/19/25
--- OUTSIDE RECORDS SUMMARY | 2025-07-14 10:07 | XMS_ITS | Encounter Summary ---
Author Organization [employer] ([place], [place], [place], [place]) Address [address] [place] [address] Care Team Providers Care Perianesthesia Manager Name Role Phone John Rodrigues MD Primary Care Provider +1- [phone] Encounter Details Date Type Department Care Team (Late st Contact Info) Description 08/21/2022 Outside Orders [facility] Central Scheduling [address] [place] [address] Prabhakar Van MD [address] [facility] [address] [place] [address] Social History Tobacco Use Types [...] Description 10/05/2025 11:00 AM EST Appointment [facility] Breast Imaging [address] [facility] [address] [place] [address] John Rodrigues MD [address] [facility] [address] [place] [address] documented as of this encounter Visit Diagnoses Not on filedocumented in this encounter Care Teams Perianesthesia Manager Relationship Specialty Start Date End Date John Rodrigues MD [address] [place] [address] PCP - General Family Medicine 05/19/25 documented as of this encounter
--- OUTSIDE RECORDS SUMMARY | 2025-07-14 10:07 | XMS_ITS | Encounter Summary ---
Author Organization [employer] ([place], [place], [place], [place]) Address [address] [place] [address] Care Team Providers Care Water Quality Tester Name Role Phone John Rodrigues MD Primary Care Provider +1- [phone] Encounter Details Date Type Department Care Team (Late st Contact Info) Description 03/02/2023 Outside Orders [facility] Central Scheduling [address] [place] [address] Prabhakar Van MD [address] [facility] [address] [place] [address] Essential hypertension (Primary Dx) Social [...] Info) Description 10/05/2025 11:00 AM EST Appointment [facility] Breast Imaging [address] [facility] [address] [place] [address] John Rodrigues MD [address] [place] [address] documented as of this encounter Visit Diagnoses Diagnosis Essential hypertension- Primary Unspecified essential hypertension documented in this encounter Care Teams Water Quality Tester Relationship Specialty Start Date End Date John Rodrigues MD [address] [place] [address] PCP - General Family Medicine 05/19/25 documented as of this encounter
--- OUTSIDE RECORDS SUMMARY | 2025-07-14 10:08 | XMS_ITS | Encounter Summary ---
Author Organization [employer] ([place], [place], [place], [place]) Address [address] [place] [address] Care Team Providers Care Physical Therapist Technician Name Role Phone John Rodrigues MD Primary Care Provider +1- [phone] Encounter Details Date Type Department Care Team [...] Date Lizandro rded Speak language other than Singaporean at home Not on file 01/31/2024 Want [...] Info) Description 10/05/2025 11:00 AM EST Appointment [facility] Breast Imaging [address] [place] [address] [address] [place] [address] John Rodrigues MD [address] [place] [address] documented as of this encounter Visit Diagnoses Not on filedocumented in this encounter Care Teams Physical Therapist Technician Relationship Specialty Start Date End Date John Rodrigues MD [address] [place] [address] PCP - General Family Medicine 05/19/25 documented as of this encounter
--- OUTSIDE RECORDS SUMMARY | 2025-07-14 10:08 | XMS_ITS | Encounter Summary ---
Author Organization [employer] ([place], [place], [place], [place]) Address [address] [place] [address] Care Team Providers Care Perl Programmer Name Role Phone John Rodrigues MD Primary Care Provider +1- [phone] Encounter Details Date Type Department Care Team (Late Contact Info) Description 05/21/2025 Telephone [facility] Surgery Department [address] [place] [address] Carmen Osman Social History Tobacco Use [...] Date Lizandro rded Speak language other than [place] Citizen at home Not on file 01/31/2024 Want [...] Info) Description 10/05/2025 11:00 AM EST Appointment [facility] Breast Imaging [address] [facility] [address] [place] [address] John Rodrigues MD [address] [facility] [address] [place] [address] documented as of this encounter Visit Diagnoses Not on filedocumented in this encounter Care Teams Perl Programmer Relationship Specialty Start Date End Date John Rodrigues MD [address] [place] [address] PCP - General Family Medicine 05/19/25 documented as of this encounter
== END 2025-07-13 23:59 ==
LOC: LAB.DROPOF 07-14 10:01
PROVIDERS: PCP Family Medicine; Visit Provider Family Medicine
DX: R39.9 Unspecified symptoms and signs involving the genitourinary system (principal)
CPT/HCPCS: 87086; 87088

== ENCOUNTER 2025-10-05 09:50 | Outpatient (CLI) | payer MEDICARE, SELFPAY ==
--- OUTSIDE RECORDS SUMMARY | 2025-01-17 16:30 | XMS_ITS ---
Author Organization [facility] D [facility] Address [address] [facility] [address] [facility] [address] [place] [address] Care Team Providers Care Dean Of Girls Name Role Phone Srini Cooley Primary Care Provider [phone] Srini Cooley Unavailable Unavailable Migration, Provider Unavailable Unavailable Allergies Allergen (clinical drug ingredient) Drug/Non Drug Allergy documented on EMR Reaction Allergy Type Onset Date Status SULFA (uncoded) Unknown Allergy Acti ve codeine Codeine Unknown Drug Allergy Active tetracycline Tetracycline Unknown Drug Allergy A ctive REASON FOR VISIT [facility] To [facility] Conversion Encounter Medications Medication SIG (Take, Route, Frequency, Duration) Notes Start Date End Date Status metroNIDAZOLE 500 MG 1 tab(s) orally 3 times a day; Duration: 10 day(s) 09/16/2021 Active Pravastatin Sodium 80 MG 1 tab(s) orally once a day; Duration: 90 days Active Euthyrox 100 MCG (0.1 MG) TAKE 1 TABLET BY MOUTH ONCE DAILY; Duration: 90 *Please review and pick correct strength-formulati on from [facility] options. If intended option is not shown, discontinue and re-order from Quick Search* Active Ciprofloxacin HCl 500 MG 1 tab(s) orally every 12 hours; Duration: 10 day(s) 09/16/2021 Active Magnesium Oxide 400 MG 1 tab(s) orally three times a day Active Lisinopril 20 MG 1 tab(s) orally twice a day; Duration: 90 days Active GLUCOMETER NA USE FOR BID FSBS TESTING NA DX: E11.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; Duration: 30 DAYS *Please review for potential replacement for e-prescription and drug interaction check* 01/30/2020 Active metFORMIN HCl 1000 MG 1 tabs orally 2 times a day; Duration: 90 days Active Coreg 6.25 MG 1 tab(s) orally 2 times a day; Duration: 90 Active oxyBUTYnin Chloride ER 5 MG 1 tab(s) orally once a day; Duration: 90 days 12/02/2021 Active Fluticasone Propionate 50 MCG/ACT as directed intranasally once a day; Duration: 30 day(s) 09/22/2019 Active Prevacid 24HR 15 MG 1 cap(s) orally once a day; Duration: 30 day(s) Active TEST STRIPS AND LANCETS NA FOR BID FSBS TESTING NA DX: E11.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; Duration: 30 DAYS *Please review for potential replacement for e-prescription and drug interaction check* 01/30/2020 Active Proctosol HC 2.5 % 1 fransisco applied topically 3 times a day; Duration: 14 day(s) 10/20/2021 Active Tradjenta 5 MG 1 tab po daily; Duration: 30 days 12/12/2021 Active Aspirin 81 MG 1 tab(s) orally once a day; Duration: 30 day(s) 07/27/2020 Active Cetirizine HCl 10 MG 1 tab(s) orally once a day; Duration: 30 day(s) 10/22/2020 Active Meclizine HCl 25 MG 1 tab(s) orally 3 times a day prn vertigo; Duration: 7 day(s) 10/03/2019 Active TrueTrack Test DIRECTED TEST BID *Please review and pick correct strength-formulati on from [employer] options. If intended option is not shown, discontinue and re-order from Quick Search* 03/07/2013 Active Encounters Encounter Location Date Provider Diagnosis [facility] PED HOWIE [address] [place], [place] [address] 01/17/2025 Provider Migration Diverticulitis K57.92 Assessments Encounter Date Diagnosis (ICD Code) Assessment Notes Treatment Notes Treatment Clinical Notes Section Notes 01/17/2025 Diverticulitis (ICD-10 - K57.92) Plan Of Treatment Medication Medication Name Sig Start Date Stop Date Notes metroNIDAZOLE 500 MG 1 tab(s) orally 3 times a day; Duration: 10 day(s) 09/16/2021 Pravastatin Sodium 80 MG 1 tab(s) orally once a day; Duration: 90 days Euthyrox 100 MCG (0.1 MG) TAKE 1 TABLET BY MOUTH ONCE DAILY; Duration: 90 *Please review and pick correct strength-formulation from [employer] options. If intended option is not shown, discontinue and re-order from Quick Search* Ciprofloxacin HCl 500 MG 1 tab(s) orally every 12 hours; Duration: 10 day(s) 09/16/2021 Lisinopril 20 MG 1 tab(s) orally twice a day; Duration: 90 days metFORMIN HCl 1000 MG 1 tabs orally 2 times a day; Duration: 90 days Coreg 6.25 MG 1 tab(s) orally 2 times a day; Duration: 90 Progress Notes * NIKHILJohanna NDOB:1950 ([age] yo F)Acc No.[id number]:01/17/2025 Patient: Johanna GLASGOW Provider: Jesse Whitman :1950 A ge:74 Y S ex:Female Date:01/17/2025 Address:[address] [place] [address], [facility] [id number] Pcp:Srini Cooley Subjective: * Chief Complaints: * [facility] . [facility]. * Medical History: * Medications: T aking Magnesium Oxide 400 MG Tablet 1 tab(s) orally three times a day , Taking TrueTrack Test DIRECTED TEST BID , Notes to Pharmacist: *Please review and pick correct strength-formulation from [facility] options. If intended option is not shown, discontinue and re-order from Quick Search*, Taking Meclizine HCl 25 MG Tablet 1 tab(s) orally 3 times a day prn vertigo , Taking Aspirin 81 MG Tablet Delayed Release 1 tab(s) orally once a day , Taking Cetirizine HCl 10 MG Tablet 1 tab(s) orally once a day , Taking Fluticasone Propionate 50 MCG/ACT Suspension as directed intranasally once a day , Taking Prevacid 24HR 15 MG Capsule Delayed Release 1 cap(s) orally once a day , Taking Proctosol HC 2.5 % Cream 1 fransisco applied topically 3 times a day , Taking Tradjenta 5 MG Tablet 1 tab po daily , Taking TEST STRIPS AND LANCETS NA PER INSURANCE COVERAGE WITH GLUCOMETER FOR BID FSBS TESTING NA DX: E11.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 Objective: * Vitals: Assessment: * Assessment: 1. D iverticulitis - K57.92 Plan: * Treatment: 2. O thers Start metFORMIN HCl Tablet, 1000 MG, 1 tabs, orally, 2 times a day, 90 days, 180 Tablet, Refills 1;?Start Coreg Tablet, 6.25 MG, 1 tab(s), orally, 2 times a day, 90, 180, Refills 1; S tart Lisinopril Tablet, 20 MG, 1 tab(s), orally, twice a day, 90 days, 180 Tablet, Refills 2; S tart Pravastatin Sodium Tablet, 80 MG, 1 tab(s), orally, once a day, 90 days, 90 Tablet, Refills 2; S tart Euthyrox TABLET, 100 MCG (0.1 MG), TAKE 1 TABLET BY MOUTH ONCE DAILY, 90, 90 TABLET, Refills 2, Notes to Pharmacist: *Please review and pick correct strength-formulation from [employer] options. If intended option is not shown, discontinue and re-order from Quick Search*. * * Electronic signature of Vanessa arellano Migration on 10/06/2025 at 12:09 PM EST Sign off status: Pending * Provider: Jesse gaxiola Migration Date: 0 01/17/2025 Generated for Hua gomez/Magdi/Bo on: 12/07/2024 12:09 PM EST
--- OUTSIDE RECORDS SUMMARY | 2025-10-06 12:10 | XMS_ITS | Clinical Summary ---
Author Organization [email or web address] ([place], [place], [place], [place], [place]) Address [address] [place] [address] Care Team Providers Care Housing Court Judge Name Role Phone John Rodrigues MD Primary Care Provider +1- [phone] Allergies Active Allergy Reactions Criticality Noted Date [...] Date Lizandro rded Speak language other than Comoran at home Not on file 01/31/2024 Want [...] Care Team (Late st Contact Info) Description 12/15/2025 11:30 AM EST Appointment [facility] Breast Imaging [address] [facility] [address] [place] [address] John Rodrigues MD [address] [facility] [address] [place] [address] Health Maintenance Due Date Last Done Comments [...] history exists Medical Devices Implanted Type Area Switchboard Troubleshooter Device Identifier Shelf Expiration Date Model / Serial / Lot Dermis 8x12cm 93-9812 - [id number] Implanted:Qty : 1 on 05/19/2025 by Rosa M Rangel MD at [facility] IMPLANTS N/A: Pelvis COLOPLAST A/S:COLOPLAST 07/14/2029 93-9812 / / [id number] Cord Neox 8.0x3.0 [id number]-Ur-[id number] - [id number] Implanted:Qty : 1 on 05/19/2025 by Rosa M Rangel MD at [facility] IMPLANTS N/A: Pelvis BIOTISSUE 09/26/2026 [id number] / Procedures Procedure Name Priority Date/Time Associated Diagnosis Comments HEMOGLOBIN A1C STAT 05/19/2025 7:06 AM EDT MM DIGITAL MAMMO SCREEN WITH RAMONA BILATERAL Routine 09/29/2024 12:03 PM EST Visit for screening mammogram from Last 3 Months or Most Recently Relevant to Health Maintenance Results * (ABNORMAL) Hemoglobin A1c (05/19/2025 7:06 AM EDT) Hemoglobin A1C 7.2(H) 4.2 - 6.3 % 05/19/2025 7:34 AM EDT [facility] Comment: Hemoglobin A1C levels are related to mean glucose during the preceding 2-3 months. Less than 7% demonstrates glycemic control in diabetic patients. Hemoglobin AlC % Suggested Diagnosis > or = 6.5 Diabetic 5.7 - 6.4 Prediabetic <5.7 Non-diabetic eAVG Glucose 159.94 mg/dL 05/19/2025 7:34 AM EDT [facility] Blood Venipuncture / Unknown 05/19/2025 7:06 AM EDT 05/19/2025 7:12 AM EDT Rosa M Rangel MD LAB BLOOD ORDERABLES Final Re sult [facility] [address] [phone] * MM digital mammo screen with ramona [...] the next mammogram. At our facility, a eek marker is positioned over a visible skin [...] Most Recently Relevant to Health Maintenance Insurance [facility] MEDIC[facility] PPO Advance Directives For more information, please contact: [phone] * Full Code (Latest Code Status on File) Date Activated Date Inactivated Comments 05/19/2025 10:55 AM 05/19/2025 5:32 PM * Full Code Date Activated Date Inactivated Comments 05/19/2025 5:09 AM 05/19/2025 10:54 AM Care Teams Housing Court Judge Relationship Specialty Start Date End Date John Rodrigues MD [address] [place] [address] PCP - General Family Medicine 05/19/25
--- OUTSIDE RECORDS SUMMARY | 2025-10-06 12:10 | XMS_ITS | Clinical Summary ---
Author Organization [facility] Address [address] [place] [address] Care Team Providers Care Secondary Market Manager Name Role Phone Shayy Mcgill SEAT PACK INSPECTOR Primary Care Provider + Allergies Active Allergy Reactions Criticality Noted Date [...] Pneumococcal Vaccine 50+ (2 of 2 - PCV20 or PCV21) 05/21/2018 05/21/2017 FECAL OCCULT BLOOD TEST 04/29/2020 04/29/2019 MAMMOGRAM 05/03/2023 05/03/2021, 08/15, 02/06/2018, Additional history exists INFLUENZA VACCINE 05/15/2025 08/05/2021, , 07/02/2020, Additional history exists COVID-19 Vaccine ( - 2 6 season) 2025 01/06/2021 COLONOSCOPY 01/24/2029 01/24/2019 COLORECTAL CANCER SCREENING 01/24/2029 HEMOGLOBIN A1C Discontinued 07/15/2021, 06/0 10/2020, 11/29/2020, Additional history exists Insurance [employer] MEDICARE A & B Care Teams Secondary Market Manager Relationship Specialty Start Date End Date Shayy Mcgill APRN [address] [place] [address] PCP - General Nurse Practitioner 01/20/21
--- OUTSIDE RECORDS SUMMARY | 2025-10-06 12:10 | XMS_ITS | Clinical Summary ---
Author Organization [facility] Address [address] [place] [address] Care Team Providers Care Disaster Recovery Specialist Name Role Phone Shirin Jasso APRN Primary Care Provider [phone] Family History Medical History Relation Name Comments [...] of Treatment Not on file Care Teams Disaster Recovery Specialist Relationship Specialty Start Date End Date Shirin Jasso APRN [id number] PCP - General 02/25/21
--- OUTSIDE RECORDS SUMMARY | 2025-10-06 12:10 | XMS_ITS | Patient Health Record ---
Author Organization [facility] PE [facility] Address [address] [facility] [address] [address] [facility] [address] [place] [address] Care Team Providers Care Utilities Manager Name Role Phone Srini Cooley Primary Care [...] review and pick correct strength-formulati on from Clicks[employer]ide options. If intended option is not shown, [...] review and pick correct strength-formulati on from Clickslide options. If intended option is not shown, [...] specified complication (E11.69) Active confirmed Problem Hyperlipidemia (47070936) Hyperlipidemia, unspecified (E78.5) Active confirmed Problem Hypomagnesemia (847902673) Hypomagnesemia (E83.42) Active confirmed Problem Chronic pain (83150474) Other chronic pain (G89.29) Active confirmed Problem Essential hypertension (89295051) Essential (primary) hypertension (I10) Active confirmed Problem Paroxysmal atrial fibrillation (921879774) Paroxysmal atrial fibrillation (I48.0) Active confirmed Problem Irritable bowel syndrome with diarrhea (327018518) Irritable bowel syndrome with diarrhea (K58.0) Active confirmed Problem Mixed incontinence (793740178) Mixed incontinence (N39.46) Active confirmed Problem Diabetes mellitus (94443671) Diabetes mellitus (E11.9) Active confirmed Problem Vitamin B12 deficiency (non anemic) (57680634) Vitamin B 12 deficiency (E53.8) Active confirmed Problem Gastroesophageal reflux disease (199348254) GERD without esophagitis (K21.9) Active confirmed Problem Seasonal allergy (120018249) Seasonal allergies (J30.2) Active confirmed Problem Diverticulitis (73428428) Diverticulitis (K57.92) Active confirmed Problem 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, 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) Active confirmed Problem Acquired hypothyroidism (222373289) Acquired hypothyroidism (E03.9) Active confirmed Problem Sacroiliitis (76137225) Sacroiliitis (M46.1) Active confirmed Problem Overactive urinary bladder (disorder) (204929217) OAB (overactive bladder) (N32.81) Active confirmed Problem Chronic maxillary sinusitis (07674165) Chronic sinusitis of both maxillary sinuses (J32.0) Active confirmed Problem Acute depression (516389477) Acute depression (F32.9) Active confirmed Problem History of diverticulitis (003768759462642) History of diverticulitis (Z87.19) Active confirmed Problem Arthritis of both knees (7186357800837552) Arthritis of both knees (M17.0) Active confirmed Encounters Encounter Location Date Provider Diagnosis Formerly [facility] [address] [facility] [address] [place] [address] 01/17/2025 Provider Migration Diverticulitis K57.92 Assessments Encounter [...] End Date HUMAN MEDICARE [address] [address] [place] [address] [phone] [id number] Johanna Spivey Self - patient is the insured [employer] [address] [place] [id number] [phone] [id number] Johanna Spivey Self - patient is the [...]
--- OUTSIDE RECORDS SUMMARY | 2025-10-06 12:10 | XMS_ITS | Referral Summary ---
Author Organization [employer] ([place], [place], [place], [place], [place]) Address [address] [place] [address] Care Team Providers Care Supervisor Loading Name Role Phone John Rodrigues MD Primary Care Provider [phone] Allergies Active Allergy Reactions Criticality Noted Date [...] Date Lizandro rded Speak language other than Indian at home Not on file 01/31/2024 Want [...] Info) Description 12/15/2025 11:[address] [facility] [address] [facility] [address] [place] [id number] John Rodrigues MD [address] [facility] [address] [place] [address] Medical Devices Implanted Type Area Group Leader Wafer Polishing Device Identifier Shelf Expiration Date Model / Serial / Lot Dermis 8x12cm [id number] - [id number] Implanted:Qty : 1 on 05/19/2025 by Rosa M Rangel MD at [facility] IMPLANTS N/A: Pelvis COLOPLAST A/S:COLOPLAST 07/14/2029 [id number] / / [id number] Cord Neox 8.0x3.0 [id number] - [id number] Implanted:Qty : 1 on 05/19/2025 by Rosa M Rangel MD at [facility] IMPLANTS N/A: Pelvis BIOTISSUE 09/26/2026 [id number] / Procedures Procedure Name Priority Date/Time Associated [...] Re sult [facility] [address] [place] [address], [facility] [phone] * MM digital mammo screen with ramona [...] the next mammogram. At our facility, a [place] river marker is positioned over a visible skin [...] Most Recently Relevant to Health Maintenance Insurance [facility] MEDICARE PPO Advance Directives For more information, please contact: [phone] * Full Code (Latest Code Status on File) Date Activated Date Inactivated Comments 05/19/2025 10:55 AM 05/19/2025 5:32 PM * Full Code Date Activated Date Inactivated Comments 05/19/2025 5:09 AM 05/19/2025 10:54 AM Care Teams Supervisor Loading Relationship Specialty Start Date End Date John Rodrigues MD [address] [place] [id number] PCP - General Family Medicine 05/19/25
--- OUTSIDE RECORDS SUMMARY | 2025-10-06 12:10 | XMS_ITS ---
Laboratory report Created on: September 15, 2025 NIESHA TEJEDA : 1950 Sex: Female Author Organization Unknown PROBLEMS Problems List Code Description RESULTS Laboratory Orders Date Order Code Test 2024-02-25 [id number] AEROBE ID + SUSC EPT Laboratory Results Date LOINC Test Value Unit Reference Range Interpre tation 2024-02-25 [id number] AEROBE ID + SUSCEPT FINAL A 2024-02-25 86950-5 RESULT 1 ECMS A 2024-02-25 [id number] ANTIMICROBIAL SUSCEPTIBILITY [facility]
== END 2025-10-05 23:59 | disposition home or self-care (01) ==
LOC: LAB.DROPOF 10-06 12:07
PROVIDERS: PCP Family Medicine; Visit Provider Family Medicine
DX: N39.0 Urinary tract infection, site not specified (principal)
CPT/HCPCS: 87086; 87088; 87186